=== PATIENT | male | born 1955 | race Caucasian/White ===

== ENCOUNTER 2016-09-13 07:45 | Observation (INO) | payer MEDICAID ==
[~2016-09-13] VITALS: Ht 182.9 cm; Wt 131.7 kg
[2016-09-13 08:16] LABS: BASO # 0.1 x10^3/uL (0.0-0.2); BASO % 1 % (0-3); EOS % 4 % (0-3); HEMATOCRIT 36.1 % (39.0-53.0); HEMOGLOBIN 11.9 g/dL (13.0-17.5); LYMPH # 1.8 x10^3/uL (1.0-4.8); LYMPH % 23 % (24-48); MEAN CORPUSCULAR HEMOGLOBIN 30 pg (25-35); MEAN CORPUSCULAR HGB CONC 33 g/dL (31-37); MEAN CORPUSCULAR VOLUME 90 fL (79-100); MONO % 7 % (0-9); NEUT % 65 % (31-73); PLATELET COUNT 152 x10^3/uL (140-400); RED CELL DISTRIBUTION WIDTH 13.2 % (11.5-14.5); WHITE BLOOD COUNT 8.1 x10^3/uL (4.0-11.0)
[2016-09-13 08:25] LABS: CALCIUM 9.3 mg/dL (8.5-10.1); CREATININE 1.2 mg/dL (0.7-1.3); GFR 61.6; POTASSIUM 4.5 mmol/L (3.5-5.1)
[2016-09-13 08:32] LABS: DIRECT BILIRUBIN 0.1 mg/dL (0.0-0.2); TOTAL BILIRUBIN 0.4 mg/dL (0.2-1.0); TOTAL PROTEIN 7.3 g/dL (6.4-8.2)
--- NOTE | 2016-09-13 08:36 | RAD ---
EXAM: Head CT without contrast. HISTORY: Seizure. TECHNIQUE: Computed tomographic images of the head were obtained without contrast. COMPARISON: None. FINDINGS: There is no acute or subacute extra-axial or intraparenchymal hemorrhage. There is no mass effect or midline shift. There is no hydrocephalus. There are areas of decreased attenuation within the cerebral white matter, nonspecific and likely related to chronic small vessel disease. There is cerebral and cerebellar volume loss. There is a mucous retention cyst within the left maxillary sinus and mild focal right maxillary sinus mucosal thickening. There is a 2.2 cm nodule within the left anterior maxillary soft tissues. The mastoid air cells are clear. No calvarial lesion is seen. IMPRESSION: 1. Scattered areas of hypodensity within the cerebral white matter, likely due to chronic small vessel disease. 2. Cerebral and cerebellar volume loss. PQRS Compliance Statement: One or more of the following individualized dose reduction techniques were utilized for this examination: 1. Automated exposure control 2. Adjustment of the mA and/or kV according to patient size 3. Use of iterative reconstruction technique
--- NOTE | 2016-09-13 08:37 | RAD ---
EXAM: Chest, single view. HISTORY: Cough. COMPARISON: 09/11/2009. FINDINGS: A frontal view of the chest is obtained. There is no infiltrate, effusion or pneumothorax. The heart is normal in size. IMPRESSION: No acute pulmonary finding.
[2016-09-13] MEDS ORDERED: ONDANSETRON PF 4 MG/2 ML VIAL. IV PRN ×2 (08:45→09:46)
[2016-09-13] MEDS ORDERED: MORPHINE SULFATE 2 MG/ML DISP.SYRIN. IV PRN (08:45)
--- NOTE | 2016-09-13 08:58 | PHYS DOC ---
Past Medical History Past Medical History: CHF, Constipation, Depression, Diabetes-Type II, High Cholesterol, Hypertension, Seizure, Schizophrenia, UTI Additional Past Medical Histor: xtra pyramidal movement disorder, insomnia, chronic pain, dermatitis Past Surgical History: Other Additional Past Surgical Histo: unknown, pt is poor historian Alcohol Use: Heavy Drug Use: Marijuana Adult General Chief Complaint Chief Complaint: SEIZURE HPI HPI 60-year-old male presenting to the emergency department today with an episode at his rehabilitation [facility] in [place] where he had fulminant and shaking of his upper and lower extremities and loss of consciousness. This lasted for about 30 seconds and then the patient was confused afterwards. [facility] staff reports that yesterday he was oriented 4. Today he is only oriented to person. He reports that he was pale after the event which improved prior to the ambulance getting there. Onset today Location generalized Duration once No alleviating factors present. Review of Systems Review of Systems ROS negative for fevers chills abdominal pain nausea vomiting. He denies meningismus or neck stiffness. All other review of systems is negative unless otherwise noted in history of present illness. Allergies Allergies Allergies Coded Allergies Type Severity Reaction Last Updated Verified No Known Drug Allergies 09/13/16 No Physical Exam Physical Exam Constitutional: Well developed, well nourished, no acute distress, non-toxic appearance. HENT: Normocephalic, atraumatic, bilateral external ears normal, oropharynx moist, no oral exudates, nose normal. [] Eyes: PERRLA, EOMI, conjunctiva normal, no discharge. Neck: Normal range of motion, no tenderness, supple, no stridor. [] Cardiovascular:Heart rate regular rhythm, no murmur Lungs & Thorax: Bilateral breath sounds clear to auscultation [] Abdomen: Bowel sounds normal, soft, no tenderness, no masses, no pulsatile masses. [] Skin: Warm, dry, no erythema, no rash. Back: No tenderness, no CVA tenderness. Extremities: No tenderness, no cyanosis, no clubbing, ROM intact, no edema. [] Neurologic: Alert and oriented to person, normal motor function, normal sensory function, no focal deficits noted. Psychologic: Affect normal, judgement normal, mood normal. [] Current Patient Data Vital Signs Vital Signs Date Time Temp Pulse Resp B/P Pulse Ox O2 Delivery O2 Flow Rate FiO2 09/13/16 07:45 97.6 72 12 150/78 93 Room Air 97.6 Lab Values Laboratory Tests Test 09/13/16 07:50 White Blood Count 8.1x10^3/uL (4.0-11.0) Red Blood Count 4.00x10^6/uL (4.30-5.70) L Hemoglobin 11.9g/dL (13.0-17.5) L Hematocrit 36.1% (39.0-53.0) L Mean Corpuscular Volume 90fL (79-100) Mean Corpuscular Hemoglobin 30pg (25-35) Mean Corpuscular Hemoglobin Concent 33g/dL (31-37) Red Cell Distribution Width 13.2% (11.5-14.5) Platelet Count 152x10^3/uL (140-400) Neutrophils (%) (Auto) 65% (31-73) Lymphocytes (%) (Auto) 23% (24-48) L Monocytes (%) (Auto) 7% (0-9) Eosinophils (%) (Auto) 4% (0-3) H Basophils (%) (Auto) 1% (0-3) Neutrophils # (Auto) 5.3x10^3uL (1.8-7.7) Lymphocytes # (Auto) 1.8x10^3/uL (1.0-4.8) Monocytes # (Auto) 0.6x10^3/uL (0.0-1.1) Eosinophils # (Auto) 0.3x10^3/uL (0.0-0.7) Basophils # (Auto) 0.1x10^3/uL (0.0-0.2) Sodium Level 140mmol/L (136-145) Potassium Level 4.5mmol/L (3.5-5.1) Chloride Level 103mmol/L (98-107) Carbon Dioxide Level 24mmol/L (21-32) Anion Gap 13 (6-14) Blood Urea Nitrogen 15mg/dL (8-26) Creatinine 1.2mg/dL (0.7-1.3) Estimated GFR (Cockcroft-Gault) 61.6 Glucose Level 211mg/dL (70-99) H Lactic Acid Level 2.4mmol/L (0.4-2.0) H Calcium Level 9.3mg/dL (8.5-10.1) Total Bilirubin 0.4mg/dL (0.2-1.0) Direct Bilirubin 0.1mg/dL (0.0-0.2) Aspartate Amino Transferase (AST) 29U/L (15-37) Alanine Aminotransferase (ALT) 50U/L (16-63) Alkaline Phosphatase 56U/L (46-116) Troponin I Quantitative < 0.017ng/mL (0.000-0.055) AN-Wiq-T-Type Natriuretic Peptide 45pg/mL (0-124) Total Protein 7.3g/dL (6.4-8.2) Albumin 4.0g/dL (3.4-5.0) Lipase 2509U/L (73-393) H Laboratory Tests 09/13/16 07:50 Laboratory Tests 09/13/16 07:50 EKG EKG [] EKG shows sinus rhythm with regular rate. Mildly leftward axis. Intervals normal. ST segments congruent Radiology/Procedures Radiology/Procedures Head CT and chest x-ray unremarkable. Course & Med Decision Making Course & Med Decision Making Pertinent Labs and Imaging studies reviewed. (See chart for details) [] 60-year-old male presenting to the emergency department today with seizure- like activity and postictal confusion. On evaluation the patient's vital signs showed afebrile satting well with mild hypertension. Physical exam showed that he was only oriented to person which by report of [facility] is not baseline for the patient. Head CT unremarkable. EKG unremarkable chest x- ray unremarkable. Blood work otherwise obtained which showed mild anemia and hyperglycemia. Lactic acid elevated consistent with seizure-like activity. The patient's lipase was elevated at 2500. This is not consistent with the patient' s presentation. He denies abdominal pain nausea vomiting. He has not vomited in the exam room during his emergency department course. Given the patient's significant symptoms she was admitted for further evaluation workup and care. Dragon Disclaimer Dragon Disclaimer This electronic medical record was generated, in whole or in part, using a voice recognition dictation system. Departure Departure Impression: Primary Impression: Seizure-like activity Disposition: ADMITTED INPATIENT Admitting Physician: Theresa Marshall Condition: STABLE Referrals: NO PCP (PCP) CORINA LUO MD Sep 13, 2016 08:58
--- NOTE | 2016-09-13 09:17 | ACF ---
Admission Forms Criteria SEIZURE Clinical Indications for Admission to Inpatient Care (Place 'X' for any and all applicable criteria): Admission is indicated for seizure and ANY ONE of the following(1)(2)(3)(4)(5): [X]I. Inpatient admission required rather than observation care (Also use Seizure: Observation Care Criteria as appropriate) because of ANY ONE of the following: [ ]a) Altered mental status that is severe or persistent [ ]b) New focal neurologic deficit that is severe or persistent [ ]c) Metabolic disorder (eg, hypoglycemia, hyponatremia) that is severe or persistent [ ]d) Recurrent seizure [ ]e) Outpatient antiseizure regimen cannot be established (eg , patient cannot tolerate medication, initiation requires inpatient care) [ ]f) Need for ongoing intravenous infusion of antiseizure medication [ ]g) Cardiac arrhythmias of immediate concern [ ]h) Cerebral bleeding, hydrocephalus, or vasospasm monitoring (14) [ ]i) Increased intracranial pressure or cerebral edema monitoring (15) [X]j) Other treatment or monitoring requiring inpatient admission [ ]II. Status epilepticus [A] or repetitive seizures not controlled with emergent treatment (6)(8) [ ]III. Brain disorder (eg, tumor, edema, and hydrocephalus) that requiring monitoring or intervention available only at inpatient level of care. [ ]IV. Brain insult (eg, severe trauma, stroke, drug toxicity, or withdrawal) that requires monitoring or intervention available only at inpatient level of care (10)(11) Extended stay beyond goal length of stay may be needed for (22) [ ]a) Complications of status epilepticus [ ]b) Refractory status epilepticus [ ]c) Etiology-specific therapy for conditions such as VICE CHANCELLOR infection, head injury,eclampsia, severe metabolic abnormalities, and brain tumor [ ]d) Residual neurologic damage, [ ]e) Initiation of significant change to anticonvulsant treatment [ ]f) Older patients (65 years or older) [ ]g) Patient requiring intubation (eg, to protect airway) The original [employer] content created by [employer] has been revised. The portions of the content which have been revised are identified through the use of italic text or in bold, and [facility] [employer] has neither reviewed nor approved the modified material. All other unmodified content is copyright [facility] [employer]. Please see references footnoted in the original [facility] edition 2016 Admission Criteria Met?: Yes JAILENE MCLAUGHLIN Sep 13, 2016 09:17
[2016-09-13 09:41] LABS: BILIRUBIN,URINE NEGATIVE (NEG); GLUCOSE,URINE 250 mg/dL (NEG); NITRITE,URINE NEGATIVE (NEG); UROBILINOGEN,URINE 0.2 mg/dL (0.2 mg/dL)
[2016-09-13 09:58] LABS: BACTERIA,URINE 0 /HPF (0-FEW); PROTEIN,URINE NEGATIVE (NEG-TRACE); RBC,URINE 0 /HPF (0-2); SQUAMOUS EPITHELIAL CELL,UR MOD /LPF
[2016-09-13] MEDS ORDERED: ACETAMINOPHEN 500 MG TABLET PO PRN (10:00)
[2016-09-13] MEDS ORDERED: HYDROCODONE/APAP 5/325MG TABLET. PO PRN (10:00)
[2016-09-13] MEDS ORDERED: DEXTROSE 50% 25 GM / 50ML DISP.SYRIN. IV PRN (10:00)
[2016-09-13 10:30] VITALS: BP 151/82
[2016-09-13 10:35] VITALS: BP 151/82
--- NOTE | 2016-09-13 10:48 | PDOC1 ---
History and Physical Date of Admission Date of Admission DATE: 09/13/16 TIME: 10:42 Identification/Chief Complaint Chief Complaint sent by SN[facility] staff bec of reports of SZ or SZ like activity Source Source: Caregiver, Chart review, Patient History of Present Illness History of Present Illness 60 y.o poor historian, maybe baseline confused and is still confused. Hx obtained from RN and ER MD. Apparently lives in SNU in [place], brought by staff bec of concerns of SZ or SZ like activity. Pt cant tell me hat happened, NOT on SZ meds on OCT,. HE thinks Lonnie is the president and it is 2011. The most he can tell me is his date of and that his outgrowth on his left cheek has been there long time, HE claims he ambulates with walker in SNU LAbs ok except for lactate 2.4 and lipase 2500, Pt denies any abd pain, abd is benign, pt is hungry Past Medical History Past Medical History UNable to obtain bec of confusion, home meds still pending Past Surgical History Past Surgical History Unable to obtain bec of confusion Family History Family History Unable to obtain bec of confusion Social History Smoke: No ALCOHOL: none Drugs: None Current Problem List Problem List Problems Medical Problems: (1) Seizure-like activity Status: Acute Problems: Current Medications Current Medications Current Medications Ondansetron HCl (Zofran) 4 mg PRN Q8HRS PRN IV NAUSEA/VOMITING; Start 09/13/16 at 08:45; Stop 09/13/16 at 09:48; Status DC Morphine Sulfate 2 mg PRN Q2HR PRN IV PAIN; Start 09/13/16 at 08:45; Stop 09/14 at 08:44 Ondansetron HCl (Zofran) 4 mg PRN Q6HRS PRN IV NAUSEA/VOMITING; Start 09/13/16 at 09:46 Acetaminophen (Tylenol) 500 mg PRN Q6HRS PRN PO MILD PAIN / TEMP; Start at 10:00 Insulin Aspart (Novolog) 0-9 UNITS TIDWMEALS SQ ; Start 09/13/16 at 12:00 Dextrose 12.5 gm PRN Q15MIN PRN IV SEE COMMENTS; Start 09/13/16 at 10:00 Acetaminophen/ Hydrocodone Bitart (Lortab 5/325) 1 tab PRN Q4HRS PRN PO PAIN; Start 09/13/16 at 10:00 Allergies Allergies: Coded Allergies: No Known Drug Allergies (Unverified , 09/13/16) ROS Review of System Unable to obtain bec of confusion Physical Exam General: Alert, Cooperative, Other (oriented to place and self only) HEENT: Atraumatic, PERRLA Lungs: Clear to auscultation, Normal air movement Heart: S1S2, RRR, no thrills, no rubs, no gallops, no murmurs Cardiovascular: S1, S2 Abdomen: Normal bowel sounds, Soft, No tenderness, No hepatosplenomegaly, No masses Male Genitals Exam: normal genitalia Rectal Exam: not examined Extremities: No clubbing, No cyanosis, No edema, Normal pulses, No tenderness/ swelling Skin: No rashes, No breakdown, No significant lesion Psych/Mental Status: Other (flat affect?) Vitals Vitals Vital Signs Date Time Temp Pulse Resp B/P Pulse Ox O2 Delivery O2 Flow Rate FiO2 09/13/16 09:00 83 15 142/78 99 09/13/16 07:45 97.6 Room Air 97.6 Labs Labs Laboratory Tests Test 09/13/16 07:50 09/13/16 09:29 White Blood Count 8.1x10^3/uL (4.0-11.0) Red Blood Count 4.00x10^6/uL (4.30-5.70) Hemoglobin 11.9g/dL (13.0-17.5) Hematocrit 36.1% (39.0-53.0) Mean Corpuscular Volume 90fL (79-100) Mean Corpuscular Hemoglobin 30pg (25-35) Mean Corpuscular Hemoglobin Concent 33g/dL (31-37) Red Cell Distribution Width 13.2% (11.5-14.5) Platelet Count 152x10^3/uL (140-400) Neutrophils (%) (Auto) 65% (31-73) Lymphocytes (%) (Auto) 23% (24-48) Monocytes (%) (Auto) 7% (0-9) Eosinophils (%) (Auto) 4% (0-3) Basophils (%) (Auto) 1% (0-3) Neutrophils # (Auto) 5.3x10^3uL (1.8-7.7) Lymphocytes # (Auto) 1.8x10^3/uL (1.0-4.8) Monocytes # (Auto) 0.6x10^3/uL (0.0-1.1) Eosinophils # (Auto) 0.3x10^3/uL (0.0-0.7) Basophils # (Auto) 0.1x10^3/uL (0.0-0.2) Sodium Level 140mmol/L (136-145) Potassium Level 4.5mmol/L (3.5-5.1) Chloride Level 103mmol/L (98-107) Carbon Dioxide Level 24mmol/L (21-32) Anion Gap 13 (6-14) Blood Urea Nitrogen 15mg/dL (8-26) Creatinine 1.2mg/dL (0.7-1.3) Estimated GFR (Cockcroft-Gault) 61.6 Glucose Level 211mg/dL (70-99) Lactic Acid Level 2.4mmol/L (0.4-2.0) Calcium Level 9.3mg/dL (8.5-10.1) Total Bilirubin 0.4mg/dL (0.2-1.0) Direct Bilirubin 0.1mg/dL (0.0-0.2) Aspartate Amino Transf (AST/SGOT) 29U/L (15-37) Alanine Aminotransferase (ALT/SGPT) 50U/L (16-63) Alkaline Phosphatase 56U/L (46-116) Troponin I Quantitative < 0.017ng/mL (0.000-0.055) JY-Atw-E-Type Natriuretic Peptide 45pg/mL (0-124) Total Protein 7.3g/dL (6.4-8.2) Albumin 4.0g/dL (3.4-5.0) Lipase 2509U/L (73-393) Urine Collection Type Void Urine Color Yellow Urine Clarity Clear Urine pH 6.0 Urine Specific [place] 1.020 Urine Protein Negativemg/dL (NEG-TRACE) Urine Glucose (UA) 250mg/dL (NEG) Urine Ketones (Stick) Negativemg/dL (NEG) Urine Blood Negative (NEG) Urine Nitrite Negative (NEG) Urine Bilirubin Negative (NEG) Urine Urobilinogen Dipstick 0.2mg/dL (0.2 mg/dL) Urine Leukocyte Esterase Negative (NEG) Urine RBC 0/HPF (0-2) Urine WBC 1-4/HPF (0-4) Urine Squamous Epithelial Cells Mod/LPF Urine Bacteria 0/HPF (0-FEW) Laboratory Tests Test 09/13/16 07:50 09/13/16 09:29 White Blood Count 8.1x10^3/uL (4.0-11.0) Red Blood Count 4.00x10^6/uL (4.30-5.70) Hemoglobin 11.9g/dL (13.0-17.5) Hematocrit 36.1% (39.0-53.0) Mean Corpuscular Volume 90fL (79-100) Mean Corpuscular Hemoglobin 30pg (25-35) Mean Corpuscular Hemoglobin Concent 33g/dL (31-37) Red Cell Distribution Width 13.2% (11.5-14.5) Platelet Count 152x10^3/uL (140-400) Neutrophils (%) (Auto) 65% (31-73) Lymphocytes (%) (Auto) 23% (24-48) Monocytes (%) (Auto) 7% (0-9) Eosinophils (%) (Auto) 4% (0-3) Basophils (%) (Auto) 1% (0-3) Neutrophils # (Auto) 5.3x10^3uL (1.8-7.7) Lymphocytes # (Auto) 1.8x10^3/uL (1.0-4.8) Monocytes # (Auto) 0.6x10^3/uL (0.0-1.1) Eosinophils # (Auto) 0.3x10^3/uL (0.0-0.7) Basophils # (Auto) 0.1x10^3/uL (0.0-0.2) Sodium Level 140mmol/L (136-145) Potassium Level 4.5mmol/L (3.5-5.1) Chloride Level 103mmol/L (98-107) Carbon Dioxide Level 24mmol/L (21-32) Anion Gap 13 (6-14) Blood Urea Nitrogen 15mg/dL (8-26) Creatinine 1.2mg/dL (0.7-1.3) Estimated GFR (Cockcroft-Gault) 61.6 Glucose Level 211mg/dL (70-99) Lactic Acid Level 2.4mmol/L (0.4-2.0) Calcium Level 9.3mg/dL (8.5-10.1) Total Bilirubin 0.4mg/dL (0.2-1.0) Direct Bilirubin 0.1mg/dL (0.0-0.2) Aspartate Amino Transf (AST/SGOT) 29U/L (15-37) Alanine Aminotransferase (ALT/SGPT) 50U/L (16-63) Alkaline Phosphatase 56U/L (46-116) Troponin I Quantitative < 0.017ng/mL (0.000-0.055) QG-Fma-T-Type Natriuretic Peptide 45pg/mL (0-124) Total Protein 7.3g/dL (6.4-8.2) Albumin 4.0g/dL (3.4-5.0) Lipase 2509U/L (73-393) Urine Collection Type Void Urine Color Yellow Urine Clarity Clear Urine pH 6.0 Urine Specific [place] 1.020 Urine Protein Negativemg/dL (NEG-TRACE) Urine Glucose (UA) 250mg/dL (NEG) Urine Ketones (Stick) Negativemg/dL (NEG) Urine Blood Negative (NEG) Urine Nitrite Negative (NEG) Urine Bilirubin Negative (NEG) Urine Urobilinogen Dipstick 0.2mg/dL (0.2 mg/dL) Urine Leukocyte Esterase Negative (NEG) Urine RBC 0/HPF (0-2) Urine WBC 1-4/HPF (0-4) Urine Squamous Epithelial Cells Mod/LPF Urine Bacteria 0/HPF (0-FEW) VTE Prophylaxis Ordered VTE Prophylaxis Devices: Yes VTE Pharmacological Prophylaxi: Yes Assessment/Plan Assessment/Plan 1. Acute vs chronic encephalopathy 2 reports of SZ like activity in SNU 3. SNU resident 4. Elevated lactate 5. Elevated lipase but no abdominal pain PLAN:" Ok for reg diet IVF Recheck lipase and lactate jareth Consult neuro PT/OT Dvt prophy Awaiting home meds from SNU Hemant RN at bedside TERI LOWE MD Sep 13, 2016 10:48
[2016-09-13] MEDS ORDERED: GLYB5TAB3 PO (11:10)
[2016-09-13] MEDS ORDERED: VENL150C PO (11:10)
[2016-09-13] MEDS ORDERED: MULT-245 PO (11:11)
[2016-09-13] MEDS ORDERED: INSU100V13 SQ (11:11)
[2016-09-13] MEDS ORDERED: QUET400T4 PO (11:11)
[2016-09-13] MEDS ORDERED: LISI10TA2 PO (11:11)
[2016-09-13] MEDS ORDERED: SIMV40TA3 PO (11:13)
[2016-09-13] MEDS ORDERED: TRAZ100T12 PO (11:13)
[2016-09-13] MEDS ORDERED: ACETAMINOPHEN 325 MG TABLET. PO PRN (11:15)
[2016-09-13] MEDS ORDERED: MAGNESIUM HYDROXIDE 2,400 MG/30 ML ORAL.SUSP. PO PRN (11:15)
[2016-09-13] MEDS ORDERED: EZET1TAB4 PO (11:16)
[2016-09-13] MEDS ORDERED: CETI10TA22 PO (11:16)
[2016-09-13] MEDS ORDERED: SENN1TAB37 PO (11:16)
[2016-09-13] MEDS ORDERED: HALO5TAB PO (11:16)
[2016-09-13] MEDS ORDERED: METF10002 PO (11:16)
[2016-09-13] MEDS ORDERED: IPRA3AMP NEB (11:22)
[2016-09-13] MEDS ORDERED: GABA-587 PO (11:22)
[2016-09-13] MEDS ORDERED: ACET325T21 PO (11:22)
[2016-09-13] MEDS ORDERED: OMEG1CAP38 PO (11:22)
[2016-09-13] MEDS ORDERED: MAGN400O4 PO (11:22)
[2016-09-13] MEDS ORDERED: GUAI-297 PO (11:22)
[2016-09-13] MEDS ORDERED: NICO4GUM3 BC (11:24)
[2016-09-13] MEDS ORDERED: CRAN1CAP PO (11:24)
[2016-09-13] MEDS ORDERED: ASPI81TA2 PO (11:24)
[2016-09-13] MEDS: IV NORMAL SALINE 1000ML BAG 1,000 ML IV SCH (11:30)
[2016-09-13] MEDS ORDERED: GUAIFENESIN DM 200MG/20MG 10 ML SYRUP. PO PRN (11:45)
--- NOTE | 2016-09-13 11:45 | EKG ---
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
[2016-09-13] MEDS: INSULIN ASPART 300 UNITS/3 ML INSULN.PEN SQ SCH ×2 (12:00→16:39)
[2016-09-13] MEDS: SENNOSIDES/DOCUSATE 8.6/50MG TABLET. PO SCH (12:30)
[2016-09-13] MEDS: INSULIN DETEMIR 300 UNITS/3 ML INSULN.PEN. SQ SCH (12:30)
[2016-09-13] MEDS: IPRATRPIUM/ALBUTEROL 0.5/2.5MG 3 ML NEBU. NEB SCH ×3 (13:00→19:29)
[2016-09-13] MEDS: ASPIRIN 81 MG TAB.CHEW PO SCH (13:01)
[2016-09-13] MEDS: OMEGA-3 FATTY ACIDS/FISH OIL 1,000 MG CAPSULE. PO SCH (13:01)
[2016-09-13] MEDS: LISINOPRIL 10 MG TABLET PO SCH (13:02)
[2016-09-13] MEDS: VENLAFAXINE 50 MG TABLET. PO SCH ×2 (13:02→19:45)
[2016-09-13] MEDS: HALOPERIDOL 5 MG TABLET PO SCH ×2 (13:02→19:46)
[2016-09-13] MEDS: CETIRIZINE HCL 10 MG TABLET PO SCH (13:03)
[2016-09-13] MEDS: ENOXAPARIN 40 MG/0.4 ML DISP.SYRIN. SQ SCH (13:03)
[2016-09-13] MEDS: GLYBURIDE 5 MG TABLET PO SCH (13:04)
[2016-09-13] MEDS: GABAPENTIN 400 MG CAPSULE. PO SCH ×2 (13:04→19:46)
[2016-09-13 15:32] VITALS: BP 152/80
[2016-09-13] MEDS: METFORMIN 1,000 MG TABLET PO SCH (16:02)
--- NOTE | 2016-09-13 16:17 | PDOC2 ---
CONSULT Date of Consult Date of Consult DATE: 09/13/16 TIME: 16:15 History of Present Illness Reason for Visit: This patient is 60-year-old male with past medical history of multiple medical problems with a history of hypertension, seizures, schizophrenia, depression, congestive heart failure,, constipation, insomnia. Patient is a poor historian information obtained from staff and record review. Patient came from [facility]. He was having shaking in his upper and lower extremities has loss of consciousness patient was confused afterwards. Patient consent. Appears to be at their baseline. No new seizure activity. Encephalopathy with history of multiple medical problems Patient denies any new complaints. Keppta 500 mg twice a day MRI brain to rule out any acute process EEG as outpatient Continue medical management Seizure precautions Social History No ALCOHOL: none Drugs: None Current Problem List Problem List Problems Medical Problems: (1) Seizure-like activity Status: Acute Current Medications Current Medications Current Medications Ondansetron HCl (Zofran) 4 mg PRN Q8HRS PRN IV NAUSEA/VOMITING; Start 09/13/16 at 08:45; Stop 09/13/16 at 09:48; Status DC Morphine Sulfate 2 mg PRN Q2HR PRN IV PAIN; Start 09/13/16 at 08:45; Stop 09/14 at 08:44 Ondansetron HCl (Zofran) 4 mg PRN Q6HRS PRN IV NAUSEA/VOMITING; Start 09/13/16 at 09:46 Acetaminophen (Tylenol) 500 mg PRN Q6HRS PRN PO MILD PAIN / TEMP; Start at 10:00; Stop 09/13/16 at 14:32; Status DC Insulin Aspart (Novolog) 0-9 UNITS TIDWMEALS SQ ; Start 09/13/16 at 12:00 Dextrose 12.5 gm PRN Q15MIN PRN IV SEE COMMENTS; Start 09/13/16 at 10:00 Acetaminophen/ Hydrocodone Bitart 1 tab 1 tab PRN Q4HRS PRN PO MODERATE - SEVERE PAIN; Start 09/13/16 at 10:00 Sodium Chloride (Iv Sodium Chloride 0.9% 1000ml Bag) 1,000 ml @ 100 mls/hr Q10H IV Last administered on 09/13/16t 11:30; Start 09/13/16 at 11:30 Enoxaparin Sodium (Lovenox 40mg Syringe) 40 mg Q24H SQ Last administered on 13:03; Start 09/13/16 at 12:00 Acetaminophen (Tylenol) 325 mg PRN Q4HRS PRN PO MILD PAIN / TEMP; Start at 11:15 Aspirin (Children'S Aspirin) 81 mg DAILY PO Last administered on 09/13/16 13: 01; Start 09/13/16 at 12:30 Cetirizine HCl (Zyrtec) 10 mg DAILY08 PO Last administered on 09/13/16 13:03; Start 09/13/16 at 12:30 Gabapentin (Neurontin) 400 mg TID PO Last administered on 09/13/16 13:04; Start 09/13/16 at 14:00 Glyburide (Diabeta) 5 mg DAILY08 PO Last administered on 09/13/16 13:04; Start 09/13/16 at 12:30 Haloperidol (Haldol) 5 mg BID PO Last administered on 09/13/16 13:02; Start at 12:30 Albuterol/ Ipratropium (Duoneb) 3 ml QID NEB ; Start 09/13/16 at 13:00 Lisinopril (Prinivil) 10 mg DAILY PO Last administered on 09/13/16 13:02; Start 09/13/16 at 12:30 Magnesium Hydroxide (Milk Of Magnesia) 400 mg PRN QAM PRN PO CONSTIPATION; Start 09/13/16 at 11:15 Metformin HCl (Glucophage) 1,000 mg BIDWMEALS PO ; Start 09/13/16 at 17:00 Senna/Docusate Sodium (Senna Plus) 1 tab DAILY08 PO ; Start 09/13/16 at 12:30 Simvastatin (Zocor) 40 mg QHS PO ; Start 09/13/16 at 21:00 Trazodone HCl (Desyrel) 100 mg QHS PO ; Start 09/13/16 at 21:00 EZETIMIBE (Zetia) 10 mg QHS PO ; Start 09/13/16 at 21:00 Guaifenesin (Robitussin Dm) 10 ml PRN Q6HRS PRN PO COUGH; Start 09/13/16 at 11: 45 Insulin Detemir (Levemir) 10 units DAILY08 SQ ; Start 09/13/16 at 12:30 Fish Oil (Fish Oil) 1,000 mg DAILY PO Last administered on 09/13/16 13:01; Start 09/13/16 at 12:30 Quetiapine Fumarate (SEROquel) 400 mg QHS PO ; Start 09/13/16 at 21:00 Venlafaxine HCl (Effexor) 50 mg TID PO Last administered on 09/13/16 13:02; Start 09/13/16 at 14:00 Levetiracetam (Keppra) 500 mg BID PO ; Start 09/13/16 at 17:00 Active Scripts Active Reported Cranberry Concentrate Softgel (Cranberry Conc/Ascorbic Acid) 1 Each Capsule 1 Each PO Aspirin 81 Mg Tab.chew 1 Tab PO DAILY Nicotine Gum (Nicotine Polacrilex) 4 Mg Gum 4 Mg BC Milk Of Magnesia (Magnesium Hydroxide) 400 Mg/5 Ml Oral.susp 400 Mg PO PRN Duoneb 0.5-3(2.5) Mg/3 Ml (Albuterol/Ipratropium) 3 Ml Ampul.neb 3 Ml NEB QID Acetaminophen 325 Mg Tablet 325 Mg PO PRN Robitussin Cough-Chest Dm Liq (Guaifenesin/Dextromethorphan) 118 Ml Liquid 10 Ml PO QID 7 Days [place] 3 Fish Oil Softgel ([place]-3 Fatty Acids/Fish Oil) 1 Each Capsule. 1 Each PO DAILY Gabapentin 400 Mg Capsule 400 Mg PO TID Sennosides-Docusate Sodium Tab (Sennosides/Docusate Sodium) 1 Each Tablet 6-50 Each PO Metformin Hcl 1,000 Mg Tablet 1 Tab PO BID Haloperidol 5 Mg Tablet 5 Tab PO BID Zyrtec (Cetirizine Hcl) 10 Mg Tablet 1 Tab PO DAILY08 Vytorin 10-20 Mg Tablet (Ezetimibe/Simvastatin) 1 Each Tablet 1 Tab PO DAILY Trazodone Hcl 100 Mg Tablet 2 Tab PO QHS Simvastatin 40 Mg Tablet 1 Tab PO QHS Seroquel (Quetiapine Fumarate) 400 Mg Tablet 400 Tab PO QHS Multi Vitamin Daily (Multivitamin) 1 Each Tablet 1 Each PO Lisinopril 10 Mg Tablet 1 Tab PO DAILY Levemir (Insulin Detemir) 100 Unit/1 Ml Vial 10 Unit SQ DAILY08 Glyburide 5 Mg Tablet 2 Tab PO DAILY08 Effexor Xr (Venlafaxine Hcl) 150 Mg Cap.er.24h 1 Cap PO DAILY Allergies Allergies: Coded Allergies: No Known Drug Allergies (Unverified , 09/13/16) Physical Exam Physical Exam REVIEW OF SYSTEMS: Otherwise, not [id number] review of systems. PHYSICAL EXAMINATION: General appearance is in acute distress. HEENT: Normocephalic and nontraumatic. Eyes, nose, ears, and throat are unremarkable. Neck is supple. No lymphadenopathy. No crepitus. Cardiovascular: S1, S2, regular rate and rhythm. Pulmonary: Clear to auscultation bilaterally. Abdomen: Bowel sounds are positive. Abdomen is soft, nontender, and nondistended. Extremities: No rash, lesions, or edema. No restriction of range of motion NEUROLOGICAL EXAMINATION: Alert Oriented to does not know right month, place and person. PERRL. EOMI. CN: no focal findings. Muscle tone: within normal. Muscle strength: 5 DTR: 2 Plantar reflex: Flexor response bilaterally Gait: not examined in bed. Sensory exam: no abnormal findings. No obvious cerebellar signs elicited. Vitals VITALS Vital Signs Date Time Temp Pulse Resp B/P Pulse Ox O2 Delivery O2 Flow Rate FiO2 09/13/16 15:32 97.8 69 20 152/80 95 Room Air 97.8 Labs Labs Laboratory Tests Test 09/13/16 07:50 09/13/16 09:29 09/13/16 12:21 White Blood Count 8.1x10^3/uL (4.0-11.0) Red Blood Count 4.00x10^6/uL (4.30-5.70) Hemoglobin 11.9g/dL (13.0-17.5) Hematocrit 36.1% (39.0-53.0) Mean Corpuscular Volume 90fL (79-100) Mean Corpuscular Hemoglobin 30pg (25-35) Mean Corpuscular Hemoglobin Concent 33g/dL (31-37) Red Cell Distribution Width 13.2% (11.5-14.5) Platelet Count 152x10^3/uL (140-400) Neutrophils (%) (Auto) 65% (31-73) Lymphocytes (%) (Auto) 23% (24-48) Monocytes (%) (Auto) 7% (0-9) Eosinophils (%) (Auto) 4% (0-3) Basophils (%) (Auto) 1% (0-3) Neutrophils # (Auto) 5.3x10^3uL (1.8-7.7) Lymphocytes # (Auto) 1.8x10^3/uL (1.0-4.8) Monocytes # (Auto) 0.6x10^3/uL (0.0-1.1) Eosinophils # (Auto) 0.3x10^3/uL (0.0-0.7) Basophils # (Auto) 0.1x10^3/uL (0.0-0.2) Sodium Level 140mmol/L (136-145) Potassium Level 4.5mmol/L (3.5-5.1) Chloride Level 103mmol/L (98-107) Carbon Dioxide Level 24mmol/L (21-32) Anion Gap 13 (6-14) Blood Urea Nitrogen 15mg/dL (8-26) Creatinine 1.2mg/dL (0.7-1.3) Estimated GFR (Cockcroft-Gault) 61.6 Glucose Level 211mg/dL (70-99) Lactic Acid Level 2.4mmol/L (0.4-2.0) Calcium Level 9.3mg/dL (8.5-10.1) Total Bilirubin 0.4mg/dL (0.2-1.0) Direct Bilirubin 0.1mg/dL (0.0-0.2) Aspartate Amino Transf (AST/SGOT) 29U/L (15-37) Alanine Aminotransferase (ALT/SGPT) 50U/L (16-63) Alkaline Phosphatase 56U/L (46-116) Troponin I Quantitative < 0.017ng/mL (0.000-0.055) [id number]-Type Natriuretic Peptide 45pg/mL (0-124) Total Protein 7.3g/dL (6.4-8.2) Albumin 4.0g/dL (3.4-5.0) Lipase 2509U/L (73-393) Urine Collection Type Void Urine Color Yellow Urine Clarity Clear Urine pH 6.0 Urine Specific [place] 1.020 Urine Protein Negativemg/dL (NEG-TRACE) Urine Glucose (UA) 250mg/dL (NEG) Urine Ketones (Stick) Negativemg/dL (NEG) Urine Blood Negative (NEG) Urine Nitrite Negative (NEG) Urine Bilirubin Negative (NEG) Urine Urobilinogen Dipstick 0.2mg/dL (0.2 mg/dL) Urine Leukocyte Esterase Negative (NEG) Urine RBC 0/HPF (0-2) Urine WBC 1-4/HPF (0-4) Urine Squamous Epithelial Cells Mod/LPF Urine Bacteria 0/HPF (0-FEW) Glucose (Fingerstick) 211mg/dL (70-99) Laboratory Tests Test 09/13/16 07:50 09/13/16 09:29 09/13/16 12:21 White Blood Count 8.1x10^3/uL (4.0-11.0) Red Blood Count 4.00x10^6/uL (4.30-5.70) Hemoglobin 11.9g/dL (13.0-17.5) Hematocrit 36.1% (39.0-53.0) Mean Corpuscular Volume 90fL (79-100) Mean Corpuscular Hemoglobin 30pg (25-35) Mean Corpuscular Hemoglobin Concent 33g/dL (31-37) Red Cell Distribution Width 13.2% (11.5-14.5) Platelet Count 152x10^3/uL (140-400) Neutrophils (%) (Auto) 65% (31-73) Lymphocytes (%) (Auto) 23% (24-48) Monocytes (%) (Auto) 7% (0-9) Eosinophils (%) (Auto) 4% (0-3) Basophils (%) (Auto) 1% (0-3) Neutrophils # (Auto) 5.3x10^3uL (1.8-7.7) Lymphocytes # (Auto) 1.8x10^3/uL (1.0-4.8) Monocytes # (Auto) 0.6x10^3/uL (0.0-1.1) Eosinophils # (Auto) 0.3x10^3/uL (0.0-0.7) Basophils # (Auto) 0.1x10^3/uL (0.0-0.2) Sodium Level 140mmol/L (136-145) Potassium Level 4.5mmol/L (3.5-5.1) Chloride Level 103mmol/L (98-107) Carbon Dioxide Level 24mmol/L (21-32) Anion Gap 13 (6-14) Blood Urea Nitrogen 15mg/dL (8-26) Creatinine 1.2mg/dL (0.7-1.3) Estimated GFR (Cockcroft-Gault) 61.6 Glucose Level 211mg/dL (70-99) Lactic Acid Level 2.4mmol/L (0.4-2.0) Calcium Level 9.3mg/dL (8.5-10.1) Total Bilirubin 0.4mg/dL (0.2-1.0) Direct Bilirubin 0.1mg/dL (0.0-0.2) Aspartate Amino Transf (AST/SGOT) 29U/L (15-37) Alanine Aminotransferase (ALT/SGPT) 50U/L (16-63) Alkaline Phosphatase 56U/L (46-116) Troponin I Quantitative < 0.017ng/mL (0.000-0.055) [id number]-S-Type Natriuretic Peptide 45pg/mL (0-124) Total Protein 7.3g/dL (6.4-8.2) Albumin 4.0g/dL (3.4-5.0) Lipase 2509U/L (73-393) Urine Collection Type Void Urine Color Yellow Urine Clarity Clear Urine pH 6.0 Urine Specific [place] 1.020 Urine Protein Negativemg/dL (NEG-TRACE) Urine Glucose (UA) 250mg/dL (NEG) Urine Ketones (Stick) Negativemg/dL (NEG) Urine Blood Negative (NEG) Urine Nitrite Negative (NEG) Urine Bilirubin Negative (NEG) Urine Urobilinogen Dipstick 0.2mg/dL (0.2 mg/dL) Urine Leukocyte Esterase Negative (NEG) Urine RBC 0/HPF (0-2) Urine WBC 1-4/HPF (0-4) Urine Squamous Epithelial Cells Mod/LPF Urine Bacteria 0/HPF (0-FEW) Glucose (Fingerstick) 211mg/dL (70-99) Assessment/Plan Assessment/Plan This patient is 60-year-old male with past medical history of multiple medical problems with a history of hypertension, seizures, schizophrenia, depression, congestive heart failure,, constipation, insomnia. Patient is a poor historian information obtained from staff and record review. Patient came from [facility]. He was having shaking in his upper and lower extremities has loss of consciousness patient was confused afterwards. Patient consent. Appears to be at their baseline. No new seizure activity. Encephalopathy with history of multiple medical problems Patient denies any new complaints. Keppra 500 mg twice a day MRI brain to rule out any acute process EEG as outpatient Continue medical management Seizure precautions MIQUEL JAY MD Sep 13, 2016 16:17
[2016-09-13] MEDS: LEVETIRACETAM 500 MG TABLET PO SCH (16:36)
[2016-09-13] MEDS ORDERED: GADOBUTROL 7.5 MMOL/7.5 ML VIAL IV ONE (16:45)
[2016-09-13 19:00] VITALS: BP 144/67
[2016-09-13] MEDS: NICOTINE 21MG PATCH. TD SCH (19:45)
[2016-09-13] MEDS: EZETIMIBE 10 MG TABLET PO SCH (19:46)
[2016-09-13] MEDS: SIMVASTATIN 40 MG TABLET. PO SCH (19:46)
[2016-09-13] MEDS: traZODone 100 MG TABLET. PO SCH ×2 (19:46→21:00)
[2016-09-13] MEDS: QUEtiapine 100 MG TABLET. PO SCH (19:46)
[2016-09-13 23:00] VITALS: BP 164/95
[2016-09-14] MEDS: IV NORMAL SALINE 1000ML BAG 1,000 ML IV SCH ×3 (02:28→17:23)
[2016-09-14 03:00] VITALS: BP 147/78
[2016-09-14 05:54] LABS: CREATININE 1.1 mg/dL (0.7-1.3); GFR 68.1; POTASSIUM 4.2 mmol/L (3.5-5.1)
[2016-09-14 06:02] LABS: AMYLASE 80 U/L (25-115)
[2016-09-14 06:59] LABS: BASO % 1 % (0-3); EOS % 3 % (0-3); HEMATOCRIT 33.9 % (39.0-53.0); HEMOGLOBIN 11.2 g/dL (13.0-17.5); LYMPH # 1.8 x10^3/uL (1.0-4.8); LYMPH % 26 % (24-48); MEAN CORPUSCULAR HEMOGLOBIN 30 pg (25-35); MEAN CORPUSCULAR HGB CONC 33 g/dL (31-37); MEAN CORPUSCULAR VOLUME 90 fL (79-100); MONO % 7 % (0-9); NEUT % 64 % (31-73); PLATELET COUNT 143 x10^3/uL (140-400); RED BLOOD COUNT 3.75 x10^6/uL (4.30-5.70); RED CELL DISTRIBUTION WIDTH 13.7 % (11.5-14.5); WHITE BLOOD COUNT 7.1 x10^3/uL (4.0-11.0)
[2016-09-14 07:00] VITALS: BP 146/82
--- NOTE | 2016-09-14 08:14 | RAD ---
PROCEDURE Brain MRI with and without contrast. HISTORY Seizure. TECHNIQUE Multiplanar and multi sequence magnetic resonance imaging of the brain was performed prior to and following the administration of 13 cc Gadavist intravenous contrast. COMPARISON Head CT obtained on the same date. FINDINGS There is no restricted diffusion to suggest acute or subacute infarction. There is no susceptibility effect to suggest hemorrhage. There is no mass effect or midline shift. There is no hydrocephalus. There are few focal areas of T2/FLAIR hyperintensity within the cerebral white matter, a nonspecific finding likely due to chronic small vessel disease. There are normal flow voids within the cerebral vessels. There is mild cerebral volume loss. The orbits are unremarkable. There are left greater than right maxillary sinus mucous retention cysts. There is a tiny amount of fluid within the left mastoid air cells. There is a 1.9 cm T2 hyperintense and T1 hypo intense nonenhancing lesion within the left maxillary soft tissues, possibly a sebaceous cyst. No suspicious enhancing lesion is seen. IMPRESSION 1. No acute intracranial finding. 2. Scattered foci of signal change within the cerebral white matter, a nonspecific finding likely due to chronic small vessel disease. 3. Mild cerebral volume loss. Electronically signed by: Sushila Page (Sep 14, 2016 08:12:42)
[2016-09-14] MEDS: IPRATRPIUM/ALBUTEROL 0.5/2.5MG 3 ML NEBU. NEB SCH ×4 (08:17→20:27)
[2016-09-14] MEDS: CETIRIZINE HCL 10 MG TABLET PO SCH (08:40)
[2016-09-14] MEDS: GABAPENTIN 400 MG CAPSULE. PO SCH ×3 (08:40→21:34)
[2016-09-14] MEDS: VENLAFAXINE 50 MG TABLET. PO SCH ×3 (08:40→21:35)
[2016-09-14] MEDS: METFORMIN 1,000 MG TABLET PO SCH ×2 (08:40→17:23)
[2016-09-14] MEDS: HALOPERIDOL 5 MG TABLET PO SCH ×2 (08:40→21:35)
[2016-09-14] MEDS: NICOTINE 21MG PATCH. TD SCH (08:40)
[2016-09-14] MEDS: LEVETIRACETAM 500 MG TABLET PO SCH ×2 (08:40→21:35)
[2016-09-14] MEDS: OMEGA-3 FATTY ACIDS/FISH OIL 1,000 MG CAPSULE. PO SCH (08:40)
[2016-09-14] MEDS: GLYBURIDE 5 MG TABLET PO SCH (08:40)
[2016-09-14] MEDS: SENNOSIDES/DOCUSATE 8.6/50MG TABLET. PO SCH (08:40)
[2016-09-14] MEDS: ASPIRIN 81 MG TAB.CHEW PO SCH (08:40)
[2016-09-14] MEDS: LISINOPRIL 10 MG TABLET PO SCH (08:41)
[2016-09-14] MEDS: INSULIN DETEMIR 300 UNITS/3 ML INSULN.PEN. SQ SCH (08:49)
[2016-09-14] MEDS: INSULIN ASPART 300 UNITS/3 ML INSULN.PEN SQ SCH ×3 (08:50→17:26)
[2016-09-14 11:00] VITALS: BP 159/79
[2016-09-14] MEDS: ENOXAPARIN 40 MG/0.4 ML DISP.SYRIN. SQ SCH (12:37)
[2016-09-14 15:00] VITALS: BP 148/82
--- NOTE | 2016-09-14 17:05 | PDOC ---
PROGRESS NOTES Assessment Assessment IMPRESSION: Seizure Alcohol use/abuse. Marijuana in systems. DM HTN HLD Schizophrenia. Obesity. RECOMMENDATIONS/PLAN: EEG Lab: see orders. Alcohol and drug abstinence. Treat medical diseases. Weight reduction. No seizure foci on MRI. OBJECTIVE: No seizures since here. PAST MEDICAL AND SURGICAL HISTORY: Please see H&P ALLERGY: Reviewed. MEDICATIONS: Refer to MAR REVIEW OF SYSTEMS: Constitutional: No malnutrition, weight loss, cachexia. Head: No traumatic brain or head injury. Skin: No edema, or rash. Ear: No infection, tinnitus. Eyes: No vision loss, or diplopia. Nose: No bleeding or purulent discharges. Hearing: No hearing decrease. Hearing loss. Neck: No injury. Cardiac: HTN, HLD Pulmonary: No CPOD. GI: No GI Ulcer, GI bleeding Urinary/genital: No dysuria, hematuria, incontinence, urinary retention. Endocrine: Diabetes Mellitus, obesity. Skeletomuscular: No muscular atrophy, deformity. Neurological: see HP. Psychiatric: Denies drug use/abuse. Otherwise, not [id number] review of systems. PHYSICAL EXAMINATION: General appearance in no acute distress. HEENT: Normocephalic and nontraumatic. Eyes, nose, ears, and throat are unremarkable. Hearing decrease. Neck is supple. No lymphadenopathy. No bruits are heard over the carotid artery. No Crepitus. Cardiovascular: S1, S2, regular rate and rhythm. Pulmonary: Clear to auscultation bilaterally. Abdomen: Bowel sounds are positive. Abdomen is soft, nontender, and nondistended. Extremities: No rash, lesions, or edema. No restriction of range of motion NEUROLOGICAL EXAMINATION: Awake. Oriented to time, place and person. PERRL. EOMI. CN: no focal findings. Muscle tone: within normal. Muscle strength: 4+ DTR: 1 Plantar reflex: Flexor response bilaterally Gait: not examined in bed. Sensory exam: no abnormal findings. No acute cerebellar signs elicited. F-T-N test fine. Objective Objective Vital Signs Date Time Temp Pulse Resp B/P Pulse Ox O2 Delivery O2 Flow Rate FiO2 09/14/16 15:59 Room Air 09/14/16 11:00 98.1 96 18 159/79 98 98.1 Intake and Output 09/14/16 07:00 Intake Total 1229 ml Output Total 2450 ml Balance -1221 ml Intake Oral 250 ml IV Total 979 ml Output Urine Total 2450 ml # Bowel Movements 1 Vitals Signs Vitals VS - Last 72 Hours, by Label Date Time Temp Pulse Resp B/P Pulse Ox O2 Delivery O2 Flow Rate FiO2 09/14/16 15:59 Room Air 09/14/16 12:14 Room Air 09/14/16 11:00 98.1 96 18 159/79 98 Room Air 98.1 09/14/16 08:41 79 147/78 09/14/16 08:18 Room Air 09/14/16 08:00 Room Air 09/14/16 07:00 97.9 84 18 146/82 96 Room Air 97.9 09/14/16 03:00 98.6 79 18 147/78 94 Room Air 98.6 09/13/16 23:00 98.0 94 16 164/95 91 Room Air 98.0 09/13/16 20:00 Room Air 09/13/16 19:29 96 Room Air 09/13/16 19:00 97.7 75 18 144/67 95 Room Air 97.7 09/13/16 16:38 95 Room Air 09/13/16 15:32 97.8 69 20 152/80 95 Room Air 97.8 09/13/16 13:02 79 151/82 09/13/16 12:00 Room Air 09/13/16 10:35 97.6 79 17 151/82 93 Room Air 97.6 09/13/16 10:30 97.6 79 17 151/82 93 Room Air 97.6 09/13/16 09:00 83 15 142/78 99 09/13/16 07:45 97.6 72 12 150/78 93 Room Air 97.6 Laboratory Laboratory Laboratory Tests Test 09/14/16 04:02 09/14/16 06:20 09/14/16 08:39 09/14/16 12:40 Sodium Level 141mmol/L (136-145) Potassium Level 4.2mmol/L (3.5-5.1) Chloride Level 105mmol/L (98-107) Carbon Dioxide Level 24mmol/L (21-32) Anion Gap 12 (6-14) Blood Urea Nitrogen 13mg/dL (8-26) Creatinine 1.1mg/dL (0.7-1.3) Estimated GFR (Cockcroft-Gault) 68.1 Glucose Level 200mg/dL (70-99) Lactic Acid Level 1.8mmol/L (0.4-2.0) Calcium Level 9.0mg/dL (8.5-10.1) Amylase Level 80U/L (25-115) Lipase 204U/L (73-393) White Blood Count 7.1x10^3/uL (4.0-11.0) Red Blood Count 3.75x10^6/uL (4.30-5.70) Hemoglobin 11.2g/dL (13.0-17.5) Hematocrit 33.9% (39.0-53.0) Mean Corpuscular Volume 90fL (79-100) Mean Corpuscular Hemoglobin 30pg (25-35) Mean Corpuscular Hemoglobin Concent 33g/dL (31-37) Red Cell Distribution Width 13.7% (11.5-14.5) Platelet Count 143x10^3/uL (140-400) Neutrophils (%) (Auto) 64% (31-73) Lymphocytes (%) (Auto) 26% (24-48) Monocytes (%) (Auto) 7% (0-9) Eosinophils (%) (Auto) 3% (0-3) Basophils (%) (Auto) 1% (0-3) Neutrophils # (Auto) 4.6x10^3uL (1.8-7.7) Lymphocytes # (Auto) 1.8x10^3/uL (1.0-4.8) Monocytes # (Auto) 0.5x10^3/uL (0.0-1.1) Eosinophils # (Auto) 0.2x10^3/uL (0.0-0.7) Basophils # (Auto) 0.0x10^3/uL (0.0-0.2) Glucose (Fingerstick) 212mg/dL (70-99) 198mg/dL (70-99) Medication Medications Current Medications EZETIMIBE (Zetia) 10 mg QHS PO Last administered on 09/13/16 19:46; Start at 21:00 Levetiracetam (Keppra) 500 mg BID PO Last administered on 09/14/16 08:40; Start 09/13/16 at 17:00 Metformin HCl (Glucophage) 1,000 mg BIDWMEALS PO Last administered on 08:40; Start 09/13/16 at 17:00 Nicotine (Nicoderm Cq 21mg) 1 patch DAILY TD Last administered on 09/14/16 08: 40; Start 09/13/16 at 19:30 Quetiapine Fumarate (SEROquel) 400 mg QHS PO Last administered on 09/13/16 19: 46; Start 09/13/16 at 21:00 Simvastatin (Zocor) 40 mg QHS PO Last administered on 09/13/16 19:46; Start at 21:00 Trazodone HCl (Desyrel) 100 mg QHS PO ; Start 09/13/16 at 21:00 Comment Review of Relevant I have reviewed the following items darryn (where applicable) has been applied. DORYS ALBERT MD Sep 14, 2016 17:05
--- NOTE | 2016-09-14 17:54 | PDOC ---
PROGRESS NOTES Chief Complaint Chief Complaint Seizure ASSESSMENT AND PLAN: 1. Sz: appreciate Dr Sams's input. EEG done this PM, results pending, but unlikely epilepsy. on Keppra for now 2. Multi-substance abuse: pos for EtOH, cannabis. abstinence recommended 3. Schizophrenia: cont Seroquel, zoloft 4. DM: on insulin. cont home regimen 5. HTN: well controlled on home regimen 6. HLD: on statin. 7. Prophylaxis: lovenox 8. Dispo: home in AM (no ride) Vitals Vitals Vital Signs Date Time Temp Pulse Resp B/P Pulse Ox O2 Delivery O2 Flow Rate FiO2 09/14/16 15:59 Room Air 09/14/16 11:00 98.1 96 18 159/79 98 98.1 Physical Exam General: Alert, Cooperative, Other (oriented to place and self only) Heart: Regular rate Lungs: Clear Abdomen: Normal bowel sounds, Soft, No tenderness Extremities: No edema Skin: No rashes Labs LABS Laboratory Tests Test 09/14/16 04:02 09/14/16 06:20 09/14/16 08:39 09/14/16 12:40 Sodium Level 141mmol/L (136-145) Potassium Level 4.2mmol/L (3.5-5.1) Chloride Level 105mmol/L (98-107) Carbon Dioxide Level 24mmol/L (21-32) Anion Gap 12 (6-14) Blood Urea Nitrogen 13mg/dL (8-26) Creatinine 1.1mg/dL (0.7-1.3) Estimated GFR (Cockcroft-Gault) 68.1 Glucose Level 200mg/dL (70-99) Lactic Acid Level 1.8mmol/L (0.4-2.0) Calcium Level 9.0mg/dL (8.5-10.1) Amylase Level 80U/L (25-115) Lipase 204U/L (73-393) White Blood Count 7.1x10^3/uL (4.0-11.0) Red Blood Count 3.75x10^6/uL (4.30-5.70) Hemoglobin 11.2g/dL (13.0-17.5) Hematocrit 33.9% (39.0-53.0) Mean Corpuscular Volume 90fL (79-100) Mean Corpuscular Hemoglobin 30pg (25-35) Mean Corpuscular Hemoglobin Concent 33g/dL (31-37) Red Cell Distribution Width 13.7% (11.5-14.5) Platelet Count 143x10^3/uL (140-400) Neutrophils (%) (Auto) 64% (31-73) Lymphocytes (%) (Auto) 26% (24-48) Monocytes (%) (Auto) 7% (0-9) Eosinophils (%) (Auto) 3% (0-3) Basophils (%) (Auto) 1% (0-3) Neutrophils # (Auto) 4.6x10^3uL (1.8-7.7) Lymphocytes # (Auto) 1.8x10^3/uL (1.0-4.8) Monocytes # (Auto) 0.5x10^3/uL (0.0-1.1) Eosinophils # (Auto) 0.2x10^3/uL (0.0-0.7) Basophils # (Auto) 0.0x10^3/uL (0.0-0.2) Glucose (Fingerstick) 212mg/dL (70-99) 198mg/dL (70-99) Review of Systems Review of Systems no c/o at all. Comment Review of Relevant I have reviewed the following items darryn (where applicable) has been applied. Labs Laboratory Tests Test 09/13/16 07:50 09/13/16 09:29 09/13/16 12:21 09/13/16 15:00 White Blood Count 8.1x10^3/uL (4.0-11.0) Red Blood Count 4.00x10^6/uL (4.30-5.70) Hemoglobin 11.9g/dL (13.0-17.5) Hematocrit 36.1% (39.0-53.0) Mean Corpuscular Volume 90fL (79-100) Mean Corpuscular Hemoglobin 30pg (25-35) Mean Corpuscular Hemoglobin Concent 33g/dL (31-37) Red Cell Distribution Width 13.2% (11.5-14.5) Platelet Count 152x10^3/uL (140-400) Neutrophils (%) (Auto) 65% (31-73) Lymphocytes (%) (Auto) 23% (24-48) Monocytes (%) (Auto) 7% (0-9) Eosinophils (%) (Auto) 4% (0-3) Basophils (%) (Auto) 1% (0-3) Neutrophils # (Auto) 5.3x10^3uL (1.8-7.7) Lymphocytes # (Auto) 1.8x10^3/uL (1.0-4.8) Monocytes # (Auto) 0.6x10^3/uL (0.0-1.1) Eosinophils # (Auto) 0.3x10^3/uL (0.0-0.7) Basophils # (Auto) 0.1x10^3/uL (0.0-0.2) Sodium Level 140mmol/L (136-145) Potassium Level 4.5mmol/L (3.5-5.1) Chloride Level 103mmol/L (98-107) Carbon Dioxide Level 24mmol/L (21-32) Anion Gap 13 (6-14) Blood Urea Nitrogen 15mg/dL (8-26) Creatinine 1.2mg/dL (0.7-1.3) Estimated GFR (Cockcroft-Gault) 61.6 Glucose Level 211mg/dL (70-99) Lactic Acid Level 2.4mmol/L (0.4-2.0) Calcium Level 9.3mg/dL (8.5-10.1) Total Bilirubin 0.4mg/dL (0.2-1.0) Direct Bilirubin 0.1mg/dL (0.0-0.2) Aspartate Amino Transf (AST/SGOT) 29U/L (15-37) Alanine Aminotransferase (ALT/SGPT) 50U/L (16-63) Alkaline Phosphatase 56U/L (46-116) Troponin I Quantitative < 0.017ng/mL (0.000-0.055) GU-Fjc-N-Type Natriuretic Peptide 45pg/mL (0-124) Total Protein 7.3g/dL (6.4-8.2) Albumin 4.0g/dL (3.4-5.0) Lipase 2509U/L (73-393) Urine Collection Type Void Urine Color Yellow Urine Clarity Clear Urine pH 6.0 Urine Specific [place] 1.020 Urine Protein Negativemg/dL (NEG-TRACE) Urine Glucose (UA) 250mg/dL (NEG) Urine Ketones (Stick) Negativemg/dL (NEG) Urine Blood Negative (NEG) Urine Nitrite Negative (NEG) Urine Bilirubin Negative (NEG) Urine Urobilinogen Dipstick 0.2mg/dL (0.2 mg/dL) Urine Leukocyte Esterase Negative (NEG) Urine RBC 0/HPF (0-2) Urine WBC 1-4/HPF (0-4) Urine Squamous Epithelial Cells Mod/LPF Urine Bacteria 0/HPF (0-FEW) Glucose (Fingerstick) 211mg/dL (70-99) Nasal Screen MRSA (PCR) Positive (Negative) Test 09/13/16 16:35 09/14/16 04:02 09/14/16 06:20 09/14/16 08:39 Glucose (Fingerstick) 218mg/dL (70-99) 212mg/dL (70-99) Sodium Level 141mmol/L (136-145) Potassium Level 4.2mmol/L (3.5-5.1) Chloride Level 105mmol/L (98-107) Carbon Dioxide Level 24mmol/L (21-32) Anion Gap 12 (6-14) Blood Urea Nitrogen 13mg/dL (8-26) Creatinine 1.1mg/dL (0.7-1.3) Estimated GFR (Cockcroft-Gault) 68.1 Glucose Level 200mg/dL (70-99) Lactic Acid Level 1.8mmol/L (0.4-2.0) Calcium Level 9.0mg/dL (8.5-10.1) Amylase Level 80U/L (25-115) Lipase 204U/L (73-393) White Blood Count 7.1x10^3/uL (4.0-11.0) Red Blood Count 3.75x10^6/uL (4.30-5.70) Hemoglobin 11.2g/dL (13.0-17.5) Hematocrit 33.9% (39.0-53.0) Mean Corpuscular Volume 90fL (79-100) Mean Corpuscular Hemoglobin 30pg (25-35) Mean Corpuscular Hemoglobin Concent 33g/dL (31-37) Red Cell Distribution Width 13.7% (11.5-14.5) Platelet Count 143x10^3/uL (140-400) Neutrophils (%) (Auto) 64% (31-73) Lymphocytes (%) (Auto) 26% (24-48) Monocytes (%) (Auto) 7% (0-9) Eosinophils (%) (Auto) 3% (0-3) Basophils (%) (Auto) 1% (0-3) Neutrophils # (Auto) 4.6x10^3uL (1.8-7.7) Lymphocytes # (Auto) 1.8x10^3/uL (1.0-4.8) Monocytes # (Auto) 0.5x10^3/uL (0.0-1.1) Eosinophils # (Auto) 0.2x10^3/uL (0.0-0.7) Basophils # (Auto) 0.0x10^3/uL (0.0-0.2) Test 09/14/16 12:40 Glucose (Fingerstick) 198mg/dL (70-99) Laboratory Tests Test 09/14/16 04:02 09/14/16 06:20 09/14/16 08:39 09/14/16 12:40 Sodium Level 141mmol/L (136-145) Potassium Level 4.2mmol/L (3.5-5.1) Chloride Level 105mmol/L (98-107) Carbon Dioxide Level 24mmol/L (21-32) Anion Gap 12 (6-14) Blood Urea Nitrogen 13mg/dL (8-26) Creatinine 1.1mg/dL (0.7-1.3) Estimated GFR (Cockcroft-Gault) 68.1 Glucose Level 200mg/dL (70-99) Lactic Acid Level 1.8mmol/L (0.4-2.0) Calcium Level 9.0mg/dL (8.5-10.1) Amylase Level 80U/L (25-115) Lipase 204U/L (73-393) White Blood Count 7.1x10^3/uL (4.0-11.0) Red Blood Count 3.75x10^6/uL (4.30-5.70) Hemoglobin 11.2g/dL (13.0-17.5) Hematocrit 33.9% (39.0-53.0) Mean Corpuscular Volume 90fL (79-100) Mean Corpuscular Hemoglobin 30pg (25-35) Mean Corpuscular Hemoglobin Concent 33g/dL (31-37) Red Cell Distribution Width 13.7% (11.5-14.5) Platelet Count 143x10^3/uL (140-400) Neutrophils (%) (Auto) 64% (31-73) Lymphocytes (%) (Auto) 26% (24-48) Monocytes (%) (Auto) 7% (0-9) Eosinophils (%) (Auto) 3% (0-3) Basophils (%) (Auto) 1% (0-3) Neutrophils # (Auto) 4.6x10^3uL (1.8-7.7) Lymphocytes # (Auto) 1.8x10^3/uL (1.0-4.8) Monocytes # (Auto) 0.5x10^3/uL (0.0-1.1) Eosinophils # (Auto) 0.2x10^3/uL (0.0-0.7) Basophils # (Auto) 0.0x10^3/uL (0.0-0.2) Glucose (Fingerstick) 212mg/dL (70-99) 198mg/dL (70-99) Medications Current Medications Ondansetron HCl (Zofran) 4 mg PRN Q8HRS PRN IV NAUSEA/VOMITING; Start 09/13/16 at 08:45; Stop 09/13/16 at 09:48; Status DC Morphine Sulfate 2 mg PRN Q2HR PRN IV PAIN; Start 09/13/16 at 08:45; Stop 09/14 at 08:44; Status DC Ondansetron HCl (Zofran) 4 mg PRN Q6HRS PRN IV NAUSEA/VOMITING; Start 09/13/16 at 09:46 Acetaminophen (Tylenol) 500 mg PRN Q6HRS PRN PO MILD PAIN / TEMP; Start at 10:00; Stop 09/13/16 at 14:32; Status DC Insulin Aspart (Novolog) 0-9 UNITS TIDWMEALS SQ Last administered on 09/14/16t 17:26; Start 09/13/16 at 12:00 Dextrose 12.5 gm PRN Q15MIN PRN IV SEE COMMENTS; Start 09/13/16 at 10:00 Acetaminophen/ Hydrocodone Bitart 1 tab 1 tab PRN Q4HRS PRN PO MODERATE - SEVERE PAIN; Start 09/13/16 at 10:00 Sodium Chloride (Iv Sodium Chloride 0.9% 1000ml Bag) 1,000 ml @ 100 mls/hr Q10H IV Last administered on 09/14/16 08:41; Start 09/13/16 at 11:30 Enoxaparin Sodium (Lovenox 40mg Syringe) 40 mg Q24H SQ Last administered on 12:37; Start 09/13/16 at 12:00 Acetaminophen (Tylenol) 325 mg PRN Q4HRS PRN PO MILD PAIN / TEMP; Start at 11:15 Aspirin (Children'S Aspirin) 81 mg DAILY PO Last administered on 09/14/16 08: 40; Start 09/13/16 at 12:30 Cetirizine HCl (Zyrtec) 10 mg DAILY08 PO Last administered on 09/14/16 08:40; Start 09/13/16 at 12:30 Gabapentin (Neurontin) 400 mg TID PO Last administered on 09/14/16 14:57; Start 09/13/16 at 14:00 Glyburide (Diabeta) 5 mg DAILY08 PO Last administered on 09/14/16 08:40; Start 09/13/16 at 12:30 Haloperidol (Haldol) 5 mg BID PO Last administered on 09/14/16 08:40; Start at 12:30 Albuterol/ Ipratropium (Duoneb) 3 ml QID NEB Last administered on 09/14/16 15: 59; Start 09/13/16 at 13:00 Lisinopril (Prinivil) 10 mg DAILY PO Last administered on 09/14/16 08:41; Start 09/13/16 at 12:30 Magnesium Hydroxide (Milk Of Magnesia) 400 mg PRN QAM PRN PO CONSTIPATION; Start 09/13/16 at 11:15 Metformin HCl (Glucophage) 1,000 mg BIDWMEALS PO Last administered on 17:23; Start 09/13/16 at 17:00 Senna/Docusate Sodium (Senna Plus) 1 tab DAILY08 PO Last administered on 08:40; Start 09/13/16 at 12:30 Simvastatin (Zocor) 40 mg QHS PO Last administered on 09/13/16 19:46; Start at 21:00 Trazodone HCl (Desyrel) 100 mg QHS PO ; Start 09/13/16 at 21:00 EZETIMIBE (Zetia) 10 mg QHS PO Last administered on 09/13/16 19:46; Start at 21:00 Guaifenesin (Robitussin Dm) 10 ml PRN Q6HRS PRN PO COUGH; Start 09/13/16 at 11: 45 Insulin Detemir (Levemir) 10 units DAILY08 SQ Last administered on 09/14/16 08 :49; Start 09/13/16 at 12:30 Fish Oil (Fish Oil) 1,000 mg DAILY PO Last administered on 09/14/16 08:40; Start 09/13/16 at 12:30 Quetiapine Fumarate (SEROquel) 400 mg QHS PO Last administered on 09/13/16 19: 46; Start 09/13/16 at 21:00 Venlafaxine HCl (Effexor) 50 mg TID PO Last administered on 09/14/16 14:57; Start 09/13/16 at 14:00 Levetiracetam (Keppra) 500 mg BID PO Last administered on 09/14/16 08:40; Start 09/13/16 at 17:00 Gadobutrol (Gadavist) 13 mmol 1X ONCE IV Last administered on 09/13/16 17:20 ; Start 09/13/16 at 16:45; Stop 09/13/16 at 16:46; Status DC Nicotine (Nicoderm Cq 21mg) 1 patch DAILY TD Last administered on 09/14/16 08: 40; Start 09/13/16 at 19:30 Active Scripts Active Reported Cranberry Concentrate Softgel (Cranberry Conc/Ascorbic Acid) 1 Each Capsule 1 Each PO Aspirin 81 Mg Tab.chew 1 Tab PO DAILY Nicotine Gum (Nicotine Polacrilex) 4 Mg Gum 4 Mg BC Milk Of Magnesia (Magnesium Hydroxide) 400 Mg/5 Ml Oral.susp 400 Mg PO PRN Duoneb 0.5-3(2.5) Mg/3 Ml (Albuterol/Ipratropium) 3 Ml Ampul.neb 3 Ml NEB QID Acetaminophen 325 Mg Tablet 325 Mg PO PRN Robitussin Cough-Chest Dm Liq (Guaifenesin/Dextromethorphan) 118 Ml Liquid 10 Ml PO QID 7 Days [place] 3 Fish Oil Softgel ([place]-3 Fatty Acids/Fish Oil) 1 Each Capsule.dr 1 Each PO DAILY Gabapentin 400 Mg Capsule 400 Mg PO TID Sennosides-Docusate Sodium Tab (Sennosides/Docusate Sodium) 1 Each Tablet 6-50 Each PO Metformin Hcl 1,000 Mg Tablet 1 Tab PO BID Haloperidol 5 Mg Tablet 5 Tab PO BID Zyrtec (Cetirizine Hcl) 10 Mg Tablet 1 Tab PO DAILY08 Vytorin 10-20 Mg Tablet (Ezetimibe/Simvastatin) 1 Each Tablet 1 Tab PO DAILY Trazodone Hcl 100 Mg Tablet 2 Tab PO QHS Simvastatin 40 Mg Tablet 1 Tab PO QHS Seroquel (Quetiapine Fumarate) 400 Mg Tablet 400 Tab PO QHS Multi Vitamin Daily (Multivitamin) 1 Each Tablet 1 Each PO Lisinopril 10 Mg Tablet 1 Tab PO DAILY Levemir (Insulin Detemir) 100 Unit/1 Ml Vial 10 Unit SQ DAILY08 Glyburide 5 Mg Tablet 2 Tab PO DAILY08 Effexor Xr (Venlafaxine Hcl) 150 Mg Cap.er.24h 1 Cap PO DAILY Vitals/I & O Vital Sign - Last 24 Hours 09/13/16 09/13/16 09/13/16 09/13/16 19:00 19:29 20:00 23:00 Temp 97.7 98.0 97.7 98.0 Pulse 75 94 Resp 18 16 B/P 144/67 164/95 Pulse Ox 95 96 91 O2 Delivery Room Air Room Air Room Air Room Air 09/14/16 09/14/16 09/14/16 09/14/16 03:00 07:00 08:00 08:18 Temp 98.6 97.9 98.6 97.9 Pulse 79 84 Resp 18 18 B/P 147/78 146/82 Pulse Ox 94 96 O2 Delivery Room Air Room Air Room Air Room Air 09/14/16 09/14/16 09/14/16 09/14/16 08:41 11:00 12:14 15:59 Temp 98.1 98.1 Pulse 79 96 Resp 18 B/P 147/78 159/79 Pulse Ox 98 O2 Delivery Room Air Room Air Room Air Intake and Output 09/13/16 09/13/16 09/14/16 15:00 23:00 07:00 Intake Total 250 ml 979 ml Output Total 850 ml 1600 ml Balance -600 ml -621 ml JESUS MANUEL RAZO MD Sep 14, 2016 17:54
[2016-09-14 19:57] VITALS: BP 139/70
[2016-09-14] MEDS: SIMVASTATIN 40 MG TABLET. PO SCH (21:34)
[2016-09-14] MEDS: EZETIMIBE 10 MG TABLET PO SCH (21:35)
[2016-09-14] MEDS: QUEtiapine 100 MG TABLET. PO SCH (21:35)
[2016-09-14] MEDS: traZODone 100 MG TABLET. PO SCH (21:35)
[2016-09-14 23:25] VITALS: BP 118/69
[2016-09-15 03:50] VITALS: BP 133/87
[2016-09-15 05:48] LABS: BARBITURATES NEG (NEG); BENZODIAZEPINES NEG (NEG); CANNABINOIDS NEG (NEG); COCAINE NEG (NEG); METHADONE NEG (NEG); OPIATES NEG (NEG); PHENCYCLIDINE NEG (NEG)
[2016-09-15 05:52] LABS: ETHANOL, URINE NEG (NEG)
[2016-09-15 07:00] VITALS: BP 143/81
[2016-09-15] MEDS: IPRATRPIUM/ALBUTEROL 0.5/2.5MG 3 ML NEBU. NEB SCH ×2 (07:51→12:08)
[2016-09-15] MEDS: VENLAFAXINE 50 MG TABLET. PO SCH (07:57)
[2016-09-15] MEDS: ASPIRIN 81 MG TAB.CHEW PO SCH (07:57)
[2016-09-15] MEDS: SENNOSIDES/DOCUSATE 8.6/50MG TABLET. PO SCH (07:57)
[2016-09-15] MEDS: NICOTINE 21MG PATCH. TD SCH (07:57)
[2016-09-15] MEDS: GABAPENTIN 400 MG CAPSULE. PO SCH (07:58)
[2016-09-15] MEDS: CETIRIZINE HCL 10 MG TABLET PO SCH (07:58)
[2016-09-15] MEDS: OMEGA-3 FATTY ACIDS/FISH OIL 1,000 MG CAPSULE. PO SCH (07:58)
[2016-09-15] MEDS: GLYBURIDE 5 MG TABLET PO SCH (07:58)
[2016-09-15] MEDS: METFORMIN 1,000 MG TABLET PO SCH (07:58)
[2016-09-15] MEDS: HALOPERIDOL 5 MG TABLET PO SCH (07:58)
[2016-09-15] MEDS: LEVETIRACETAM 500 MG TABLET PO SCH (07:58)
[2016-09-15] MEDS: LISINOPRIL 10 MG TABLET PO SCH (07:59)
[2016-09-15] MEDS: INSULIN ASPART 300 UNITS/3 ML INSULN.PEN SQ SCH ×2 (08:07→12:26)
[2016-09-15] MEDS: INSULIN DETEMIR 300 UNITS/3 ML INSULN.PEN. SQ SCH (08:08)
--- NOTE | 2016-09-15 09:37 | DISCH ---
DISCHARGE INSTRUCTIONS Condition on Discharge Condition on Discharge: Stable Activity After Discharge Activity Instructions for Disc: No restrictions Diet after Discharge Diet after Discharge: Cardiac Contacting the DR. after DC Call your doctor for: Concerns you may have Follow-Up Follow up with: PCp w/in 1 week JESUS MAUNEL RAZO MD Sep 15, 2016 09:37
[2016-09-15 10:53] VITALS: BP 168/90
[2016-09-15] MEDS: ENOXAPARIN 40 MG/0.4 ML DISP.SYRIN. SQ SCH (12:00)
--- NOTE | 2016-09-15 14:34 | EEG ---
DATE OF SERVICE: 09/15/2016 OBJECTIVE: This is a 60-year-old male patient with history of seizure. EEG was requested to evaluate seizure activity. METHODS: Twenty electrodes were applied according to the international 10-20 electrode placement system. EKG monitoring, hyperventilation, intermittent photic stimulation, monopolar and bipolar montages are routinely utilized. The record was obtained on a digital system with video monitoring. FINDINGS: 1. Background: The patient was recorded in the awake, drowsy and sleep states. The overall background amplitude is 10-20 microvolts. A posterior dominant rhythm of 7-8 Hz is observed. 2. Abnormalities: No specific epileptiform discharge or electrographic seizure is seen. 3. Activation: Hyperventilation was not performed because the patient was unable to perform the technique. Intermittent photic stimulation was performed with photic driving. No specific epileptiform discharge or electrographic seizure induced. IMPRESSION: This EEG falls into the abnormal category of the study for the wake, drowsy and the sleep states. The posterior dominant rhythm of 7-8 Hz is mildly slow for age. No focal, lateralizing, specific epileptiform discharge, or electrographic seizure is seen. However, even a normal EEG does not rule out seizure. DORYS ALBERT MD DR: MARIELOS/rimma JOB#: [id number] / [id number] JHON
--- NOTE | 2016-09-15 16:50 | PDOC ---
PROGRESS NOTES Assessment Assessment Seizure, provoked most likely. Alcohol use/abuse. Marijuana in systems. DM HTN HLD Schizophrenia. Obesity. RECOMMENDATIONS/PLAN: On Keppra 500 mg bid, but may not be effective for substance induced seizures. Alcohol and drug abstinence. Treat medical diseases. Weight reduction. FU with PCP. No driving x 6 months any time after a seizure. No seizure foci on MRI. EEG 09/14/16: No seizure activity noted. Posterior dominant rhythm is mildly slow for age. OBJECTIVE: No seizures since here. PAST MEDICAL AND SURGICAL HISTORY: Please see H&P ALLERGY: Reviewed. MEDICATIONS: Refer to [facility] REVIEW OF SYSTEMS: Constitutional: No malnutrition, weight loss, cachexia. Head: No traumatic brain or head injury. Skin: No edema, or rash. Ear: No infection, tinnitus. Eyes: No vision loss, or diplopia. Nose: No bleeding or purulent discharges. Hearing: No hearing decrease. Hearing loss. Neck: No injury. Cardiac: HTN, HLD Pulmonary: No CPOD. GI: No GI Ulcer, GI bleeding Urinary/genital: No dysuria, hematuria, incontinence, urinary retention. Endocrine: Diabetes Mellitus, obesity. Skeletomuscular: No muscular atrophy, deformity. Neurological: see HP. Psychiatric: Denies drug use/abuse. Otherwise, not [id number] review of systems. PHYSICAL EXAMINATION: General appearance in no acute distress. HEENT: Normocephalic and nontraumatic. Eyes, nose, ears, and throat are unremarkable. Hearing decrease. Neck is supple. No lymphadenopathy. No bruits are heard over the carotid artery. No Crepitus. Cardiovascular: S1, S2, regular rate and rhythm. Pulmonary: Clear to auscultation bilaterally. Abdomen: Bowel sounds are positive. Abdomen is soft, nontender, and nondistended. Extremities: No rash, lesions, or edema. No restriction of range of motion NEUROLOGICAL EXAMINATION: Awake. Oriented to time, place and person. PERRL. EOMI. CN: no focal findings. Muscle tone: within normal. Muscle strength: 5 DTR: 1 Plantar reflex: Flexor response bilaterally Gait: not examined in bed. Sensory exam: no abnormal findings. No acute cerebellar signs elicited. F-T-N test fine. Objective Objective Vital Signs Date Time Temp Pulse Resp B/P Pulse Ox O2 Delivery O2 Flow Rate FiO2 09/15/16 12:08 96 Room Air 09/15/16 10:53 97.9 67 18 168/90 97.9 Intake and Output 09/15/16 07:00 Intake Total 3077 ml Output Total 400 ml Balance 2677 ml Intake Oral 2205 ml IV Total 872 ml Output Urine Total 400 ml # Voids 4 Vitals Signs Vitals VS - Last 72 Hours, by Label Date Time Temp Pulse Resp B/P Pulse Ox O2 Delivery O2 Flow Rate FiO2 09/15/16 12:08 96 Room Air 09/15/16 10:53 97.9 67 18 168/90 91 Room Air 97.9 09/15/16 08:00 Room Air 09/15/16 07:59 70 144/87 09/15/16 07:51 94 Room Air 09/15/16 07:00 97.9 74 18 143/81 90 Room Air 97.9 09/15/16 03:50 98.5 73 16 133/87 90 Room Air 98.5 09/14/16 23:25 98.3 72 16 118/69 90 Room Air 98.3 09/14/16 20:27 Room Air 09/14/16 20:00 Room Air 09/14/16 19:57 97.6 74 16 139/70 92 Room Air 97.6 09/14/16 15:59 Room Air 09/14/16 15:00 98.2 88 18 148/82 94 Room Air 98.2 09/14/16 12:14 Room Air 09/14/16 11:00 98.1 96 18 159/79 98 Room Air 98.1 09/14/16 08:41 79 147/78 09/14/16 08:18 Room Air 09/14/16 08:00 Room Air 09/14/16 07:00 97.9 84 18 146/82 96 Room Air 97.9 Laboratory Laboratory Laboratory Tests Test 09/14/16 17:22 09/14/16 20:54 09/15/16 05:00 09/15/16 07:22 Glucose (Fingerstick) 165mg/dL (70-99) 172mg/dL (70-99) 179mg/dL (70-99) Urine Opiates Screen Neg (NEG) Urine Methadone Screen Neg (NEG) Urine Barbiturates Neg (NEG) Urine Phencyclidine Screen Neg (NEG) Urine Amphetamine/Methamphetamine Neg (NEG) Urine Benzodiazepines Screen Neg (NEG) Urine Cocaine Screen Neg (NEG) Urine Cannabinoids Screen Neg (NEG) Urine Ethyl Alcohol Neg (NEG) Test 09/15/16 08:03 09/15/16 12:03 Glucose (Fingerstick) 192mg/dL (70-99) 185mg/dL (70-99) Comment Review of Relevant I have reviewed the following items darryn (where applicable) has been applied. DORYS ALBERT MD Sep 15, 2016 16:50
--- NOTE | 2016-09-16 20:17 | DS ---
DATE OF DISCHARGE: 09/15/2016 CHIEF COMPLAINT: Seizure. HOSPITAL COURSE: The patient is a 60-year-old gentleman residing in a [facility] who was transferred to the Emergency Room after sustaining a seizure. This was thought to be due to multidrug abuse as drug screen was positive for ETOH as well as cannabis. Consult with Dr. Sams was obtained. An EEG on the showed no seizure activity. The patient was therefore discharged back to [facility]. PHYSICAL EXAMINATION: VITAL SIGNS: Show a blood pressure of 168/90, heart rate of 67, respiratory rate at 18. He is afebrile. GENERAL: This is a morbidly obese gentleman, awake, lethargic, slow to respond. LUNGS: Clear. HEART: Regular rate and rhythm. ABDOMEN: Has positive bowel sounds, soft, nontender. EXTREMITIES: Show no edema. DATE OF DISCHARGE: 09/15/2016. DISCHARGE DIAGNOSES: Drug-induced seizures. DISCHARGE DISPOSITION: To [facility]. DISCHARGE CONDITION: Improved. DISCHARGE MEDICATIONS: Please refer to MAR. DISCHARGE INSTRUCTIONS: The patient will follow up with PCP at the [facility]. JESUS MANUEL RAZO MD DR: UR/nts JOB#: [id number] / [id number] JHON
== END 2016-09-15 12:56 ==
LOC: ER 07:45 → 6 SOUTH 08:44
PROVIDERS: ADMIT Internal Medicine; ATTEND Internal Medicine
DX: G93.40 Encephalopathy, unspecified (principal); R56.9 Unspecified convulsions; I10 Essential (primary) hypertension; F20.9 Schizophrenia, unspecified; F32.9 Major depressive disorder, single episode, unspecified; I50.9 Heart failure, unspecified; R74.0 Nonspecific elevation of levels of transaminase and lactic acid dehydrogenase [LDH]; R74.8 Abnormal levels of other serum enzymes; F12.90 Cannabis use, unspecified, uncomplicated; E11.9 Type 2 diabetes mellitus without complications; E78.5 Hyperlipidemia, unspecified; E66.9 Obesity, unspecified; E78.00 Pure hypercholesterolemia, unspecified; G89.29 Other chronic pain; G25.9 Extrapyramidal and movement disorder, unspecified; Z72.89 Other problems related to lifestyle
CPT/HCPCS: 36415; 70450; 70553; 71010; 80048; 80076; 81001; 82150; 82947; 83605; 83690; 83880; 84484; 85027; 87641; 93005; 94250; 94640; 94760; 95816; 96360; 96361; 96372; 97116; 97162; 99285; A9585; G0378; G0481; G8978; G8979; J1650; J1815; J7030; J7620; G0379

== ENCOUNTER 2016-09-25 07:45 | Inpatient (IN) | payer MEDICAID ==
[~2016-09-25] VITALS: Ht 180.3 cm; Wt 131.5 kg
[~2016-09-25 07:45] MED LIST: ACET325T21 PO; ASPI81TA2 PO; CETI10TA22 PO; CRAN1CAP PO; EZET1TAB4 PO; GABA-587 PO; GLYB5TAB3 PO; GUAI-297 PO; HALO5TAB PO; INSU100V13 SQ; IPRA3AMP NEB; LISI10TA2 PO; MAGN400O4 PO; METF10002 PO; MULT-245 PO; NICO4GUM3 BC; OMEG1CAP38 PO; QUET400T4 PO; SENN1TAB37 PO; SIMV40TA3 PO; TRAZ100T12 PO; VENL150C PO
--- NOTE | 2016-09-25 08:18 | PHYS DOC ---
Past Medical History Past Medical History: CHF, Constipation, Depression, Diabetes-Type II, High Cholesterol, Hypertension, Seizure, Schizophrenia, UTI Additional Past Medical Histor: extra pyramidal movement disorder, insomnia, chronic pain, dermatitis Past Surgical History: Other Additional Past Surgical Histo: unknown, pt is poor historian Alcohol Use: Heavy Drug Use: Marijuana Adult General Chief Complaint Chief Complaint: ALTERED MENTAL STATUS HPI HPI Patient is a 60 year old male who presents with AMS. Patient sent from [facility] with complaint that he is not acting like himself per staff. They report that he has been lethargic this morning when he is usually more awake and alert. He was also hyperglycemia with blood glucose in the 300s, but this has improved somewhat after he was given his insulin. Patient says he is not feeling well in general but denies specific complaints. He denies any pain, SOB, numbness or weakness. He is a poor historian. Review of Systems Review of Systems Constitutional: Feeling poorly in general. Denies fever or chills Eyes: Denies change in visual acuity or eye pain HENT: Denies nasal congestion or sore throat Respiratory: Denies cough or shortness of breath Cardiovascular: Denies chest pain GI: Denies abdominal pain, nausea, vomiting, bloody stools or diarrhea : Denies dysuria or hematuria Musculoskeletal: Denies back pain or joint pain Integument: Denies rash or skin lesions Neurologic: AMS per senior living. Denies headache, focal weakness or sensory changes Allergies Allergies Allergies Coded Allergies Type Severity Reaction Last Updated Verified I S O L A T I O N *CONTACT* Allergy Unknown 09/15/16 Yes No Known Medication Allergies Allergy Unknown 09/15/16 Yes Physical Exam Physical Exam Constitutional: Well developed, well nourished, no acute distress, non-toxic appearance HENT: Normocephalic, atraumatic, bilateral external ears normal Eyes: PERRL, EOMI, conjunctiva normal, no discharge Neck: Normal range of motion, no stridor Cardiovascular: Heart rate normal, regular rhythm, no murmur Lungs & Thorax: Bilateral breath sounds clear to auscultation Abdomen: Bowel sounds normal, soft, non-distended, no TTP Skin: Warm, dry, no erythema, no rash Extremities: BLE edema. No obvious deformity Neurologic: Somnolent, oriented X 3, strength and sensation to light touch fully intact and symmetrical, CNII-XII gross intact Psychologic: Slowed affect Current Patient Data Vital Signs Vital Signs Date Time Temp Pulse Resp B/P Pulse Ox O2 Delivery O2 Flow Rate FiO2 09/25/16 09:51 74 20 124/69 95 09/25/16 07:55 97.9 Room Air 97.9 Lab Values Laboratory Tests Test 09/25/16 08:05 White Blood Count 6.6x10^3/uL (4.0-11.0) Red Blood Count 4.04x10^6/uL (4.30-5.70) L Hemoglobin 12.0g/dL (13.0-17.5) L Hematocrit 36.6% (39.0-53.0) L Mean Corpuscular Volume 91fL (79-100) Mean Corpuscular Hemoglobin 30pg (25-35) Mean Corpuscular Hemoglobin Concent 33g/dL (31-37) Red Cell Distribution Width 13.5% (11.5-14.5) Platelet Count 169x10^3/uL (140-400) Neutrophils (%) (Auto) 62% (31-73) Lymphocytes (%) (Auto) 25% (24-48) Monocytes (%) (Auto) 7% (0-9) Eosinophils (%) (Auto) 5% (0-3) H Basophils (%) (Auto) 1% (0-3) Neutrophils # (Auto) 4.1x10^3uL (1.8-7.7) Lymphocytes # (Auto) 1.7x10^3/uL (1.0-4.8) Monocytes # (Auto) 0.5x10^3/uL (0.0-1.1) Eosinophils # (Auto) 0.3x10^3/uL (0.0-0.7) Basophils # (Auto) 0.0x10^3/uL (0.0-0.2) Sodium Level 139mmol/L (136-145) Potassium Level 4.8mmol/L (3.5-5.1) Chloride Level 102mmol/L (98-107) Carbon Dioxide Level 26mmol/L (21-32) Anion Gap 11 (6-14) Blood Urea Nitrogen 13mg/dL (8-26) Creatinine 1.2mg/dL (0.7-1.3) Estimated GFR (Cockcroft-Gault) 61.6 BUN/Creatinine Ratio 11 (6-20) Glucose Level 206mg/dL (70-99) H Calcium Level 9.2mg/dL (8.5-10.1) Total Bilirubin 0.2mg/dL (0.2-1.0) Aspartate Amino Transferase (AST) 29U/L (15-37) Alanine Aminotransferase (ALT) 57U/L (16-63) Alkaline Phosphatase 58U/L (46-116) Total Protein 7.1g/dL (6.4-8.2) Albumin 3.7g/dL (3.4-5.0) Albumin/Globulin Ratio 1.1 (1.0-1.7) Ethyl Alcohol Level < 10mg/dL (0-10) Laboratory Tests 09/25/16 08:05 Laboratory Tests 09/25/16 08:05 EKG EKG EKG (my read): sinus rhythm, rate 77, LAD, intervals wnl, PAC noted, TWI lead I/ aVL, no acute ST changes Radiology/Procedures Radiology/Procedures CT head: Impression: No acute intracranial abnormality is seen. CXR: Impression: Mild right lung base infiltrate or atelectasis. Mild compression deformity of the mid thoracic spine of indeterminate age.. Course & Med Decision Making Course & Med Decision Making Pertinent Labs and Imaging studies reviewed. (See chart for details) Patient is 60 year old male who presents with AMS. Will check CT head, CXR, EKG , labs to evaluate. Labs largely unremarkable. Discussed results with patient. Discussed with Dr. Olivier, will admit under his care for further evaluation and treatment. Dragon Disclaimer Dragon Disclaimer This electronic medical record was generated, in whole or in part, using a voice recognition dictation system. Departure Departure Impression: Primary Impression: Altered mental status Disposition: ADMITTED INPATIENT Admitting Physician: Jeny Olivier Condition: STABLE Referrals: NO PCP (PCP) ANIL SHANNON MD Sep 25, 2016 08:18
[2016-09-25 08:25] LABS: BASO % 1 % (0-3); EOS % 5 % (0-3); HEMATOCRIT 36.6 % (39.0-53.0); LYMPH # 1.7 x10^3/uL (1.0-4.8); LYMPH % 25 % (24-48); MEAN CORPUSCULAR HEMOGLOBIN 30 pg (25-35); MEAN CORPUSCULAR HGB CONC 33 g/dL (31-37); MEAN CORPUSCULAR VOLUME 91 fL (79-100); MONO % 7 % (0-9); NEUT % 62 % (31-73); PLATELET COUNT 169 x10^3/uL (140-400); RED BLOOD COUNT 4.04 x10^6/uL (4.30-5.70); RED CELL DISTRIBUTION WIDTH 13.5 % (11.5-14.5); WHITE BLOOD COUNT 6.6 x10^3/uL (4.0-11.0)
--- NOTE | 2016-09-25 08:30 | EKG ---
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
--- NOTE | 2016-09-25 09:06 | RAD ---
Clinical indications: Altered mental status.. Technique: Noncontrast axial cross sectional scanning of the head was performed. PQRS Compliance Statement: One or more of the following individualized dose reduction techniques were utilized for this examination: 1. Automated exposure control 2. Adjustment of the mA and/or kV according to patient size 3. Use of iterative reconstruction technique Comparison: September 13, 2016. Findings: No acute intracranial hemorrhage or midline shift or mass-effect or hydrocephalus or extra-axial fluid collection is seen. No new focal hypodense area or sulci effacement is seen to indicate an acute infarct or edema radiographically. No skull fracture or pneumocephalus is seen. Again seen is a mucous retention cyst of the left maxillary sinus. Again seen is a soft tissue nodule of the left cheek. Impression: No acute intracranial abnormality is seen.
--- NOTE | 2016-09-25 09:15 | RAD ---
2 view CXR: Clinical indications: Cough and congestion. Altered mental status. Comparison: September 13, 2016 portable AP upright study.. Findings: There is new small focus of right lung base infiltrate or atelectasis seen in the frontal view. Minimal atelectasis is now present in the lateral left lung base. No pleural effusion or pneumothorax or perihilar pulmonary edema is seen. The heart size and mediastinum and pulmonary vasculature and both grey are unremarkable. There is mild compression deformity of a midthoracic body of indeterminate age. Impression: Mild right lung base infiltrate or atelectasis. Mild compression deformity of the mid thoracic spine of indeterminate age..
[2016-09-25 09:24] LABS: CALCIUM 9.2 mg/dL (8.5-10.1); CREATININE 1.2 mg/dL (0.7-1.3); GFR 61.6; POTASSIUM 4.8 mmol/L (3.5-5.1)
[2016-09-25 09:30] LABS: ALBUMIN 3.7 g/dL (3.4-5.0); ALBUMIN/GLOBULIN RATIO 1.1 (1.0-1.7); TOTAL BILIRUBIN 0.2 mg/dL (0.2-1.0); TOTAL PROTEIN 7.1 g/dL (6.4-8.2)
[2016-09-25] MEDS ORDERED: ACETAMINOPHEN 325 MG TABLET. PO PRN ×2 (11:00→16:30)
[2016-09-25] MEDS ORDERED: DEXTROSE 50% 25 GM / 50ML DISP.SYRIN. IV PRN (11:00)
[2016-09-25] MEDS ORDERED: MORPHINE SULFATE 2 MG/ML DISP.SYRIN. IV PRN (11:00)
[2016-09-25] MEDS ORDERED: ONDANSETRON PF 4 MG/2 ML VIAL. IV PRN (11:00)
[2016-09-25 11:12] LABS: BILIRUBIN,URINE NEGATIVE (NEG); GLUCOSE,URINE NEGATIVE (NEG); NITRITE,URINE NEGATIVE (NEG); PH,URINE 6.5; PROTEIN,URINE NEGATIVE (NEG-TRACE); UROBILINOGEN,URINE 0.2 mg/dL (0.2 mg/dL)
[2016-09-25 11:30] LABS: OBC FLU VALID
[2016-09-25 11:38] LABS: BARBITURATES NEG (NEG); BENZODIAZEPINES NEG (NEG); CANNABINOIDS NEG (NEG); COCAINE NEG (NEG); METHADONE NEG (NEG); OPIATES NEG (NEG); PHENCYCLIDINE NEG (NEG)
[2016-09-25 11:40] LABS: ETHANOL, URINE NEG (NEG)
[2016-09-25 11:42] LABS: BACTERIA,URINE 0 /HPF (0-FEW); RBC,URINE 0 /HPF (0-2); SQUAMOUS EPITHELIAL CELL,UR MOD /LPF; WBC,URINE 0 /HPF (0-4)
[2016-09-25] MEDS: INSULIN ASPART 300 UNITS/3 ML INSULN.PEN SQ SCH ×2 (12:06→17:19)
--- NOTE | 2016-09-25 12:21 | ACF ---
Admission Forms Criteria MENTAL STATUS CHANGE Clinical Indications for Inpatient Care (Place 'X' for any and all applicable criteria): Ongoing inpatient care may be needed for ANY ONE of the following(1)(2)(3)(5)(6) : [X]I. Suspected serious etiology (eg, medical disorder, PELLET PREPARATION OPERATOR event) of mental status change [ ]II. Danger to self or others not manageable at lower level of care [ ]III. Grave disability (eg, inability to perform self care necessary at lower level of care) [ ]IV. Agitation or inappropriate behavior interfering with care for primary condition (eg, attempting to discontinue lines or drains prematurely, unable to cooperate with respiratory care) [ ]V. Delirium [A] [D][E] as described by ANY ONE of the following(26): [ ]a) Delirium due to alcohol or sedative [F] withdrawal [ ]b) Delirium of uncertain etiology that has not responded to appropriate empiric treatment [ ]c) Delirium that prevents performance of a life-sustaining function (eg, feeding or hydrating oneself) [ ]. General contraindications and/or Inappropriate clinical situations for Observational Care in patients with Mental Status Change, when ANY ONE of the following is required: [ ]a) Prediction of prolongation of LOS based on ANY ONE of the following may be considered as a contraindication for observational care 2, 3, 4, 5, 6, 7, 8, 9, 10, 11 [ ]i) Age > 65 yrs. [ ]ii) Patient arriving by ambulance [ ]iii) Patient with high acuity [ ]iv) Patient requiring vital sign monitoring [ ]v) Patient on IV medication [ ]b) Systolic blood pressures 180mmHg 3,12 [ ]c) Patient with altered mental status including delirium and other alteration of consciousness, (3) [ ]d) Patient whose discharge disposition will be to a senior care home or rehabilitation home should not be managed in Emergency Department Observation Unit. CMS rule requires 3 days hospital stay before such placement.3,13 [ ]e) Patient with failure to thrive due to broad array of etiologies 3,16,17 [ ]f) Inability to ambulate 3,14 Extended stay beyond goal length of stay for the primary condition may be needed until ALL of the following are present(3)(5): [ ]a) Underlying medical etiology of mental status change is absent, or has been established and adequately treated [ ]b) Danger to self or others is absent or manageable at lower level of care. [ ]c) Behavior crisis management, including physical or chemical restraints, is not required or available at lower level of car [ ]d) Substance or alcohol withdrawal is absent or manageable at lower level of care. [ ]e) Behavioral symptoms (eg, agitation, somnolence, inappropriate behavior) are absent, or are manageable at lower level of care. The original [facility] content created by [facility] has been revised. The portions of the content which have been revised are identified through the use of italic text or in bold, and [facility] has neither reviewed nor approved the modified material. All other unmodified content is copyright [facility]. Please see references footnoted in the original [facility] edition 2016 Admission Criteria Met?: Yes ANNIE SALMERON Sep 25, 2016 12:20
[2016-09-25 12:30] VITALS: BP 155/74
[2016-09-25] MEDS ORDERED: EZET10TA3 PO (14:52)
[2016-09-25] MEDS ORDERED: LEVE500T6 PO (14:52)
[2016-09-25] MEDS ORDERED: NIAC500T PO (14:52)
[2016-09-25] MEDS ORDERED: IPRA4AER IH (14:52)
[2016-09-25 15:38] VITALS: BP 153/82
[2016-09-25] MEDS ORDERED: MAGNESIUM HYDROXIDE 2,400 MG/30 ML ORAL.SUSP. PO PRN (16:30)
[2016-09-25] MEDS: IPRATRPIUM/ALBUTEROL 0.5/2.5MG 3 ML NEBU. NEB SCH ×2 (17:00→21:35)
[2016-09-25] MEDS ORDERED: GUAIFENESIN DM 200MG/20MG 10 ML SYRUP. PO PRN (17:00)
[2016-09-25] MEDS ORDERED: ALBUTEROL SULFATE 2.5 MG/3 ML NEBU. NEB PRN (17:00)
--- NOTE | 2016-09-25 17:12 | PDOC1 ---
History and Physical Date of Admission Date of Admission DATE: 09/25/16 TIME: 17:07 Identification/Chief Complaint Chief Complaint change in mental status Source Source: Chart review, Patient History of Present Illness History of Present Illness MR Faustin, is a 60 year old male admit for lethargy, odd behavior. He is a resident at [facility]. Shizoaffective or Bipolar disorder from meds. today, was "not acting like himself" bu the has no complaint to me this PM. Per ER report, noted, lethargic this morning when he is usually more awake and alert. hyperglycemia in the 300s, Past Medical History Cardiovascular: HTN CENTRAL NERVOUS SYSTEM: Seizure Musculoskeletal: low back pain Past Surgical History Past Surgical History: No pertinent history Family History Family History: Family History Unknown Social History Smoke: 1 pack per day ALCOHOL: none Drugs: None Current Problem List Problem List Problems Medical Problems: (1) Altered mental status Status: Acute Problems: Current Medications Current Medications Current Medications Ondansetron HCl (Zofran) 4 mg PRN Q8HRS PRN IV NAUSEA/VOMITING; Start 09/25/16 at 11:00; Stop 09/26/16 at 10:59 Morphine Sulfate 2 mg PRN Q2HR PRN IV PAIN; Start 09/25/16 at 11:00; Stop 09/26 at 10:59 Acetaminophen (Tylenol) 650 mg PRN Q4HRS PRN PO FEVER; Start 09/25/16 at 11:00 ; Stop 09/26/16 at 10:59 Insulin Aspart (Novolog) 0-7 UNITS TIDWMEALS SQ Last administered on 09/25/16t 12:06; Start 09/25/16 at 12:00 Dextrose 12.5 gm PRN Q15MIN PRN IV SEE COMMENTS; Start 09/25/16 at 11:00 Acetaminophen (Tylenol) 325 mg PRN Q4HRS PRN PO PAIN; Start 09/25/16 at 16:30 Aspirin (Children'S Aspirin) 81 mg DAILY PO ; Start 09/26/16 at 09:00 Cetirizine HCl (Zyrtec) 10 mg DAILY08 PO ; Start 09/26/16 at 08:00 EZETIMIBE (Zetia) 10 mg HS PO ; Start 09/25/16 at 21:00 Gabapentin (Neurontin) 400 mg TID PO ; Start 09/25/16 at 16:30 Glyburide (Diabeta) 5 mg DAILY08 PO ; Start 09/26/16 at 08:00 Haloperidol (Haldol) 5 mg BID PO ; Start 09/25/16 at 21:00 Albuterol/ Ipratropium (Duoneb) 3 ml RTQID NEB ; Start 09/25/16 at 17:00 Levetiracetam (Keppra) 500 mg BID PO ; Start 09/25/16 at 21:00 Lisinopril (Prinivil) 10 mg DAILY PO ; Start 09/26/16 at 09:00 Magnesium Hydroxide (Milk Of Magnesia) 400 mg PRN DAILY PRN PO CONSTIPATION; Start 09/25/16 at 16:30 Metformin HCl (Glucophage) 1,000 mg BIDWMEALS PO ; Start 09/25/16 at 17:00 Niacin (Slo-Niacin) 500 mg QHS PO ; Start 09/25/16 at 21:00 Senna/Docusate Sodium (Senna Plus) 1 tab DAILY PO ; Start 09/26/16 at 09:00 Simvastatin (Zocor) 40 mg QHS PO ; Start 09/25/16 at 21:00 Trazodone HCl (Desyrel) 100 mg QHS PO ; Start 09/25/16 at 21:00 Guaifenesin (Robitussin Dm) 10 ml PRN Q6HRS PRN PO COUGH; Start 09/25/16 at 17: 00 Insulin Detemir (Levemir) 10 units DAILY08 SQ ; Start 09/26/16 at 08:00 Albuterol Sulfate (Ventolin Neb Soln) 2.5 mg PRN Q8HRS PRN NEB SHORTNESS OF BREATH.; Start 09/25/16 at 17:00 Multivitamins/ Calcium (Thera M Plus) 1 tab DAILY PO ; Start 09/26/16 at 09:00 Fish Oil (Fish Oil) 1,000 mg DAILY PO ; Start 09/26/16 at 09:00 Quetiapine Fumarate (SEROquel) 400 mg QHS PO ; Start 09/25/16 at 21:00 Venlafaxine HCl (Effexor) 50 mg TID PO ; Start 09/25/16 at 17:00 Active Scripts Active Reported Combivent Respimat Inhal (Ipratropium/Albuterol Sulfate) 4 Gm Aer.w.adap 1 Inh IH PRN Q8HRS PRN Levetiracetam 500 Mg Tablet 1 Tab PO BID Zetia (Ezetimibe) 10 Mg Tablet 1 Tab PO HS Niaspan (Niacin) 500 Mg Tab.er.24h 1 Tab PO QHS Aspirin 81 Mg Tab.chew 1 Tab PO DAILY Nicotine Gum (Nicotine Polacrilex) 4 Mg Gum 4 Mg BC Milk Of Magnesia (Magnesium Hydroxide) 400 Mg/5 Ml Oral.susp 400 Mg PO DAILY PRN Duoneb 0.5-3(2.5) Mg/3 Ml (Albuterol/Ipratropium) 3 Ml Ampul.neb 3 Ml NEB QID Acetaminophen 325 Mg Tablet 325 Mg PO PRN Q4HRS PRN Robitussin Cough-Chest Dm Liq (Guaifenesin/Dextromethorphan) 118 Ml Liquid 10 Ml PO PRN Q6HRS PRN AD Days Dent 3 Fish Oil Softgel (Dent-3 Fatty Acids/Fish Oil) 1 Each Capsule.dr 1 Each PO DAILY Gabapentin 400 Mg Capsule 400 Mg PO TID Sennosides-Docusate Sodium Tab (Sennosides/Docusate Sodium) 1 Each Tablet 6-50 Each PO DAILY Metformin Hcl 1,000 Mg Tablet 1 Tab PO BID Haloperidol 5 Mg Tablet 5 Tab PO BID Zyrtec (Cetirizine Hcl) 10 Mg Tablet 1 Tab PO DAILY08 Trazodone Hcl 100 Mg Tablet 1 Tab PO QHS Simvastatin 40 Mg Tablet 1 Tab PO QHS Seroquel (Quetiapine Fumarate) 400 Mg Tablet 400 Tab PO QHS Multi Vitamin Daily (Multivitamin) 1 Each Tablet 1 Each PO DAILY Lisinopril 10 Mg Tablet 1 Tab PO DAILY Levemir (Insulin Detemir) 100 Unit/1 Ml Vial 10 Unit SQ DAILY08 Glyburide 5 Mg Tablet 1 Tab PO DAILY08 Effexor Xr (Venlafaxine Hcl) 150 Mg Cap.er.24h 1 Cap PO DAILY Allergies Allergies: Coded Allergies: I S O L A T I O N *CONTACT* (Verified Allergy, Unknown, 09/15/16) mrsa No Known Medication Allergies (Verified Allergy, Unknown, 09/15/16) ROS General: YES: Fatigue, Malaise, No: Appetite, Chills, Night Sweats, Other PSYCHOLOGICAL ROS: No: Anxiety, Behavioral Disorder, Concentration difficultie , Decreased libido, Depression, Disorientation, Hallucinations, Hostility, Irritablity, Memory difficulties, Mood Swings, Obsessive thoughts, Other, Physical abuse, Sexual abuse, Sleep disturbances, Suicidal ideation Eyes: No Blurry vision, No Decreased vision, No Double vision, No Dry eyes, No Excessive tearing, No Eye Pain, No Itchy Eyes, No Loss of vision, No Other, No Photophobia, No Scotomata, No Uses contacts, No Uses glasses HEENT: No: Epistaxis, Heacaches, Hearing change, Nasal congestion, Nasal discharge, Oral lesions, Other, Sinus pain, Sneezing, Snoring, Sore Throat, Tinnitus, Vertigo, Visual Changes, Vocal changes Respiratory: No: Cough, Hemoptysis, Orthopnea, Other, Pleuritic Pain, SOB with excertion, Shortness of breath, Sputum Changes, Stridor, Tachypnea, Wheezing Cardiovascular: yes Edema, No Chest Pain, No Lt Headedness, No Orthopnea, No Other, No Palpitations, No Paroxysmal Noc. Dyspnea Gastrointestinal: Yes Nausea, No Abdominal Pain, No Constipation, No Diarrhea, No Hematochezia, No Melena, No Other, No Vomiting Genitourinary: No , No , No , No , No , No , No , No Discharge, No Dysuria, No Flank Pain, No Frequency, No Hematuria, No Incontinence, No Other, No Pain, No Retention, No Urgency Musculoskeletal: Yes Joint Pain, No Gait Disturbance, No Joint Stiffness, No Joint Swelling, No Muscle Pain, No Muscular Weakness, No Other, No Pain In:, No Swelling In: Neurological: No Behavorial Changes, No Bowel/Bladder ControlChng, No Confusion , No Dizziness, No Gait Disturbance, No Headaches, No Impaired Coord/balance, No Memory Loss, No Numbness/Tingling, No Other, No Seizures, No Speech Problems , No Tremors, No Visual Changes, No Weakness Skin: No Acne, No Dry Skin, No Eczema, No Hair Changes, No Lumps, No Mole Changes, No Mottling, No Nail Changes, No Other, No Pruritus, No Rash, No Skin Lesion Changes Physical Exam Physical Exam malodorous General: Alert, Cooperative, No acute distress HEENT: Atraumatic, PERRLA, EOMI, Mucous membr. moist/pink Lungs: Normal air movement Abdomen: Normal bowel sounds, Soft Rectal Exam: not examined Extremities: No clubbing, No cyanosis, Other (2+ edema left, 1+ right) Skin: No rashes, No breakdown Neuro: Normal speech Psych/Mental Status: Other (odd, flat affect) Vitals Vitals Vital Signs Date Time Temp Pulse Resp B/P Pulse Ox O2 Delivery O2 Flow Rate FiO2 09/25/16 15:38 97.9 68 16 153/82 95 Room Air 97.9 09/25/16 12:30 2.0 Labs Labs Laboratory Tests Test 09/25/16 08:05 09/25/16 11:00 09/25/16 11:48 09/25/16 12:43 White Blood Count 6.6x10^3/uL (4.0-11.0) Red Blood Count 4.04x10^6/uL (4.30-5.70) Hemoglobin 12.0g/dL (13.0-17.5) Hematocrit 36.6% (39.0-53.0) Mean Corpuscular Volume 91fL (79-100) Mean Corpuscular Hemoglobin 30pg (25-35) Mean Corpuscular Hemoglobin Concent 33g/dL (31-37) Red Cell Distribution Width 13.5% (11.5-14.5) Platelet Count 169x10^3/uL (140-400) Neutrophils (%) (Auto) 62% (31-73) Lymphocytes (%) (Auto) 25% (24-48) Monocytes (%) (Auto) 7% (0-9) Eosinophils (%) (Auto) 5% (0-3) Basophils (%) (Auto) 1% (0-3) Neutrophils # (Auto) 4.1x10^3uL (1.8-7.7) Lymphocytes # (Auto) 1.7x10^3/uL (1.0-4.8) Monocytes # (Auto) 0.5x10^3/uL (0.0-1.1) Eosinophils # (Auto) 0.3x10^3/uL (0.0-0.7) Basophils # (Auto) 0.0x10^3/uL (0.0-0.2) Sodium Level 139mmol/L (136-145) Potassium Level 4.8mmol/L (3.5-5.1) Chloride Level 102mmol/L (98-107) Carbon Dioxide Level 26mmol/L (21-32) Anion Gap 11 (6-14) Blood Urea Nitrogen 13mg/dL (8-26) Creatinine 1.2mg/dL (0.7-1.3) Estimated GFR (Cockcroft-Gault) 61.6 BUN/Creatinine Ratio 11 (6-20) Glucose Level 206mg/dL (70-99) Calcium Level 9.2mg/dL (8.5-10.1) Total Bilirubin 0.2mg/dL (0.2-1.0) Aspartate Amino Transf (AST/SGOT) 29U/L (15-37) Alanine Aminotransferase (ALT/SGPT) 57U/L (16-63) Alkaline Phosphatase 58U/L (46-116) Total Protein 7.1g/dL (6.4-8.2) Albumin 3.7g/dL (3.4-5.0) Albumin/Globulin Ratio 1.1 (1.0-1.7) Ethyl Alcohol Level < 10mg/dL (0-10) Urine Collection Type Unknown Urine Color Yellow Urine Clarity Clear Urine pH 6.5 Urine Specific Jarrell 1.010 Urine Protein Negativemg/dL (NEG-TRACE) Urine Glucose (UA) Negativemg/dL (NEG) Urine Ketones (Stick) Negativemg/dL (NEG) Urine Blood Negative (NEG) Urine Nitrite Negative (NEG) Urine Bilirubin Negative (NEG) Urine Urobilinogen Dipstick 0.2mg/dL (0.2 mg/dL) Urine Leukocyte Esterase Negative (NEG) Urine RBC 0/HPF (0-2) Urine WBC 0/HPF (0-4) Urine Squamous Epithelial Cells Mod/LPF Urine Bacteria 0/HPF (0-FEW) Urine Opiates Screen Neg (NEG) Urine Methadone Screen Neg (NEG) Urine Barbiturates Neg (NEG) Urine Phencyclidine Screen Neg (NEG) Urine Amphetamine/Methamphetamine Neg (NEG) Urine Benzodiazepines Screen Neg (NEG) Urine Cocaine Screen Neg (NEG) Urine Cannabinoids Screen Neg (NEG) Urine Ethyl Alcohol Neg (NEG) Influenza Type A Antigen Negative (NEGATIVE) Influenza Type B Antigen Negative (NEGATIVE) Glucose (Fingerstick) 189mg/dL (70-99) 249mg/dL (70-99) Test 2/10/17 16:09 Glucose (Fingerstick) 175mg/dL (70-99) Laboratory Tests Test 09/25/16 08:05 09/25/16 11:00 09/25/16 11:48 09/25/16 12:43 White Blood Count 6.6x10^3/uL (4.0-11.0) Red Blood Count 4.04x10^6/uL (4.30-5.70) Hemoglobin 12.0g/dL (13.0-17.5) Hematocrit 36.6% (39.0-53.0) Mean Corpuscular Volume 91fL (79-100) Mean Corpuscular Hemoglobin 30pg (25-35) Mean Corpuscular Hemoglobin Concent 33g/dL (31-37) Red Cell Distribution Width 13.5% (11.5-14.5) Platelet Count 169x10^3/uL (140-400) Neutrophils (%) (Auto) 62% (31-73) Lymphocytes (%) (Auto) 25% (24-48) Monocytes (%) (Auto) 7% (0-9) Eosinophils (%) (Auto) 5% (0-3) Basophils (%) (Auto) 1% (0-3) Neutrophils # (Auto) 4.1x10^3uL (1.8-7.7) Lymphocytes # (Auto) 1.7x10^3/uL (1.0-4.8) Monocytes # (Auto) 0.5x10^3/uL (0.0-1.1) Eosinophils # (Auto) 0.3x10^3/uL (0.0-0.7) Basophils # (Auto) 0.0x10^3/uL (0.0-0.2) Sodium Level 139mmol/L (136-145) Potassium Level 4.8mmol/L (3.5-5.1) Chloride Level 102mmol/L (98-107) Carbon Dioxide Level 26mmol/L (21-32) Anion Gap 11 (6-14) Blood Urea Nitrogen 13mg/dL (8-26) Creatinine 1.2mg/dL (0.7-1.3) Estimated GFR (Cockcroft-Gault) 61.6 BUN/Creatinine Ratio 11 (6-20) Glucose Level 206mg/dL (70-99) Calcium Level 9.2mg/dL (8.5-10.1) Total Bilirubin 0.2mg/dL (0.2-1.0) Aspartate Amino Transf (AST/SGOT) 29U/L (15-37) Alanine Aminotransferase (ALT/SGPT) 57U/L (16-63) Alkaline Phosphatase 58U/L (46-116) Total Protein 7.1g/dL (6.4-8.2) Albumin 3.7g/dL (3.4-5.0) Albumin/Globulin Ratio 1.1 (1.0-1.7) Ethyl Alcohol Level < 10mg/dL (0-10) Urine Collection Type Unknown Urine Color Yellow Urine Clarity Clear Urine pH 6.5 Urine Specific Jarrell 1.010 Urine Protein Negativemg/dL (NEG-TRACE) Urine Glucose (UA) Negativemg/dL (NEG) Urine Ketones (Stick) Negativemg/dL (NEG) Urine Blood Negative (NEG) Urine Nitrite Negative (NEG) Urine Bilirubin Negative (NEG) Urine Urobilinogen Dipstick 0.2mg/dL (0.2 mg/dL) Urine Leukocyte Esterase Negative (NEG) Urine RBC 0/HPF (0-2) Urine WBC 0/HPF (0-4) Urine Squamous Epithelial Cells Mod/LPF Urine Bacteria 0/HPF (0-FEW) Urine Opiates Screen Neg (NEG) Urine Methadone Screen Neg (NEG) Urine Barbiturates Neg (NEG) Urine Phencyclidine Screen Neg (NEG) Urine Amphetamine/Methamphetamine Neg (NEG) Urine Benzodiazepines Screen Neg (NEG) Urine Cocaine Screen Neg (NEG) Urine Cannabinoids Screen Neg (NEG) Urine Ethyl Alcohol Neg (NEG) Influenza Type A Antigen Negative (NEGATIVE) Influenza Type B Antigen Negative (NEGATIVE) Glucose (Fingerstick) 189mg/dL (70-99) 249mg/dL (70-99) Test 09/25/16 16:09 Glucose (Fingerstick) 175mg/dL (70-99) VTE Prophylaxis Ordered VTE Prophylaxis Devices: No VTE Pharmacological Prophylaxi: Yes Assessment/Plan Assessment/Plan encephalopathy, acute on chronic schizophrenia or bipolar, cont meds w/u urine, seizure disorder, on Keppra LE edema, check Echo, w/ htn, obesity, BMI 40 likely chronic diastolic CHF, consult CV to eval CKD2 DM2, insulin weakness, PT and OT Tobaccoism, declines replacement admit RADHA JURADO MD Sep 25, 2016 17:12
[2016-09-25] MEDS: METFORMIN 1,000 MG TABLET PO SCH (17:15)
[2016-09-25] MEDS: GABAPENTIN 400 MG CAPSULE. PO SCH ×2 (17:15→21:01)
[2016-09-25] MEDS: VENLAFAXINE 50 MG TABLET. PO SCH ×2 (17:21→21:02)
[2016-09-25 19:00] VITALS: BP 165/86
--- NOTE | 2016-09-25 20:52 | CARD ---
APPROVED REPORT EXAM: Two-dimensional and M-mode echocardiogram with Doppler and color Doppler. Other Information Quality : Good INDICATION Congestive Heart Failure 2D DIMENSIONS RVDd2.5 (2.9-3.5cm)Left Atrium(2D)3.8 (1.6-4.0cm) IVSd1.5 (0.7-1.1cm)Aortic Root(2D)3.7 (2.0-3.7cm) LVDd4.8 (3.9-5.9cm)LVOT Diameter2.2 (1.8-2.4cm) PWd1.5 (0.7-1.1cm)LVDs2.0 (2.5-4.0cm) FS (%) 30.0 %SV96.9 ml LVEF(%)60.0 (>50%) Aortic Valve AoV Peak Bonifacio.108.1cm/sAoV VTI17.3cm AO Peak GR.4.7mmHgLVOT VTI 16.84cm AO Mean GR.2mmHgAVA (VTI)3.80cm2 Mitral Valve MV E Vdsrtqyg21.1cm/sMV DECEL [id number] MV A Mglvpuaj88.6cm/sE/A Ratio0.9 TDI Lateral E' P. V7.80cm/sMedial E' P. V5.82cm/s E/Lateral E'8.2E/Medial E'11.0 Tricuspid Valve TR P. [id number]/sRAP [id number] TR Peak Gr.[id number] LEFT VENTRICLE The left ventricle is normal size. There is mild to moderate concentric left ventricular hypertrophy. The left ventricular systolic function is normal and the ejection fraction is within normal range. T he Ejection Fraction is 55-60%. There is normal LV segmental wall motion. RIGHT VENTRICLE The right ventricle is normal size. The right ventricular systolic function is normal. ATRIA The left atrium size is normal. The right atrium size is normal. The interatrial septum is intact wit h no evidence for an atrial septal defect or patent foramen ovale as noted on 2-D or Doppler imaging. AORTIC VALVE The aortic valve is calcified but opens well. Doppler and Color Flow revealed no significant aortic r egurgitation. There is no significant aortic valvular stenosis. MITRAL VALVE The mitral valve is calcified but opens well. There is no evidence of mitral valve prolapse. There is no mitral valve stenosis. Doppler and Color-flow revealed trace mitral regurgitation. TRICUSPID VALVE The tricuspid valve is normal in structure and function. Doppler and Color Flow revealed trace tricus pid regurgitation. There is moderate pulmonary hypertension. The PA pressure was estimated at 54 mmHg . There is no tricuspid valve stenosis. PULMONIC VALVE The pulmonary valve is normal in structure and function. Doppler and Color Flow revealed no pulmonic valvular regurgitation. There is no pulmonic valvular stenosis. GREAT VESSELS The aortic root is normal in size. The ascending aorta is borderline dilated at 3.4 cm. The IVC is no rmal in size and collapses >50% with inspiration. PERICARDIAL EFFUSION There is no evidence of significant pericardial effusion. Critical Notification Critical Value: No <Conclusion> The left ventricle is normal size. There is mild to moderate concentric left ventricular hypertrophy. The left ventricular systolic function is normal and the ejection fraction is within normal range. The Ejection Fraction is 55-60% There is a grade 2 diastolic dysfunction with a mild increase in left atrial filling pressure. There is no pericardial effusion. There is no mitral stenosis and a trace mitral regurgitation. The left atrium is of normal size. There is no aortic stenosis or regurgitation. The right ventricle is of normal size with normal systolic function. Doppler and Color Flow revealed trace tricuspid regurgitation. There is moderate pulmonary hypertension. The PA pressure was estimated at 54 mmHg. The pulmonic valve is normal.
[2016-09-25] MEDS: QUEtiapine 100 MG TABLET. PO SCH (21:01)
[2016-09-25] MEDS: EZETIMIBE 10 MG TABLET PO SCH (21:02)
[2016-09-25] MEDS: LEVETIRACETAM 500 MG TABLET PO SCH (21:02)
[2016-09-25] MEDS: HALOPERIDOL 5 MG TABLET PO SCH (21:02)
[2016-09-25] MEDS: NIACIN ER 500 MG TABLET.ER PO SCH (21:02)
[2016-09-25] MEDS: traZODone 100 MG TABLET. PO SCH (21:02)
[2016-09-25] MEDS: SIMVASTATIN 40 MG TABLET. PO SCH (21:02)
[2016-09-25 23:00] VITALS: BP 156/83
[2016-09-26 03:00] VITALS: BP 142/93
[2016-09-26 06:27] LABS: BASO # 0.1 x10^3/uL (0.0-0.2); BASO % 1 % (0-3); EOS % 3 % (0-3); HEMATOCRIT 38.4 % (39.0-53.0); HEMOGLOBIN 12.4 g/dL (13.0-17.5); LYMPH # 2.2 x10^3/uL (1.0-4.8); LYMPH % 27 % (24-48); MEAN CORPUSCULAR HEMOGLOBIN 30 pg (25-35); MEAN CORPUSCULAR HGB CONC 32 g/dL (31-37); MEAN CORPUSCULAR VOLUME 91 fL (79-100); MONO % 6 % (0-9); NEUT % 63 % (31-73); PLATELET COUNT 165 x10^3/uL (140-400); RED CELL DISTRIBUTION WIDTH 13.6 % (11.5-14.5)
[2016-09-26 06:31] LABS: CALCIUM 9.6 mg/dL (8.5-10.1); CREATININE 1.2 mg/dL (0.7-1.3); GFR 61.6; POTASSIUM 4.1 mmol/L (3.5-5.1)
[2016-09-26 07:00] VITALS: BP 131/82
[2016-09-26] MEDS: IPRATRPIUM/ALBUTEROL 0.5/2.5MG 3 ML NEBU. NEB SCH ×4 (07:14→19:23)
[2016-09-26] MEDS: VENLAFAXINE 50 MG TABLET. PO SCH ×3 (08:16→21:44)
[2016-09-26] MEDS: OMEGA-3 FATTY ACIDS/FISH OIL 1,000 MG CAPSULE. PO SCH (08:17)
[2016-09-26] MEDS: HALOPERIDOL 5 MG TABLET PO SCH ×2 (08:17→21:44)
[2016-09-26] MEDS: MULTIVITAMIN with MINERAL TABLET. PO SCH (08:17)
[2016-09-26] MEDS: ASPIRIN 81 MG TAB.CHEW PO SCH (08:18)
[2016-09-26] MEDS: LISINOPRIL 10 MG TABLET PO SCH (08:18)
[2016-09-26] MEDS: GLYBURIDE 5 MG TABLET PO SCH (08:18)
[2016-09-26] MEDS: METFORMIN 1,000 MG TABLET PO SCH ×2 (08:18→16:39)
[2016-09-26] MEDS: GABAPENTIN 400 MG CAPSULE. PO SCH ×3 (08:18→21:44)
[2016-09-26] MEDS: LEVETIRACETAM 500 MG TABLET PO SCH ×2 (08:18→21:44)
[2016-09-26] MEDS: SENNOSIDES/DOCUSATE 8.6/50MG TABLET. PO SCH (08:19)
[2016-09-26] MEDS: INSULIN ASPART 300 UNITS/3 ML INSULN.PEN SQ SCH ×3 (08:23→16:44)
[2016-09-26] MEDS: INSULIN DETEMIR 300 UNITS/3 ML INSULN.PEN. SQ SCH (08:24)
[2016-09-26] MEDS: CETIRIZINE HCL 10 MG TABLET PO SCH (09:07)
[2016-09-26] MEDS ORDERED: FUROSEMIDE 20 MG/2 ML VIAL IVP ONE (09:45)
[2016-09-26 11:00] VITALS: BP 132/81
--- NOTE | 2016-09-26 11:30 | PDOC ---
PROGRESS NOTES Chief Complaint Chief Complaint encephalopathy, acute on chronic schizophrenia or bipolar, cont meds seizure disorder, on Keppra LE edema, acute diastolic CHF obesity, BMI 40 CKD2 DM2, insulin weakness, PT and OT Tobaccoism, declines replacement History of Present Illness History of Present Illness LAsix 20 IV this AM monitor LE edema tomorrow Neuro eval, maybe behavior change was seizure, pt takes Keppra, compliant at [place] Vitals Vitals Vital Signs Date Time Temp Pulse Resp B/P Pulse Ox O2 Delivery O2 Flow Rate FiO2 09/26/16 11:22 Room Air 09/26/16 11:00 97.9 83 16 132/81 91 97.9 09/25/16 12:30 2.0 Physical Exam General: Alert, Cooperative, No acute distress Heart: Regular rate Lungs: Clear Abdomen: Normal bowel sounds, Soft Extremities: No clubbing, No cyanosis, Other (2+ edema left, 1+ right) Skin: No rashes, No breakdown Labs LABS Laboratory Tests Test 09/25/16 11:48 09/25/16 12:43 09/25/16 14:00 09/25/16 16:09 Glucose (Fingerstick) 189mg/dL (70-99) 249mg/dL (70-99) 175mg/dL (70-99) Nasal Screen MRSA (PCR) Negative (Negative) Test 09/25/16 20:57 09/26/16 05:00 09/26/16 07:33 Glucose (Fingerstick) 151mg/dL (70-99) 192mg/dL (70-99) White Blood Count 8.0x10^3/uL (4.0-11.0) Red Blood Count 4.20x10^6/uL (4.30-5.70) Hemoglobin 12.4g/dL (13.0-17.5) Hematocrit 38.4% (39.0-53.0) Mean Corpuscular Volume 91fL (79-100) Mean Corpuscular Hemoglobin 30pg (25-35) Mean Corpuscular Hemoglobin Concent 32g/dL (31-37) Red Cell Distribution Width 13.6% (11.5-14.5) Platelet Count 165x10^3/uL (140-400) Neutrophils (%) (Auto) 63% (31-73) Lymphocytes (%) (Auto) 27% (24-48) Monocytes (%) (Auto) 6% (0-9) Eosinophils (%) (Auto) 3% (0-3) Basophils (%) (Auto) 1% (0-3) Neutrophils # (Auto) 5.0x10^3uL (1.8-7.7) Lymphocytes # (Auto) 2.2x10^3/uL (1.0-4.8) Monocytes # (Auto) 0.5x10^3/uL (0.0-1.1) Eosinophils # (Auto) 0.2x10^3/uL (0.0-0.7) Basophils # (Auto) 0.1x10^3/uL (0.0-0.2) Sodium Level 140mmol/L (136-145) Potassium Level 4.1mmol/L (3.5-5.1) Chloride Level 101mmol/L (98-107) Carbon Dioxide Level 27mmol/L (21-32) Anion Gap 12 (6-14) Blood Urea Nitrogen 13mg/dL (8-26) Creatinine 1.2mg/dL (0.7-1.3) Estimated GFR (Cockcroft-Gault) 61.6 Glucose Level 167mg/dL (70-99) Calcium Level 9.6mg/dL (8.5-10.1) Assessment and Plan Assessmemt and Plan plan to DC in AM Problems Medical Problems: (1) Altered mental status Status: Acute Problems: Comment Review of Relevant I have reviewed the following items darryn (where applicable) has been applied. Labs Laboratory Tests Test 09/25/16 08:05 09/25/16 11:00 09/25/16 11:48 09/25/16 12:43 White Blood Count 6.6x10^3/uL (4.0-11.0) Red Blood Count 4.04x10^6/uL (4.30-5.70) Hemoglobin 12.0g/dL (13.0-17.5) Hematocrit 36.6% (39.0-53.0) Mean Corpuscular Volume 91fL (79-100) Mean Corpuscular Hemoglobin 30pg (25-35) Mean Corpuscular Hemoglobin Concent 33g/dL (31-37) Red Cell Distribution Width 13.5% (11.5-14.5) Platelet Count 169x10^3/uL (140-400) Neutrophils (%) (Auto) 62% (31-73) Lymphocytes (%) (Auto) 25% (24-48) Monocytes (%) (Auto) 7% (0-9) Eosinophils (%) (Auto) 5% (0-3) Basophils (%) (Auto) 1% (0-3) Neutrophils # (Auto) 4.1x10^3uL (1.8-7.7) Lymphocytes # (Auto) 1.7x10^3/uL (1.0-4.8) Monocytes # (Auto) 0.5x10^3/uL (0.0-1.1) Eosinophils # (Auto) 0.3x10^3/uL (0.0-0.7) Basophils # (Auto) 0.0x10^3/uL (0.0-0.2) Sodium Level 139mmol/L (136-145) Potassium Level 4.8mmol/L (3.5-5.1) Chloride Level 102mmol/L (98-107) Carbon Dioxide Level 26mmol/L (21-32) Anion Gap 11 (6-14) Blood Urea Nitrogen 13mg/dL (8-26) Creatinine 1.2mg/dL (0.7-1.3) Estimated GFR (Cockcroft-Gault) 61.6 BUN/Creatinine Ratio 11 (6-20) Glucose Level 206mg/dL (70-99) Calcium Level 9.2mg/dL (8.5-10.1) Total Bilirubin 0.2mg/dL (0.2-1.0) Aspartate Amino Transf (AST/SGOT) 29U/L (15-37) Alanine Aminotransferase (ALT/SGPT) 57U/L (16-63) Alkaline Phosphatase 58U/L (46-116) EA-Mjf-I-Type Natriuretic Peptide 33pg/mL (0-124) Total Protein 7.1g/dL (6.4-8.2) Albumin 3.7g/dL (3.4-5.0) Albumin/Globulin Ratio 1.1 (1.0-1.7) Ethyl Alcohol Level < 10mg/dL (0-10) Urine Collection Type Unknown Urine Color Yellow Urine Clarity Clear Urine pH 6.5 Urine Specific [place] 1.010 Urine Protein Negativemg/dL (NEG-TRACE) Urine Glucose (UA) Negativemg/dL (NEG) Urine Ketones (Stick) Negativemg/dL (NEG) Urine Blood Negative (NEG) Urine Nitrite Negative (NEG) Urine Bilirubin Negative (NEG) Urine Urobilinogen Dipstick 0.2mg/dL (0.2 mg/dL) Urine Leukocyte Esterase Negative (NEG) Urine RBC 0/HPF (0-2) Urine WBC 0/HPF (0-4) Urine Squamous Epithelial Cells Mod/LPF Urine Bacteria 0/HPF (0-FEW) Urine Opiates Screen Neg (NEG) Urine Methadone Screen Neg (NEG) Urine Barbiturates Neg (NEG) Urine Phencyclidine Screen Neg (NEG) Urine Amphetamine/Methamphetamine Neg (NEG) Urine Benzodiazepines Screen Neg (NEG) Urine Cocaine Screen Neg (NEG) Urine Cannabinoids Screen Neg (NEG) Urine Ethyl Alcohol Neg (NEG) Influenza Type A Antigen Negative (NEGATIVE) Influenza Type B Antigen Negative (NEGATIVE) Glucose (Fingerstick) 189mg/dL (70-99) 249mg/dL (70-99) Test 09/25/16 14:00 09/25/16 16:09 09/25/16 20:57 09/26/16 05:00 Nasal Screen MRSA (PCR) Negative (Negative) Glucose (Fingerstick) 175mg/dL (70-99) 151mg/dL (70-99) White Blood Count 8.0x10^3/uL (4.0-11.0) Red Blood Count 4.20x10^6/uL (4.30-5.70) Hemoglobin 12.4g/dL (13.0-17.5) Hematocrit 38.4% (39.0-53.0) Mean Corpuscular Volume 91fL (79-100) Mean Corpuscular Hemoglobin 30pg (25-35) Mean Corpuscular Hemoglobin Concent 32g/dL (31-37) Red Cell Distribution Width 13.6% (11.5-14.5) Platelet Count 165x10^3/uL (140-400) Neutrophils (%) (Auto) 63% (31-73) Lymphocytes (%) (Auto) 27% (24-48) Monocytes (%) (Auto) 6% (0-9) Eosinophils (%) (Auto) 3% (0-3) Basophils (%) (Auto) 1% (0-3) Neutrophils # (Auto) 5.0x10^3uL (1.8-7.7) Lymphocytes # (Auto) 2.2x10^3/uL (1.0-4.8) Monocytes # (Auto) 0.5x10^3/uL (0.0-1.1) Eosinophils # (Auto) 0.2x10^3/uL (0.0-0.7) Basophils # (Auto) 0.1x10^3/uL (0.0-0.2) Sodium Level 140mmol/L (136-145) Potassium Level 4.1mmol/L (3.5-5.1) Chloride Level 101mmol/L (98-107) Carbon Dioxide Level 27mmol/L (21-32) Anion Gap 12 (6-14) Blood Urea Nitrogen 13mg/dL (8-26) Creatinine 1.2mg/dL (0.7-1.3) Estimated GFR (Cockcroft-Gault) 61.6 Glucose Level 167mg/dL (70-99) Calcium Level 9.6mg/dL (8.5-10.1) Test 09/26/16 07:33 Glucose (Fingerstick) 192mg/dL (70-99) Laboratory Tests Test 09/25/16 11:48 09/25/16 12:43 09/25/16 14:00 09/25/16 16:09 Glucose (Fingerstick) 189mg/dL (70-99) 249mg/dL (70-99) 175mg/dL (70-99) Nasal Screen MRSA (PCR) Negative (Negative) Test 09/25/16 20:57 09/26/16 05:00 09/26/16 07:33 Glucose (Fingerstick) 151mg/dL (70-99) 192mg/dL (70-99) White Blood Count 8.0x10^3/uL (4.0-11.0) Red Blood Count 4.20x10^6/uL (4.30-5.70) Hemoglobin 12.4g/dL (13.0-17.5) Hematocrit 38.4% (39.0-53.0) Mean Corpuscular Volume 91fL (79-100) Mean Corpuscular Hemoglobin 30pg (25-35) Mean Corpuscular Hemoglobin Concent 32g/dL (31-37) Red Cell Distribution Width 13.6% (11.5-14.5) Platelet Count 165x10^3/uL (140-400) Neutrophils (%) (Auto) 63% (31-73) Lymphocytes (%) (Auto) 27% (24-48) Monocytes (%) (Auto) 6% (0-9) Eosinophils (%) (Auto) 3% (0-3) Basophils (%) (Auto) 1% (0-3) Neutrophils # (Auto) 5.0x10^3uL (1.8-7.7) Lymphocytes # (Auto) 2.2x10^3/uL (1.0-4.8) Monocytes # (Auto) 0.5x10^3/uL (0.0-1.1) Eosinophils # (Auto) 0.2x10^3/uL (0.0-0.7) Basophils # (Auto) 0.1x10^3/uL (0.0-0.2) Sodium Level 140mmol/L (136-145) Potassium Level 4.1mmol/L (3.5-5.1) Chloride Level 101mmol/L (98-107) Carbon Dioxide Level 27mmol/L (21-32) Anion Gap 12 (6-14) Blood Urea Nitrogen 13mg/dL (8-26) Creatinine 1.2mg/dL (0.7-1.3) Estimated GFR (Cockcroft-Gault) 61.6 Glucose Level 167mg/dL (70-99) Calcium Level 9.6mg/dL (8.5-10.1) Medications Current Medications Ondansetron HCl (Zofran) 4 mg PRN Q8HRS PRN IV NAUSEA/VOMITING; Start 09/25/16 at 11:00; Stop 09/26/16 at 10:59; Status DC Morphine Sulfate 2 mg PRN Q2HR PRN IV PAIN; Start 09/25/16 at 11:00; Stop 09/26 at 10:59; Status DC Acetaminophen (Tylenol) 650 mg PRN Q4HRS PRN PO FEVER; Start 09/25/16 at 11:00 ; Stop 09/26/16 at 10:59; Status DC Insulin Aspart (Novolog) 0-7 UNITS TIDWMEALS SQ Last administered on 09/26/16 08:23; Start 09/25/16 at 12:00 Dextrose 12.5 gm PRN Q15MIN PRN IV SEE COMMENTS; Start 09/25/16 at 11:00 Acetaminophen (Tylenol) 325 mg PRN Q4HRS PRN PO PAIN; Start 09/25/16 at 16:30 Aspirin (Children'S Aspirin) 81 mg DAILY PO Last administered on 09/26/16 08: 18; Start 09/26/16 at 09:00 Cetirizine HCl (Zyrtec) 10 mg DAILY08 PO Last administered on 09/26/16 09:07; Start 09/26/16 at 08:00 EZETIMIBE (Zetia) 10 mg HS PO Last administered on 09/25/16 21:02; Start 09/25 at 21:00 Gabapentin (Neurontin) 400 mg TID PO Last administered on 09/26/16 08:18; Start 09/25/16 at 16:30 Glyburide (Diabeta) 5 mg DAILY08 PO Last administered on 09/26/16 08:18; Start 09/26/16 at 08:00 Haloperidol (Haldol) 5 mg BID PO Last administered on 09/26/16 08:17; Start at 21:00 Albuterol/ Ipratropium (Duoneb) 3 ml RTQID NEB Last administered on 09/26/16 11:21; Start 09/25/16 at 17:00 Levetiracetam (Keppra) 500 mg BID PO Last administered on 09/26/16 08:18; Start 09/25/16 at 21:00 Lisinopril (Prinivil) 10 mg DAILY PO Last administered on 09/26/16 08:18; Start 09/26/16 at 09:00 Magnesium Hydroxide (Milk Of Magnesia) 400 mg PRN DAILY PRN PO CONSTIPATION; Start 09/25/16 at 16:30 Metformin HCl (Glucophage) 1,000 mg BIDWMEALS PO Last administered on 08:18; Start 09/25/16 at 17:00 Niacin (Slo-Niacin) 500 mg QHS PO Last administered on 09/25/16 21:02; Start 09/25/16 at 21:00 Senna/Docusate Sodium (Senna Plus) 1 tab DAILY PO Last administered on 08:19; Start 09/26/16 at 09:00 Simvastatin (Zocor) 40 mg QHS PO Last administered on 09/25/16 21:02; Start at 21:00 Trazodone HCl (Desyrel) 100 mg QHS PO Last administered on 09/25/16 21:02; Start 09/25/16 at 21:00 Guaifenesin (Robitussin Dm) 10 ml PRN Q6HRS PRN PO COUGH; Start 09/25/16 at 17: 00 Insulin Detemir (Levemir) 10 units DAILY08 SQ Last administered on 09/26/16 08 :24; Start 09/26/16 at 08:00 Albuterol Sulfate (Ventolin Neb Soln) 2.5 mg PRN Q8HRS PRN NEB SHORTNESS OF BREATH.; Start 09/25/16 at 17:00 Multivitamins/ Calcium (Thera M Plus) 1 tab DAILY PO Last administered on 08:17; Start 09/26/16 at 09:00 Fish Oil (Fish Oil) 1,000 mg DAILY PO Last administered on 09/26/16 08:17; Start 09/26/16 at 09:00 Quetiapine Fumarate (SEROquel) 400 mg QHS PO Last administered on 09/25/16 21: 01; Start 09/25/16 at 21:00 Venlafaxine HCl (Effexor) 50 mg TID PO Last administered on 09/26/16 08:16; Start 09/25/16 at 17:00 Furosemide (Lasix) 20 mg 1X ONCE IVP ; Start 09/26/16 at 09:45; Stop 09/26/16 at 09:46; Status DC Active Scripts Active Reported Combivent Respimat Inhal (Ipratropium/Albuterol Sulfate) 4 Gm Aer.w.adap 1 Inh IH PRN Q8HRS PRN Levetiracetam 500 Mg Tablet 1 Tab PO BID Zetia (Ezetimibe) 10 Mg Tablet 1 Tab PO HS Niaspan (Niacin) 500 Mg Tab.er.24h 1 Tab PO QHS Aspirin 81 Mg Tab.chew 1 Tab PO DAILY Nicotine Gum (Nicotine Polacrilex) 4 Mg Gum 4 Mg BC Milk Of Magnesia (Magnesium Hydroxide) 400 Mg/5 Ml Oral.susp 400 Mg PO DAILY PRN Duoneb 0.5-3(2.5) Mg/3 Ml (Albuterol/Ipratropium) 3 Ml Ampul.neb 3 Ml NEB QID Acetaminophen 325 Mg Tablet 325 Mg PO PRN Q4HRS PRN Robitussin Cough-Chest Dm Liq (Guaifenesin/Dextromethorphan) 118 Ml Liquid 10 Ml PO PRN Q6HRS PRN AD Days [place] 3 Fish Oil Softgel ([place]-3 Fatty Acids/Fish Oil) 1 Each Capsule.dr 1 Each PO DAILY Gabapentin 400 Mg Capsule 400 Mg PO TID Sennosides-Docusate Sodium Tab (Sennosides/Docusate Sodium) 1 Each Tablet 6-50 Each PO DAILY Metformin Hcl 1,000 Mg Tablet 1 Tab PO BID Haloperidol 5 Mg Tablet 5 Tab PO BID Zyrtec (Cetirizine Hcl) 10 Mg Tablet 1 Tab PO DAILY08 Trazodone Hcl 100 Mg Tablet 1 Tab PO QHS Simvastatin 40 Mg Tablet 1 Tab PO QHS Seroquel (Quetiapine Fumarate) 400 Mg Tablet 400 Tab PO QHS Multi Vitamin Daily (Multivitamin) 1 Each Tablet 1 Each PO DAILY Lisinopril 10 Mg Tablet 1 Tab PO DAILY Levemir (Insulin Detemir) 100 Unit/1 Ml Vial 10 Unit SQ DAILY08 Glyburide 5 Mg Tablet 1 Tab PO DAILY08 Effexor Xr (Venlafaxine Hcl) 150 Mg Cap.er.24h 1 Cap PO DAILY Vitals/I & O Vital Sign - Last 24 Hours 09/25/16 09/25/16 09/25/16 09/25/16 12:30 15:38 19:00 21:00 Temp 98.2 97.9 97.7 98.2 97.9 97.7 Pulse 64 68 73 Resp 16 16 16 B/P 155/74 153/82 165/86 Pulse Ox 92 95 94 O2 Delivery Nasal Cannula Room Air Room Air Room Air O2 Flow Rate 2.0 09/25/16 09/25/16 09/26/16 09/26/16 21:38 23:00 03:00 07:00 Temp 97.5 98.0 97.5 97.5 98.0 97.5 Pulse 80 72 80 Resp 18 18 16 B/P 156/83 142/93 131/82 Pulse Ox 90 97 92 87 O2 Delivery Room Air Room Air Room Air Room Air 09/26/16 09/26/16 09/26/16 09/26/16 07:17 08:00 08:18 11:00 Temp 97.9 97.9 Pulse 72 83 Resp 16 B/P 142/93 132/81 Pulse Ox 93 91 O2 Delivery Room Air Room Air Room Air 09/26/16 11:22 O2 Delivery Room Air Intake and Output 09/25/16 09/25/16 09/26/16 15:00 23:00 07:00 Intake Total 500 ml 3150 ml Output Total 700 ml Balance 500 ml 2450 ml RADHA JURADO MD Sep 26, 2016 11:30
[2016-09-26 15:00] VITALS: BP 140/79
[2016-09-26 19:00] VITALS: BP 134/90
--- NOTE | 2016-09-26 19:23 | PDOC2 ---
NEUROLOGY CONSULT Date of Admission Date of Admission DATE: 09/26/16 TIME: 19:12 Reason for Consult Reason for Consult: Possible seizures Referring Physician Referring Physician: Dr. Olivier Source Source: Chart review, Patient History of Present Illness History of Present Illness The patient is a 60-year-old right-handed male with history of schizophrenia, bipolar disorder, and epilepsy, who was acting strangely at his [facility]. He is in the [facility] unit. No one witnessed any seizure activity. He did have hyperglycemia. He is doing better today. He generally gets around with a walker. He denies any history of stroke or head injury. Past Medical History Cardiovascular: CHF, HTN, Hyperlipidemia Pulmonary: COPD (?) CENTRAL NERVOUS SYSTEM: Seizure, Other (extraparametal disorder) Psych: Bipolar, Depression, Schizophrenia Musculoskeletal: Osteoarthritis (knee pain), Other (pustulosis palmaris et plantaris) Infectious disease: Other (MRSA) Renal/: UTI Endocrine: Diabetes Past Surgical History Past Surgical History: No pertinent history Family History Family History: CAD Social History Social History retirement resident, used alcohol in the past, 3 alcoholic beverages a day, also smokes tobacco, about a half-pack per day. Current Medications Current Medications Current Medications Ondansetron HCl (Zofran) 4 mg PRN Q8HRS PRN IV NAUSEA/VOMITING; Start 09/25/16 at 11:00; Stop 09/26/16 at 10:59; Status DC Morphine Sulfate 2 mg PRN Q2HR PRN IV PAIN; Start 09/25/16 at 11:00; Stop 09/26 at 10:59; Status DC Acetaminophen (Tylenol) 650 mg PRN Q4HRS PRN PO FEVER; Start 09/25/16 at 11:00 ; Stop 09/26/16 at 10:59; Status DC Insulin Aspart (Novolog) 0-7 UNITS TIDWMEALS SQ Last administered on 09/26/16 16:44; Start 09/25/16 at 12:00 Dextrose 12.5 gm PRN Q15MIN PRN IV SEE COMMENTS; Start 09/25/16 at 11:00 Acetaminophen (Tylenol) 325 mg PRN Q4HRS PRN PO PAIN; Start 09/25/16 at 16:30 Aspirin (Children'S Aspirin) 81 mg DAILY PO Last administered on 09/26/16 08: 18; Start 09/26/16 at 09:00 Cetirizine HCl (Zyrtec) 10 mg DAILY08 PO Last administered on 09/26/16 09:07; Start 09/26/16 at 08:00 EZETIMIBE (Zetia) 10 mg HS PO Last administered on 09/25/16 21:02; Start 09/25 at 21:00 Gabapentin (Neurontin) 400 mg TID PO Last administered on 09/26/16 14:14; Start 09/25/16 at 16:30 Glyburide (Diabeta) 5 mg DAILY08 PO Last administered on 09/26/16 08:18; Start 09/26/16 at 08:00 Haloperidol (Haldol) 5 mg BID PO Last administered on 09/26/16 08:17; Start at 21:00 Albuterol/ Ipratropium (Duoneb) 3 ml RTQID NEB Last administered on 09/26/16 17:11; Start 09/25/16 at 17:00 Levetiracetam (Keppra) 500 mg BID PO Last administered on 09/26/16 08:18; Start 09/25/16 at 21:00 Lisinopril (Prinivil) 10 mg DAILY PO Last administered on 09/26/16 08:18; Start 09/26/16 at 09:00 Magnesium Hydroxide (Milk Of Magnesia) 400 mg PRN DAILY PRN PO CONSTIPATION; Start 09/25/16 at 16:30 Metformin HCl (Glucophage) 1,000 mg BIDWMEALS PO Last administered on 16:39; Start 09/25/16 at 17:00 Niacin (Slo-Niacin) 500 mg QHS PO Last administered on 09/25/16 21:02; Start 09/25/16 at 21:00 Senna/Docusate Sodium (Senna Plus) 1 tab DAILY PO Last administered on 08:19; Start 09/26/16 at 09:00 Simvastatin (Zocor) 40 mg QHS PO Last administered on 09/25/16 21:02; Start at 21:00 Trazodone HCl (Desyrel) 100 mg QHS PO Last administered on 09/25/16 21:02; Start 09/25/16 at 21:00 Guaifenesin (Robitussin Dm) 10 ml PRN Q6HRS PRN PO COUGH; Start 09/25/16 at 17: 00 Insulin Detemir (Levemir) 10 units DAILY08 SQ Last administered on 09/26/16 08 :24; Start 09/26/16 at 08:00 Albuterol Sulfate (Ventolin Neb Soln) 2.5 mg PRN Q8HRS PRN NEB SHORTNESS OF BREATH.; Start 09/25/16 at 17:00 Multivitamins/ Calcium (Thera M Plus) 1 tab DAILY PO Last administered on 08:17; Start 09/26/16 at 09:00 Fish Oil (Fish Oil) 1,000 mg DAILY PO Last administered on 09/26/16 08:17; Start 09/26/16 at 09:00 Quetiapine Fumarate (SEROquel) 400 mg QHS PO Last administered on 09/25/16 21: 01; Start 09/25/16 at 21:00 Venlafaxine HCl (Effexor) 50 mg TID PO Last administered on 09/26/16 14:14; Start 09/25/16 at 17:00 Furosemide (Lasix) 20 mg 1X ONCE IVP Last administered on 09/26/16 12:04; Start 09/26/16 at 09:45; Stop 09/26/16 at 09:46; Status DC Active Scripts Active Reported Combivent Respimat Inhal (Ipratropium/Albuterol Sulfate) 4 Gm Aer.w.adap 1 Inh IH PRN Q8HRS PRN Levetiracetam 500 Mg Tablet 1 Tab PO BID Zetia (Ezetimibe) 10 Mg Tablet 1 Tab PO HS Niaspan (Niacin) 500 Mg Tab.er.24h 1 Tab PO QHS Aspirin 81 Mg Tab.chew 1 Tab PO DAILY Nicotine Gum (Nicotine Polacrilex) 4 Mg Gum 4 Mg BC Milk Of Magnesia (Magnesium Hydroxide) 400 Mg/5 Ml Oral.susp 400 Mg PO DAILY PRN Duoneb 0.5-3(2.5) Mg/3 Ml (Albuterol/Ipratropium) 3 Ml Ampul.neb 3 Ml NEB QID Acetaminophen 325 Mg Tablet 325 Mg PO PRN Q4HRS PRN Robitussin Cough-Chest Dm Liq (Guaifenesin/Dextromethorphan) 118 Ml Liquid 10 Ml PO PRN Q6HRS PRN AD Days [place] 3 Fish Oil Softgel ([place]-3 Fatty Acids/Fish Oil) 1 Each Capsule.dr 1 Each PO DAILY Gabapentin 400 Mg Capsule 400 Mg PO TID Sennosides-Docusate Sodium Tab (Sennosides/Docusate Sodium) 1 Each Tablet 6-50 Each PO DAILY Metformin Hcl 1,000 Mg Tablet 1 Tab PO BID Haloperidol 5 Mg Tablet 5 Tab PO BID Zyrtec (Cetirizine Hcl) 10 Mg Tablet 1 Tab PO DAILY08 Trazodone Hcl 100 Mg Tablet 1 Tab PO QHS Simvastatin 40 Mg Tablet 1 Tab PO QHS Seroquel (Quetiapine Fumarate) 400 Mg Tablet 400 Tab PO QHS Multi Vitamin Daily (Multivitamin) 1 Each Tablet 1 Each PO DAILY Lisinopril 10 Mg Tablet 1 Tab PO DAILY Levemir (Insulin Detemir) 100 Unit/1 Ml Vial 10 Unit SQ DAILY08 Glyburide 5 Mg Tablet 1 Tab PO DAILY08 Effexor Xr (Venlafaxine Hcl) 150 Mg Cap.er.24h 1 Cap PO DAILY Allergies Allergies: Coded Allergies: I S O L A T I O N *CONTACT* (Verified Allergy, Unknown, 09/15/16) mrsa No Known Medication Allergies (Verified Allergy, Unknown, 09/15/16) ROS Review of System Patient denies fevers, chills, weight loss, dyspnea, angina, abdominal pain, change in bowels, or dysuria. 14 point review of systems is negative. Physical Exam Physical Examination PHYSICAL EXAMINATION: Vital signs: see above. General appearance is normal and in no acute distress. HEENT: Normocephalic and nontraumatic. Eyes, nose, ears, and throat are unremarkable. Neck is supple. No lymphadenopathy. No bruits are heard over the carotid artery. No crepitus. NEUROLOGICAL EXAMINATION: Mental Status Examination: Alert. Oriented to place, and person, does not know date. He knows the name of the president. Answers questions and follows commends. Flat affect. Pupils are equal round and reactive to light and accommodation. Extraocular movements are intact. Visual field exam shows no defect on the direct confrontation. No motor or sensory deficits on the facial exam. Uvula in the midline and the soft palate elevated symmetrically. No deviation of the tongue to any direction. Gross hearing is normal. Shoulder shrug normal. Muscle tone is normal. Muscle strength is 5. Deep tendon reflexes are 2+ all around. Plantar reflex is with flexion response bilaterally. Rkannr-ir-naiv test performance is accurate. Alternative movements are accurate. Romberg test is negative. Gait is arthritic. Sensory exam shows stocking loss. No cerebellar signs are elicited. Vitals VITALS Vital Signs Date Time Temp Pulse Resp B/P Pulse Ox O2 Delivery O2 Flow Rate FiO2 09/26/16 17:12 Room Air 09/26/16 15:00 96.4 73 20 140/79 93 96.4 09/25/16 12:30 2.0 Labs Labs Laboratory Tests Test 09/25/16 08:05 09/25/16 11:00 09/25/16 11:48 09/25/16 12:43 White Blood Count 6.6x10^3/uL (4.0-11.0) Red Blood Count 4.04x10^6/uL (4.30-5.70) Hemoglobin 12.0g/dL (13.0-17.5) Hematocrit 36.6% (39.0-53.0) Mean Corpuscular Volume 91fL (79-100) Mean Corpuscular Hemoglobin 30pg (25-35) Mean Corpuscular Hemoglobin Concent 33g/dL (31-37) Red Cell Distribution Width 13.5% (11.5-14.5) Platelet Count 169x10^3/uL (140-400) Neutrophils (%) (Auto) 62% (31-73) Lymphocytes (%) (Auto) 25% (24-48) Monocytes (%) (Auto) 7% (0-9) Eosinophils (%) (Auto) 5% (0-3) Basophils (%) (Auto) 1% (0-3) Neutrophils # (Auto) 4.1x10^3uL (1.8-7.7) Lymphocytes # (Auto) 1.7x10^3/uL (1.0-4.8) Monocytes # (Auto) 0.5x10^3/uL (0.0-1.1) Eosinophils # (Auto) 0.3x10^3/uL (0.0-0.7) Basophils # (Auto) 0.0x10^3/uL (0.0-0.2) Sodium Level 139mmol/L (136-145) Potassium Level 4.8mmol/L (3.5-5.1) Chloride Level 102mmol/L (98-107) Carbon Dioxide Level 26mmol/L (21-32) Anion Gap 11 (6-14) Blood Urea Nitrogen 13mg/dL (8-26) Creatinine 1.2mg/dL (0.7-1.3) Estimated GFR (Cockcroft-Gault) 61.6 BUN/Creatinine Ratio 11 (6-20) Glucose Level 206mg/dL (70-99) Calcium Level 9.2mg/dL (8.5-10.1) Total Bilirubin 0.2mg/dL (0.2-1.0) Aspartate Amino Transf (AST/SGOT) 29U/L (15-37) Alanine Aminotransferase (ALT/SGPT) 57U/L (16-63) Alkaline Phosphatase 58U/L (46-116) PP-Xur-J-Type Natriuretic Peptide 33pg/mL (0-124) Total Protein 7.1g/dL (6.4-8.2) Albumin 3.7g/dL (3.4-5.0) Albumin/Globulin Ratio 1.1 (1.0-1.7) Ethyl Alcohol Level < 10mg/dL (0-10) Urine Collection Type Unknown Urine Color Yellow Urine Clarity Clear Urine pH 6.5 Urine Specific [place] 1.010 Urine Protein Negativemg/dL (NEG-TRACE) Urine Glucose (UA) Negativemg/dL (NEG) Urine Ketones (Stick) Negativemg/dL (NEG) Urine Blood Negative (NEG) Urine Nitrite Negative (NEG) Urine Bilirubin Negative (NEG) Urine Urobilinogen Dipstick 0.2mg/dL (0.2 mg/dL) Urine Leukocyte Esterase Negative (NEG) Urine RBC 0/HPF (0-2) Urine WBC 0/HPF (0-4) Urine Squamous Epithelial Cells Mod/LPF Urine Bacteria 0/HPF (0-FEW) Urine Opiates Screen Neg (NEG) Urine Methadone Screen Neg (NEG) Urine Barbiturates Neg (NEG) Urine Phencyclidine Screen Neg (NEG) Urine Amphetamine/Methamphetamine Neg (NEG) Urine Benzodiazepines Screen Neg (NEG) Urine Cocaine Screen Neg (NEG) Urine Cannabinoids Screen Neg (NEG) Urine Ethyl Alcohol Neg (NEG) Influenza Type A Antigen Negative (NEGATIVE) Influenza Type B Antigen Negative (NEGATIVE) Glucose (Fingerstick) 189mg/dL (70-99) 249mg/dL (70-99) Test 09/25/16 14:00 09/25/16 16:09 09/25/16 20:57 09/26/16 05:00 Nasal Screen MRSA (PCR) Negative (Negative) Glucose (Fingerstick) 175mg/dL (70-99) 151mg/dL (70-99) White Blood Count 8.0x10^3/uL (4.0-11.0) Red Blood Count 4.20x10^6/uL (4.30-5.70) Hemoglobin 12.4g/dL (13.0-17.5) Hematocrit 38.4% (39.0-53.0) Mean Corpuscular Volume 91fL (79-100) Mean Corpuscular Hemoglobin 30pg (25-35) Mean Corpuscular Hemoglobin Concent 32g/dL (31-37) Red Cell Distribution Width 13.6% (11.5-14.5) Platelet Count 165x10^3/uL (140-400) Neutrophils (%) (Auto) 63% (31-73) Lymphocytes (%) (Auto) 27% (24-48) Monocytes (%) (Auto) 6% (0-9) Eosinophils (%) (Auto) 3% (0-3) Basophils (%) (Auto) 1% (0-3) Neutrophils # (Auto) 5.0x10^3uL (1.8-7.7) Lymphocytes # (Auto) 2.2x10^3/uL (1.0-4.8) Monocytes # (Auto) 0.5x10^3/uL (0.0-1.1) Eosinophils # (Auto) 0.2x10^3/uL (0.0-0.7) Basophils # (Auto) 0.1x10^3/uL (0.0-0.2) Sodium Level 140mmol/L (136-145) Potassium Level 4.1mmol/L (3.5-5.1) Chloride Level 101mmol/L (98-107) Carbon Dioxide Level 27mmol/L (21-32) Anion Gap 12 (6-14) Blood Urea Nitrogen 13mg/dL (8-26) Creatinine 1.2mg/dL (0.7-1.3) Estimated GFR (Cockcroft-Gault) 61.6 Glucose Level 167mg/dL (70-99) Calcium Level 9.6mg/dL (8.5-10.1) Test 09/26/16 07:33 09/26/16 11:32 09/26/16 16:38 Glucose (Fingerstick) 192mg/dL (70-99) 181mg/dL (70-99) 175mg/dL (70-99) Laboratory Tests Test 09/25/16 20:57 09/26/16 05:00 09/26/16 07:33 09/26/16 11:32 Glucose (Fingerstick) 151mg/dL (70-99) 192mg/dL (70-99) 181mg/dL (70-99) White Blood Count 8.0x10^3/uL (4.0-11.0) Red Blood Count 4.20x10^6/uL (4.30-5.70) Hemoglobin 12.4g/dL (13.0-17.5) Hematocrit 38.4% (39.0-53.0) Mean Corpuscular Volume 91fL (79-100) Mean Corpuscular Hemoglobin 30pg (25-35) Mean Corpuscular Hemoglobin Concent 32g/dL (31-37) Red Cell Distribution Width 13.6% (11.5-14.5) Platelet Count 165x10^3/uL (140-400) Neutrophils (%) (Auto) 63% (31-73) Lymphocytes (%) (Auto) 27% (24-48) Monocytes (%) (Auto) 6% (0-9) Eosinophils (%) (Auto) 3% (0-3) Basophils (%) (Auto) 1% (0-3) Neutrophils # (Auto) 5.0x10^3uL (1.8-7.7) Lymphocytes # (Auto) 2.2x10^3/uL (1.0-4.8) Monocytes # (Auto) 0.5x10^3/uL (0.0-1.1) Eosinophils # (Auto) 0.2x10^3/uL (0.0-0.7) Basophils # (Auto) 0.1x10^3/uL (0.0-0.2) Sodium Level 140mmol/L (136-145) Potassium Level 4.1mmol/L (3.5-5.1) Chloride Level 101mmol/L (98-107) Carbon Dioxide Level 27mmol/L (21-32) Anion Gap 12 (6-14) Blood Urea Nitrogen 13mg/dL (8-26) Creatinine 1.2mg/dL (0.7-1.3) Estimated GFR (Cockcroft-Gault) 61.6 Glucose Level 167mg/dL (70-99) Calcium Level 9.6mg/dL (8.5-10.1) Test 09/26/16 16:38 Glucose (Fingerstick) 175mg/dL (70-99) Images Images CT head: No acute intracranial hemorrhage or midline shift or mass-effect or hydrocephalus or extra-axial fluid collection is seen. No new focal hypodense area or sulci effacement is seen to indicate an acute infarct or edema radiographically. No skull fracture or pneumocephalus is seen. Again seen is a mucous retention cyst of the left maxillary sinus. Again seen is a soft tissue nodule of the left cheek. Impression: No acute intracranial abnormality is seen. Assessment/Plan Assessment/Plan Impression: I agree he could have had a seizure, but more likely it is psychiatric related with contribution from the hyperglycemia. Recommendation: EEG and other tests would not help now that he appears back to baseline. Continue present medications. Return to [facility] when medically stable Thank you for letting me help with the patients care. SIMON VILLASENOR MD Sep 26, 2016 19:23
[2016-09-26] MEDS: EZETIMIBE 10 MG TABLET PO SCH (21:44)
[2016-09-26] MEDS: SIMVASTATIN 40 MG TABLET. PO SCH (21:44)
[2016-09-26] MEDS: traZODone 100 MG TABLET. PO SCH (21:44)
[2016-09-26] MEDS: NIACIN ER 500 MG TABLET.ER PO SCH (21:44)
[2016-09-26] MEDS: QUEtiapine 100 MG TABLET. PO SCH (21:44)
[2016-09-26 23:01] VITALS: BP 129/80
--- NOTE | 2016-09-27 01:21 | CONS ---
DATE OF CONSULTATION: HISTORY OF PRESENT ILLNESS: This is a 60-year-old white male who was brought in from [facility] and he did not seem to be acting quite like himself by the staff. He appeared to be lethargic. He is usually more awake and alert. I was asked to see him for swelling of his legs. He had already been given Lasix IV this morning. When I questioned him, the patient was not able to answer why he had been there. He denied having symptoms of chest pain or shortness of breath. He was not sure of the swelling of his legs. MEDICATIONS IN THE SHELTER: 1. Aspirin 81 mg a day. 2. Zyrtec. 3. Zetia. 4. Gabapentin 400 mg 3 times a day. 5. Glyburide 5 mg a day. 6. Haldol 5 mg twice a day. 7. Levemir insulin. 8. DuoNeb via nebulizer. 9. Levetiracetam/Keppra 500 mg twice a day. 10. Lisinopril 10 mg a day. 11. Magnesium hydroxide. 12. Metformin. 13. Niacin. 14. Nicotine gum. 15. Seroquel. 16. Simvastatin. 17. Trazodone. 18. Effexor. PHYSICAL EXAMINATION: GENERAL: He was not very communicative. He did answer simple questions. VITAL SIGNS: The heart rate was 80 per minute and regular. The blood pressure is 140/80. LUNGS: Clear. HEART: The heart sounds are normal with no murmur or gallop. EXTREMITIES: There was no significant edema of the legs. LABORATORY DATA: An EKG could not be reviewed on [facility]. We will try to look at it ____ if any. An echocardiogram showed [id number] concentric left ventricular hypertrophy. The systolic function was normal with an ejection fraction of 55% to 60%. There was a grade 2 diastolic dysfunction with a mild increase in left atrial filling pressure. There was no significant valvular dysfunction. There was [id number] pulmonary hypertension with a right ventricular systolic pressure of 54 mmHg. This patient says that he continues to smoke 1 pack of cigarettes a day. IMPRESSION: 1. Hypertension, under control, but he has already manifested evidence of left ventricular hypertrophy. 2. Diabetes mellitus. 3. Edema of the legs that seems to have resolved with IV Lasix. He has a normal systolic function and grade 2 diastolic dysfunction. He does have a mild increase in the left atrial filling pressure. He says that he has not been compliant with low salt intake. His renal functions are normal with a BUN of 13 and creatinine of 1.2. I note that he is not on diuretic at home. I would add a diuretic to ____ noncompliance with salt intake and that would also help his blood pressure control. PLAN: For the sake of completion, we will obtain a venous Doppler of his legs. Thank you for asking me to see him. LATRICE SAUCEDO MD DR: STEFF/rimma JOB#: [id number] / [id number]
[2016-09-27 03:03] VITALS: BP 104/64
[2016-09-27 06:56] LABS: CALCIUM 9.3 mg/dL (8.5-10.1); CREATININE 1.4 mg/dL (0.7-1.3); GFR 51.5; POTASSIUM 3.9 mmol/L (3.5-5.1)
[2016-09-27] MEDS: IPRATRPIUM/ALBUTEROL 0.5/2.5MG 3 ML NEBU. NEB SCH ×4 (06:59→19:12)
[2016-09-27 07:00] VITALS: BP 133/87
[2016-09-27] MEDS: VENLAFAXINE 50 MG TABLET. PO SCH ×2 (07:41→13:09)
[2016-09-27] MEDS: GABAPENTIN 400 MG CAPSULE. PO SCH ×2 (07:41→13:10)
[2016-09-27] MEDS: HALOPERIDOL 5 MG TABLET PO SCH (07:41)
[2016-09-27] MEDS: METFORMIN 1,000 MG TABLET PO SCH ×2 (07:41→17:30)
[2016-09-27] MEDS: LEVETIRACETAM 500 MG TABLET PO SCH (07:41)
[2016-09-27] MEDS: MULTIVITAMIN with MINERAL TABLET. PO SCH (07:41)
[2016-09-27] MEDS: CETIRIZINE HCL 10 MG TABLET PO SCH (07:41)
[2016-09-27] MEDS: OMEGA-3 FATTY ACIDS/FISH OIL 1,000 MG CAPSULE. PO SCH (07:41)
[2016-09-27] MEDS: GLYBURIDE 5 MG TABLET PO SCH (07:42)
[2016-09-27] MEDS: LISINOPRIL 10 MG TABLET PO SCH (07:42)
[2016-09-27] MEDS: SENNOSIDES/DOCUSATE 8.6/50MG TABLET. PO SCH (07:42)
[2016-09-27] MEDS: ASPIRIN 81 MG TAB.CHEW PO SCH (07:42)
[2016-09-27] MEDS: INSULIN ASPART 300 UNITS/3 ML INSULN.PEN SQ SCH ×3 (07:49→17:33)
[2016-09-27] MEDS: INSULIN DETEMIR 300 UNITS/3 ML INSULN.PEN. SQ SCH (07:50)
[2016-09-27] MEDS ORDERED: FUROSEMIDE 20 MG TABLET PO SCH (09:00)
[2016-09-27 11:00] VITALS: BP 122/74
--- NOTE | 2016-09-27 11:45 | RAD ---
Bilateral lower extremity venous Doppler ultrasound exam HISTORY:Edema, leg swelling COMPARISON: None FINDINGS: Multiple grayscale and color images and spectral analysis waveform images were acquired of the bilateral lower extremity veins to evaluate for the presence of DVT. Normal compression, color-flow, and augmentation is demonstrated from the bilateral common femoral to the popliteal veins. There is normal phasicity. There is normal color flow of the proximal profunda femoris and greater saphenous veins. There is normal color flow in segments of calf veins. Impression: 1. There is no evidence of deep venous thrombosis from the bilateral common femoral to popliteal veins.
--- NOTE | 2016-09-27 13:18 | PDOC ---
Provider Note Provider Note No significant edema of the legs. No evidence of deep venous thrombosis on ultrasound. Continue low-dose diuretics PREMLATRICE CASTORENA MD Sep 27, 2016 13:18
--- NOTE | 2016-09-27 13:51 | PDOC ---
PROGRESS NOTES Chief Complaint Chief Complaint 1. Encephalopathy, acute on chronic 2. Schizophrenia or bipolar, cont meds 3. Seizure disorder, on Keppra 4. LE edema, acute diastolic CHF 5. Obesity, BMI 40 6. CKD2 7. DM2, insulin History of Present Illness History of Present Illness Patient awake and sitting in his chair this AM. Patient appears to be approaching baseline. All questions and concerns answered and addressed. Vitals Vitals Vital Signs Date Time Temp Pulse Resp B/P Pulse Ox O2 Delivery O2 Flow Rate FiO2 09/27/16 11:31 Nasal Cannula 2.0 09/27/16 11:00 97.7 76 18 122/74 97.7 09/27/16 07:00 94 Physical Exam General: Alert, Cooperative, No acute distress Heart: Regular rate, Normal S1, Normal S2, No murmurs Lungs: Clear Abdomen: Normal bowel sounds, Soft Extremities: No clubbing, No cyanosis, Other (2+ edema left, 1+ right) Skin: No rashes, No breakdown Labs LABS Laboratory Tests Test 09/26/16 16:38 09/26/16 20:18 09/27/16 05:30 09/27/16 07:15 Glucose (Fingerstick) 175mg/dL (70-99) 169mg/dL (70-99) 185mg/dL (70-99) Sodium Level 138mmol/L (136-145) Potassium Level 3.9mmol/L (3.5-5.1) Chloride Level 101mmol/L (98-107) Carbon Dioxide Level 26mmol/L (21-32) Anion Gap 11 (6-14) Blood Urea Nitrogen 18mg/dL (8-26) Creatinine 1.4mg/dL (0.7-1.3) Estimated GFR (Cockcroft-Gault) 51.5 Glucose Level 197mg/dL (70-99) Calcium Level 9.3mg/dL (8.5-10.1) Test 09/27/16 11:04 Glucose (Fingerstick) 232mg/dL (70-99) Review of Systems Review of Systems Patient complaint of hunger Patient complaint of fatigue Assessment and Plan Assessmemt and Plan Problems Medical Problems: (1) Altered mental status Status: Acute Assessment: 1. Encephalopathy, acute on chronic 2. Schizophrenia or bipolar, cont meds 3. Seizure disorder, on Keppra 4. LE edema, acute diastolic CHF 5. Obesity, BMI 40 6. CKD2 7. DM2, insulin Plan: Patient appears to be approaching his baseline Continue to monitor the patient per floor protocol Continue home medications Continue daily labs PTOT DW RN Appreciate subspecialty input- Cards and Neuro Possible DC this afternoon Problems: Comment Review of Relevant I have reviewed the following items darryn (where applicable) has been applied. Labs Laboratory Tests Test 09/25/16 14:00 09/25/16 16:09 09/25/16 20:57 09/26/16 05:00 Nasal Screen MRSA (PCR) Negative (Negative) Glucose (Fingerstick) 175mg/dL (70-99) 151mg/dL (70-99) White Blood Count 8.0x10^3/uL (4.0-11.0) Red Blood Count 4.20x10^6/uL (4.30-5.70) Hemoglobin 12.4g/dL (13.0-17.5) Hematocrit 38.4% (39.0-53.0) Mean Corpuscular Volume 91fL (79-100) Mean Corpuscular Hemoglobin 30pg (25-35) Mean Corpuscular Hemoglobin Concent 32g/dL (31-37) Red Cell Distribution Width 13.6% (11.5-14.5) Platelet Count 165x10^3/uL (140-400) Neutrophils (%) (Auto) 63% (31-73) Lymphocytes (%) (Auto) 27% (24-48) Monocytes (%) (Auto) 6% (0-9) Eosinophils (%) (Auto) 3% (0-3) Basophils (%) (Auto) 1% (0-3) Neutrophils # (Auto) 5.0x10^3uL (1.8-7.7) Lymphocytes # (Auto) 2.2x10^3/uL (1.0-4.8) Monocytes # (Auto) 0.5x10^3/uL (0.0-1.1) Eosinophils # (Auto) 0.2x10^3/uL (0.0-0.7) Basophils # (Auto) 0.1x10^3/uL (0.0-0.2) Sodium Level 140mmol/L (136-145) Potassium Level 4.1mmol/L (3.5-5.1) Chloride Level 101mmol/L (98-107) Carbon Dioxide Level 27mmol/L (21-32) Anion Gap 12 (6-14) Blood Urea Nitrogen 13mg/dL (8-26) Creatinine 1.2mg/dL (0.7-1.3) Estimated GFR (Cockcroft-Gault) 61.6 Glucose Level 167mg/dL (70-99) Hemoglobin A1c 8.9% (4.8-5.6) Calcium Level 9.6mg/dL (8.5-10.1) Test 09/26/16 07:33 09/26/16 11:32 09/26/16 16:38 09/26/16 20:18 Glucose (Fingerstick) 192mg/dL (70-99) 181mg/dL (70-99) 175mg/dL (70-99) 169mg/dL (70-99) Test 09/27/16 05:30 09/27/16 07:15 09/27/16 11:04 Sodium Level 138mmol/L (136-145) Potassium Level 3.9mmol/L (3.5-5.1) Chloride Level 101mmol/L (98-107) Carbon Dioxide Level 26mmol/L (21-32) Anion Gap 11 (6-14) Blood Urea Nitrogen 18mg/dL (8-26) Creatinine 1.4mg/dL (0.7-1.3) Estimated GFR (Cockcroft-Gault) 51.5 Glucose Level 197mg/dL (70-99) Calcium Level 9.3mg/dL (8.5-10.1) Glucose (Fingerstick) 185mg/dL (70-99) 232mg/dL (70-99) Laboratory Tests Test 09/26/16 16:38 09/26/16 20:18 09/27/16 05:30 09/27/16 07:15 Glucose (Fingerstick) 175mg/dL (70-99) 169mg/dL (70-99) 185mg/dL (70-99) Sodium Level 138mmol/L (136-145) Potassium Level 3.9mmol/L (3.5-5.1) Chloride Level 101mmol/L (98-107) Carbon Dioxide Level 26mmol/L (21-32) Anion Gap 11 (6-14) Blood Urea Nitrogen 18mg/dL (8-26) Creatinine 1.4mg/dL (0.7-1.3) Estimated GFR (Cockcroft-Gault) 51.5 Glucose Level 197mg/dL (70-99) Calcium Level 9.3mg/dL (8.5-10.1) Test 09/27/16 11:04 Glucose (Fingerstick) 232mg/dL (70-99) Medications Current Medications Ondansetron HCl (Zofran) 4 mg PRN Q8HRS PRN IV NAUSEA/VOMITING; Start 09/25/16 at 11:00; Stop 09/26/16 at 10:59; Status DC Morphine Sulfate 2 mg PRN Q2HR PRN IV PAIN; Start 09/25/16 at 11:00; Stop 09/26 at 10:59; Status DC Acetaminophen (Tylenol) 650 mg PRN Q4HRS PRN PO FEVER; Start 09/25/16 at 11:00 ; Stop 09/26/16 at 10:59; Status DC Insulin Aspart (Novolog) 0-7 UNITS TIDWMEALS SQ Last administered on 09/27/16 11:37; Start 09/25/16 at 12:00 Dextrose 12.5 gm PRN Q15MIN PRN IV SEE COMMENTS; Start 09/25/16 at 11:00 Acetaminophen (Tylenol) 325 mg PRN Q4HRS PRN PO PAIN Last administered on 21:44; Start 09/25/16 at 16:30 Aspirin (Children'S Aspirin) 81 mg DAILY PO Last administered on 09/27/16 07: 42; Start 09/26/16 at 09:00 Cetirizine HCl (Zyrtec) 10 mg DAILY08 PO Last administered on 09/27/16 07:41; Start 09/26/16 at 08:00 EZETIMIBE (Zetia) 10 mg HS PO Last administered on 09/26/16 21:44; Start 09/25 at 21:00 Gabapentin (Neurontin) 400 mg TID PO Last administered on 09/27/16 13:10; Start 09/25/16 at 16:30 Glyburide (Diabeta) 5 mg DAILY08 PO Last administered on 09/27/16 07:42; Start 09/26/16 at 08:00 Haloperidol (Haldol) 5 mg BID PO Last administered on 09/27/16 07:41; Start at 21:00 Albuterol/ Ipratropium (Duoneb) 3 ml RTQID NEB Last administered on 09/27/16 11:31; Start 09/25/16 at 17:00 Levetiracetam (Keppra) 500 mg BID PO Last administered on 09/27/16 07:41; Start 09/25/16 at 21:00 Lisinopril (Prinivil) 10 mg DAILY PO Last administered on 09/27/16 07:42; Start 09/26/16 at 09:00 Magnesium Hydroxide (Milk Of Magnesia) 400 mg PRN DAILY PRN PO CONSTIPATION; Start 09/25/16 at 16:30 Metformin HCl (Glucophage) 1,000 mg BIDWMEALS PO Last administered on 07:41; Start 09/25/16 at 17:00 Niacin (Slo-Niacin) 500 mg QHS PO Last administered on 09/26/16 21:44; Start 09/25/16 at 21:00 Senna/Docusate Sodium (Senna Plus) 1 tab DAILY PO Last administered on 07:42; Start 09/26/16 at 09:00 Simvastatin (Zocor) 40 mg QHS PO Last administered on 09/26/16 21:44; Start at 21:00 Trazodone HCl (Desyrel) 100 mg QHS PO Last administered on 09/26/16 21:44; Start 09/25/16 at 21:00 Guaifenesin (Robitussin Dm) 10 ml PRN Q6HRS PRN PO COUGH; Start 09/25/16 at 17: 00 Insulin Detemir (Levemir) 10 units DAILY08 SQ Last administered on 09/27/16 07 :50; Start 09/26/16 at 08:00 Albuterol Sulfate (Ventolin Neb Soln) 2.5 mg PRN Q8HRS PRN NEB SHORTNESS OF BREATH.; Start 09/25/16 at 17:00 Multivitamins/ Calcium (Thera M Plus) 1 tab DAILY PO Last administered on 07:41; Start 09/26/16 at 09:00 Fish Oil (Fish Oil) 1,000 mg DAILY PO Last administered on 09/27/16 07:41; Start 09/26/16 at 09:00 Quetiapine Fumarate (SEROquel) 400 mg QHS PO Last administered on 09/26/16 21: 44; Start 09/25/16 at 21:00 Venlafaxine HCl (Effexor) 50 mg TID PO Last administered on 09/27/16 13:09; Start 09/25/16 at 17:00 Furosemide (Lasix) 20 mg 1X ONCE IVP Last administered on 09/26/16 12:04; Start 09/26/16 at 09:45; Stop 09/26/16 at 09:46; Status DC Furosemide (Lasix) 20 mg DAILY PO Last administered on 09/27/16 09:00; Start 09/27/16 at 09:00 Active Scripts Active Reported Combivent Respimat Inhal (Ipratropium/Albuterol Sulfate) 4 Gm Aer.w.adap 1 Inh IH PRN Q8HRS PRN Levetiracetam 500 Mg Tablet 1 Tab PO BID Zetia (Ezetimibe) 10 Mg Tablet 1 Tab PO HS Niaspan (Niacin) 500 Mg Tab.er.24h 1 Tab PO QHS Aspirin 81 Mg Tab.chew 1 Tab PO DAILY Nicotine Gum (Nicotine Polacrilex) 4 Mg Gum 4 Mg BC Milk Of Magnesia (Magnesium Hydroxide) 400 Mg/5 Ml Oral.susp 400 Mg PO DAILY PRN Duoneb 0.5-3(2.5) Mg/3 Ml (Albuterol/Ipratropium) 3 Ml Ampul.neb 3 Ml NEB QID Acetaminophen 325 Mg Tablet 325 Mg PO PRN Q4HRS PRN Robitussin Cough-Chest Dm Liq (Guaifenesin/Dextromethorphan) 118 Ml Liquid 10 Ml PO PRN Q6HRS PRN AD Days [place] 3 Fish Oil Softgel ([place]-3 Fatty Acids/Fish Oil) 1 Each Capsule.dr 1 Each PO DAILY Gabapentin 400 Mg Capsule 400 Mg PO TID Sennosides-Docusate Sodium Tab (Sennosides/Docusate Sodium) 1 Each Tablet 6-50 Each PO DAILY Metformin Hcl 1,000 Mg Tablet 1 Tab PO BID Haloperidol 5 Mg Tablet 5 Tab PO BID Zyrtec (Cetirizine Hcl) 10 Mg Tablet 1 Tab PO DAILY08 Trazodone Hcl 100 Mg Tablet 1 Tab PO QHS Simvastatin 40 Mg Tablet 1 Tab PO QHS Seroquel (Quetiapine Fumarate) 400 Mg Tablet 400 Tab PO QHS Multi Vitamin Daily (Multivitamin) 1 Each Tablet 1 Each PO DAILY Lisinopril 10 Mg Tablet 1 Tab PO DAILY Levemir (Insulin Detemir) 100 Unit/1 Ml Vial 10 Unit SQ DAILY08 Glyburide 5 Mg Tablet 1 Tab PO DAILY08 Effexor Xr (Venlafaxine Hcl) 150 Mg Cap.er.24h 1 Cap PO DAILY Vitals/I & O Vital Sign - Last 24 Hours 09/26/16 09/26/16 09/26/16 09/26/16 15:00 17:12 19:00 19:23 Temp 96.4 97.5 96.4 97.5 Pulse 73 91 Resp 20 20 B/P 140/79 134/90 Pulse Ox 93 93 94 O2 Delivery Room Air Room Air Room Air Room Air 09/26/16 09/26/16 09/27/16 09/27/16 20:00 23:01 03:03 07:00 Temp 97.5 98.5 97.5 98.5 Pulse 107 67 Resp 20 20 B/P 129/80 104/64 Pulse Ox 95 90 88 O2 Delivery Room Air Room Air Room Air Room Air 09/27/16 09/27/16 09/27/16 09/27/16 07:00 07:42 08:00 11:00 Temp 97.9 97.7 97.9 97.7 Pulse 91 99 76 Resp 16 18 B/P 133/87 133/87 122/74 Pulse Ox 94 O2 Delivery Nasal Cannula Room Air Nasal Cannula O2 Flow Rate 2.0 2.0 09/27/16 11:31 O2 Delivery Nasal Cannula O2 Flow Rate 2.0 Intake and Output 09/26/16 09/26/16 09/27/16 15:00 23:00 07:00 Intake Total 240 ml 240 ml 600 ml Balance 240 ml 240 ml 600 ml NEGRO REYNA III DO Sep 27, 2016 13:51
--- NOTE | 2016-09-27 14:18 | PDOC ---
PROGRESS NOTES Assessment Problems Medical Problems: (1) Altered mental status Status: Acute I agree he could have had a seizure, but more likely it is psychiatric related with contribution from the hyperglycemia. Plan EEG and other tests would not help now that he appears back to baseline. Continue present medications. Okay for discharge Subjective no complaints Objective Vital Signs Date Time Temp Pulse Resp B/P Pulse Ox O2 Delivery O2 Flow Rate FiO2 09/27/16 11:31 Nasal Cannula 2.0 09/27/16 11:00 97.7 76 18 122/74 97.7 09/27/16 07:00 94 Intake and Output 09/27/16 07:00 Intake Total 1080 ml Balance 1080 ml Intake Oral 1080 ml # Voids 5 PHYSICAL EXAM Alert. Oriented to place and person, not date. PERRL. EOMI. CN: no focal findings. Muscle tone: normal. Muscle strength: 5/5 DTR: 2+ Plantar reflex: flexor Gait: not examined. Sensory exam: stocking loss. No cerebellar signs elicited. Review of Relevant I have reviewed the following items darryn (where applicable) has been applied. Labs Laboratory Tests Test 09/25/16 16:09 09/25/16 20:57 09/26/16 05:00 09/26/16 07:33 Glucose (Fingerstick) 175mg/dL (70-99) 151mg/dL (70-99) 192mg/dL (70-99) White Blood Count 8.0x10^3/uL (4.0-11.0) Red Blood Count 4.20x10^6/uL (4.30-5.70) Hemoglobin 12.4g/dL (13.0-17.5) Hematocrit 38.4% (39.0-53.0) Mean Corpuscular Volume 91fL (79-100) Mean Corpuscular Hemoglobin 30pg (25-35) Mean Corpuscular Hemoglobin Concent 32g/dL (31-37) Red Cell Distribution Width 13.6% (11.5-14.5) Platelet Count 165x10^3/uL (140-400) Neutrophils (%) (Auto) 63% (31-73) Lymphocytes (%) (Auto) 27% (24-48) Monocytes (%) (Auto) 6% (0-9) Eosinophils (%) (Auto) 3% (0-3) Basophils (%) (Auto) 1% (0-3) Neutrophils # (Auto) 5.0x10^3uL (1.8-7.7) Lymphocytes # (Auto) 2.2x10^3/uL (1.0-4.8) Monocytes # (Auto) 0.5x10^3/uL (0.0-1.1) Eosinophils # (Auto) 0.2x10^3/uL (0.0-0.7) Basophils # (Auto) 0.1x10^3/uL (0.0-0.2) Sodium Level 140mmol/L (136-145) Potassium Level 4.1mmol/L (3.5-5.1) Chloride Level 101mmol/L (98-107) Carbon Dioxide Level 27mmol/L (21-32) Anion Gap 12 (6-14) Blood Urea Nitrogen 13mg/dL (8-26) Creatinine 1.2mg/dL (0.7-1.3) Estimated GFR (Cockcroft-Gault) 61.6 Glucose Level 167mg/dL (70-99) Hemoglobin A1c 8.9% (4.8-5.6) Calcium Level 9.6mg/dL (8.5-10.1) Test 09/26/16 11:32 09/26/16 16:38 09/26/16 20:18 09/27/16 05:30 Glucose (Fingerstick) 181mg/dL (70-99) 175mg/dL (70-99) 169mg/dL (70-99) Sodium Level 138mmol/L (136-145) Potassium Level 3.9mmol/L (3.5-5.1) Chloride Level 101mmol/L (98-107) Carbon Dioxide Level 26mmol/L (21-32) Anion Gap 11 (6-14) Blood Urea Nitrogen 18mg/dL (8-26) Creatinine 1.4mg/dL (0.7-1.3) Estimated GFR (Cockcroft-Gault) 51.5 Glucose Level 197mg/dL (70-99) Calcium Level 9.3mg/dL (8.5-10.1) Test 09/27/16 07:15 09/27/16 11:04 Glucose (Fingerstick) 185mg/dL (70-99) 232mg/dL (70-99) Laboratory Tests Test 09/26/16 16:38 09/26/16 20:18 09/27/16 05:30 09/27/16 07:15 Glucose (Fingerstick) 175mg/dL (70-99) 169mg/dL (70-99) 185mg/dL (70-99) Sodium Level 138mmol/L (136-145) Potassium Level 3.9mmol/L (3.5-5.1) Chloride Level 101mmol/L (98-107) Carbon Dioxide Level 26mmol/L (21-32) Anion Gap 11 (6-14) Blood Urea Nitrogen 18mg/dL (8-26) Creatinine 1.4mg/dL (0.7-1.3) Estimated GFR (Cockcroft-Gault) 51.5 Glucose Level 197mg/dL (70-99) Calcium Level 9.3mg/dL (8.5-10.1) Test 09/27/16 11:04 Glucose (Fingerstick) 232mg/dL (70-99) Medications Current Medications Ondansetron HCl (Zofran) 4 mg PRN Q8HRS PRN IV NAUSEA/VOMITING; Start 09/25/16 at 11:00; Stop 09/26/16 at 10:59; Status DC Morphine Sulfate 2 mg PRN Q2HR PRN IV PAIN; Start 09/25/16 at 11:00; Stop 09/26 at 10:59; Status DC Acetaminophen (Tylenol) 650 mg PRN Q4HRS PRN PO FEVER; Start 09/25/16 at 11:00 ; Stop 09/26/16 at 10:59; Status DC Insulin Aspart (Novolog) 0-7 UNITS TIDWMEALS SQ Last administered on 09/27/16 11:37; Start 09/25/16 at 12:00 Dextrose 12.5 gm PRN Q15MIN PRN IV SEE COMMENTS; Start 09/25/16 at 11:00 Acetaminophen (Tylenol) 325 mg PRN Q4HRS PRN PO PAIN Last administered on 21:44; Start 09/25/16 at 16:30 Aspirin (Children'S Aspirin) 81 mg DAILY PO Last administered on 09/27/16 07: 42; Start 09/26/16 at 09:00 Cetirizine HCl (Zyrtec) 10 mg DAILY08 PO Last administered on 09/27/16 07:41; Start 09/26/16 at 08:00 EZETIMIBE (Zetia) 10 mg HS PO Last administered on 09/26/16 21:44; Start 09/25 at 21:00 Gabapentin (Neurontin) 400 mg TID PO Last administered on 09/27/16 13:10; Start 09/25/16 at 16:30 Glyburide (Diabeta) 5 mg DAILY08 PO Last administered on 09/27/16 07:42; Start 09/26/16 at 08:00 Haloperidol (Haldol) 5 mg BID PO Last administered on 09/27/16 07:41; Start at 21:00 Albuterol/ Ipratropium (Duoneb) 3 ml RTQID NEB Last administered on 09/27/16 11:31; Start 09/25/16 at 17:00 Levetiracetam (Keppra) 500 mg BID PO Last administered on 09/27/16 07:41; Start 09/25/16 at 21:00 Lisinopril (Prinivil) 10 mg DAILY PO Last administered on 09/27/16 07:42; Start 09/26/16 at 09:00 Magnesium Hydroxide (Milk Of Magnesia) 400 mg PRN DAILY PRN PO CONSTIPATION; Start 09/25/16 at 16:30 Metformin HCl (Glucophage) 1,000 mg BIDWMEALS PO Last administered on 07:41; Start 09/25/16 at 17:00 Niacin (Slo-Niacin) 500 mg QHS PO Last administered on 09/26/16 21:44; Start 09/25/16 at 21:00 Senna/Docusate Sodium (Senna Plus) 1 tab DAILY PO Last administered on 07:42; Start 09/26/16 at 09:00 Simvastatin (Zocor) 40 mg QHS PO Last administered on 09/26/16 21:44; Start at 21:00 Trazodone HCl (Desyrel) 100 mg QHS PO Last administered on 09/26/16 21:44; Start 09/25/16 at 21:00 Guaifenesin (Robitussin Dm) 10 ml PRN Q6HRS PRN PO COUGH; Start 09/25/16 at 17: 00 Insulin Detemir (Levemir) 10 units DAILY08 SQ Last administered on 09/27/16 07 :50; Start 09/26/16 at 08:00 Albuterol Sulfate (Ventolin Neb Soln) 2.5 mg PRN Q8HRS PRN NEB SHORTNESS OF BREATH.; Start 09/25/16 at 17:00 Multivitamins/ Calcium (Thera M Plus) 1 tab DAILY PO Last administered on 07:41; Start 09/26/16 at 09:00 Fish Oil (Fish Oil) 1,000 mg DAILY PO Last administered on 09/27/16 07:41; Start 09/26/16 at 09:00 Quetiapine Fumarate (SEROquel) 400 mg QHS PO Last administered on 09/26/16 21: 44; Start 09/25/16 at 21:00 Venlafaxine HCl (Effexor) 50 mg TID PO Last administered on 09/27/16 13:09; Start 09/25/16 at 17:00 Furosemide (Lasix) 20 mg 1X ONCE IVP Last administered on 09/26/16 12:04; Start 09/26/16 at 09:45; Stop 09/26/16 at 09:46; Status DC Furosemide (Lasix) 20 mg DAILY PO Last administered on 09/27/16 09:00; Start 09/27/16 at 09:00 Active Scripts Active Reported Levetiracetam 500 Mg Tablet 1 Tab PO BID Zetia (Ezetimibe) 10 Mg Tablet 1 Tab PO HS Niaspan (Niacin) 500 Mg Tab.er.24h 1 Tab PO QHS Aspirin 81 Mg Tab.chew 1 Tab PO DAILY Nicotine Gum (Nicotine Polacrilex) 4 Mg Gum 4 Mg BC Milk Of Magnesia (Magnesium Hydroxide) 400 Mg/5 Ml Oral.susp 400 Mg PO DAILY PRN Duoneb 0.5-3(2.5) Mg/3 Ml (Albuterol/Ipratropium) 3 Ml Ampul.neb 3 Ml NEB QID Acetaminophen 325 Mg Tablet 325 Mg PO PRN Q4HRS PRN Robitussin Cough-Chest Dm Liq (Guaifenesin/Dextromethorphan) 118 Ml Liquid 10 Ml PO PRN Q6HRS PRN AD Days [place] 3 Fish Oil Softgel ([place]-3 Fatty Acids/Fish Oil) 1 Each Capsule. 1 Each PO DAILY Gabapentin 400 Mg Capsule 400 Mg PO TID Sennosides-Docusate Sodium Tab (Sennosides/Docusate Sodium) 1 Each Tablet 6-50 Each PO DAILY Metformin Hcl 1,000 Mg Tablet 1 Tab PO BID Haloperidol 5 Mg Tablet 5 Tab PO BID Zyrtec (Cetirizine Hcl) 10 Mg Tablet 1 Tab PO DAILY08 Trazodone Hcl 100 Mg Tablet 1 Tab PO QHS Simvastatin 40 Mg Tablet 1 Tab PO QHS Seroquel (Quetiapine Fumarate) 400 Mg Tablet 400 Tab PO QHS Multi Vitamin Daily (Multivitamin) 1 Each Tablet 1 Each PO DAILY Lisinopril 10 Mg Tablet 1 Tab PO DAILY Levemir (Insulin Detemir) 100 Unit/1 Ml Vial 10 Unit SQ DAILY08 Glyburide 5 Mg Tablet 1 Tab PO DAILY08 Effexor Xr (Venlafaxine Hcl) 150 Mg Cap.er.24h 1 Cap PO DAILY Vitals/I & O Vital Sign - Last 24 Hours 09/26/16 09/26/16 09/26/16 09/26/16 15:00 17:12 19:00 19:23 Temp 96.4 97.5 96.4 97.5 Pulse 73 91 Resp 20 20 B/P 140/79 134/90 Pulse Ox 93 93 94 O2 Delivery Room Air Room Air Room Air Room Air 09/26/16 09/26/16 09/27/16 09/27/16 20:00 23:01 03:03 07:00 Temp 97.5 98.5 97.5 98.5 Pulse 107 67 Resp 20 20 B/P 129/80 104/64 Pulse Ox 95 90 88 O2 Delivery Room Air Room Air Room Air Room Air 09/27/16 09/27/16 09/27/16 09/27/16 07:00 07:42 08:00 11:00 Temp 97.9 97.7 97.9 97.7 Pulse 91 99 76 Resp 16 18 B/P 133/87 133/87 122/74 Pulse Ox 94 O2 Delivery Nasal Cannula Room Air Nasal Cannula O2 Flow Rate 2.0 2.0 2/12/17 11:31 O2 Delivery Nasal Cannula O2 Flow Rate 2.0 Intake and Output 09/26/16 09/26/16 09/27/16 15:00 23:00 07:00 Intake Total 240 ml 240 ml 600 ml Balance 240 ml 240 ml 600 ml SIMON VILLASENOR MD Sep 27, 2016 14:18
[2016-09-27 15:00] VITALS: BP 130/65
== END 2016-09-27 19:26 | DRG 100 ==
LOC: ER 07:45 → ED HOLD 10:46 → 5 NORTH 12:25
PROVIDERS: ADMIT Internal Medicine; ATTEND Internal Medicine
DX: G40.909 Epilepsy, unspecified, not intractable, without status epilepticus (principal); G93.40 Encephalopathy, unspecified; I50.31 Acute diastolic (congestive) heart failure; I13.0 Hypertensive heart and chronic kidney disease with heart failure and stage 1 through stage 4 chronic kidney disease, or unspecified chronic kidney disease; Z68.41 Body mass index [BMI] 40.0-44.9, adult; E66.9 Obesity, unspecified; E78.00 Pure hypercholesterolemia, unspecified; E11.65 Type 2 diabetes mellitus with hyperglycemia; E11.22 Type 2 diabetes mellitus with diabetic chronic kidney disease; E78.5 Hyperlipidemia, unspecified; F17.210 Nicotine dependence, cigarettes, uncomplicated; M17.9 Osteoarthritis of knee, unspecified; N18.2 Chronic kidney disease, stage 2 (mild); F12.90 Cannabis use, unspecified, uncomplicated; G47.00 Insomnia, unspecified; G89.29 Other chronic pain; K59.00 Constipation, unspecified; L30.9 Dermatitis, unspecified; M54.5 Low back pain; F20.9 Schizophrenia, unspecified; F31.9 Bipolar disorder, unspecified; Z79.82 Long term (current) use of aspirin; Z79.899 Other long term (current) drug therapy; Z82.49 Family history of ischemic heart disease and other diseases of the circulatory system; Z91.19 Patient's noncompliance with other medical treatment and regimen
CPT/HCPCS: 36415; 70450; 71020; 80048; 80053; 81001; 82947; 83036; 83880; 85027; 87641; 87804; 93005; 93306; 93970; 94640; 94760; 96374; G0480; G0481; J1815; J7620; 97116; 99285-25

== ENCOUNTER 2016-10-04 00:57 | Emergency (ER) | payer MEDICAID ==
[~2016-10-04] VITALS: Ht 182.9 cm; Wt 131.5 kg
[~2016-10-04 00:57] MED LIST changes: +EZET10TA3 PO; +IPRA4AER IH; +LEVE500T6 PO; +NIAC500T PO
--- NOTE | 2016-10-04 02:23 | RAD ---
INDICATION: Trauma with pain COMPARISON: None IMPRESSION: Left hand: Four views obtained. Degenerative changes are identified without definite acute fracture or dislocation. Swelling at dorsal aspect of hand. Left wrist: Three views obtained. Degenerative changes without definite acute fracture or dislocation. Electronically signed by: Benjamin Petty (Oct 04, 2016 02:21:17)
--- NOTE | 2016-10-04 02:28 | PHYS DOC ---
Past Medical History Past Medical History: CHF, Constipation, Depression, Diabetes-Type II, High Cholesterol, Hypertension, Seizure, Schizophrenia, UTI Additional Past Medical Histor: extra pyramidal movement disorder, insomnia, chronic pain, dermatitis Past Surgical History: Other Additional Past Surgical Histo: unknown, pt is poor historian Alcohol Use: Heavy Drug Use: Marijuana Adult General Chief Complaint Chief Complaint: MECHANICAL FALL HPI HPI 60-year-old male presenting to the emergency department today after injuring his left hand and wrist. He denies loss of consciousness or syncope. He had a mechanical fall where he tripped from his wheelchair. He currently has pain in his left wrist and hand that is sharp mild to moderate nonradiating and not associated with numbness weakness or tingling. He denies any other injuries. Review of systems is negative for chest pain shortness of breath fevers chills nausea vomiting. All other review of systems is negative unless otherwise noted in history of present illness. Review of Systems Review of Systems SEE ABOVE. Allergies Allergies Allergies Coded Allergies Type Severity Reaction Last Updated Verified I S O L A T I O N *CONTACT* Allergy Unknown 09/15/16 Yes No Known Medication Allergies Allergy Unknown 09/15/16 Yes Physical Exam Physical Exam Constitutional: Well developed, well nourished, no acute distress, non-toxic appearance. HENT: Normocephalic, atraumatic, bilateral external ears normal, oropharynx moist, no oral exudates, nose normal. [] Eyes: PERRLA, EOMI, conjunctiva normal, no discharge. Neck: Normal range of motion, no tenderness, supple, no stridor. [] Cardiovascular:Heart rate regular rhythm, no murmur Lungs & Thorax: Bilateral breath sounds clear to auscultation [] Abdomen: Bowel sounds normal, soft, no tenderness, no masses, no pulsatile masses. Skin: Warm, dry, no erythema, no rash. [] Back: No tenderness, no CVA tenderness. Extremities: The patient's left upper extremity is warm and well perfused with a palpable pulse. He is able to make it a okay, given a thumbs up and cross his fingers. Normal sensation. Mild swelling present. No ecchymosis or laceration. Tenderness more along the lateral metacarpal bones. Nontender wrist. No tenderness of the elbow or shoulder proximally. Neurologic: Alert and oriented X 3, normal motor function, normal sensory function, no focal deficits noted. [] Psychologic: Affect normal, judgement normal, mood normal. [] Current Patient Data Vital Signs Vital Signs Date Time Temp Pulse Resp B/P Pulse Ox O2 Delivery O2 Flow Rate FiO2 10/04/16 03:27 92 18 123/67 93 Nasal Cannula 2 10/04/16 00:58 97.9 97.9 EKG EKG [] Radiology/Procedures Radiology/Procedures [] Course & Med Decision Making Course & Med Decision Making Pertinent Labs and Imaging studies reviewed. (See chart for details) [] 60-year-old male presenting after having a mechanical fall and injuring his left upper extremity. Specifically his left hand and wrist. X-rays were obtained which did not show any definitive fracture. Patient was placed back in his wrist splint and transferred back to his long-term care facility. Vital signs unremarkable. Baseline O2 requirement present. Dragon Disclaimer Dragon Disclaimer This electronic medical record was generated, in whole or in part, using a voice recognition dictation system. Departure Departure Impression: Primary Impression: Left wrist injury Disposition: HOME, SELF-CARE Condition: STABLE Referrals: NO PCP (PCP) JOSE RAFAEL PHILLIP MD Patient Instructions: Wrist Pain Additional Instructions: Thank you for allowing us to participate in your care today. Followup with your primary care physician in 3 days if your symptoms do not improve. If you do not have a primary care provider you can ask for a list of our primary care providers. Return to the emergency department you have any new or concerning findings. This should be evaluated by the primary care physician and any necessary consulting services for continued management within a few days after discharge. Return to emergency room if you have any new or concerning symptoms including but not limited to fever, chills, nausea, vomiting, intractable pain, any new rashes, chest pain, shortness of air, uncontrolled bleeding, difficulty breathing, and/or vision loss. CORINA LUO MD Oct 04, 2016 02:28
[2016-10-04 03:27] VITALS: BP 123/67
== END 2016-10-04 03:37 | disposition home or self-care (01) ==
LOC: ER 00:57
DX: S69.92XA Unspecified injury of left wrist, hand and finger(s), initial encounter (principal); E11.9 Type 2 diabetes mellitus without complications; E78.00 Pure hypercholesterolemia, unspecified; I11.0 Hypertensive heart disease with heart failure; I50.9 Heart failure, unspecified; G89.29 Other chronic pain; G47.00 Insomnia, unspecified; F12.10 Cannabis abuse, uncomplicated; Z91.041 Radiographic dye allergy status; W18.09XA Striking against other object with subsequent fall, initial encounter; Y93.89 Activity, other specified; Y92.89 Other specified places as the place of occurrence of the external cause; Y99.8 Other external cause status
CPT/HCPCS: 73110; 73130; 99284

== ENCOUNTER 2020-07-20 15:02 | Inpatient (IN) | payer MEDICARE, OTHER ==
[~2020-07-20] VITALS: Ht 182.9 cm; Wt 103.9 kg
[~2020-07-20 15:02] MED LIST changes: +ASPI-630 PO; -ASPI81TA2 PO; -CETI10TA22 PO; +CETI10TA74 PO; +EZET10TA20 PO; -EZET10TA3 PO; +EZET1TAB30 PO; -EZET1TAB4 PO; -GABA-587 PO; +GABA-689 PO; -IPRA3AMP NEB; +IPRA3AMP29 NEB; -MAGN400O4 PO; +MAGN400O7 PO; -METF10002 PO; +METF10007 PO; -NICO4GUM3 BC; +NICO4GUM42 BC; +SIMV40TA18 PO; -SIMV40TA3 PO; +TRAZ-123 PO; -TRAZ100T12 PO
[2020-07-20] MEDS ORDERED: IV NORMAL SALINE 1000ML BAG 1,000 ML IV ONE ×3 (15:30→16:45)
[2020-07-20 15:48] LABS: BASO % 1 % (0-3); EOS % 0 % (0-3); HEMATOCRIT 26.8 % (39.0-53.0); HEMOGLOBIN 9.1 g/dL (13.0-17.5); LYMPH # 0.9 x10^3/uL (1.0-4.8); LYMPH % 22 % (24-48); MEAN CORPUSCULAR HEMOGLOBIN 31 pg (25-35); MEAN CORPUSCULAR HGB CONC 34 g/dL (31-37); MEAN CORPUSCULAR VOLUME 92 fL (79-100); MONO # 0.4 x10^3/uL (0.0-1.1); MONO % 11 % (0-9); NEUT # 2.7 x10^3/uL (1.8-7.7); NEUT % 67 % (31-73); PLATELET COUNT 133 x10^3/uL (140-400); RED BLOOD COUNT 2.92 x10^6/uL (4.30-5.70); RED CELL DISTRIBUTION WIDTH 13.7 % (11.5-14.5); WHITE BLOOD COUNT 4.1 x10^3/uL (4.0-11.0)
[2020-07-20 16:20] LABS: CREATININE 3.8 mg/dL (0.7-1.3); GFR 16.1; POTASSIUM 4.4 mmol/L (3.5-5.1)
[2020-07-20 16:28] LABS: ALBUMIN 2.9 g/dL (3.4-5.0); ALBUMIN/GLOBULIN RATIO 0.9 (1.0-1.7); TOTAL BILIRUBIN 0.1 mg/dL (0.2-1.0); TOTAL PROTEIN 6.1 g/dL (6.4-8.2)
--- NOTE | 2020-07-20 16:47 | RAD ---
Exam: Chest one view INDICATION: Short of air TECHNIQUE: Frontal view of the chest Comparisons: 09/25/2016 FINDINGS: The cardiomediastinal silhouette and pulmonary vessels are within normal limits. Strandy opacities at the lungs bilaterally. No pleural effusion. IMPRESSION: Diffuse hazy airspace disease may relate to pulmonary edema. Electronically signed by: Quinton Henderson MD (07/20/2020 4:45 PM) [facility]
--- NOTE | 2020-07-20 16:50 | PHYS DOC ---
Past Medical History Past Medical History: CHF, Constipation, Depression, Diabetes-Type II, High Cholesterol, Hypertension, Seizure, Schizophrenia, UTI Additional Past Medical Histor: extra pyramidal movement disorder, insomnia, chronic pain, dermatitis Past Surgical History: Other Additional Past Surgical Histo: unknown, pt is poor historian Smoking Status: Former Smoker Alcohol Use: Sober Drug Use: Marijuana General Adult EDM: Chief Complaint: SHORTNESS OF BREATH HPI: HPI: Patient is a 64 year old male who was brought here from the jail for evaluation of altered mental status, hypoxia. Patient is a at a jail where there are currently about 40 residents infected with COVID-19. Patient was tested negative for COVID-19, he was located on the negative area of the jail. Staff checked on him today found to be confused and his oxygen saturation was low so they called EMS to take him here. EMS reported that patient was very lethargic, his blood pressure was 75/40. They placed an IV and gave him 1000 ml of NS. Patient became more awake and alert. Upon arrival to room, patient appeared somnolent. He was able to wake up, looking around, moving all extremities. He was soiled with feces in his brief. Review of Systems: Review of Systems: not able to obtain due to patient's condition Heart Score: Risk Factors: Risk Factors: DM, Current or recent (<one month) smoker, HTN, HLP, family history of CAD, obesity. Risk Scores: Score 0 - 3: 2.5% MACE over next 6 weeks - Discharge Home Score 4 - 6: 20.3% MACE over next 6 weeks - Admit for Clinical Observation Score 7 - 10: 72.7% MACE over next 6 weeks - Early Invasive Strategies Current Medications: Current Medications Medications (Trade) Dose Ordered Sig/Kvng Start Time Stop Time Status Last Admin Dose Admin Sodium Chloride 1,000 ml @ 1,000 mls/hr 1X ONCE 07/20/20 16:00 07/20/20 16:59 Allergies: Allergies: Allergies Coded Allergies Type Severity Reaction Last Updated Verified I S O L A T I O N *CONTACT* Allergy Unknown 09/15/16 Yes No Known Medication Allergies Allergy Unknown 09/15/16 Yes Physical Exam: PE: Constitutional: Well developed, appeared lethargic, very dried] HENT: Normocephalic, atraumatic, bilateral external ears normal, oropharynx dried, no oral exudates, nose normal. [] Eyes: PERRLA, EOMI, conjunctiva normal, no discharge. [] Neck: Normal range of motion, no tenderness, supple, no stridor. [] Cardiovascular:Heart rate regular rhythm, no murmur [] Lungs & Thorax: Bilateral breath sounds clear to auscultation [] Abdomen: Bowel sounds normal, soft, no tenderness, no masses, no pulsatile masses. [] Skin: Warm, dry, no erythema, no rash. [] Back: No tenderness, no CVA tenderness. [] Extremities: No tenderness, no cyanosis, no clubbing, ROM intact, no edema. [] Neurologic:appeared somnolent, moaning, was able to awake, tracking, moved all extremities. Psychologic: No able to evaluate at this time. Current Patient Data: Labs: Laboratory Tests Test 07/20/20 15:25 White Blood Count 4.1 x10^3/uL (4.0-11.0) Red Blood Count 2.92 x10^6/uL (4.30-5.70) L Hemoglobin 9.1 g/dL (13.0-17.5) L Hematocrit 26.8 % (39.0-53.0) L Mean Corpuscular Volume 92 fL (79-100) Mean Corpuscular Hemoglobin 31 pg (25-35) Mean Corpuscular Hemoglobin Concent 34 g/dL (31-37) Red Cell Distribution Width 13.7 % (11.5-14.5) Platelet Count 133 x10^3/uL (140-400) L Neutrophils (%) (Auto) 67 % (31-73) Lymphocytes (%) (Auto) 22 % (24-48) L Monocytes (%) (Auto) 11 % (0-9) H Eosinophils (%) (Auto) 0 % (0-3) Basophils (%) (Auto) 1 % (0-3) Neutrophils # (Auto) 2.7 x10^3/uL (1.8-7.7) Lymphocytes # (Auto) 0.9 x10^3/uL (1.0-4.8) L Monocytes # (Auto) 0.4 x10^3/uL (0.0-1.1) Eosinophils # (Auto) 0.0 x10^3/uL (0.0-0.7) Basophils # (Auto) 0.0 x10^3/uL (0.0-0.2) Sodium Level 141 mmol/L (136-145) Potassium Level 4.4 mmol/L (3.5-5.1) Chloride Level 110 mmol/L (98-107) H Carbon Dioxide Level 21 mmol/L (21-32) Anion Gap 10 (6-14) Blood Urea Nitrogen 77 mg/dL (8-26) H Creatinine 3.8 mg/dL (0.7-1.3) H Estimated GFR (Cockcroft-Gault) 16.1 BUN/Creatinine Ratio 20 (6-20) Glucose Level 102 mg/dL (70-99) H Lactic Acid Level 1.0 mmol/L (0.4-2.0) Calcium Level 8.0 mg/dL (8.5-10.1) L Magnesium Level 2.1 mg/dL (1.8-2.4) Total Bilirubin 0.1 mg/dL (0.2-1.0) L Aspartate Amino Transferase (AST) 23 U/L (15-37) Alanine Aminotransferase (ALT) 22 U/L (16-63) Alkaline Phosphatase 47 U/L (46-116) Troponin I Quantitative < 0.017 ng/mL (0.000-0.055) PP-Lhq-A-Type Natriuretic Peptide 111 pg/mL (0-124) Total Protein 6.1 g/dL (6.4-8.2) L Albumin 2.9 g/dL (3.4-5.0) L Albumin/Globulin Ratio 0.9 (1.0-1.7) L Laboratory Tests 07/20/20 15:25 Laboratory Tests 07/20/20 15:25 Vital Signs: Vital Signs Date Time Temp Pulse Resp B/P (MAP) Pulse Ox O2 Delivery O2 Flow Rate FiO2 07/20/20 15:03 98.1 98 26 91/51 (64) 87 Room Air 98.1 EKG: EKG: EKG was done at 1513, heart rate of 86 beats per minutes, sinus rhythm, no ST segment elevation. Radiology/Procedures: Radiology/Procedures: [][facility] [address] [place] [address] IMAGING REPORT Signed PATIENT: MARIXA FARRELL ACCOUNT: [id number] : 1955 LOCATION: ER AGE: 64 SEX: M EXAM STATUS: REG ER ORD. PHYSICIAN: KHADAR ELDRIDGE DO REASON: soa, cough PROCEDURE: PORTABLE CHEST 1V Exam: Chest one view INDICATION: Short of air TECHNIQUE: Frontal view of the chest Comparisons: 09/25/2016 FINDINGS: The cardiomediastinal silhouette and pulmonary vessels are within normal limits. Strandy opacities at the lungs bilaterally. No pleural effusion. IMPRESSION: Diffuse hazy airspace disease may relate to pulmonary edema. Electronically signed by: Quinton Allen MD (07/20/2020 4:45 PM) [facility] DICTATED and SIGNED BY: QUINTON ALLEN MD DATE: 07/20/20 [id number] 0 Course & Med Decision Making: Course & Med Decision Making Pertinent Labs and Imaging studies reviewed. (See chart for details) Patient is a 64-year-old male who was in severe dehydration, acute renal failure. He was confused, resides at a jail with numerous residents who infected with COVID-19. It is likely that patient has COVID-19 infection. Patient was given IV fluid in the ER, patient will be admitted to hospital service, discussed with Dr. Krishna who agrees to admit the patient. Sierra Disclaimer: Sierra Disclaimer: This electronic medical record was generated, in whole or in part, using a voice recognition dictation system. Departure Departure Impression: Primary Impression: Altered mental status Additional Impressions: Acute renal failure Dehydration Person under investigation for COVID-19 Disposition: ADMITTED INPT THIS HOSP Admitting Physician: SERGEY () Condition: IMPROVED Referrals: POPPY JORGE MD (PCP) KHADAR ELDRIDGE DO Jul 20, 2020 16:50
[2020-07-20 17:31] LABS: INFLUENZA A PATIENT NEGATIVE (NEGATIVE); INFLUENZA B PATIENT NEGATIVE (NEGATIVE)
[2020-07-20] MEDS: IV NORMAL SALINE 1000ML BAG 1,000 ML IV SCH (17:45)
[2020-07-20] MEDS ORDERED: ONDANSETRON PF 4 MG/2 ML VIAL. IV PRN (17:45)
--- NOTE | 2020-07-20 17:56 | HP ---
ADMIT DATE: 07/20/2020 CHIEF COMPLAINT: Mental status change. HISTORY OF PRESENT ILLNESS: The patient is a pleasant 64-year-old male brought from a prison in [place]. The prison that he is from has about 40 residents with COVID-19. 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 He apparently was tested for COVID-19 and I think it was negative. When they found him, his oxygen saturation was low. They called EMS. He is very lethargic, pressures are running low in the 70/40 range. His BUN is 77. His creatinine is 3.8. I discussed the case with ER physician. We are going to admit the patient and consult Pulmonary and Nephrology. PAST MEDICAL HISTORY: CHF, constipation, depression, diabetes, hypertension, hyperlipidemia, seizure, schizophrenia, UTI, dystonic movements, chronic pain, dermatitis, previous tobacco abuse, previous alcohol use, previous marijuana use. ALLERGIES: None. FAMILY HISTORY: Hypertension. SOCIAL HISTORY: He lives at a facility. He does not drink, smoke or take drugs, but I think he used all 3 previously. I think he still smokes a little marijuana. MEDICATIONS: Reviewed, please refer to the MRAD. REVIEW OF SYSTEMS: Unable to obtain. He is too confused. PHYSICAL EXAMINATION: VITALS: Within normal limits and are stable. GENERAL: Unresponsive. HENT: He has got a 2 cm growth on his face that appears chronic. EYES: Extraocular muscles are intact, pupils are equally round and reactive to light and accommodation MUSCULOSKELETAL: Well developed, well nourished, good range of motion ENDOCRINE: No thyromegaly was palpated LYMPHATICS: No cervical chain or axillary nodes were noted HEMATOPOIETIC: No bruising NECK: Supple, no JVD, no thyromegaly was noted. LUNGS: Clear to auscultation in all lung ladd without rhonchi or wheezing. HEART: RRR, S1, S2 present. Peripheral pulses intact, no obvious murmurs were noted. ABDOMEN: Distended. GENITOURINARY: He is not circumcised, but no structural changes were noted. EXTREMITIES: Without any cyanosis, clubbing. He has 1+ edema. Pedal pulses intact, Homans sign is negative. NEUROLOGIC: Unresponsive. PSYCHIATRIC: Unresponsive. SKIN: No ulcerations or rashes, good skin turgor, no jaundice. VASCULAR: Good capillary refill, neurovascular bundle appears to be intact. LABORATORY DATA: Electrolytes: Sodium 141, potassium 4.4, chloride 110, bicarbonate 21, BUN 77, creatinine 3.8, glucose 102. Troponin is 0. White count is 4, hemoglobin 9, platelets 135. Chest x-ray shows diffuse hazy airspace disease, may be related to pulmonary edema. ASSESSMENT AND PLAN: Mental status change in an elderly male who resides in a prison where they have 40 cases of COVID-19. Interestingly, his COVID test was supposedly negative and we are going to rescreen him. I am going to consult Pulmonary Medicine for the abnormal chest x-ray and hypoxia. Aggressive IV fluids. Consult Nephrology. Trend labs, home meds, DVT prophylaxis. Full code. CT of the head. Blood cultures. Prognosis is extremely guarded. CRITICAL CARE TIME: 31 minutes. NEGRO REYNA DO DR: LEWIS/rimma JOB#: [id number] / [id number]
--- NOTE | 2020-07-20 18:09 | RAD ---
CT Head W/O Contrast: History: Reason: AMS / Spl. Instructions: / History: Comparison: none Axial images were obtained without contrast. The fox and white matter appears normal and symmetrical for the patients age. There is no mass effect, extraaxial fluid collections or hydrocephalus. There is no gross bleed. There is no focal loss of fox-white matter distinction to suggest acute ischemia, i.e. stroke. Impression: No acute findings. RS Compliance Statement: One or more of the following individualized dose reduction techniques were utilized for this examination: 1. Automated exposure control 2. Adjustment of the mA and/or kV according to patient size 3. Use of iterative reconstruction technique Electronically signed by: Roberto Carlos Kamara III, MD (07/20/2020 6:06 PM) [facility]
[2020-07-20 19:12] LABS: BILIRUBIN,URINE NEGATIVE (NEG); CLARITY,URINE CLEAR; COLOR,URINE YELLOW; NITRITE,URINE POSITIVE (NEG); PH,URINE 5.5 (<5.0-8.0); PROTEIN,URINE NEGATIVE (NEG-TRACE); UROBILINOGEN,URINE 0.2 mg/dL (0.2 mg/dL)
[2020-07-20 19:19] LABS: HYALINE CASTS, URINE MODERATE /HPF
[2020-07-20 19:20] LABS: BACTERIA,URINE MANY /HPF (0-FEW); WBC,URINE 20-40 /HPF (0-4)
[2020-07-20 19:23] LABS: BARBITURATES NEG (NEG); BENZODIAZEPINES NEG (NEG); CANNABINOIDS NEG (NEG); COCAINE NEG (NEG); METHADONE NEG (NEG); OPIATES NEG (NEG); PHENCYCLIDINE NEG (NEG)
[2020-07-20 19:25] LABS: AMPHETAMINE/METHAMPHETAMINE NEG (NEG)
[2020-07-21 00:33] VITALS: BP 125/71
[2020-07-21] MEDS ORDERED: ACET650S19 PO (02:11)
[2020-07-21] MEDS ORDERED: FURO40TA4 PO (02:11)
[2020-07-21] MEDS ORDERED: QUET50TA5 PO (02:11)
[2020-07-21] MEDS ORDERED: LISI-334 PO (02:11)
[2020-07-21] MEDS ORDERED: HALO5TAB PO (02:11)
[2020-07-21] MEDS ORDERED: QUET200T4 PO (02:11)
[2020-07-21] MEDS ORDERED: HYDR453.3 TP (02:11)
[2020-07-21] MEDS ORDERED: KETO120S4 TP (02:11)
[2020-07-21] MEDS ORDERED: NYST15PO9 TP (02:11)
[2020-07-21] MEDS ORDERED: NON FORMULARY ITEM (Ipratropium/Albuterol Sulfate (Combivent Respimat Inhal) 1 INH) IH PRN (02:15)
[2020-07-21] MEDS ORDERED: MAGNESIUM HYDROXIDE 2,400 MG/30 ML ORAL.SUSP. PO PRN (02:15)
[2020-07-21] MEDS ORDERED: guaiFENesin DM 200MG/20MG 10 ML SYRUP PO PRN (02:30)
[2020-07-21] MEDS ORDERED: HYDROCORTISONE 1% TOPICAL CREAM 30GM TUBE. TP PRN (02:45)
[2020-07-21 03:00] VITALS: BP 155/76
[2020-07-21] MEDS ORDERED: DEXTROSE 50% 25 GM / 50ML DISP.SYRIN. IV PRN (03:30)
[2020-07-21] MEDS: IV NORMAL SALINE 1000ML BAG 1,000 ML IV SCH ×2 (03:45→13:45)
[2020-07-21 07:00] VITALS: BP 115/46
[2020-07-21] MEDS: glyBURIDE 5 MG TABLET PO SCH (08:00)
[2020-07-21] MEDS: IPRATROPIUM/ALBUTEROL 20/100mcg/INH INHALER. INH SCH ×4 (08:00→20:00)
[2020-07-21] MEDS: NYSTATIN TOPICAL POWDER 15GM BOTTLE. TP SCH ×2 (09:00→21:00)
[2020-07-21] MEDS ORDERED: NON FORMULARY ITEM (Metformin Hcl 1 TAB) PO SCH (09:00)
[2020-07-21] MEDS: SENNOSIDES/DOCUSATE 8.6/50MG TABLET. PO SCH (09:00)
--- NOTE | 2020-07-21 09:43 | PDOC2 ---
CONSULT Date of Consult Date of Consult DATE: 07/21/20 TIME: 09:37 Reason for Consult Reason for Consult: Acute renal failure Referring Physician Referring Physician: Tomi Identification/Chief Complaint Chief Complaint Altered mental status, hypoxemia Source Source: Chart review History of Present Illness Reason for Visit: Patient is 64-year-old residential resident from [place] with a history of CHF diabetes hypertension and possible chronic kidney disease. Has not been to our facility since 2017 at which time his creatinine was 1.4 corresponding to a GFR of 52 cc/min. This time he was noted to have altered mental status and was noted to be hypotensive with systolic blood pressures in the 70s. He was brought to the ER where he was noted to be hypoxemic also and is now tested Covid positive. His labs show a BUN of 77 creatinine 3.8 and we were asked to see him for the same. Urine output is not well recorded in the absence of a Lujan catheter. Patient is altered and has a history of schizophrenia and IM unable to get much in terms of history from him or from his nurse other than as reviewed under ER notes and HPI Past Medical History Cardiovascular: CHF, HTN, Hyperlipidemia Pulmonary: COPD CENTRAL NERVOUS SYSTEM: Seizure, Other Psych: Bipolar, Depression, Schizophrenia Musculoskeletal: Osteoarthritis, Other Infectious disease: Other Renal/: UTI Endocrine: Diabetes Past Surgical History Past Surgical History: No pertinent history Family History Family History: Family History Unknown Social History ALCOHOL: none Drugs: None Lives: Residential Current Problem List Problem List Problems Medical Problems: (1) Acute renal failure Status: Acute (2) Altered mental status Status: Acute (3) Dehydration Status: Acute (4) Person under investigation for COVID-19 Status: Acute Current Medications Current Medications Current Medications Sodium Chloride 1,000 ml @ 1,000 mls/hr 1X ONCE IV Last administered on 07/20/20at 15:30; Start 07/20/20 at 15:30; Stop 07/20/20 at 16:29; Status DC Sodium Chloride 1,000 ml @ 1,000 mls/hr 1X ONCE IV Last administered on 07/20/20at 16:50; Start 07/20/20 at 16:45; Stop 07/20/20 at 17:44; Status DC Sodium Chloride 1,000 ml @ 1,000 mls/hr 1X ONCE IV Last administered on 07/20/20at 16:50; Start 07/20/20 at 16:00; Stop 07/20/20 at 16:59; Status DC Ondansetron HCl (Zofran) 4 mg PRN Q8HRS PRN IV NAUSEA/VOMITING; Start 07/20/20 at 17:45; Stop 07/21/20 at 17:44 Sodium Chloride 1,000 ml @ 100 mls/hr Q10H IV Last administered on 07/20/20at 17:45; Start 07/20/20 at 17:45; Stop 07/21/20 at 17:44 Aspirin (Aspirin Chewable) 81 mg DAILY PO ; Start 07/21/20 at 09:00 Cetirizine HCl (ZyrTEC) 10 mg DAILY08 PO ; Start 07/21/20 at 08:00 Furosemide (Lasix) 40 mg DAILY PO ; Start 07/21/20 at 09:00 Gabapentin (Neurontin) 400 mg DAILY PO ; Start 07/21/20 at 09:00 Glyburide (Diabeta) 5 mg DAILY08 PO ; Start 07/21/20 at 08:00 Haloperidol (Haldol) 5 mg BID PO ; Start 07/21/20 at 09:00 Ketoconazole (Nizoral 2% Shampoo) 1 diana SuWe TP ; Start 07/21/20 at 21:00 Levetiracetam (Keppra) 500 mg BID PO ; Start 07/21/20 at 09:00 Lisinopril (Prinivil) 10 mg DAILY PO ; Start 07/21/20 at 09:00 Lisinopril (Prinivil) 20 mg HS PO ; Start 07/21/20 at 21:00 Magnesium Hydroxide (Milk Of Magnesia) 400 mg DAILY PRN PO CONSTIPATION; Start 07/21/20 at 02:15; Status UNV Nystatin (Nystop) 1 diana BID TP ; Start 07/21/20 at 09:00 Senna/Docusate Sodium (Senna Plus) 1 tab DAILY PO ; Start 07/21/20 at 09:00 Simvastatin (Zocor) 40 mg QHS PO ; Start 07/21/20 at 21:00 Trazodone HCl (Desyrel) 100 mg QHS PO ; Start 07/21/20 at 21:00 Guaifenesin (Robitussin Dm) 10 ml PRN Q6HRS PRN PO COUGH; Start 07/21/20 at 02:30 Hydrocortisone (Cortaid) 1 diana PRN BID PRN TP ITCHING; Start 07/21/20 at 02:45 Insulin Glargine (Lantus Syringe) 10 unit DAILY08 SQ ; Start 07/21/20 at 08:00 Non-Formulary Medication (Ipratropium/ Albuterol Sulfate (Combivent Respimat Inhal)) 1 inh PRN Q8HRS PRN IH SHORTNESS OF BREATH; Start 07/21/20 at 02:15; Status UNV Non-Formulary Medication (Metformin Hcl ) 1 tab BID PO ; Start 07/21/20 at 09:00; Status UNV Multivitamins (Thera M Plus) 1 tab DAILY PO ; Start 07/21/20 at 09:00 Niacin (Niaspan) 500 mg QHS PO ; Start 07/21/20 at 21:00 Fish Oil (Fish Oil) 1,000 mg DAILY PO ; Start 07/21/20 at 09:00 Quetiapine Fumarate (SEROquel) 50 mg BIDWMEALS PO ; Start 07/21/20 at 08:00 Quetiapine Fumarate (SEROquel) 200 mg HS PO ; Start 07/21/20 at 21:00 Albuterol/ Ipratropium (Combivent Respimat 20-100 Mcg) 1 puff RTQID INH ; Start 07/21/20 at 08:00 Dextrose (Dextrose 50%-Water Syringe) 12.5 gm PRN Q15MIN PRN IV SEE COMMENTS; Start 07/21/20 at 03:30 Active Scripts Active Reported Acetaminophen 650 Mg/20.3 Ml Solution 650 Mg PO Q6HRS PRN Seroquel (Quetiapine Fumarate) 200 Mg Tablet 200 Mg PO HS Seroquel (Quetiapine Fumarate) 50 Mg Tablet 50 Mg PO BID Nystatin 15 Gm Powder 1 Diana TP BID 7 Days apply to affected area(s) Ketoconazole 120 Ml Shampoo 1 Diana TP TWICE WEEKLY 30 Days with at least 3 days between each shampooing Hydrocortisone 453.6 Gm Cream..g. 1 Diana TP PRN BID Haloperidol 5 Mg Tablet 1 Tab PO QAM Lisinopril 20 Mg Tablet 20 Mg PO HS PRN Furosemide 40 Mg Tablet 40 Mg PO DAILY Combivent Respimat Inhal (Ipratropium/Albuterol Sulfate) 4 Gm Aer.w.adap 1 Inh IH PRN Q8HRS PRN Levetiracetam 500 Mg Tablet 1 Tab PO BID Zetia (Ezetimibe) 10 Mg Tablet 1 Tab PO HS Niaspan (Niacin) 500 Mg Tab.er.24h 1 Tab PO QHS Aspirin 81 Mg Tab.chew 1 Tab PO DAILY Nicotine Gum (Nicotine Polacrilex) 4 Mg Gum 4 Mg BC Milk Of Magnesia (Magnesium Hydroxide) 400 Mg/5 Ml Oral.susp 400 Mg PO DAILY PRN Duoneb 0.5-3(2.5) Mg/3 Ml (Albuterol/Ipratropium) 3 Ml Ampul.neb 3 Ml NEB QID Acetaminophen 325 Mg Tablet 325 Mg PO PRN Q4HRS PRN Robitussin Cough-Chest Dm Liq (Guaifenesin/Dextromethorphan) 118 Ml Liquid 10 Ml PO PRN Q6HRS PRN AD Days [place] 3 Fish Oil Softgel ([place]-3 Fatty Acids/Fish Oil) 1 Each Capsule. 1 Each PO DAILY Gabapentin (Gabapentin) 400 Mg Capsule 400 Mg PO TID Sennosides-Docusate Sodium Tab (Sennosides/Docusate Sodium) 1 Each Tablet 6-50 Each PO DAILY Metformin Hcl 1,000 Mg Tablet 1 Tab PO BID Haloperidol 5 Mg Tablet 5 Tab PO BID Zyrtec (Cetirizine Hcl) 10 Mg Tablet 1 Tab PO DAILY08 Trazodone Hcl 100 Mg Tablet 1 Tab PO QHS Simvastatin 40 Mg Tablet 1 Tab PO QHS Seroquel (Quetiapine Fumarate) 400 Mg Tablet 400 Tab PO QHS Multi Vitamin Daily (Multivitamin) 1 Each Tablet 1 Each PO DAILY Lisinopril 10 Mg Tablet 1 Tab PO DAILY Levemir (Insulin Detemir) 100 Unit/1 Ml Vial 10 Unit SQ DAILY08 Glyburide 5 Mg Tablet 1 Tab PO DAILY08 Effexor Xr (Venlafaxine Hcl) 150 Mg Cap.er.24h 1 Cap PO DAILY Allergies Allergies: Coded Allergies: I S O L A T I O N *CONTACT* (Verified Allergy, Unknown, 09/15/16) mrsa No Known Medication Allergies (Verified Allergy, Unknown, 09/15/16) ROS Review of System Unable to obtain from the patient due to altered mental status other than as reviewed under HPI Physical Exam Physical Exam Unable to physically examine patient due to COVID-19 positivity and isolation protocols. I have reviewed patient's exam as documented by other providers and corroborated with the nurse. Vital Signs Vital Signs Date Time Temp Pulse Resp B/P (MAP) Pulse Ox O2 Delivery O2 Flow Rate FiO2 07/21/20 03:00 99.0 94 17 155/76 (102) 99 Nasal Cannula 5.0 99.0 Assessment & Plan Acute kidney injury: Cannot rule out urinary retention and/or pyelonephritis/urosepsis. Intravascular volume depletion versus prerenal state from CHF is a possibility also. Urine does not look grossly infected at this time. Will await cultures of the same if set up. No IV fluids ordered at this time due to abnormal chest x-ray. Will place Lujan and watch urine output Possible underlying chronic kidney disease due to diabetes hypertension and CHF cannot be ruled out. ? Candidate for dialysis Anemia check iron profile. May need EPO Abnormal chest x-ray: Suggestive of COVID-19 pneumonitis versus CHF exacerbation. Hypoxemia: Unclear etiology. Defer to pulmonology evaluation. If diuresis is felt required then this may get him closer to needing dialysis with a high likelihood of worsening azotemia with diuresis COVID 19 + ve Labs Labs Laboratory Tests Test 07/20/20 15:25 07/20/20 16:50 07/20/20 19:00 07/21/20 08:12 White Blood Count 4.1 x10^3/uL (4.0-11.0) Red Blood Count 2.92 x10^6/uL (4.30-5.70) Hemoglobin 9.1 g/dL (13.0-17.5) Hematocrit 26.8 % (39.0-53.0) Mean Corpuscular Volume 92 fL (79-100) Mean Corpuscular Hemoglobin 31 pg (25-35) Mean Corpuscular Hemoglobin Concent 34 g/dL (31-37) Red Cell Distribution Width 13.7 % (11.5-14.5) Platelet Count 133 x10^3/uL (140-400) Neutrophils (%) (Auto) 67 % (31-73) Lymphocytes (%) (Auto) 22 % (24-48) Monocytes (%) (Auto) 11 % (0-9) Eosinophils (%) (Auto) 0 % (0-3) Basophils (%) (Auto) 1 % (0-3) Neutrophils # (Auto) 2.7 x10^3/uL (1.8-7.7) Lymphocytes # (Auto) 0.9 x10^3/uL (1.0-4.8) Monocytes # (Auto) 0.4 x10^3/uL (0.0-1.1) Eosinophils # (Auto) 0.0 x10^3/uL (0.0-0.7) Basophils # (Auto) 0.0 x10^3/uL (0.0-0.2) Sodium Level 141 mmol/L (136-145) Potassium Level 4.4 mmol/L (3.5-5.1) Chloride Level 110 mmol/L (98-107) Carbon Dioxide Level 21 mmol/L (21-32) Anion Gap 10 (6-14) Blood Urea Nitrogen 77 mg/dL (8-26) Creatinine 3.8 mg/dL (0.7-1.3) Estimated GFR (Cockcroft-Gault) 16.1 BUN/Creatinine Ratio 20 (6-20) Glucose Level 102 mg/dL (70-99) Lactic Acid Level 1.0 mmol/L (0.4-2.0) Calcium Level 8.0 mg/dL (8.5-10.1) Magnesium Level 2.1 mg/dL (1.8-2.4) Total Bilirubin 0.1 mg/dL (0.2-1.0) Aspartate Amino Transf (AST/SGOT) 23 U/L (15-37) Alanine Aminotransferase (ALT/SGPT) 22 U/L (16-63) Alkaline Phosphatase 47 U/L (46-116) Troponin I Quantitative < 0.017 ng/mL (0.000-0.055) RK-Zin-O-Type Natriuretic Peptide 111 pg/mL (0-124) Total Protein 6.1 g/dL (6.4-8.2) Albumin 2.9 g/dL (3.4-5.0) Albumin/Globulin Ratio 0.9 (1.0-1.7) Influenza Type A Antigen Negative (NEGATIVE) Influenza Type B Antigen Negative (NEGATIVE) Urine Collection Type Unknown Urine Color Yellow Urine Clarity Clear Urine pH 5.5 (<5.0-8.0) Urine Specific [place] 1.015 (1.000-1.030) Urine Protein Negative mg/dL (NEG-TRACE) Urine Glucose (UA) Negative mg/dL (NEG) Urine Ketones (Stick) Negative mg/dL (NEG) Urine Blood Small (NEG) Urine Nitrite Positive (NEG) Urine Bilirubin Negative (NEG) Urine Urobilinogen Dipstick 0.2 mg/dL (0.2 mg/dL) Urine Leukocyte Esterase Moderate (NEG) Urine RBC 3-5 /HPF (0-2) Urine WBC 20-40 /HPF (0-4) Urine Bacteria Many /HPF (0-FEW) Urine Hyaline Casts Moderate /HPF Urine Mucus Slight /LPF Urine Opiates Screen Neg (NEG) Urine Methadone Screen Neg (NEG) Urine Barbiturates Neg (NEG) Urine Phencyclidine Screen Neg (NEG) Urine Amphetamine/Methamphetamine Neg (NEG) Urine Benzodiazepines Screen Neg (NEG) Urine Cocaine Screen Neg (NEG) Urine Cannabinoids Screen Neg (NEG) Urine Ethyl Alcohol Neg (NEG) Glucose (Fingerstick) 87 mg/dL (70-99) Laboratory Tests Test 07/20/20 15:25 07/20/20 16:50 07/20/20 19:00 07/21/20 08:12 White Blood Count 4.1 x10^3/uL (4.0-11.0) Red Blood Count 2.92 x10^6/uL (4.30-5.70) Hemoglobin 9.1 g/dL (13.0-17.5) Hematocrit 26.8 % (39.0-53.0) Mean Corpuscular Volume 92 fL (79-100) Mean Corpuscular Hemoglobin 31 pg (25-35) Mean Corpuscular Hemoglobin Concent 34 g/dL (31-37) Red Cell Distribution Width 13.7 % (11.5-14.5) Platelet Count 133 x10^3/uL (140-400) Neutrophils (%) (Auto) 67 % (31-73) Lymphocytes (%) (Auto) 22 % (24-48) Monocytes (%) (Auto) 11 % (0-9) Eosinophils (%) (Auto) 0 % (0-3) Basophils (%) (Auto) 1 % (0-3) Neutrophils # (Auto) 2.7 x10^3/uL (1.8-7.7) Lymphocytes # (Auto) 0.9 x10^3/uL (1.0-4.8) Monocytes # (Auto) 0.4 x10^3/uL (0.0-1.1) Eosinophils # (Auto) 0.0 x10^3/uL (0.0-0.7) Basophils # (Auto) 0.0 x10^3/uL (0.0-0.2) Sodium Level 141 mmol/L (136-145) Potassium Level 4.4 mmol/L (3.5-5.1) Chloride Level 110 mmol/L (98-107) Carbon Dioxide Level 21 mmol/L (21-32) Anion Gap 10 (6-14) Blood Urea Nitrogen 77 mg/dL (8-26) Creatinine 3.8 mg/dL (0.7-1.3) Estimated GFR (Cockcroft-Gault) 16.1 BUN/Creatinine Ratio 20 (6-20) Glucose Level 102 mg/dL (70-99) Lactic Acid Level 1.0 mmol/L (0.4-2.0) Calcium Level 8.0 mg/dL (8.5-10.1) Magnesium Level 2.1 mg/dL (1.8-2.4) Total Bilirubin 0.1 mg/dL (0.2-1.0) Aspartate Amino Transf (AST/SGOT) 23 U/L (15-37) Alanine Aminotransferase (ALT/SGPT) 22 U/L (16-63) Alkaline Phosphatase 47 U/L (46-116) Troponin I Quantitative < 0.017 ng/mL (0.000-0.055) CT-Vqz-S-Type Natriuretic Peptide 111 pg/mL (0-124) Total Protein 6.1 g/dL (6.4-8.2) Albumin 2.9 g/dL (3.4-5.0) Albumin/Globulin Ratio 0.9 (1.0-1.7) Influenza Type A Antigen Negative (NEGATIVE) Influenza Type B Antigen Negative (NEGATIVE) Urine Collection Type Unknown Urine Color Yellow Urine Clarity Clear Urine pH 5.5 (<5.0-8.0) Urine Specific [place] 1.015 (1.000-1.030) Urine Protein Negative mg/dL (NEG-TRACE) Urine Glucose (UA) Negative mg/dL (NEG) Urine Ketones (Stick) Negative mg/dL (NEG) Urine Blood Small (NEG) Urine Nitrite Positive (NEG) Urine Bilirubin Negative (NEG) Urine Urobilinogen Dipstick 0.2 mg/dL (0.2 mg/dL) Urine Leukocyte Esterase Moderate (NEG) Urine RBC 3-5 /HPF (0-2) Urine WBC 20-40 /HPF (0-4) Urine Bacteria Many /HPF (0-FEW) Urine Hyaline Casts Moderate /HPF Urine Mucus Slight /LPF Urine Opiates Screen Neg (NEG) Urine Methadone Screen Neg (NEG) Urine Barbiturates Neg (NEG) Urine Phencyclidine Screen Neg (NEG) Urine Amphetamine/Methamphetamine Neg (NEG) Urine Benzodiazepines Screen Neg (NEG) Urine Cocaine Screen Neg (NEG) Urine Cannabinoids Screen Neg (NEG) Urine Ethyl Alcohol Neg (NEG) Glucose (Fingerstick) 87 mg/dL (70-99) Review All relevant outside records, renal labs, imaging studies, telemetry/EKG's were reviewed. Images Images Chest x-ray from this hospitalization FINDINGS: The cardiomediastinal silhouette and pulmonary vessels are within normal limits. Strandy opacities at the lungs bilaterally. No pleural effusion. IMPRESSION: Diffuse hazy airspace disease may relate to pulmonary edema. MICHAEL VILLAREAL MD Jul 21, 2020 09:43
[2020-07-21] MEDS ORDERED: MAGNESIUM SULFATE 2GM 50 ML IV PRN (09:45)
[2020-07-21] MEDS: CETIRIZINE HCL 10 MG TABLET. PO SCH (10:14)
[2020-07-21] MEDS: OMEGA-3 FATTY ACIDS/FISH OIL 1,000 MG CAPSULE. PO SCH (10:14)
[2020-07-21] MEDS: levETIRAcetam 500 MG TABLET PO SCH ×2 (10:14→21:00)
[2020-07-21] MEDS: MULTIVITAMIN with MINERAL TABLET. PO SCH (10:14)
[2020-07-21] MEDS: ASPIRIN CHEWABLE 81 MG TABLET. PO SCH (10:14)
[2020-07-21] MEDS: QUEtiapine 25 MG TABLET. PO SCH ×2 (10:14→17:11)
[2020-07-21] MEDS: GABAPENTIN 400 MG CAPSULE. PO SCH (10:15)
[2020-07-21] MEDS: FUROSEMIDE 40 MG TABLET. PO SCH (10:15)
[2020-07-21] MEDS: LISINOPRIL 10 MG TABLET PO SCH (10:15)
[2020-07-21] MEDS: HALOPERIDOL 5 MG TABLET. PO SCH ×2 (10:15→21:00)
[2020-07-21 11:00] VITALS: BP 151/74
--- NOTE | 2020-07-21 11:07 | CONS ---
DATE OF CONSULTATION: 07/21/2020 REASON FOR CONSULTATION: I was asked to see this 64-year-old gentleman for acute respiratory failure, COVID-19 PUI. HISTORY OF PRESENT ILLNESS: The patient is in a [facility] resident in [place]. He was brought to the Emergency Room for altered mental status and hypoxia. There were 40 residents infected with COVID-19 in that chcf. He was COVID negative and was in negative area of chcf for COVID. His oxygen saturation was low. EMS was called. On arrival, his blood pressure was 75/40. IV fluid was given. His blood pressure did improve. Currently, he is on oxygen 4.5 liters via nasal cannula. He appears comfortable. PAST MEDICAL HISTORY: CHF, depression, diabetes mellitus, hypertension, seizure, schizophrenia, extrapyramidal movement disorder. ALLERGIES: No known drug allergies. MEDICATIONS: Currently, he is on Seroquel, niacin, Desyrel, Zocor, Prinivil, fish oil, Keppra, Haldol, Neurontin, Lasix, aspirin, insulin. SOCIAL HISTORY: Ex-smoker. FAMILY HISTORY: Hypertension. REVIEW OF SYSTEMS: As mentioned as above, other systems are otherwise negative. PHYSICAL EXAMINATION: GENERAL: This is an obese gentleman. VITAL SIGNS: His O2 saturation on 4.5 liters of oxygen is 98%, respiratory rate 20, heart rate 100, blood pressure 115/46, temperature 96.9, max room temperature was 100. NEURO: Not in distress. HEENT: Normocephalic, atraumatic. CARDIOVASCULAR: Regular rate and rhythm. CHEST INSPECTION: There is no accessory muscle use. ABDOMEN: Obese. EXTREMITIES: There is no cyanosis. LABORATORY DATA: I reviewed the following lab data: Chest x-ray shows airspace disease bilaterally. Urine drug screen negative. Sodium 141, potassium 4.4, chloride 110, CO2 of 21, BUN 77, creatinine 3.8. Lactic acid 1. BNP 111. Troponin less than 0.017. Influenza A and B negative. WBC 4.1, hemoglobin 9.1, platelet 133. IMPRESSION: 1. Acute respiratory failure secondary to pneumonia, rule out COVID-19 pneumonia. 2. Abnormal chest x-ray. 3. Acute kidney injury. 4. COVID-19 person under investigation. 5. Hypotension, resolved. 6. History of congestive heart failure. 7. Diabetes mellitus. PLAN AND RECOMMENDATIONS: 1. Titrate FiO2 to keep O2 saturation 92%. 2. Start Rocephin and doxycycline. 3. Follow up blood cultures. 4. Follow up COVID-19 testing. 5. Agree with IV hydration. Monitor creatinine and potassium. 6. Nephrology is consulted. 7. The findings and recommendations were discussed with RN. Thank you very much for allowing me to participate in care of this very nice gentleman. SHARONDA CHEN M.D. DR: Lacy JOB#: [id number] / [id number]
[2020-07-21] MEDS: DOXYCYCLINE HYCLATE 100 MG TABLET PO SCH ×2 (11:10→21:00)
[2020-07-21] MEDS ORDERED: cefTRIAXone IV Push 1 GM VIAL. IVP SCH (11:15)
--- NOTE | 2020-07-21 11:59 | PDOC ---
[employer] PROGRESS NOTE Date of Service DOS: DATE: 07/21/20 TIME: 11:57 Chief Complaint Chief Complaint Mental status change Possible COVID-19 (Covid testing still pending) CHF, constipation, depression, diabetes, hypertension, hyperlipidemia, seizure, schizophrenia, UTI, dystonic movements, chronic pain, dermatitis, previous tobacco abuse, previous alcohol use, previous marijuana use. History of Present Illness History of Present Illness 07/21/2020 Patient seen and examined Today he is a little more alert but does not talk just makes eye contact A little agitated so I had the nurse give him some Ativan that seems to have calmed him down Chart reviewed Vitals/I&O Vitals/I&O: Vital Signs Date Time Temp Pulse Resp B/P (MAP) Pulse Ox O2 Delivery O2 Flow Rate FiO2 07/21/20 10:15 100 115/46 07/21/20 07:00 96.9 20 99 Nasal Cannula 5.0 96.9 I & O 07/20/20 07/20/20 07/21/20 15:00 23:00 07:00 Intake Total 3000 ml 800 ml Output Total 3 ml Balance 3000 ml 797 ml Physical Exam General: No acute distress, Other (Pleasantly confused flat affect) Heart: No murmurs Lungs: Clear Abdomen: Normal bowel sounds Extremities: No clubbing Skin: No rashes Labs Labs: Laboratory Tests Test 07/20/20 15:25 07/20/20 16:50 07/20/20 19:00 07/21/20 08:12 White Blood Count 4.1 x10^3/uL (4.0-11.0) Red Blood Count 2.92 x10^6/uL (4.30-5.70) Hemoglobin 9.1 g/dL (13.0-17.5) Hematocrit 26.8 % (39.0-53.0) Mean Corpuscular Volume 92 fL (79-100) Mean Corpuscular Hemoglobin 31 pg (25-35) Mean Corpuscular Hemoglobin Concent 34 g/dL (31-37) Red Cell Distribution Width 13.7 % (11.5-14.5) Platelet Count 133 x10^3/uL (140-400) Neutrophils (%) (Auto) 67 % (31-73) Lymphocytes (%) (Auto) 22 % (24-48) Monocytes (%) (Auto) 11 % (0-9) Eosinophils (%) (Auto) 0 % (0-3) Basophils (%) (Auto) 1 % (0-3) Neutrophils # (Auto) 2.7 x10^3/uL (1.8-7.7) Lymphocytes # (Auto) 0.9 x10^3/uL (1.0-4.8) Monocytes # (Auto) 0.4 x10^3/uL (0.0-1.1) Eosinophils # (Auto) 0.0 x10^3/uL (0.0-0.7) Basophils # (Auto) 0.0 x10^3/uL (0.0-0.2) Sodium Level 141 mmol/L (136-145) Potassium Level 4.4 mmol/L (3.5-5.1) Chloride Level 110 mmol/L (98-107) Carbon Dioxide Level 21 mmol/L (21-32) Anion Gap 10 (6-14) Blood Urea Nitrogen 77 mg/dL (8-26) Creatinine 3.8 mg/dL (0.7-1.3) Estimated GFR (Cockcroft-Gault) 16.1 BUN/Creatinine Ratio 20 (6-20) Glucose Level 102 mg/dL (70-99) Lactic Acid Level 1.0 mmol/L (0.4-2.0) Calcium Level 8.0 mg/dL (8.5-10.1) Magnesium Level 2.1 mg/dL (1.8-2.4) Total Bilirubin 0.1 mg/dL (0.2-1.0) Aspartate Amino Transf (AST/SGOT) 23 U/L (15-37) Alanine Aminotransferase (ALT/SGPT) 22 U/L (16-63) Alkaline Phosphatase 47 U/L (46-116) Troponin I Quantitative < 0.017 ng/mL (0.000-0.055) NL-Kfy-X-Type Natriuretic Peptide 111 pg/mL (0-124) Total Protein 6.1 g/dL (6.4-8.2) Albumin 2.9 g/dL (3.4-5.0) Albumin/Globulin Ratio 0.9 (1.0-1.7) Influenza Type A Antigen Negative (NEGATIVE) Influenza Type B Antigen Negative (NEGATIVE) Urine Collection Type Unknown Urine Color Yellow Urine Clarity Clear Urine pH 5.5 (<5.0-8.0) Urine Specific [place] 1.015 (1.000-1.030) Urine Protein Negative mg/dL (NEG-TRACE) Urine Glucose (UA) Negative mg/dL (NEG) Urine Ketones (Stick) Negative mg/dL (NEG) Urine Blood Small (NEG) Urine Nitrite Positive (NEG) Urine Bilirubin Negative (NEG) Urine Urobilinogen Dipstick 0.2 mg/dL (0.2 mg/dL) Urine Leukocyte Esterase Moderate (NEG) Urine RBC 3-5 /HPF (0-2) Urine WBC 20-40 /HPF (0-4) Urine Bacteria Many /HPF (0-FEW) Urine Hyaline Casts Moderate /HPF Urine Mucus Slight /LPF Urine Opiates Screen Neg (NEG) Urine Methadone Screen Neg (NEG) Urine Barbiturates Neg (NEG) Urine Phencyclidine Screen Neg (NEG) Urine Amphetamine/Methamphetamine Neg (NEG) Urine Benzodiazepines Screen Neg (NEG) Urine Cocaine Screen Neg (NEG) Urine Cannabinoids Screen Neg (NEG) Urine Ethyl Alcohol Neg (NEG) Glucose (Fingerstick) 87 mg/dL (70-99) Assessment and Plan Assessmemt and Plan Problems Medical Problems: (1) Acute renal failure Status: Acute (2) Altered mental status Status: Acute (3) Dehydration Status: Acute (4) Person under investigation for COVID-19 Status: Acute Mental status change Possible COVID-19 (Covid testing still pending) CHF, constipation, depression, diabetes, hypertension, hyperlipidemia, seizure, schizophrenia, UTI, dystonic movements, chronic pain, dermatitis, previous tobacco abuse, previous alcohol use, previous marijuana use. Plan COVID-19 isolation until his testing comes back Home meds Trend labs DVT prophylaxis IV fluids Full code We have nephrology and pulmonary following Prognosis long-term guarded Appreciate subspecialist input Comment Review of Relevant I have reviewed the following items darryn (where applicable) has been applied. Medications: Current Medications Medications (Trade) Dose Ordered Sig/Kvng Route PRN Reason Start Time Stop Time Status Last Admin Dose Admin Sodium Chloride 1,000 ml @ 1,000 mls/hr 1X ONCE IV 07/20/20 15:30 07/20/20 16:29 DC 07/20/20 15:30 Sodium Chloride 1,000 ml @ 1,000 mls/hr 1X ONCE IV 07/20/20 16:45 12/5/20 17:44 DC 07/20/20 16:50 Sodium Chloride 1,000 ml @ 1,000 mls/hr 1X ONCE IV 07/20/20 16:00 07/20/20 16:59 DC 07/20/20 16:50 Sodium Chloride 1,000 ml @ 100 mls/hr Q10H IV 07/20/20 17:45 07/21/20 17:44 07/20/20 17:45 Aspirin (Aspirin Chewable) 81 mg DAILY PO 07/21/20 09:00 07/21/20 10:14 Cetirizine HCl (ZyrTEC) 10 mg DAILY08 PO 07/21/20 08:00 07/21/20 10:14 Furosemide (Lasix) 40 mg DAILY PO 07/21/20 09:00 07/21/20 10:15 Gabapentin (Neurontin) 400 mg DAILY PO 07/21/20 09:00 07/21/20 10:15 Haloperidol (Haldol) 5 mg BID PO 07/21/20 09:00 07/21/20 10:15 Levetiracetam (Keppra) 500 mg BID PO 07/21/20 09:00 07/21/20 10:14 Lisinopril (Prinivil) 10 mg DAILY PO 07/21/20 09:00 07/21/20 10:15 Nystatin (Nystop) 1 fercho BID TP 07/21/20 09:00 07/21/20 09:00 Multivitamins (Thera M Plus) 1 tab DAILY PO 07/21/20 09:00 07/21/20 10:14 Fish Oil (Fish Oil) 1,000 mg DAILY PO 07/21/20 09:00 07/21/20 10:14 Quetiapine Fumarate (SEROquel) 50 mg BIDWMEALS PO 07/21/20 08:00 07/21/20 10:14 Doxycycline Hyclate (Vibra-Tab) 100 mg BID PO 07/21/20 11:00 07/21/20 11:10 Lorazepam (Ativan Inj) 2 mg PRN Q2HR PRN IVP ANXIETY / AGITATION 07/21/20 11:15 07/21/20 11:13 Justifications for Admission Other Justification NEGRO REYNA III DO Jul 21, 2020 11:58
[2020-07-21 12:21] LABS: CALCIUM 8.2 mg/dL (8.5-10.1); CREATININE 2.2 mg/dL (0.7-1.3); GFR 30.2; POTASSIUM 4.8 mmol/L (3.5-5.1)
[2020-07-21 12:25] LABS: URIC ACID 11.5 mg/dL (3.5-7.2)
[2020-07-21] MEDS: cefTRIAXone IV Push 1 GM VIAL. IVP SCH (13:20)
[2020-07-21] MEDS: IV 1/2 NORMAL SALINE 1,000 ML IV SCH (13:20)
[2020-07-21] MEDS: INSULIN GLARGINE SYRINGE. SQ SCH (13:22)
[2020-07-21 15:00] VITALS: BP 149/65
--- NOTE | 2020-07-21 20:15 | NUR ---
RN in room to assess pt - pt hot to touch - temp 102.6. Order placed for tylenol suppository as pt mental status decreased from previous noc shift. RR 28 - increased WOB from previos noc shift. HR in the 110's-120's. BP -133/68 on RA with pt supine. Mentation - pt not interactive at all - was on previous noc shift. Sepsis RN paged at 2020 as pt triggered sepsis protocol. Orders placed for lactic and blood cultures x 2 stat. O2 sats on 6L upper 80's - increased O2 to 7L per HFNC - sats increased to low 90's. LS wheezes in the upper lobes, diminished lower but clear. 2022 - PHILIPP Roca - sepsis RN called back and gave orders per protocol. IVF increased to do a small bolus. Will continue to monitor closely. Addendum: 07/22/20 at 0111 by ARRON VALENCIA RN RN Pt mental status not adequate to try and attempt PO medications. Will hold until pt more alert
[2020-07-21] MEDS ORDERED: ACETAMINOPHEN 650 MG SUPP.RECT. PR PRN (20:30)
[2020-07-21] MEDS: QUEtiapine 100 MG TABLET. PO SCH (21:00)
[2020-07-21] MEDS: traZODone 100 MG TABLET. PO SCH (21:00)
[2020-07-21] MEDS: SIMVASTATIN 40 MG TABLET. PO SCH (21:00)
[2020-07-21] MEDS: LISINOPRIL 20 MG TABLET PO SCH (21:00)
[2020-07-21] MEDS: HEPARIN for SUB-Q USE 5,000 UNIT/ML VIAL. SQ SCH (21:00)
[2020-07-21] MEDS: KETOCONAZOLE 2% SHAMPOO 120ML BOTTLE. TP SCH (21:00)
[2020-07-21 23:00] VITALS: BP 127/65
--- NOTE | 2020-07-21 23:23 | EKG ---
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
[2020-07-22] MEDS: NIACIN ER 250 MG CAPSULE.ER PO SCH ×2 (01:09→21:00)
[2020-07-22] MEDS: IV 1/2 NORMAL SALINE 1,000 ML IV SCH ×2 (02:35→14:25)
[2020-07-22 03:51] VITALS: BP 118/64
[2020-07-22 07:00] VITALS: BP 132/98
--- NOTE | 2020-07-22 07:37 | EKG ---
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
[2020-07-22] MEDS: HALOPERIDOL 5 MG TABLET. PO SCH ×2 (07:48→21:00)
[2020-07-22] MEDS: MULTIVITAMIN with MINERAL TABLET. PO SCH (07:48)
[2020-07-22] MEDS: DOXYCYCLINE HYCLATE 100 MG TABLET PO SCH ×2 (07:48→21:00)
[2020-07-22] MEDS: GABAPENTIN 400 MG CAPSULE. PO SCH ×2 (07:48→21:00)
[2020-07-22] MEDS: levETIRAcetam 500 MG TABLET PO SCH ×2 (07:48→21:00)
[2020-07-22] MEDS: FUROSEMIDE 40 MG TABLET. PO SCH (07:48)
[2020-07-22] MEDS: QUEtiapine 25 MG TABLET. PO SCH ×2 (07:48→17:27)
[2020-07-22] MEDS: ASPIRIN CHEWABLE 81 MG TABLET. PO SCH (07:48)
[2020-07-22] MEDS: LISINOPRIL 10 MG TABLET PO SCH (07:49)
[2020-07-22] MEDS: INSULIN GLARGINE SYRINGE. SQ SCH (08:00)
[2020-07-22] MEDS: IPRATROPIUM/ALBUTEROL 20/100mcg/INH INHALER. INH SCH ×4 (08:00→20:00)
--- NOTE | 2020-07-22 08:46 | PDOC ---
PULMONARY PROGRESS NOTES DATE: 07/22/20 TIME: 08:41 Subjective Patient is resting 7 L nasal cannula, lethargic and snores Nursing reports he just received a dose of IV Ativan for increased agitation Afebrile overnight Vitals Vital Signs Date Time Temp Pulse Resp B/P (MAP) Pulse Ox O2 Delivery O2 Flow Rate FiO2 07/22/20 07:49 119 131/98 07/22/20 03:51 98.5 26 90 Nasal Cannula 5.0 98.5 Comments Patient seen during pandemic, visual exam performed RR and Rhythm Lethargic On nasal cannula Obese No obvious rash or edema Lungs: Clear Cardiovascular: S1, S2 Labs Laboratory Tests Test 07/20/20 15:25 07/20/20 16:50 07/20/20 19:00 07/21/20 08:05 White Blood Count 4.1 x10^3/uL (4.0-11.0) Red Blood Count 2.92 x10^6/uL (4.30-5.70) Hemoglobin 9.1 g/dL (13.0-17.5) Hematocrit 26.8 % (39.0-53.0) Mean Corpuscular Volume 92 fL (79-100) Mean Corpuscular Hemoglobin 31 pg (25-35) Mean Corpuscular Hemoglobin Concent 34 g/dL (31-37) Red Cell Distribution Width 13.7 % (11.5-14.5) Platelet Count 133 x10^3/uL (140-400) Neutrophils (%) (Auto) 67 % (31-73) Lymphocytes (%) (Auto) 22 % (24-48) Monocytes (%) (Auto) 11 % (0-9) Eosinophils (%) (Auto) 0 % (0-3) Basophils (%) (Auto) 1 % (0-3) Neutrophils # (Auto) 2.7 x10^3/uL (1.8-7.7) Lymphocytes # (Auto) 0.9 x10^3/uL (1.0-4.8) Monocytes # (Auto) 0.4 x10^3/uL (0.0-1.1) Eosinophils # (Auto) 0.0 x10^3/uL (0.0-0.7) Basophils # (Auto) 0.0 x10^3/uL (0.0-0.2) Sodium Level 141 mmol/L (136-145) Potassium Level 4.4 mmol/L (3.5-5.1) Chloride Level 110 mmol/L (98-107) Carbon Dioxide Level 21 mmol/L (21-32) Anion Gap 10 (6-14) Blood Urea Nitrogen 77 mg/dL (8-26) Creatinine 3.8 mg/dL (0.7-1.3) Estimated GFR (Cockcroft-Gault) 16.1 BUN/Creatinine Ratio 20 (6-20) Glucose Level 102 mg/dL (70-99) Lactic Acid Level 1.0 mmol/L (0.4-2.0) Calcium Level 8.0 mg/dL (8.5-10.1) Magnesium Level 2.1 mg/dL (1.8-2.4) Total Bilirubin 0.1 mg/dL (0.2-1.0) Aspartate Amino Transf (AST/SGOT) 23 U/L (15-37) Alanine Aminotransferase (ALT/SGPT) 22 U/L (16-63) Alkaline Phosphatase 47 U/L (46-116) Troponin I Quantitative < 0.017 ng/mL (0.000-0.055) JH-Mfe-X-Type Natriuretic Peptide 111 pg/mL (0-124) Total Protein 6.1 g/dL (6.4-8.2) Albumin 2.9 g/dL (3.4-5.0) Albumin/Globulin Ratio 0.9 (1.0-1.7) Influenza Type A Antigen Negative (NEGATIVE) Influenza Type B Antigen Negative (NEGATIVE) Urine Collection Type Unknown Urine Color Yellow Urine Clarity Clear Urine pH 5.5 (<5.0-8.0) Urine Specific [place] 1.015 (1.000-1.030) Urine Protein Negative mg/dL (NEG-TRACE) Urine Glucose (UA) Negative mg/dL (NEG) Urine Ketones (Stick) Negative mg/dL (NEG) Urine Blood Small (NEG) Urine Nitrite Positive (NEG) Urine Bilirubin Negative (NEG) Urine Urobilinogen Dipstick 0.2 mg/dL (0.2 mg/dL) Urine Leukocyte Esterase Moderate (NEG) Urine RBC 3-5 /HPF (0-2) Urine WBC 20-40 /HPF (0-4) Urine Bacteria Many /HPF (0-FEW) Urine Hyaline Casts Moderate /HPF Urine Mucus Slight /LPF Urine Opiates Screen Neg (NEG) Urine Methadone Screen Neg (NEG) Urine Barbiturates Neg (NEG) Urine Phencyclidine Screen Neg (NEG) Urine Amphetamine/Methamphetamine Neg (NEG) Urine Benzodiazepines Screen Neg (NEG) Urine Cocaine Screen Neg (NEG) Urine Cannabinoids Screen Neg (NEG) Urine Ethyl Alcohol Neg (NEG) Uric Acid 11.5 mg/dL (3.5-7.2) Creatine Kinase 244 U/L (39-308) Test 07/21/20 08:12 07/21/20 11:37 07/21/20 12:11 07/21/20 17:32 Glucose (Fingerstick) 87 mg/dL (70-99) 154 mg/dL (70-99) 103 mg/dL (70-99) Sodium Level 143 mmol/L (136-145) Potassium Level 4.8 mmol/L (3.5-5.1) Chloride Level 111 mmol/L (98-107) Carbon Dioxide Level 17 mmol/L (21-32) Anion Gap 15 (6-14) Blood Urea Nitrogen 56 mg/dL (8-26) Creatinine 2.2 mg/dL (0.7-1.3) Estimated GFR (Cockcroft-Gault) 30.2 Glucose Level 159 mg/dL (70-99) Calcium Level 8.2 mg/dL (8.5-10.1) Magnesium Level 2.0 mg/dL (1.8-2.4) Test 07/21/20 20:10 07/21/20 21:50 Glucose (Fingerstick) 123 mg/dL (70-99) Lactic Acid Level 1.3 mmol/L (0.4-2.0) Laboratory Tests Test 07/21/20 11:37 07/21/20 12:11 07/21/20 17:32 07/21/20 20:10 Sodium Level 143 mmol/L (136-145) Potassium Level 4.8 mmol/L (3.5-5.1) Chloride Level 111 mmol/L (98-107) Carbon Dioxide Level 17 mmol/L (21-32) Anion Gap 15 (6-14) Blood Urea Nitrogen 56 mg/dL (8-26) Creatinine 2.2 mg/dL (0.7-1.3) Estimated GFR (Cockcroft-Gault) 30.2 Glucose Level 159 mg/dL (70-99) Calcium Level 8.2 mg/dL (8.5-10.1) Magnesium Level 2.0 mg/dL (1.8-2.4) Glucose (Fingerstick) 154 mg/dL (70-99) 103 mg/dL (70-99) 123 mg/dL (70-99) Test 07/21/20 21:50 Lactic Acid Level 1.3 mmol/L (0.4-2.0) Medications Active Scripts Medications Dose Route/Sig Max Daily Dose Days Date Category Dose Instructions Acetaminophen 650 Mg/20.3 Ml Solution 650 Mg PO Q6HRS PRN 07/21/20 Reported Seroquel (Quetiapine Fumarate) 200 Mg Tablet 200 Mg PO HS 07/21/20 Reported Seroquel (Quetiapine Fumarate) 50 Mg Tablet 50 Mg PO BID 07/21/20 Reported Nystatin 15 Gm Powder 1 Diana TP BID 7 07/21/20 Reported apply to affected area(s) Ketoconazole 120 Ml Shampoo 1 Diana TP TWICE WEEKLY 30 07/21/20 Reported with at least 3 days between each shampooing Hydrocortisone 453.6 Gm Cream..g. 1 Diana TP PRN BID 07/21/20 Reported Haloperidol 5 Mg Tablet 1 Tab PO QAM 07/21/20 Reported Lisinopril 20 Mg Tablet 20 Mg PO HS PRN 07/21/20 Reported Furosemide 40 Mg Tablet 40 Mg PO DAILY 07/21/20 Reported Combivent Respimat Inhal (Ipratropium/Albuterol Sulfate) 4 Gm Aer.w.adap 1 Inh IH PRN Q8HRS PRN 09/25/16 Reported Levetiracetam 500 Mg Tablet 1 Tab PO BID 09/25/16 Reported Zetia (Ezetimibe) 10 Mg Tablet 1 Tab PO HS 09/25/16 Reported Niaspan (Niacin) 500 Mg Tab.er.24h 1 Tab PO QHS 09/25/16 Reported Aspirin 81 Mg Tab.chew 1 Tab PO DAILY 09/13/16 Reported Nicotine Gum (Nicotine Polacrilex) 4 Mg Gum 4 Mg BC 09/13/16 Reported Milk Of Magnesia (Magnesium Hydroxide) 400 Mg/5 Ml Oral.susp 400 Mg PO DAILY PRN 09/13/16 Reported Duoneb 0.5-3(2.5) Mg/3 Ml (Albuterol/Ipratropium) 3 Ml Ampul.neb 3 Ml NEB QID 09/13/16 Reported Acetaminophen 325 Mg Tablet 325 Mg PO PRN Q4HRS PRN 09/13/16 Reported Robitussin Cough-Chest Dm Liq (Guaifenesin/Dextromethorphan) 118 Ml Liquid 10 Ml PO PRN Q6HRS PRN AD 09/13/16 Reported Emmett 3 Fish Oil Softgel (Emmett-3 Fatty Acids/Fish Oil) 1 Each Capsule. 1 Each PO DAILY 09/13/16 Reported Gabapentin (Gabapentin) 400 Mg Capsule 400 Mg PO TID 09/13/16 Reported Sennosides-Docusate Sodium Tab (Sennosides/Docusate Sodium) 1 Each Tablet 6-50 Each PO DAILY 09/13/16 Reported Metformin Hcl 1,000 Mg Tablet 1 Tab PO BID 09/13/16 Reported Haloperidol 5 Mg Tablet 5 Tab PO BID 09/13/16 Reported Zyrtec (Cetirizine Hcl) 10 Mg Tablet 1 Tab PO DAILY08 09/13/16 Reported Trazodone Hcl 100 Mg Tablet 1 Tab PO QHS 09/13/16 Reported Simvastatin 40 Mg Tablet 1 Tab PO QHS 09/13/16 Reported Seroquel (Quetiapine Fumarate) 400 Mg Tablet 400 Tab PO QHS 09/13/16 Reported Multi Vitamin Daily (Multivitamin) 1 Each Tablet 1 Each PO DAILY 09/13/16 Reported Lisinopril 10 Mg Tablet 1 Tab PO DAILY 09/13/16 Reported Levemir (Insulin Detemir) 100 Unit/1 Ml Vial 10 Unit SQ DAILY08 09/13/16 Reported Glyburide 5 Mg Tablet 1 Tab PO DAILY08 09/13/16 Reported Effexor Xr (Venlafaxine Hcl) 150 Mg Cap.er.24h 1 Cap PO DAILY 09/13/16 Reported Comments CXR IMPRESSION: Diffuse hazy airspace disease may relate to pulmonary edema. Impression . IMPRESSION: 1. Acute respiratory failure secondary to pneumonia, rule out COVID-19 pneumonia. 2. Abnormal chest x-ray. 3. Acute kidney injury-- improving 4. COVID-19 person under investigation. 5. Hypotension, resolved. 6. History of congestive heart failure. 7. Diabetes mellitus. Plan . PLAN AND RECOMMENDATIONS: Continue supplemental oxygen to keep oxygen saturations greater than 92%, currently on 7 L nasal cannula, wean as tolerated Continue antibiotics, currently on Rocephin and doxycycline Await COVID-19 test, if Covid positive start steroids, continue isolation precautions Influenza negative Follow blood cultures--NGTD Follow nephrology recommendations, IV hydration and monitor creatinine which is improving today, may require hemodialysis DVT/GI prophylaxis Discussed with MIQUEL WILSON MD Jul 22, 2020 08:46
[2020-07-22] MEDS: NYSTATIN TOPICAL POWDER 15GM BOTTLE. TP SCH ×2 (09:00→21:00)
[2020-07-22 11:00] VITALS: BP 108/60
--- NOTE | 2020-07-22 11:25 | PDOC ---
[facility] PROGRESS NOTE Date of Service DOS: DATE: 07/22/20 TIME: 11:24 Chief Complaint Chief Complaint Mental status change Possible COVID-19 (Covid testing still pending) CHF, constipation, depression, diabetes, hypertension, hyperlipidemia, seizure, schizophrenia, UTI, dystonic movements, chronic pain, dermatitis, previous tobacco abuse, previous alcohol use, previous marijuana use. History of Present Illness History of Present Illness 07/22/2020 Patient seen and examined on the COVID-19 unit His COVID-19 test is still pending He remains pleasantly confused semisedated Has a Lujan to bedside drainage On O2 per nasal cannula with 94% sat Has mitts on for patient safety Discussed with RN Discussed with case management 07/21/2020 Patient seen and examined Today he is a little more alert but does not talk just makes eye contact A little agitated so I had the nurse give him some Ativan that seems to have calmed him down Chart reviewed Vitals/I&O Vitals/I&O: Vital Signs Date Time Temp Pulse Resp B/P (MAP) Pulse Ox O2 Delivery O2 Flow Rate FiO2 07/22/20 08:00 Nasal Cannula 6.0 07/22/20 07:49 119 131/98 07/22/20 07:00 99.8 22 98 99.8 I & O 07/21/20 07/21/20 07/22/20 14:59 22:59 06:59 Intake Total 50 ml Output Total 1150 ml 1000 ml Balance -1150 ml -950 ml Physical Exam General: No acute distress, Other (Pleasantly confused flat affect) Heart: No murmurs Lungs: Clear Abdomen: Normal bowel sounds Extremities: No clubbing Skin: No rashes Labs Labs: Laboratory Tests Test 07/21/20 11:37 07/21/20 12:11 07/21/20 17:32 07/21/20 20:10 Sodium Level 143 mmol/L (136-145) Potassium Level 4.8 mmol/L (3.5-5.1) Chloride Level 111 mmol/L (98-107) Carbon Dioxide Level 17 mmol/L (21-32) Anion Gap 15 (6-14) Blood Urea Nitrogen 56 mg/dL (8-26) Creatinine 2.2 mg/dL (0.7-1.3) Estimated GFR (Cockcroft-Gault) 30.2 Glucose Level 159 mg/dL (70-99) Calcium Level 8.2 mg/dL (8.5-10.1) Magnesium Level 2.0 mg/dL (1.8-2.4) Glucose (Fingerstick) 154 mg/dL (70-99) 103 mg/dL (70-99) 123 mg/dL (70-99) Test 07/21/20 21:50 07/22/20 08:33 Lactic Acid Level 1.3 mmol/L (0.4-2.0) Glucose (Fingerstick) 143 mg/dL (70-99) Assessment and Plan Assessmemt and Plan Problems Medical Problems: (1) Acute renal failure Status: Acute (2) Altered mental status Status: Acute (3) Dehydration Status: Acute (4) Person under investigation for COVID-19 Status: Acute Mental status change Possible COVID-19 (Covid testing still pending) CHF, constipation, depression, diabetes, hypertension, hyperlipidemia, seizure, schizophrenia, UTI, dystonic movements, chronic pain, dermatitis, previous tobacco abuse, previous alcohol use, previous marijuana use. Plan COVID-19 isolation until his testing comes back Home meds Trend labs DVT prophylaxis IV fluids Full code We have nephrology and pulmonary following Prognosis long-term guarded Appreciate subspecialist input Comment Review of Relevant I have reviewed the following items darryn (where applicable) has been applied. Medications: Current Medications Medications (Trade) Dose Ordered Sig/Kvng Route PRN Reason Start Time Stop Time Status Last Admin Dose Admin Ceftriaxone Sodium (Rocephin) 1 gm Q24H IVP 07/21/20 12:00 07/21/20 13:20 Sodium Chloride 1,000 ml @ 75 mls/hr [id number] IV 07/21/20 13:15 07/22/20 02:35 Justifications for Admission Other Justification NEGRO REYNA III DO Jul 22, 2020 11:25
[2020-07-22 12:32] LABS: BASO % 0 % (0-3); EOS % 0 % (0-3); HEMATOCRIT 31.5 % (39.0-53.0); HEMOGLOBIN 10.4 g/dL (13.0-17.5); LYMPH # 0.5 x10^3/uL (1.0-4.8); LYMPH % 8 % (24-48); MEAN CORPUSCULAR HEMOGLOBIN 30 pg (25-35); MEAN CORPUSCULAR HGB CONC 33 g/dL (31-37); MEAN CORPUSCULAR VOLUME 92 fL (79-100); MONO # 0.4 x10^3/uL (0.0-1.1); MONO % 6 % (0-9); NEUT % 86 % (31-73); PLATELET COUNT 172 x10^3/uL (140-400); RED BLOOD COUNT 3.42 x10^6/uL (4.30-5.70); RED CELL DISTRIBUTION WIDTH 13.6 % (11.5-14.5); WHITE BLOOD COUNT 5.9 x10^3/uL (4.0-11.0)
[2020-07-22] MEDS: HEPARIN for SUB-Q USE 5,000 UNIT/ML VIAL. SQ SCH (12:40)
[2020-07-22] MEDS: cefTRIAXone IV Push 1 GM VIAL. IVP SCH (12:41)
[2020-07-22 12:52] LABS: ALBUMIN 3.1 g/dL (3.4-5.0); CALCIUM 8.5 mg/dL (8.5-10.1); CREATININE 1.6 mg/dL (0.7-1.3); GFR 43.6; PHOSPHORUS 3.2 mg/dL (2.6-4.7); POTASSIUM 4.8 mmol/L (3.5-5.1)
[2020-07-22] MEDS: SENNOSIDES/DOCUSATE 8.6/50MG TABLET. PO SCH (13:06)
[2020-07-22] MEDS: OMEGA-3 FATTY ACIDS/FISH OIL 1,000 MG CAPSULE. PO SCH (13:06)
[2020-07-22] MEDS: glyBURIDE 5 MG TABLET PO SCH (13:06)
[2020-07-22] MEDS: CETIRIZINE HCL 10 MG TABLET. PO SCH (13:06)
[2020-07-22 13:16] LABS: % BANDS 21 % (0-9); % LYMPHS 13 % (24-48); % MONOS 5 % (0-10); % SEGS 61 % (35-66)
[2020-07-22 13:17] LABS: PLT ESTIMATE ADEQUATE (ADEQUATE)
[2020-07-22] MEDS: HALOPERIDOL LACTATE 5 MG/ML VIAL. IVP PRN ×2 (14:21→20:15)
[2020-07-22 15:00] VITALS: BP 138/62
--- NOTE | 2020-07-22 16:11 | PDOC ---
Renal-Progress Notes Subjective Notes Notes NO NEW COMPLAINTS History of Present Illness Hx of present illness STABLE Vitals Vitals Vital Signs Date Time Temp Pulse Resp B/P (MAP) Pulse Ox O2 Delivery O2 Flow Rate FiO2 07/22/20 11:00 99.3 104 32 108/60 (76) 99 High Flow Nasal Cannula 5.0 99.3 Weight Weight [ ] I.O. Intake and Output Intake and Output 07/22/20 07:00 Intake Total 50 ml Output Total 2150 ml Balance -2100 ml Intake Oral 50 ml Output Urine Total 2150 ml Labs Labs Laboratory Tests Test 07/21/20 17:32 07/21/20 20:10 07/21/20 21:50 07/22/20 08:33 Glucose (Fingerstick) 103 mg/dL (70-99) 123 mg/dL (70-99) 143 mg/dL (70-99) Lactic Acid Level 1.3 mmol/L (0.4-2.0) Test 07/22/20 11:45 07/22/20 11:57 White Blood Count 5.9 x10^3/uL (4.0-11.0) Red Blood Count 3.42 x10^6/uL (4.30-5.70) Hemoglobin 10.4 g/dL (13.0-17.5) Hematocrit 31.5 % (39.0-53.0) Mean Corpuscular Volume 92 fL (79-100) Mean Corpuscular Hemoglobin 30 pg (25-35) Mean Corpuscular Hemoglobin Concent 33 g/dL (31-37) Red Cell Distribution Width 13.6 % (11.5-14.5) Platelet Count 172 x10^3/uL (140-400) Neutrophils (%) (Auto) 86 % (31-73) Lymphocytes (%) (Auto) 8 % (24-48) Monocytes (%) (Auto) 6 % (0-9) Eosinophils (%) (Auto) 0 % (0-3) Basophils (%) (Auto) 0 % (0-3) Neutrophils # (Auto) 5.0 x10^3/uL (1.8-7.7) Lymphocytes # (Auto) 0.5 x10^3/uL (1.0-4.8) Monocytes # (Auto) 0.4 x10^3/uL (0.0-1.1) Eosinophils # (Auto) 0.0 x10^3/uL (0.0-0.7) Basophils # (Auto) 0.0 x10^3/uL (0.0-0.2) Segmented Neutrophils % 61 % (35-66) Band Neutrophils % 21 % (0-9) Lymphocytes % 13 % (24-48) Monocytes % 5 % (0-10) Platelet Estimate Adequate (ADEQUATE) Sodium Level 146 mmol/L (136-145) Potassium Level 4.8 mmol/L (3.5-5.1) Chloride Level 112 mmol/L (98-107) Carbon Dioxide Level 20 mmol/L (21-32) Anion Gap 14 (6-14) Blood Urea Nitrogen 36 mg/dL (8-26) Creatinine 1.6 mg/dL (0.7-1.3) Estimated GFR (Cockcroft-Gault) 43.6 Glucose Level 116 mg/dL (70-99) Calcium Level 8.5 mg/dL (8.5-10.1) Phosphorus Level 3.2 mg/dL (2.6-4.7) Magnesium Level 1.8 mg/dL (1.8-2.4) Albumin 3.1 g/dL (3.4-5.0) Glucose (Fingerstick) 128 mg/dL (70-99) Micro Micro Microbiology 07/20/20 Urine Culture - Preliminary, Resulted 07/20/20 Blood Culture - Preliminary, Resulted NO GROWTH AFTER 2 DAYS Review of Systems Constitutional: yes: other (CONFUSED) Physical Exam General Appearance: no apparent distress Skin: warm Respiratory: decreased breath sounds Heart: S1S2 Abdomen: soft, bowel sounds present Genitourinary: bladder flat Neurology: alert Musculoskeletal: Osteoarthritis, Other Assessment Assessment IMP BELLO-IMPROVING WITH CR DOWN TO 2.2 CKD WITH CR OF 1.4 IN 2017-SUSPECT PROGRESSIOIN ACUTE RESP FAILURE HTN HX CHF HX DM II PLAN CONT HYDRATION SUSPECT CR MAY BE AT HIS NEW BASELINE WILL FOLLOW JACQUELINE CERRATO MD Jul 22, 2020 16:11
[2020-07-22] MEDS: metFORMIN 500 MG TABLET PO SCH (17:00)
--- NOTE | 2020-07-22 17:20 | NUR ---
SW following for discharge planning. Spoke with RN and reviewed chart. Pt COVID pending. Pt on 5 02. Pt to return to [facility] on discharge. Clinicals phoned and faxed to Nesha in admissions with the ID for coordination of care. SW following.
[2020-07-22 20:27] VITALS: BP 95/73
[2020-07-22] MEDS: SIMVASTATIN 40 MG TABLET. PO SCH (21:00)
[2020-07-22] MEDS: LISINOPRIL 20 MG TABLET PO SCH (21:00)
[2020-07-22] MEDS: LACTOBACILLUS RHAMNOSUS GG 1 CAPSULE. PO SCH (21:00)
[2020-07-22] MEDS: QUEtiapine 100 MG TABLET. PO SCH (21:00)
[2020-07-22] MEDS: traZODone 100 MG TABLET. PO SCH (21:00)
--- NOTE | 2020-07-22 23:19 | NUR ---
RAPID RESPONSE NOTE I arrived to room 673 at 2257, respiratory therapists x2 and 2 6S RNs present at bedside. Patient on monitor with stable vital signs. Patient somewhat using belly to breathe but does not seem to be in distress and is breathing in the upper 20s/lower 30s. Patients lungs CTA, palpable pulses, S1S2 heart tones heard, PERRL at about 4 mm. Patient not answering questions or following commands but does respond to pain. Patient has mitts on hands since he was previously pulling at things. 6S RN stated that patient was having seizure like activity and that one of his pupils was not as reactive as the other one. Bed rails padded since patient has history of seizures. Patient was given Ativan prior to rapid response and seemed to relax. Patient was in this relaxed state when I arrived for the rapid response. Patient is stable and resting at this time, will remain on unit.
--- NOTE | 2020-07-22 23:26 | NUR ---
Pt having seizure like activity. Rapid called as pt breathing 40-50 times a minute. Lorazepam given. Pt combative and not following commands. PO meds held due to pt mental and respiratory status. Pt did calm down after dose of lorazepam. Will continue to monitor pt status closely.
[2020-07-23] MEDS ORDERED: DOXYCYCLINE HYCLATE 100 MG in IV DEXTROSE 5% 100ML 100 ML IV ONE
[2020-07-23] MEDS: levETIRAcetam 500 MG in IV DEXTROSE 5% 100ML 100 ML IV SCH ×3 (00:23→20:53)
[2020-07-23] MEDS: HEPARIN for SUB-Q USE 5,000 UNIT/ML VIAL. SQ SCH ×3 (00:25→20:53)
[2020-07-23] MEDS: IV 1/2 NORMAL SALINE 1,000 ML IV SCH ×2 (02:15→20:52)
[2020-07-23 07:00] VITALS: BP 118/61
[2020-07-23] MEDS: metFORMIN 500 MG TABLET PO SCH ×2 (08:00→17:31)
[2020-07-23] MEDS: INSULIN GLARGINE SYRINGE. SQ SCH (08:00)
[2020-07-23] MEDS: glyBURIDE 5 MG TABLET PO SCH (08:00)
[2020-07-23] MEDS: CETIRIZINE HCL 10 MG TABLET. PO SCH (08:00)
[2020-07-23] MEDS: OMEGA-3 FATTY ACIDS/FISH OIL 1,000 MG CAPSULE. PO SCH (08:06)
[2020-07-23] MEDS: NYSTATIN TOPICAL POWDER 15GM BOTTLE. TP SCH ×2 (08:07→20:53)
[2020-07-23] MEDS: MULTIVITAMIN with MINERAL TABLET. PO SCH (08:07)
[2020-07-23] MEDS: SENNOSIDES/DOCUSATE 8.6/50MG TABLET. PO SCH (08:07)
[2020-07-23] MEDS: ASPIRIN CHEWABLE 81 MG TABLET. PO SCH (09:00)
--- NOTE | 2020-07-23 09:54 | PDOC ---
PULMONARY PROGRESS NOTES DATE: 07/23/20 TIME: 09:49 Subjective Patient is on 5 L nasal cannula, agitated and altered mental status this morning on examination attempting to climb out of bed Low-grade fever overnight No other concerns from nursing Vitals Vital Signs Date Time Temp Pulse Resp B/P (MAP) Pulse Ox O2 Delivery O2 Flow Rate FiO2 07/22/20 23:32 97 Nasal Cannula 5.0 07/22/20 20:27 100.0 32 95/73 (80) 100 100.0 Comments Patient seen during pandemic, visual exam performed RR and Rhythm Lethargic On nasal cannula Obese No obvious rash or edema Lungs: Clear Cardiovascular: S1, S2 Labs Laboratory Tests Test 07/21/20 10:41 07/21/20 11:37 07/21/20 12:11 07/21/20 17:32 Urine Random Sodium 87 mmol/L (Not Estab.) Sodium Level 143 mmol/L (136-145) Potassium Level 4.8 mmol/L (3.5-5.1) Chloride Level 111 mmol/L (98-107) Carbon Dioxide Level 17 mmol/L (21-32) Anion Gap 15 (6-14) Blood Urea Nitrogen 56 mg/dL (8-26) Creatinine 2.2 mg/dL (0.7-1.3) Estimated GFR (Cockcroft-Gault) 30.2 Glucose Level 159 mg/dL (70-99) Calcium Level 8.2 mg/dL (8.5-10.1) Magnesium Level 2.0 mg/dL (1.8-2.4) Glucose (Fingerstick) 154 mg/dL (70-99) 103 mg/dL (70-99) Test 07/21/20 20:10 07/21/20 21:50 07/22/20 08:33 07/22/20 11:45 Glucose (Fingerstick) 123 mg/dL (70-99) 143 mg/dL (70-99) Lactic Acid Level 1.3 mmol/L (0.4-2.0) White Blood Count 5.9 x10^3/uL (4.0-11.0) Red Blood Count 3.42 x10^6/uL (4.30-5.70) Hemoglobin 10.4 g/dL (13.0-17.5) Hematocrit 31.5 % (39.0-53.0) Mean Corpuscular Volume 92 fL (79-100) Mean Corpuscular Hemoglobin 30 pg (25-35) Mean Corpuscular Hemoglobin Concent 33 g/dL (31-37) Red Cell Distribution Width 13.6 % (11.5-14.5) Platelet Count 172 x10^3/uL (140-400) Neutrophils (%) (Auto) 86 % (31-73) Lymphocytes (%) (Auto) 8 % (24-48) Monocytes (%) (Auto) 6 % (0-9) Eosinophils (%) (Auto) 0 % (0-3) Basophils (%) (Auto) 0 % (0-3) Neutrophils # (Auto) 5.0 x10^3/uL (1.8-7.7) Lymphocytes # (Auto) 0.5 x10^3/uL (1.0-4.8) Monocytes # (Auto) 0.4 x10^3/uL (0.0-1.1) Eosinophils # (Auto) 0.0 x10^3/uL (0.0-0.7) Basophils # (Auto) 0.0 x10^3/uL (0.0-0.2) Segmented Neutrophils % 61 % (35-66) Band Neutrophils % 21 % (0-9) Lymphocytes % 13 % (24-48) Monocytes % 5 % (0-10) Platelet Estimate Adequate (ADEQUATE) Sodium Level 146 mmol/L (136-145) Potassium Level 4.8 mmol/L (3.5-5.1) Chloride Level 112 mmol/L (98-107) Carbon Dioxide Level 20 mmol/L (21-32) Anion Gap 14 (6-14) Blood Urea Nitrogen 36 mg/dL (8-26) Creatinine 1.6 mg/dL (0.7-1.3) Estimated GFR (Cockcroft-Gault) 43.6 Glucose Level 116 mg/dL (70-99) Calcium Level 8.5 mg/dL (8.5-10.1) Phosphorus Level 3.2 mg/dL (2.6-4.7) Magnesium Level 1.8 mg/dL (1.8-2.4) Albumin 3.1 g/dL (3.4-5.0) Test 07/22/20 11:57 07/22/20 16:54 07/23/20 08:40 Glucose (Fingerstick) 128 mg/dL (70-99) 129 mg/dL (70-99) 144 mg/dL (70-99) Laboratory Tests Test 07/22/20 11:45 07/22/20 11:57 07/22/20 16:54 07/23/20 08:40 White Blood Count 5.9 x10^3/uL (4.0-11.0) Red Blood Count 3.42 x10^6/uL (4.30-5.70) Hemoglobin 10.4 g/dL (13.0-17.5) Hematocrit 31.5 % (39.0-53.0) Mean Corpuscular Volume 92 fL (79-100) Mean Corpuscular Hemoglobin 30 pg (25-35) Mean Corpuscular Hemoglobin Concent 33 g/dL (31-37) Red Cell Distribution Width 13.6 % (11.5-14.5) Platelet Count 172 x10^3/uL (140-400) Neutrophils (%) (Auto) 86 % (31-73) Lymphocytes (%) (Auto) 8 % (24-48) Monocytes (%) (Auto) 6 % (0-9) Eosinophils (%) (Auto) 0 % (0-3) Basophils (%) (Auto) 0 % (0-3) Neutrophils # (Auto) 5.0 x10^3/uL (1.8-7.7) Lymphocytes # (Auto) 0.5 x10^3/uL (1.0-4.8) Monocytes # (Auto) 0.4 x10^3/uL (0.0-1.1) Eosinophils # (Auto) 0.0 x10^3/uL (0.0-0.7) Basophils # (Auto) 0.0 x10^3/uL (0.0-0.2) Segmented Neutrophils % 61 % (35-66) Band Neutrophils % 21 % (0-9) Lymphocytes % 13 % (24-48) Monocytes % 5 % (0-10) Platelet Estimate Adequate (ADEQUATE) Sodium Level 146 mmol/L (136-145) Potassium Level 4.8 mmol/L (3.5-5.1) Chloride Level 112 mmol/L (98-107) Carbon Dioxide Level 20 mmol/L (21-32) Anion Gap 14 (6-14) Blood Urea Nitrogen 36 mg/dL (8-26) Creatinine 1.6 mg/dL (0.7-1.3) Estimated GFR (Cockcroft-Gault) 43.6 Glucose Level 116 mg/dL (70-99) Calcium Level 8.5 mg/dL (8.5-10.1) Phosphorus Level 3.2 mg/dL (2.6-4.7) Magnesium Level 1.8 mg/dL (1.8-2.4) Albumin 3.1 g/dL (3.4-5.0) Glucose (Fingerstick) 128 mg/dL (70-99) 129 mg/dL (70-99) 144 mg/dL (70-99) Medications Active Scripts Medications Dose Route/Sig Max Daily Dose Days Date Category Dose Instructions Acetaminophen 650 Mg/20.3 Ml Solution 650 Mg PO Q6HRS PRN 07/21/20 Reported Seroquel (Quetiapine Fumarate) 200 Mg Tablet 200 Mg PO HS 07/21/20 Reported Seroquel (Quetiapine Fumarate) 50 Mg Tablet 50 Mg PO BID 07/21/20 Reported Nystatin 15 Gm Powder 1 Diana TP BID 7 07/21/20 Reported apply to affected area(s) Ketoconazole 120 Ml Shampoo 1 Diana TP TWICE WEEKLY 30 07/21/20 Reported with at least 3 days between each shampooing Hydrocortisone 453.6 Gm Cream..g. 1 Diana TP PRN BID 07/21/20 Reported Haloperidol 5 Mg Tablet 1 Tab PO QAM 07/21/20 Reported Lisinopril 20 Mg Tablet 20 Mg PO HS PRN 07/21/20 Reported Furosemide 40 Mg Tablet 40 Mg PO DAILY 07/21/20 Reported Combivent Respimat Inhal (Ipratropium/Albuterol Sulfate) 4 Gm Aer.w.adap 1 Inh IH PRN Q8HRS PRN 09/25/16 Reported Levetiracetam 500 Mg Tablet 1 Tab PO BID 09/25/16 Reported Zetia (Ezetimibe) 10 Mg Tablet 1 Tab PO HS 09/25/16 Reported Niaspan (Niacin) 500 Mg Tab.er.24h 1 Tab PO QHS 09/25/16 Reported Aspirin 81 Mg Tab.chew 1 Tab PO DAILY 09/13/16 Reported Nicotine Gum (Nicotine Polacrilex) 4 Mg Gum 4 Mg BC 09/13/16 Reported Milk Of Magnesia (Magnesium Hydroxide) 400 Mg/5 Ml Oral.susp 400 Mg PO DAILY PRN 09/13/16 Reported Duoneb 0.5-3(2.5) Mg/3 Ml (Albuterol/Ipratropium) 3 Ml Ampul.neb 3 Ml NEB QID 09/13/16 Reported Acetaminophen 325 Mg Tablet 325 Mg PO PRN Q4HRS PRN 09/13/16 Reported Robitussin Cough-Chest Dm Liq (Guaifenesin/Dextromethorphan) 118 Ml Liquid 10 Ml PO PRN Q6HRS PRN AD 09/13/16 Reported Becket 3 Fish Oil Softgel (Becket-3 Fatty Acids/Fish Oil) 1 Each Capsule. 1 Each PO DAILY 09/13/16 Reported Gabapentin (Gabapentin) 400 Mg Capsule 400 Mg PO TID 09/13/16 Reported Sennosides-Docusate Sodium Tab (Sennosides/Docusate Sodium) 1 Each Tablet 6-50 Each PO DAILY 09/13/16 Reported Metformin Hcl 1,000 Mg Tablet 1 Tab PO BID 09/13/16 Reported Haloperidol 5 Mg Tablet 5 Tab PO BID 09/13/16 Reported Zyrtec (Cetirizine Hcl) 10 Mg Tablet 1 Tab PO DAILY08 09/13/16 Reported Trazodone Hcl 100 Mg Tablet 1 Tab PO QHS 09/13/16 Reported Simvastatin 40 Mg Tablet 1 Tab PO QHS 09/13/16 Reported Seroquel (Quetiapine Fumarate) 400 Mg Tablet 400 Tab PO QHS 09/13/16 Reported Multi Vitamin Daily (Multivitamin) 1 Each Tablet 1 Each PO DAILY 09/13/16 Reported Lisinopril 10 Mg Tablet 1 Tab PO DAILY 09/13/16 Reported Levemir (Insulin Detemir) 100 Unit/1 Ml Vial 10 Unit SQ DAILY08 09/13/16 Reported Glyburide 5 Mg Tablet 1 Tab PO DAILY08 09/13/16 Reported Effexor Xr (Venlafaxine Hcl) 150 Mg Cap.er.24h 1 Cap PO DAILY 09/13/16 Reported Comments CXR IMPRESSION: Diffuse hazy airspace disease may relate to pulmonary edema. Impression . IMPRESSION: 1. Acute respiratory failure secondary to pneumonia, rule out COVID-19 pneumonia. 2. Abnormal chest x-ray. 3. Acute kidney injury-- improving 4. COVID-19 person under investigation. 5. Hypotension, resolved. 6. History of congestive heart failure. 7. Diabetes mellitus. Plan . PLAN AND RECOMMENDATIONS: Continue supplemental oxygen to keep oxygen saturations greater than 92%, currently on 5 L nasal cannula, wean as tolerated Continue antibiotics, currently on Rocephin Covid positive start steroids, continue isolation precautions Influenza negative Follow blood cultures--NGTD Follow nephrology recommendations, As needed Haldol for agitation DVT/GI prophylaxis Discussed with MIQUEL WILSON MD Jul 23, 2020 09:54
[2020-07-23] MEDS: QUEtiapine 25 MG TABLET. PO SCH ×2 (10:02→17:32)
[2020-07-23] MEDS: IPRATROPIUM/ALBUTEROL 20/100mcg/INH INHALER. INH SCH ×4 (10:02→20:00)
[2020-07-23] MEDS: HALOPERIDOL 5 MG TABLET. PO SCH ×2 (10:02→20:00)
[2020-07-23] MEDS: LACTOBACILLUS RHAMNOSUS GG 1 CAPSULE. PO SCH ×2 (10:02→20:01)
[2020-07-23] MEDS: LISINOPRIL 10 MG TABLET PO SCH (10:03)
[2020-07-23] MEDS: GABAPENTIN 400 MG CAPSULE. PO SCH ×2 (10:03→20:00)
[2020-07-23] MEDS: FUROSEMIDE 40 MG TABLET. PO SCH (10:03)
[2020-07-23 10:38] LABS: BASO % 1 % (0-3); EOS % 0 % (0-3); HEMATOCRIT 31.6 % (39.0-53.0); HEMOGLOBIN 10.7 g/dL (13.0-17.5); LYMPH # 0.8 x10^3/uL (1.0-4.8); LYMPH % 13 % (24-48); MEAN CORPUSCULAR HEMOGLOBIN 31 pg (25-35); MEAN CORPUSCULAR HGB CONC 34 g/dL (31-37); MEAN CORPUSCULAR VOLUME 91 fL (79-100); MONO # 0.6 x10^3/uL (0.0-1.1); MONO % 9 % (0-9); NEUT # 4.7 x10^3/uL (1.8-7.7); NEUT % 77 % (31-73); PLATELET COUNT 211 x10^3/uL (140-400); RED BLOOD COUNT 3.47 x10^6/uL (4.30-5.70); RED CELL DISTRIBUTION WIDTH 13.5 % (11.5-14.5); WHITE BLOOD COUNT 6.1 x10^3/uL (4.0-11.0)
[2020-07-23 11:00] VITALS: BP 115/64
[2020-07-23 11:04] LABS: ALBUMIN 3.2 g/dL (3.4-5.0); CALCIUM 9.4 mg/dL (8.5-10.1); CREATININE 1.7 mg/dL (0.7-1.3); GFR 40.7; PHOSPHORUS 2.4 mg/dL (2.6-4.7); POTASSIUM 4.4 mmol/L (3.5-5.1)
[2020-07-23] MEDS: HALOPERIDOL LACTATE 5 MG/ML VIAL. IVP PRN (11:05)
[2020-07-23] MEDS: methylPREDNISolone SOD SUCC PF 40 MG/ML VIAL. IV SCH ×2 (11:07→20:53)
[2020-07-23] MEDS: cefTRIAXone IV Push 1 GM VIAL. IVP SCH (11:08)
--- NOTE | 2020-07-23 11:44 | NUR ---
Updated nurses from [facility], spoke with Beatrice 07/22/2020. Spoke with Sybil today. Pt is wheelchair bound and fixates on smoking at facility. Self transfers to and from wheelchair and bed on his own at facility. Pt feels better when he attempts to ramming into everything with his wheelchair.
--- NOTE | 2020-07-23 12:08 | PDOC ---
[facility] PROGRESS NOTE Date of Service DOS: DATE: 07/23/20 TIME: 12:06 Chief Complaint Chief Complaint Mental status change COVID-19 CHF, constipation, depression, diabetes, hypertension, hyperlipidemia, seizure, schizophrenia, UTI, dystonic movements, chronic pain, dermatitis, previous tobacco abuse, previous alcohol use, previous marijuana use. History of Present Illness History of Present Illness 07/23/2022 Patient seen and examined on the COVID-19 unit Discussed with RN Discussed with case management Chart reviewed Patient had a seizure last p.m. 07/22/2020 Patient seen and examined on the COVID-19 unit His COVID-19 test is still pending He remains pleasantly confused semisedated Has a Lujan to bedside drainage On O2 per nasal cannula with 94% sat Has mitts on for patient safety Discussed with RN Discussed with case management 07/21/2020 Patient seen and examined Today he is a little more alert but does not talk just makes eye contact A little agitated so I had the nurse give him some Ativan that seems to have chris med him down Chart reviewed Vitals/I&O Vitals/I&O: Vital Signs Date Time Temp Pulse Resp B/P (MAP) Pulse Ox O2 Delivery O2 Flow Rate FiO2 07/23/20 10:03 110 118/61 07/23/20 07:00 98.6 30 98 Nasal Cannula 9.0 98.6 I & O 07/22/20 07/22/20 07/23/20 15:00 23:00 07:00 Intake Total 868 ml Output Total 1625 ml 650 ml 1050 ml Balance -757 ml -650 ml -1050 ml Physical Exam General: No acute distress, Other (Pleasantly confused flat affect fidgeting) Heart: No murmurs Lungs: Clear Abdomen: Normal bowel sounds Extremities: No clubbing Skin: No rashes Labs Labs: Laboratory Tests Test 07/22/20 16:54 07/23/20 08:40 07/23/20 09:35 07/23/20 11:58 Glucose (Fingerstick) 129 mg/dL (70-99) 144 mg/dL (70-99) 131 mg/dL (70-99) White Blood Count 6.1 x10^3/uL (4.0-11.0) Red Blood Count 3.47 x10^6/uL (4.30-5.70) Hemoglobin 10.7 g/dL (13.0-17.5) Hematocrit 31.6 % (39.0-53.0) Mean Corpuscular Volume 91 fL (79-100) Mean Corpuscular Hemoglobin 31 pg (25-35) Mean Corpuscular Hemoglobin Concent 34 g/dL (31-37) Red Cell Distribution Width 13.5 % (11.5-14.5) Platelet Count 211 x10^3/uL (140-400) Neutrophils (%) (Auto) 77 % (31-73) Lymphocytes (%) (Auto) 13 % (24-48) Monocytes (%) (Auto) 9 % (0-9) Eosinophils (%) (Auto) 0 % (0-3) Basophils (%) (Auto) 1 % (0-3) Neutrophils # (Auto) 4.7 x10^3/uL (1.8-7.7) Lymphocytes # (Auto) 0.8 x10^3/uL (1.0-4.8) Monocytes # (Auto) 0.6 x10^3/uL (0.0-1.1) Eosinophils # (Auto) 0.0 x10^3/uL (0.0-0.7) Basophils # (Auto) 0.0 x10^3/uL (0.0-0.2) Sodium Level 150 mmol/L (136-145) Potassium Level 4.4 mmol/L (3.5-5.1) Chloride Level 114 mmol/L (98-107) Carbon Dioxide Level 19 mmol/L (21-32) Anion Gap 17 (6-14) Blood Urea Nitrogen 35 mg/dL (8-26) Creatinine 1.7 mg/dL (0.7-1.3) Estimated GFR (Cockcroft-Gault) 40.7 Glucose Level 136 mg/dL (70-99) Calcium Level 9.4 mg/dL (8.5-10.1) Phosphorus Level 2.4 mg/dL (2.6-4.7) Magnesium Level 1.8 mg/dL (1.8-2.4) Albumin 3.2 g/dL (3.4-5.0) Assessment and Plan Assessmemt and Plan Problems Medical Problems: (1) Acute renal failure Status: Acute (2) Altered mental status Status: Acute (3) Dehydration Status: Acute (4) Person under investigation for COVID-19 Status: Acute Mental status change Possible COVID-19 (Covid testing still pending) CHF, constipation, depression, diabetes, hypertension, hyperlipidemia, seizure, schizophrenia, UTI, dystonic movements, chronic pain, dermatitis, previous tobacco abuse, previous alcohol use, previous marijuana use. Plan COVID-19 isolation Home meds Trend labs DVT prophylaxis IV fluids Full code We have nephrology and pulmonary following Prognosis long-term guarded Appreciate subspecialist input As needed Ativan and Franklinl Hope to discharge in a day or 2 I believe he is on day 4 of the remdesivir ? Comment Review of Relevant I have reviewed the following items darryn (where applicable) has been applied. Medications: Current Medications Medications (Trade) Dose Ordered Sig/Kvng Route PRN Reason Start Time Stop Time Status Last Admin Dose Admin Haloperidol Lactate (Haldol Inj) 5 mg PRN Q6HRS PRN IVP AGITATION 07/22/20 14:15 07/23/20 11:05 Levetiracetam 500 mg/Dextrose 105 ml @ 420 mls/hr Q12HR IV 07/23/20 00:00 07/23/20 09:29 Doxycycline Hyclate 100 mg/ Dextrose 100 ml @ 50 mls/hr 1X ONCE IV 07/23/20 00:00 07/23/20 04:10 DC 07/23/20 00:24 Methylprednisolone Sodium Succinate (SOLU-Medrol 40MG VIAL) 40 mg Q12HR IV 07/23/20 10:30 07/23/20 11:07 Justifications for Admission Other Justification NEGRO REYNA III DO Jul 23, 2020 12:08
[2020-07-23] MEDS: NICOTINE 21MG PATCH. TD SCH (12:32)
--- NOTE | 2020-07-23 12:45 | PDOC2 ---
NEUROLOGY CONSULT Date of Service DOS: DATE: 07/23/20 TIME: 12:36 Reason for Consult Reason for Consult: Seizure Referring Physician Referring Physician: Dr. Krishna Source Source: Chart review History of Present Illness History of Present Illness The patient is a 64-year-old right-handed male admitted with altered mental status from the assisted, [facility], found to be hypotensive and hypoxic and ultimately has tested positive for COVID-19. Neurology last saw him 4 years ago for seizures. He did have an EEG and MRI on 09/13/2016 showing no acute abnormality, slowing of EEG background. The patient has been on levetiracetam ever since then. He was refusing to take his medications and therefore missed some doses of his anticonvulsant. He had a witnessed seizure. It consisted of agitation and hyperventilation, nursing note does not describe a lot of convulsive activity. At baseline the patient is demented and gets around in a wheelchair. 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, used to abuse alcohol, tobacco, and marijuana Current Medications Current Medications Current Medications Sodium Chloride 1,000 ml @ 1,000 mls/hr 1X ONCE IV Last administered on 07/20/20at 15:30; Start 07/20/20 at 15:30; Stop 07/20/20 at 16:29; Status DC Sodium Chloride 1,000 ml @ 1,000 mls/hr 1X ONCE IV Last administered on 07/20/20at 16:50; Start 07/20/20 at 16:45; Stop 07/20/20 at 17:44; Status DC Sodium Chloride 1,000 ml @ 1,000 mls/hr 1X ONCE IV Last administered on 07/20/20at 16:50; Start 07/20/20 at 16:00; Stop 07/20/20 at 16:59; Status DC Ondansetron HCl (Zofran) 4 mg PRN Q8HRS PRN IV NAUSEA/VOMITING; Start 07/20/20 at 17:45; Stop 07/21/20 at 17:44; Status DC Sodium Chloride 1,000 ml @ 100 mls/hr Q10H IV Last administered on 07/20/20at 17:45; Start 07/20/20 at 17:45; Stop 07/21/20 at 17:44; Status DC Aspirin (Aspirin Chewable) 81 mg DAILY PO Last administered on 07/22/20at 07:48; Start 07/21/20 at 09:00 Cetirizine HCl (ZyrTEC) 10 mg DAILY08 PO Last administered on 07/22/20at 13:06; Start 07/21/20 at 08:00 Furosemide (Lasix) 40 mg DAILY PO Last administered on 07/22/20at 07:48; Start 07/21/20 at 09:00 Gabapentin (Neurontin) 400 mg DAILY PO Last administered on 07/22/20at 07:48; Start 07/21/20 at 09:00; Stop 07/22/20 at 10:48; Status DC Glyburide (Diabeta) 5 mg DAILY08 PO Last administered on 07/22/20at 13:06; Start 07/21/20 at 08:00 Haloperidol (Haldol) 5 mg BID PO Last administered on 07/22/20at 07:48; Start 07/21/20 at 09:00 Ketoconazole (Nizoral 2% Shampoo) 1 diana SuWe TP ; Start 07/21/20 at 21:00 Levetiracetam (Keppra) 500 mg BID PO Last administered on 07/22/20at 07:48; Start 07/21/20 at 09:00; Stop 07/22/20 at 23:34; Status DC Lisinopril (Prinivil) 10 mg DAILY PO Last administered on 07/22/20at 07:49; Start 07/21/20 at 09:00 Lisinopril (Prinivil) 20 mg HS PO ; Start 07/21/20 at 21:00 Magnesium Hydroxide (Milk Of Magnesia) 400 mg DAILY PRN PO CONSTIPATION; Start 07/21/20 at 02:15; Status UNV Nystatin (Nystop) 1 diana BID TP Last administered on 07/22/20at 21:00; Start 07/21/20 at 09:00 Senna/Docusate Sodium (Senna Plus) 1 tab DAILY PO Last administered on 07/22/20at 13:06; Start 07/21/20 at 09:00 Simvastatin (Zocor) 40 mg QHS PO ; Start 07/21/20 at 21:00 Trazodone HCl (Desyrel) 100 mg QHS PO ; Start 07/21/20 at 21:00 Guaifenesin (Robitussin Dm) 10 ml PRN Q6HRS PRN PO COUGH; Start 07/21/20 at 02:30 Hydrocortisone (Cortaid) 1 diana PRN BID PRN TP ITCHING; Start 07/21/20 at 02:45 Insulin Glargine (Lantus Syringe) 10 unit DAILY08 SQ Last administered on 07/21/20at 13:22; Start 07/21/20 at 08:00 Non-Formulary Medication (Ipratropium/ Albuterol Sulfate (Combivent Respimat Inhal)) 1 inh PRN Q8HRS PRN IH SHORTNESS OF BREATH; Start 07/21/20 at 02:15; Status UNV Non-Formulary Medication (Metformin Hcl ) 1 tab BID PO ; Start 07/21/20 at 09:00; Status UNV Multivitamins (Thera M Plus) 1 tab DAILY PO Last administered on 07/22/20at 07:48; Start 07/21/20 at 09:00 Niacin (Niaspan) 500 mg QHS PO ; Start 07/21/20 at 21:00 Fish Oil (Fish Oil) 1,000 mg DAILY PO Last administered on 07/22/20at 13:06; Start 07/21/20 at 09:00 Quetiapine Fumarate (SEROquel) 50 mg BIDWMEALS PO Last administered on 07/22/20at 17:27; Start 07/21/20 at 08:00 Quetiapine Fumarate (SEROquel) 200 mg HS PO ; Start 07/21/20 at 21:00 Albuterol/ Ipratropium (Combivent Respimat 20-100 Mcg) 1 puff RTQID INH Last administered on 07/22/20at 17:26; Start 07/21/20 at 08:00 Dextrose (Dextrose 50%-Water Syringe) 12.5 gm PRN Q15MIN PRN IV SEE COMMENTS; Start 07/21/20 at 03:30 Magnesium Sulfate 50 ml @ 25 mls/hr PRN DAILY PRN IV for Mag < 1.7 on am labs; Start 07/21/20 at 09:45 Ceftriaxone Sodium (Rocephin) 1 gm Q24H IVP Last administered on 07/23/20at 11:08; Start 07/21/20 at 12:00 Doxycycline Hyclate (Vibra-Tab) 100 mg BID PO Last administered on 07/22/20at 07:48; Start 07/21/20 at 11:00; Stop 07/22/20 at 23:34; Status DC Ceftriaxone Sodium (Rocephin) 1 gm Q24H IVP ; Start 07/21/20 at 11:15; Status UNV Lorazepam (Ativan Inj) 2 mg PRN Q2HR PRN IVP ANXIETY / AGITATION Last administered on 07/23/20at 09:37; Start 07/21/20 at 11:15 Sodium Chloride 1,000 ml @ 75 mls/hr [id number] IV Last administered on 07/23/20at 02:15; Start 07/21/20 at 13:15 Heparin Sodium (Porcine) (Heparin Sodium) 5,000 unit Q12HR SQ Last administered on 07/23/20at 09:33; Start 07/21/20 at 21:00 Acetaminophen (Tylenol Supp) 650 mg PRN Q6HRS PRN MT MILD PAIN / TEMP > 100.3'F; Start 07/21/20 at 20:30 Lactobacillus Rhamnosus (Culturelle) 1 cap BID PO ; Start 07/22/20 at 21:00 Metformin HCl (Glucophage) 1,000 mg BIDWMEALS PO ; Start 07/22/20 at 17:00 Gabapentin (Neurontin) 400 mg BID PO ; Start 07/22/20 at 21:00 Haloperidol Lactate (Haldol Inj) 5 mg PRN Q6HRS PRN IVP AGITATION Last administered on 07/23/20at 11:05; Start 07/22/20 at 14:15 Levetiracetam 500 mg/Dextrose 105 ml @ 420 mls/hr Q12HR IV Last administered on 07/23/20at 09:29; Start 07/23/20 at 00:00 Doxycycline Hyclate 100 mg/ Dextrose 100 ml @ 50 mls/hr 1X ONCE IV Last administered on 07/23/20at 00:24; Start 07/23/20 at 00:00; Stop 07/23/20 at 04:10; Status DC Lorazepam (Ativan Inj) 2 mg PRN Q4HRS PRN IVP ANXIETY / AGITATION; Start 07/22/20 at 23:45; Stop 07/22/20 at 23:48; Status DC Lorazepam (Ativan Inj) 2 mg PRN Q15MIN PRN IVP SEIZURE; Start 07/23/20 at 00:00 Methylprednisolone Sodium Succinate (SOLU-Medrol 40MG VIAL) 40 mg Q12HR IV Last administered on 07/23/20at 11:07; Start 07/23/20 at 10:30 Nicotine (Nicoderm Cq 21mg) 1 patch DAILY TD Last administered on 07/23/20at 12:32; Start 07/23/20 at 12:00 Active Scripts Active Reported Acetaminophen 650 Mg/20.3 Ml Solution 650 Mg PO Q6HRS PRN Seroquel (Quetiapine Fumarate) 200 Mg Tablet 200 Mg PO HS Seroquel (Quetiapine Fumarate) 50 Mg Tablet 50 Mg PO BID Nystatin 15 Gm Powder 1 Diana TP BID 7 Days apply to affected area(s) Ketoconazole 120 Ml Shampoo 1 Diana TP TWICE WEEKLY 30 Days with at least 3 days between each shampooing Hydrocortisone 453.6 Gm Cream..g. 1 Diana TP PRN BID Haloperidol 5 Mg Tablet 1 Tab PO QAM Lisinopril 20 Mg Tablet 20 Mg PO HS PRN Furosemide 40 Mg Tablet 40 Mg PO DAILY Combivent Respimat Inhal (Ipratropium/Albuterol Sulfate) 4 Gm Aer.w.adap 1 Inh IH PRN Q8HRS PRN Levetiracetam 500 Mg Tablet 1 Tab PO BID Zetia (Ezetimibe) 10 Mg Tablet 1 Tab PO HS Niaspan (Niacin) 500 Mg Tab.er.24h 1 Tab PO QHS Aspirin 81 Mg Tab.chew 1 Tab PO DAILY Nicotine Gum (Nicotine Polacrilex) 4 Mg Gum 4 Mg BC Milk Of Magnesia (Magnesium Hydroxide) 400 Mg/5 Ml Oral.susp 400 Mg PO DAILY PRN Duoneb 0.5-3(2.5) Mg/3 Ml (Albuterol/Ipratropium) 3 Ml Ampul.neb 3 Ml NEB QID Acetaminophen 325 Mg Tablet 325 Mg PO PRN Q4HRS PRN Robitussin Cough-Chest Dm Liq (Guaifenesin/Dextromethorphan) 118 Ml Liquid 10 Ml PO PRN Q6HRS PRN AD Days Centerview 3 Fish Oil Softgel (Centerview-3 Fatty Acids/Fish Oil) 1 Each Capsule.dr 1 Each PO DAILY Gabapentin (Gabapentin) 400 Mg Capsule 400 Mg PO TID Sennosides-Docusate Sodium Tab (Sennosides/Docusate Sodium) 1 Each Tablet 6-50 Each PO DAILY Metformin Hcl 1,000 Mg Tablet 1 Tab PO BID Haloperidol 5 Mg Tablet 5 Tab PO BID Zyrtec (Cetirizine Hcl) 10 Mg Tablet 1 Tab PO DAILY08 Trazodone Hcl 100 Mg Tablet 1 Tab PO QHS Simvastatin 40 Mg Tablet 1 Tab PO QHS Seroquel (Quetiapine Fumarate) 400 Mg Tablet 400 Tab PO QHS Multi Vitamin Daily (Multivitamin) 1 Each Tablet 1 Each PO DAILY Lisinopril 10 Mg Tablet 1 Tab PO DAILY Levemir (Insulin Detemir) 100 Unit/1 Ml Vial 10 Unit SQ DAILY08 Glyburide 5 Mg Tablet 1 Tab PO DAILY08 Effexor Xr (Venlafaxine Hcl) 150 Mg Cap.er.24h 1 Cap PO DAILY Allergies Allergies: Coded Allergies: I S O L A T I O N *CONTACT* (Verified Allergy, Unknown, 09/15/16) mrsa No Known Medication Allergies (Verified Allergy, Unknown, 09/15/16) ROS Review of System Unobtainable Physical Exam Physical Examination General: Well-developed, well-nourished white male in no acute distress HEENT: Normocephalic andatraumatic. Temporal arteriespulsatile and nontender. Neck: Supple without bruit, no meningismus Musculoskeletal: Stability:see neurologic. Gait exam:see neurologic. Tone:see neurologic.Strength:see neurologic. Neurological: Mental Status: orientation, memory, attention span/concentration, language, fund of knowledge: Sedated, wearing mittens, does not follow commands or verbalize. Cranial Nerves:Pupils equal and reactive to light, extraocular movements areintact, visual ladd are full to threat. There is no facial asymmetry. All other cranial related problems are negative except as mentioned before.Reflexes:1+ and symmetric with flexor plantar responses. Motor:Moves all extremities spontaneously, normal tone and bulk. Coordination and gait: Not cooperative. Sensory: Not cooperative Vitals VITALS Vital Signs Date Time Temp Pulse Resp B/P (MAP) Pulse Ox O2 Delivery O2 Flow Rate FiO2 07/23/20 11:00 99.9 106 30 115/64 (81) 96 Nasal Cannula 5.0 99.9 Labs Labs Laboratory Tests Test 07/21/20 17:32 07/21/20 20:10 07/21/20 21:50 07/22/20 08:33 Glucose (Fingerstick) 103 mg/dL (70-99) 123 mg/dL (70-99) 143 mg/dL (70-99) Lactic Acid Level 1.3 mmol/L (0.4-2.0) Test 07/22/20 11:45 07/22/20 11:57 07/22/20 16:54 07/23/20 08:40 White Blood Count 5.9 x10^3/uL (4.0-11.0) Red Blood Count 3.42 x10^6/uL (4.30-5.70) Hemoglobin 10.4 g/dL (13.0-17.5) Hematocrit 31.5 % (39.0-53.0) Mean Corpuscular Volume 92 fL (79-100) Mean Corpuscular Hemoglobin 30 pg (25-35) Mean Corpuscular Hemoglobin Concent 33 g/dL (31-37) Red Cell Distribution Width 13.6 % (11.5-14.5) Platelet Count 172 x10^3/uL (140-400) Neutrophils (%) (Auto) 86 % (31-73) Lymphocytes (%) (Auto) 8 % (24-48) Monocytes (%) (Auto) 6 % (0-9) Eosinophils (%) (Auto) 0 % (0-3) Basophils (%) (Auto) 0 % (0-3) Neutrophils # (Auto) 5.0 x10^3/uL (1.8-7.7) Lymphocytes # (Auto) 0.5 x10^3/uL (1.0-4.8) Monocytes # (Auto) 0.4 x10^3/uL (0.0-1.1) Eosinophils # (Auto) 0.0 x10^3/uL (0.0-0.7) Basophils # (Auto) 0.0 x10^3/uL (0.0-0.2) Segmented Neutrophils % 61 % (35-66) Band Neutrophils % 21 % (0-9) Lymphocytes % 13 % (24-48) Monocytes % 5 % (0-10) Platelet Estimate Adequate (ADEQUATE) Sodium Level 146 mmol/L (136-145) Potassium Level 4.8 mmol/L (3.5-5.1) Chloride Level 112 mmol/L (98-107) Carbon Dioxide Level 20 mmol/L (21-32) Anion Gap 14 (6-14) Blood Urea Nitrogen 36 mg/dL (8-26) Creatinine 1.6 mg/dL (0.7-1.3) Estimated GFR (Cockcroft-Gault) 43.6 Glucose Level 116 mg/dL (70-99) Calcium Level 8.5 mg/dL (8.5-10.1) Phosphorus Level 3.2 mg/dL (2.6-4.7) Magnesium Level 1.8 mg/dL (1.8-2.4) Albumin 3.1 g/dL (3.4-5.0) Glucose (Fingerstick) 128 mg/dL (70-99) 129 mg/dL (70-99) 144 mg/dL (70-99) Test 07/23/20 09:35 07/23/20 11:58 White Blood Count 6.1 x10^3/uL (4.0-11.0) Red Blood Count 3.47 x10^6/uL (4.30-5.70) Hemoglobin 10.7 g/dL (13.0-17.5) Hematocrit 31.6 % (39.0-53.0) Mean Corpuscular Volume 91 fL (79-100) Mean Corpuscular Hemoglobin 31 pg (25-35) Mean Corpuscular Hemoglobin Concent 34 g/dL (31-37) Red Cell Distribution Width 13.5 % (11.5-14.5) Platelet Count 211 x10^3/uL (140-400) Neutrophils (%) (Auto) 77 % (31-73) Lymphocytes (%) (Auto) 13 % (24-48) Monocytes (%) (Auto) 9 % (0-9) Eosinophils (%) (Auto) 0 % (0-3) Basophils (%) (Auto) 1 % (0-3) Neutrophils # (Auto) 4.7 x10^3/uL (1.8-7.7) Lymphocytes # (Auto) 0.8 x10^3/uL (1.0-4.8) Monocytes # (Auto) 0.6 x10^3/uL (0.0-1.1) Eosinophils # (Auto) 0.0 x10^3/uL (0.0-0.7) Basophils # (Auto) 0.0 x10^3/uL (0.0-0.2) Sodium Level 150 mmol/L (136-145) Potassium Level 4.4 mmol/L (3.5-5.1) Chloride Level 114 mmol/L (98-107) Carbon Dioxide Level 19 mmol/L (21-32) Anion Gap 17 (6-14) Blood Urea Nitrogen 35 mg/dL (8-26) Creatinine 1.7 mg/dL (0.7-1.3) Estimated GFR (Cockcroft-Gault) 40.7 Glucose Level 136 mg/dL (70-99) Calcium Level 9.4 mg/dL (8.5-10.1) Phosphorus Level 2.4 mg/dL (2.6-4.7) Magnesium Level 1.8 mg/dL (1.8-2.4) Albumin 3.2 g/dL (3.4-5.0) Glucose (Fingerstick) 131 mg/dL (70-99) Laboratory Tests Test 07/22/20 16:54 07/23/20 08:40 07/23/20 09:35 07/23/20 11:58 Glucose (Fingerstick) 129 mg/dL (70-99) 144 mg/dL (70-99) 131 mg/dL (70-99) White Blood Count 6.1 x10^3/uL (4.0-11.0) Red Blood Count 3.47 x10^6/uL (4.30-5.70) Hemoglobin 10.7 g/dL (13.0-17.5) Hematocrit 31.6 % (39.0-53.0) Mean Corpuscular Volume 91 fL (79-100) Mean Corpuscular Hemoglobin 31 pg (25-35) Mean Corpuscular Hemoglobin Concent 34 g/dL (31-37) Red Cell Distribution Width 13.5 % (11.5-14.5) Platelet Count 211 x10^3/uL (140-400) Neutrophils (%) (Auto) 77 % (31-73) Lymphocytes (%) (Auto) 13 % (24-48) Monocytes (%) (Auto) 9 % (0-9) Eosinophils (%) (Auto) 0 % (0-3) Basophils (%) (Auto) 1 % (0-3) Neutrophils # (Auto) 4.7 x10^3/uL (1.8-7.7) Lymphocytes # (Auto) 0.8 x10^3/uL (1.0-4.8) Monocytes # (Auto) 0.6 x10^3/uL (0.0-1.1) Eosinophils # (Auto) 0.0 x10^3/uL (0.0-0.7) Basophils # (Auto) 0.0 x10^3/uL (0.0-0.2) Sodium Level 150 mmol/L (136-145) Potassium Level 4.4 mmol/L (3.5-5.1) Chloride Level 114 mmol/L (98-107) Carbon Dioxide Level 19 mmol/L (21-32) Anion Gap 17 (6-14) Blood Urea Nitrogen 35 mg/dL (8-26) Creatinine 1.7 mg/dL (0.7-1.3) Estimated GFR (Cockcroft-Gault) 40.7 Glucose Level 136 mg/dL (70-99) Calcium Level 9.4 mg/dL (8.5-10.1) Phosphorus Level 2.4 mg/dL (2.6-4.7) Magnesium Level 1.8 mg/dL (1.8-2.4) Albumin 3.2 g/dL (3.4-5.0) Images Images CT HEAD WO CONTRAST, 08/20/2019 The fox and white matter appears normal and symmetrical for the patients age. There is no mass effect, extraaxial fluid collections or hydrocephalus. There is no gross bleed. There is no focal loss of fox-white matter distinction to suggest acute ischemia, i.e. stroke. Impression: No acute findings. Assessment/Plan Assessment/Plan Impression: Epilepsy, breakthrough seizure related to his refusing oral medications, now he is on intravenous levetiracetam. From description of the episode last night it is possible this was not a seizure, just a behavior from his schizophrenia and dementia. Metabolic encephalopathy, had hypoxia and hypotension at admission COVID-19 CHF, constipation, depression, diabetes, hypertension, hyperlipidemia, UTI, previous tobacco, alcohol, and marijuana use Recommendations: Continue intravenous levetiracetam Treat medical diseases Electroencephalogram and other brain imaging studies would not affect management. Thank you for letting me help with the patient's care. SIMON VILLASENOR MD Jul 23, 2020 12:45
--- NOTE | 2020-07-23 14:37 | PDOC ---
Renal-Progress Notes Subjective Notes Notes NO NEW COMPLAINTS History of Present Illness Hx of present illness STABLE Vitals Vitals Vital Signs Date Time Temp Pulse Resp B/P (MAP) Pulse Ox O2 Delivery O2 Flow Rate FiO2 07/23/20 11:00 99.9 106 30 115/64 (81) 96 Nasal Cannula 5.0 99.9 Weight Weight [ ] I.O. Intake and Output Intake and Output 07/23/20 07:00 Intake Total 868 ml Output Total 3325 ml Balance -2457 ml Intake Oral 536 ml Blood Product IV Normal Saline Flush 332 ml Output Urine Total 3325 ml Labs Labs Laboratory Tests Test 07/22/20 16:54 07/23/20 08:40 07/23/20 09:35 07/23/20 11:58 Glucose (Fingerstick) 129 mg/dL (70-99) 144 mg/dL (70-99) 131 mg/dL (70-99) White Blood Count 6.1 x10^3/uL (4.0-11.0) Red Blood Count 3.47 x10^6/uL (4.30-5.70) Hemoglobin 10.7 g/dL (13.0-17.5) Hematocrit 31.6 % (39.0-53.0) Mean Corpuscular Volume 91 fL (79-100) Mean Corpuscular Hemoglobin 31 pg (25-35) Mean Corpuscular Hemoglobin Concent 34 g/dL (31-37) Red Cell Distribution Width 13.5 % (11.5-14.5) Platelet Count 211 x10^3/uL (140-400) Neutrophils (%) (Auto) 77 % (31-73) Lymphocytes (%) (Auto) 13 % (24-48) Monocytes (%) (Auto) 9 % (0-9) Eosinophils (%) (Auto) 0 % (0-3) Basophils (%) (Auto) 1 % (0-3) Neutrophils # (Auto) 4.7 x10^3/uL (1.8-7.7) Lymphocytes # (Auto) 0.8 x10^3/uL (1.0-4.8) Monocytes # (Auto) 0.6 x10^3/uL (0.0-1.1) Eosinophils # (Auto) 0.0 x10^3/uL (0.0-0.7) Basophils # (Auto) 0.0 x10^3/uL (0.0-0.2) Sodium Level 150 mmol/L (136-145) Potassium Level 4.4 mmol/L (3.5-5.1) Chloride Level 114 mmol/L (98-107) Carbon Dioxide Level 19 mmol/L (21-32) Anion Gap 17 (6-14) Blood Urea Nitrogen 35 mg/dL (8-26) Creatinine 1.7 mg/dL (0.7-1.3) Estimated GFR (Cockcroft-Gault) 40.7 Glucose Level 136 mg/dL (70-99) Calcium Level 9.4 mg/dL (8.5-10.1) Phosphorus Level 2.4 mg/dL (2.6-4.7) Magnesium Level 1.8 mg/dL (1.8-2.4) Albumin 3.2 g/dL (3.4-5.0) Micro Micro Microbiology 07/21/20 Blood Culture - Preliminary, Resulted NO GROWTH AFTER 1 DAY 07/20/20 Urine Culture - Final, Complete 07/20/20 Antimicrobic Susceptibility - Final, Complete Review of Systems Constitutional: yes: other (CONFUSED) Physical Exam General Appearance: no apparent distress Skin: warm Respiratory: decreased breath sounds Heart: S1S2 Abdomen: soft, bowel sounds present Genitourinary: bladder flat Neurology: alert Musculoskeletal: Osteoarthritis, Other Assessment Assessment IMP BELLO-IMPROVING WITH CR DOWN TO 1.6 CKD WITH CR OF 1.4 IN 2017-SUSPECT PROGRESSION ACUTE RESP FAILURE SEIZURE HTN HX CHF HX DM II PLAN CONT HYDRATION-CHANGE TO HYPOTONIC SALINE SUSPECT CR MAY BE AT HIS NEW BASELINE WILL FOLLOW JACQUELINE CERRATO MD Jul 23, 2020 14:37
[2020-07-23 15:00] VITALS: BP 134/75
--- NOTE | 2020-07-23 17:32 | NUR ---
SW following for discharge planning. Spoke with RN and reviewed chart. Pt COVID result is positive. Neurology consulted per possible seizure. Pt not ready for discharge today. Pt to return to [facility] on discharge. SW following.
[2020-07-23] MEDS: traZODone 100 MG TABLET. PO SCH (20:00)
[2020-07-23] MEDS: NIACIN ER 250 MG CAPSULE.ER PO SCH (20:00)
[2020-07-23] MEDS: LISINOPRIL 20 MG TABLET PO SCH (20:01)
[2020-07-23] MEDS: SIMVASTATIN 40 MG TABLET. PO SCH (20:01)
[2020-07-23] MEDS: QUEtiapine 100 MG TABLET. PO SCH (20:01)
[2020-07-23 21:28] VITALS: BP 142/72
[2020-07-24 00:44] VITALS: BP 127/72
[2020-07-24 03:50] VITALS: BP 138/72
[2020-07-24 07:10] VITALS: BP 130/68
--- NOTE | 2020-07-24 07:59 | NUR ---
Pt not responsive enough for oral intake, attempted to assist pt with cup of water and pt did not drink. Will reassess at a later time and notify .
[2020-07-24] MEDS: CETIRIZINE HCL 10 MG TABLET. PO SCH (08:00)
[2020-07-24] MEDS: glyBURIDE 5 MG TABLET PO SCH (08:00)
[2020-07-24] MEDS: INSULIN GLARGINE SYRINGE. SQ SCH (08:00)
[2020-07-24] MEDS: metFORMIN 500 MG TABLET PO SCH ×2 (08:00→17:00)
[2020-07-24] MEDS: QUEtiapine 25 MG TABLET. PO SCH ×2 (08:00→17:00)
[2020-07-24] MEDS: IPRATROPIUM/ALBUTEROL 20/100mcg/INH INHALER. INH SCH ×4 (08:00→19:57)
[2020-07-24] MEDS: HALOPERIDOL 5 MG TABLET. PO SCH ×2 (08:43→19:57)
[2020-07-24] MEDS: OMEGA-3 FATTY ACIDS/FISH OIL 1,000 MG CAPSULE. PO SCH (08:43)
[2020-07-24] MEDS: FUROSEMIDE 40 MG TABLET. PO SCH (08:43)
[2020-07-24] MEDS: LACTOBACILLUS RHAMNOSUS GG 1 CAPSULE. PO SCH ×2 (08:43→19:56)
[2020-07-24] MEDS: ASPIRIN CHEWABLE 81 MG TABLET. PO SCH (08:43)
[2020-07-24] MEDS: LISINOPRIL 10 MG TABLET PO SCH (08:44)
[2020-07-24] MEDS: MULTIVITAMIN with MINERAL TABLET. PO SCH (08:44)
[2020-07-24] MEDS: GABAPENTIN 400 MG CAPSULE. PO SCH ×2 (08:44→19:57)
[2020-07-24] MEDS: SENNOSIDES/DOCUSATE 8.6/50MG TABLET. PO SCH (08:44)
--- NOTE | 2020-07-24 08:52 | PDOC ---
PROGRESS NOTES Date of Service DATE: 07/24/20 TIME: 08:50 Assessment Problems Medical Problems: (1) Acute renal failure Status: Acute (2) Altered mental status Status: Acute (3) Dehydration Status: Acute (4) Person under investigation for COVID-19 Status: Acute Epilepsy, breakthrough seizure related to his refusing oral medications, now he is on intravenous levetiracetam. No further episodes Metabolic encephalopathy, had hypoxia and hypotension at admission COVID-19 CHF, constipation, depression, diabetes, hypertension, hyperlipidemia, UTI, previous tobacco, alcohol, and marijuana use Plan Continue intravenous levetiracetam Treat medical diseases Electroencephalogram and other brain imaging studies would not affect management. Subjective None Objective Vital Signs Date Time Temp Pulse Resp B/P (MAP) Pulse Ox O2 Delivery O2 Flow Rate FiO2 07/24/20 07:46 Nasal Cannula 7.0 07/24/20 07:10 97.2 102 130/68 (88) 97.2 07/23/20 21:28 90 07/23/20 15:00 40 Intake and Output 07/24/20 07:00 Intake Total 0 ml Output Total 1425 ml Balance -1425 ml Intake Oral 0 ml Output Urine Total 1425 ml PHYSICAL EXAM Sleep, arouses slightly to pain, does not follow commands or verbalize. [place] on PERRL. EOMI. CN: no focal findings. Muscle tone: normal. Muscle strength: Withdraws slightly to pain DTR: 1+ Plantar reflex: Flexor Gait: not examined in bed. Sensory exam: n not cooperative Cerebellar: Not cooperative Review of Relevant I have reviewed the following items darryn (where applicable) has been applied. Labs Laboratory Tests Test 07/22/20 11:45 07/22/20 11:57 07/22/20 16:54 07/23/20 08:40 White Blood Count 5.9 x10^3/uL (4.0-11.0) Red Blood Count 3.42 x10^6/uL (4.30-5.70) Hemoglobin 10.4 g/dL (13.0-17.5) Hematocrit 31.5 % (39.0-53.0) Mean Corpuscular Volume 92 fL (79-100) Mean Corpuscular Hemoglobin 30 pg (25-35) Mean Corpuscular Hemoglobin Concent 33 g/dL (31-37) Red Cell Distribution Width 13.6 % (11.5-14.5) Platelet Count 172 x10^3/uL (140-400) Neutrophils (%) (Auto) 86 % (31-73) Lymphocytes (%) (Auto) 8 % (24-48) Monocytes (%) (Auto) 6 % (0-9) Eosinophils (%) (Auto) 0 % (0-3) Basophils (%) (Auto) 0 % (0-3) Neutrophils # (Auto) 5.0 x10^3/uL (1.8-7.7) Lymphocytes # (Auto) 0.5 x10^3/uL (1.0-4.8) Monocytes # (Auto) 0.4 x10^3/uL (0.0-1.1) Eosinophils # (Auto) 0.0 x10^3/uL (0.0-0.7) Basophils # (Auto) 0.0 x10^3/uL (0.0-0.2) Segmented Neutrophils % 61 % (35-66) Band Neutrophils % 21 % (0-9) Lymphocytes % 13 % (24-48) Monocytes % 5 % (0-10) Platelet Estimate Adequate (ADEQUATE) Sodium Level 146 mmol/L (136-145) Potassium Level 4.8 mmol/L (3.5-5.1) Chloride Level 112 mmol/L (98-107) Carbon Dioxide Level 20 mmol/L (21-32) Anion Gap 14 (6-14) Blood Urea Nitrogen 36 mg/dL (8-26) Creatinine 1.6 mg/dL (0.7-1.3) Estimated GFR (Cockcroft-Gault) 43.6 Glucose Level 116 mg/dL (70-99) Calcium Level 8.5 mg/dL (8.5-10.1) Phosphorus Level 3.2 mg/dL (2.6-4.7) Magnesium Level 1.8 mg/dL (1.8-2.4) Albumin 3.1 g/dL (3.4-5.0) Glucose (Fingerstick) 128 mg/dL (70-99) 129 mg/dL (70-99) 144 mg/dL (70-99) Test 07/23/20 09:35 07/23/20 11:58 07/23/20 17:45 07/24/20 07:36 White Blood Count 6.1 x10^3/uL (4.0-11.0) Red Blood Count 3.47 x10^6/uL (4.30-5.70) Hemoglobin 10.7 g/dL (13.0-17.5) Hematocrit 31.6 % (39.0-53.0) Mean Corpuscular Volume 91 fL (79-100) Mean Corpuscular Hemoglobin 31 pg (25-35) Mean Corpuscular Hemoglobin Concent 34 g/dL (31-37) Red Cell Distribution Width 13.5 % (11.5-14.5) Platelet Count 211 x10^3/uL (140-400) Neutrophils (%) (Auto) 77 % (31-73) Lymphocytes (%) (Auto) 13 % (24-48) Monocytes (%) (Auto) 9 % (0-9) Eosinophils (%) (Auto) 0 % (0-3) Basophils (%) (Auto) 1 % (0-3) Neutrophils # (Auto) 4.7 x10^3/uL (1.8-7.7) Lymphocytes # (Auto) 0.8 x10^3/uL (1.0-4.8) Monocytes # (Auto) 0.6 x10^3/uL (0.0-1.1) Eosinophils # (Auto) 0.0 x10^3/uL (0.0-0.7) Basophils # (Auto) 0.0 x10^3/uL (0.0-0.2) Sodium Level 150 mmol/L (136-145) Potassium Level 4.4 mmol/L (3.5-5.1) Chloride Level 114 mmol/L (98-107) Carbon Dioxide Level 19 mmol/L (21-32) Anion Gap 17 (6-14) Blood Urea Nitrogen 35 mg/dL (8-26) Creatinine 1.7 mg/dL (0.7-1.3) Estimated GFR (Cockcroft-Gault) 40.7 Glucose Level 136 mg/dL (70-99) Calcium Level 9.4 mg/dL (8.5-10.1) Phosphorus Level 2.4 mg/dL (2.6-4.7) Magnesium Level 1.8 mg/dL (1.8-2.4) Albumin 3.2 g/dL (3.4-5.0) Glucose (Fingerstick) 131 mg/dL (70-99) 183 mg/dL (70-99) 204 mg/dL (70-99) Laboratory Tests Test 07/23/20 09:35 07/23/20 11:58 07/23/20 17:45 07/24/20 07:36 White Blood Count 6.1 x10^3/uL (4.0-11.0) Red Blood Count 3.47 x10^6/uL (4.30-5.70) Hemoglobin 10.7 g/dL (13.0-17.5) Hematocrit 31.6 % (39.0-53.0) Mean Corpuscular Volume 91 fL (79-100) Mean Corpuscular Hemoglobin 31 pg (25-35) Mean Corpuscular Hemoglobin Concent 34 g/dL (31-37) Red Cell Distribution Width 13.5 % (11.5-14.5) Platelet Count 211 x10^3/uL (140-400) Neutrophils (%) (Auto) 77 % (31-73) Lymphocytes (%) (Auto) 13 % (24-48) Monocytes (%) (Auto) 9 % (0-9) Eosinophils (%) (Auto) 0 % (0-3) Basophils (%) (Auto) 1 % (0-3) Neutrophils # (Auto) 4.7 x10^3/uL (1.8-7.7) Lymphocytes # (Auto) 0.8 x10^3/uL (1.0-4.8) Monocytes # (Auto) 0.6 x10^3/uL (0.0-1.1) Eosinophils # (Auto) 0.0 x10^3/uL (0.0-0.7) Basophils # (Auto) 0.0 x10^3/uL (0.0-0.2) Sodium Level 150 mmol/L (136-145) Potassium Level 4.4 mmol/L (3.5-5.1) Chloride Level 114 mmol/L (98-107) Carbon Dioxide Level 19 mmol/L (21-32) Anion Gap 17 (6-14) Blood Urea Nitrogen 35 mg/dL (8-26) Creatinine 1.7 mg/dL (0.7-1.3) Estimated GFR (Cockcroft-Gault) 40.7 Glucose Level 136 mg/dL (70-99) Calcium Level 9.4 mg/dL (8.5-10.1) Phosphorus Level 2.4 mg/dL (2.6-4.7) Magnesium Level 1.8 mg/dL (1.8-2.4) Albumin 3.2 g/dL (3.4-5.0) Glucose (Fingerstick) 131 mg/dL (70-99) 183 mg/dL (70-99) 204 mg/dL (70-99) Microbiology 07/21/20 Blood Culture - Preliminary, Resulted NO GROWTH AFTER 2 DAYS 07/20/20 Urine Culture - Final, Complete 07/20/20 Antimicrobic Susceptibility - Final, Complete Medications Current Medications Sodium Chloride 1,000 ml @ 1,000 mls/hr 1X ONCE IV Last administered on 07/20/20at 15:30; Start 07/20/20 at 15:30; Stop 07/20/20 at 16:29; Status DC Sodium Chloride 1,000 ml @ 1,000 mls/hr 1X ONCE IV Last administered on 07/20/20at 16:50; Start 07/20/20 at 16:45; Stop 07/20/20 at 17:44; Status DC Sodium Chloride 1,000 ml @ 1,000 mls/hr 1X ONCE IV Last administered on 07/20/20at 16:50; Start 07/20/20 at 16:00; Stop 07/20/20 at 16:59; Status DC Ondansetron HCl (Zofran) 4 mg PRN Q8HRS PRN IV NAUSEA/VOMITING; Start 07/20/20 at 17:45; Stop 07/21/20 at 17:44; Status DC Sodium Chloride 1,000 ml @ 100 mls/hr Q10H IV Last administered on 07/20/20at 17:45; Start 07/20/20 at 17:45; Stop 07/21/20 at 17:44; Status DC Aspirin (Aspirin Chewable) 81 mg DAILY PO Last administered on 07/22/20at 07:48; Start 07/21/20 at 09:00 Cetirizine HCl (ZyrTEC) 10 mg DAILY08 PO Last administered on 07/22/20at 13:06; Start 07/21/20 at 08:00 Furosemide (Lasix) 40 mg DAILY PO Last administered on 07/22/20at 07:48; Start 07/21/20 at 09:00 Gabapentin (Neurontin) 400 mg DAILY PO Last administered on 07/22/20at 07:48; Start 07/21/20 at 09:00; Stop 07/22/20 at 10:48; Status DC Glyburide (Diabeta) 5 mg DAILY08 PO Last administered on 07/22/20at 13:06; Start 07/21/20 at 08:00 Haloperidol (Haldol) 5 mg BID PO Last administered on 07/22/20at 07:48; Start 07/21/20 at 09:00 Ketoconazole (Nizoral 2% Shampoo) 1 diana SuWe TP ; Start 07/21/20 at 21:00 Levetiracetam (Keppra) 500 mg BID PO Last administered on 07/22/20at 07:48; Start 07/21/20 at 09:00; Stop 07/22/20 at 23:34; Status DC Lisinopril (Prinivil) 10 mg DAILY PO Last administered on 07/22/20at 07:49; Start 07/21/20 at 09:00 Lisinopril (Prinivil) 20 mg HS PO ; Start 07/21/20 at 21:00 Magnesium Hydroxide (Milk Of Magnesia) 400 mg DAILY PRN PO CONSTIPATION; Start 07/21/20 at 02:15; Status UNV Nystatin (Nystop) 1 diana BID TP Last administered on 07/23/20at 20:53; Start 07/21/20 at 09:00 Senna/Docusate Sodium (Senna Plus) 1 tab DAILY PO Last administered on 07/22/20at 13:06; Start 07/21/20 at 09:00 Simvastatin (Zocor) 40 mg QHS PO ; Start 07/21/20 at 21:00 Trazodone HCl (Desyrel) 100 mg QHS PO ; Start 07/21/20 at 21:00 Guaifenesin (Robitussin Dm) 10 ml PRN Q6HRS PRN PO COUGH; Start 07/21/20 at 02:30 Hydrocortisone (Cortaid) 1 diana PRN BID PRN TP ITCHING; Start 07/21/20 at 02:45 Insulin Glargine (Lantus Syringe) 10 unit DAILY08 SQ Last administered on 07/21/20at 13:22; Start 07/21/20 at 08:00 Non-Formulary Medication (Ipratropium/ Albuterol Sulfate (Combivent Respimat Inhal)) 1 inh PRN Q8HRS PRN IH SHORTNESS OF BREATH; Start 07/21/20 at 02:15; Status UNV Non-Formulary Medication (Metformin Hcl ) 1 tab BID PO ; Start 07/21/20 at 09:00; Status UNV Multivitamins (Thera M Plus) 1 tab DAILY PO Last administered on 07/22/20at 07:48; Start 07/21/20 at 09:00 Niacin (Niaspan) 500 mg QHS PO ; Start 07/21/20 at 21:00 Fish Oil (Fish Oil) 1,000 mg DAILY PO Last administered on 07/22/20at 13:06; Start 07/21/20 at 09:00 Quetiapine Fumarate (SEROquel) 50 mg BIDWMEALS PO Last administered on 07/22/20at 17:27; Start 07/21/20 at 08:00 Quetiapine Fumarate (SEROquel) 200 mg HS PO ; Start 07/21/20 at 21:00 Albuterol/ Ipratropium (Combivent Respimat 20-100 Mcg) 1 puff RTQID INH Last administered on 07/22/20at 17:26; Start 07/21/20 at 08:00 Dextrose (Dextrose 50%-Water Syringe) 12.5 gm PRN Q15MIN PRN IV SEE COMMENTS; Start 07/21/20 at 03:30 Magnesium Sulfate 50 ml @ 25 mls/hr PRN DAILY PRN IV for Mag < 1.7 on am labs; Start 07/21/20 at 09:45 Ceftriaxone Sodium (Rocephin) 1 gm Q24H IVP Last administered on 07/23/20at 11:08; Start 07/21/20 at 12:00 Doxycycline Hyclate (Vibra-Tab) 100 mg BID PO Last administered on 07/22/20at 07:48; Start 07/21/20 at 11:00; Stop 07/22/20 at 23:34; Status DC Ceftriaxone Sodium (Rocephin) 1 gm Q24H IVP ; Start 07/21/20 at 11:15; Status UNV Lorazepam (Ativan Inj) 2 mg PRN Q2HR PRN IVP ANXIETY / AGITATION Last administered on 07/23/20at 20:49; Start 07/21/20 at 11:15 Sodium Chloride 1,000 ml @ 75 mls/hr [id number] IV Last administered on 07/23/20at 20:52; Start 07/21/20 at 13:15 Heparin Sodium (Porcine) (Heparin Sodium) 5,000 unit Q12HR SQ Last administered on 07/23/20at 09:33; Start 07/21/20 at 21:00 Acetaminophen (Tylenol Supp) 650 mg PRN Q6HRS PRN [place] MILD PAIN / TEMP > 100.3'F; Start 07/21/20 at 20:30 Lactobacillus Rhamnosus (Culturelle) 1 cap BID PO ; Start 07/22/20 at 21:00 Metformin HCl (Glucophage) 1,000 mg BIDWMEALS PO ; Start 07/22/20 at 17:00 Gabapentin (Neurontin) 400 mg BID PO ; Start 07/22/20 at 21:00 Haloperidol Lactate (Haldol Inj) 5 mg PRN Q6HRS PRN IVP AGITATION Last administered on 07/23/20at 11:05; Start 07/22/20 at 14:15 Levetiracetam 500 mg/Dextrose 105 ml @ 420 mls/hr Q12HR IV Last administered on 07/23/20at 20:53; Start 07/23/20 at 00:00 Doxycycline Hyclate 100 mg/ Dextrose 100 ml @ 50 mls/hr 1X ONCE IV Last administered on 07/23/20at 00:24; Start 07/23/20 at 00:00; Stop 07/23/20 at 04:10; Status DC Lorazepam (Ativan Inj) 2 mg PRN Q4HRS PRN IVP ANXIETY / AGITATION; Start 07/22/20 at 23:45; Stop 07/22/20 at 23:48; Status DC Lorazepam (Ativan Inj) 2 mg PRN Q15MIN PRN IVP SEIZURE; Start 07/23/20 at 00:00 Methylprednisolone Sodium Succinate (SOLU-Medrol 40MG VIAL) 40 mg Q12HR IV Last administered on 07/23/20at 20:53; Start 07/23/20 at 10:30 Nicotine (Nicoderm Cq 21mg) 1 patch DAILY TD Last administered on 07/23/20at 12:32; Start 07/23/20 at 12:00 Active Scripts Active Reported Acetaminophen 650 Mg/20.3 Ml Solution 650 Mg PO Q6HRS PRN Seroquel (Quetiapine Fumarate) 200 Mg Tablet 200 Mg PO HS Seroquel (Quetiapine Fumarate) 50 Mg Tablet 50 Mg PO BID Nystatin 15 Gm Powder 1 Daina TP BID 7 Days apply to affected area(s) Ketoconazole 120 Ml Shampoo 1 Diana TP TWICE WEEKLY 30 Days with at least 3 days between each shampooing Hydrocortisone 453.6 Gm Cream..g. 1 Diana TP PRN BID Haloperidol 5 Mg Tablet 1 Tab PO QAM Lisinopril 20 Mg Tablet 20 Mg PO HS PRN Furosemide 40 Mg Tablet 40 Mg PO DAILY Combivent Respimat Inhal (Ipratropium/Albuterol Sulfate) 4 Gm Aer.w.adap 1 Inh IH PRN Q8HRS PRN Levetiracetam 500 Mg Tablet 1 Tab PO BID Zetia (Ezetimibe) 10 Mg Tablet 1 Tab PO HS Niaspan (Niacin) 500 Mg Tab.er.24h 1 Tab PO QHS Aspirin 81 Mg Tab.chew 1 Tab PO DAILY Nicotine Gum (Nicotine Polacrilex) 4 Mg Gum 4 Mg BC Milk Of Magnesia (Magnesium Hydroxide) 400 Mg/5 Ml Oral.susp 400 Mg PO DAILY PRN Duoneb 0.5-3(2.5) Mg/3 Ml (Albuterol/Ipratropium) 3 Ml Ampul.neb 3 Ml NEB QID Acetaminophen 325 Mg Tablet 325 Mg PO PRN Q4HRS PRN Robitussin Cough-Chest Dm Liq (Guaifenesin/Dextromethorphan) 118 Ml Liquid 10 Ml PO PRN Q6HRS PRN AD Days [place] 3 Fish Oil Softgel ([place]-3 Fatty Acids/Fish Oil) 1 Each Capsule. 1 Each PO DAILY Gabapentin (Gabapentin) 400 Mg Capsule 400 Mg PO TID Sennosides-Docusate Sodium Tab (Sennosides/Docusate Sodium) 1 Each Tablet 6-50 Each PO DAILY Metformin Hcl 1,000 Mg Tablet 1 Tab PO BID Haloperidol 5 Mg Tablet 5 Tab PO BID Zyrtec (Cetirizine Hcl) 10 Mg Tablet 1 Tab PO DAILY08 Trazodone Hcl 100 Mg Tablet 1 Tab PO QHS Simvastatin 40 Mg Tablet 1 Tab PO QHS Seroquel (Quetiapine Fumarate) 400 Mg Tablet 400 Tab PO QHS Multi Vitamin Daily (Multivitamin) 1 Each Tablet 1 Each PO DAILY Lisinopril 10 Mg Tablet 1 Tab PO DAILY Levemir (Insulin Detemir) 100 Unit/1 Ml Vial 10 Unit SQ DAILY08 Glyburide 5 Mg Tablet 1 Tab PO DAILY08 Effexor Xr (Venlafaxine Hcl) 150 Mg Cap.er.24h 1 Cap PO DAILY Vitals/I & O Vital Sign - Last 24 Hours 07/23/20 07/23/20 07/23/20 07/23/20 10:03 11:00 15:00 20:00 Temp 99.9 97.8 99.9 97.8 Pulse 110 106 110 Resp 30 40 B/P (MAP) 118/61 115/64 (81) 134/75 (94) Pulse Ox 96 95 O2 Delivery Nasal Cannula Nasal Cannula Nasal Cannula O2 Flow Rate 5.0 5.0 7.0 07/23/20 07/24/20 07/24/20 07/24/20 21:28 00:44 03:50 07:10 Temp 97.6 97.6 97.2 97.6 97.6 97.2 Pulse 106 106 110 102 B/P (MAP) 142/72 (95) 127/72 (90) 138/72 (94) 130/68 (88) Pulse Ox 90 O2 Delivery Nasal Cannula Nasal Cannula Nasal Cannula O2 Flow Rate 7.0 7.0 7.0 07/24/20 07:46 O2 Delivery Nasal Cannula O2 Flow Rate 7.0 Intake and Output 07/23/20 07/23/20 07/24/20 15:00 23:00 07:00 Intake Total 0 ml 0 ml Output Total 725 ml 700 ml Balance 0 ml -725 ml -700 ml Justicifation of Admission Dx: Justifications for Admission: Justification of Admission Dx: N/A SIMON VILLASENOR MD Jul 24, 2020 08:52
--- NOTE | 2020-07-24 09:30 | NUR ---
Dr. Krishna notified that pt is unable to tolerate oral intake due to unresponsiveness. No orders received at this time.
--- NOTE | 2020-07-24 10:32 | PDOC ---
PULMONARY PROGRESS NOTES DATE: 07/24/20 TIME: 10:30 Subjective Patient is on 7 L nasal cannula Continues to be agitated/confused No other concerns from nursing Vitals Vital Signs Date Time Temp Pulse Resp B/P (MAP) Pulse Ox O2 Delivery O2 Flow Rate FiO2 07/24/20 07:46 Nasal Cannula 7.0 07/24/20 07:10 97.2 102 130/68 (88) 97.2 07/23/20 21:28 90 07/23/20 15:00 40 Comments Patient seen during COVID- pandemic, visual exam performed RR and Rhythm Lethargic On nasal cannula Obese No obvious rash or edema General: Confused Lungs: Clear Cardiovascular: S1, S2 Labs Laboratory Tests Test 07/22/20 11:45 07/22/20 11:57 07/22/20 16:54 07/23/20 08:40 White Blood Count 5.9 x10^3/uL (4.0-11.0) Red Blood Count 3.42 x10^6/uL (4.30-5.70) Hemoglobin 10.4 g/dL (13.0-17.5) Hematocrit 31.5 % (39.0-53.0) Mean Corpuscular Volume 92 fL (79-100) Mean Corpuscular Hemoglobin 30 pg (25-35) Mean Corpuscular Hemoglobin Concent 33 g/dL (31-37) Red Cell Distribution Width 13.6 % (11.5-14.5) Platelet Count 172 x10^3/uL (140-400) Neutrophils (%) (Auto) 86 % (31-73) Lymphocytes (%) (Auto) 8 % (24-48) Monocytes (%) (Auto) 6 % (0-9) Eosinophils (%) (Auto) 0 % (0-3) Basophils (%) (Auto) 0 % (0-3) Neutrophils # (Auto) 5.0 x10^3/uL (1.8-7.7) Lymphocytes # (Auto) 0.5 x10^3/uL (1.0-4.8) Monocytes # (Auto) 0.4 x10^3/uL (0.0-1.1) Eosinophils # (Auto) 0.0 x10^3/uL (0.0-0.7) Basophils # (Auto) 0.0 x10^3/uL (0.0-0.2) Segmented Neutrophils % 61 % (35-66) Band Neutrophils % 21 % (0-9) Lymphocytes % 13 % (24-48) Monocytes % 5 % (0-10) Platelet Estimate Adequate (ADEQUATE) Sodium Level 146 mmol/L (136-145) Potassium Level 4.8 mmol/L (3.5-5.1) Chloride Level 112 mmol/L (98-107) Carbon Dioxide Level 20 mmol/L (21-32) Anion Gap 14 (6-14) Blood Urea Nitrogen 36 mg/dL (8-26) Creatinine 1.6 mg/dL (0.7-1.3) Estimated GFR (Cockcroft-Gault) 43.6 Glucose Level 116 mg/dL (70-99) Calcium Level 8.5 mg/dL (8.5-10.1) Phosphorus Level 3.2 mg/dL (2.6-4.7) Magnesium Level 1.8 mg/dL (1.8-2.4) Albumin 3.1 g/dL (3.4-5.0) Glucose (Fingerstick) 128 mg/dL (70-99) 129 mg/dL (70-99) 144 mg/dL (70-99) Test 07/23/20 09:35 07/23/20 11:58 07/23/20 17:45 07/24/20 07:36 White Blood Count 6.1 x10^3/uL (4.0-11.0) Red Blood Count 3.47 x10^6/uL (4.30-5.70) Hemoglobin 10.7 g/dL (13.0-17.5) Hematocrit 31.6 % (39.0-53.0) Mean Corpuscular Volume 91 fL (79-100) Mean Corpuscular Hemoglobin 31 pg (25-35) Mean Corpuscular Hemoglobin Concent 34 g/dL (31-37) Red Cell Distribution Width 13.5 % (11.5-14.5) Platelet Count 211 x10^3/uL (140-400) Neutrophils (%) (Auto) 77 % (31-73) Lymphocytes (%) (Auto) 13 % (24-48) Monocytes (%) (Auto) 9 % (0-9) Eosinophils (%) (Auto) 0 % (0-3) Basophils (%) (Auto) 1 % (0-3) Neutrophils # (Auto) 4.7 x10^3/uL (1.8-7.7) Lymphocytes # (Auto) 0.8 x10^3/uL (1.0-4.8) Monocytes # (Auto) 0.6 x10^3/uL (0.0-1.1) Eosinophils # (Auto) 0.0 x10^3/uL (0.0-0.7) Basophils # (Auto) 0.0 x10^3/uL (0.0-0.2) Sodium Level 150 mmol/L (136-145) Potassium Level 4.4 mmol/L (3.5-5.1) Chloride Level 114 mmol/L (98-107) Carbon Dioxide Level 19 mmol/L (21-32) Anion Gap 17 (6-14) Blood Urea Nitrogen 35 mg/dL (8-26) Creatinine 1.7 mg/dL (0.7-1.3) Estimated GFR (Cockcroft-Gault) 40.7 Glucose Level 136 mg/dL (70-99) Calcium Level 9.4 mg/dL (8.5-10.1) Phosphorus Level 2.4 mg/dL (2.6-4.7) Magnesium Level 1.8 mg/dL (1.8-2.4) Albumin 3.2 g/dL (3.4-5.0) Glucose (Fingerstick) 131 mg/dL (70-99) 183 mg/dL (70-99) 204 mg/dL (70-99) Laboratory Tests Test 07/23/20 11:58 07/23/20 17:45 07/24/20 07:36 Glucose (Fingerstick) 131 mg/dL (70-99) 183 mg/dL (70-99) 204 mg/dL (70-99) Medications Active Scripts Medications Dose Route/Sig Max Daily Dose Days Date Category Dose Instructions Acetaminophen 650 Mg/20.3 Ml Solution 650 Mg PO Q6HRS PRN 07/21/20 Reported Seroquel (Quetiapine Fumarate) 200 Mg Tablet 200 Mg PO HS 07/21/20 Reported Seroquel (Quetiapine Fumarate) 50 Mg Tablet 50 Mg PO BID 07/21/20 Reported Nystatin 15 Gm Powder 1 Diana TP BID 7 07/21/20 Reported apply to affected area(s) Ketoconazole 120 Ml Shampoo 1 Diana TP TWICE WEEKLY 30 07/21/20 Reported with at least 3 days between each shampooing Hydrocortisone 453.6 Gm Cream..g. 1 Diana TP PRN BID 07/21/20 Reported Haloperidol 5 Mg Tablet 1 Tab PO QAM 07/21/20 Reported Lisinopril 20 Mg Tablet 20 Mg PO HS PRN 07/21/20 Reported Furosemide 40 Mg Tablet 40 Mg PO DAILY 07/21/20 Reported Combivent Respimat Inhal (Ipratropium/Albuterol Sulfate) 4 Gm Aer.w.adap 1 Inh IH PRN Q8HRS PRN 09/25/16 Reported Levetiracetam 500 Mg Tablet 1 Tab PO BID 09/25/16 Reported Zetia (Ezetimibe) 10 Mg Tablet 1 Tab PO HS 09/25/16 Reported Niaspan (Niacin) 500 Mg Tab.er.24h 1 Tab PO QHS 09/25/16 Reported Aspirin 81 Mg Tab.chew 1 Tab PO DAILY 09/13/16 Reported Nicotine Gum (Nicotine Polacrilex) 4 Mg Gum 4 Mg BC 09/13/16 Reported Milk Of Magnesia (Magnesium Hydroxide) 400 Mg/5 Ml Oral.susp 400 Mg PO DAILY PRN 09/13/16 Reported Duoneb 0.5-3(2.5) Mg/3 Ml (Albuterol/Ipratropium) 3 Ml Ampul.neb 3 Ml NEB QID 09/13/16 Reported Acetaminophen 325 Mg Tablet 325 Mg PO PRN Q4HRS PRN 09/13/16 Reported Robitussin Cough-Chest Dm Liq (Guaifenesin/Dextromethorphan) 118 Ml Liquid 10 Ml PO PRN Q6HRS PRN AD 09/13/16 Reported [place] 3 Fish Oil Softgel ([place]-3 Fatty Acids/Fish Oil) 1 Each Capsule.dr 1 Each PO DAILY 09/13/16 Reported Gabapentin (Gabapentin) 400 Mg Capsule 400 Mg PO TID 09/13/16 Reported Sennosides-Docusate Sodium Tab (Sennosides/Docusate Sodium) 1 Each Tablet 6-50 Each PO DAILY 09/13/16 Reported Metformin Hcl 1,000 Mg Tablet 1 Tab PO BID 1/29/17 Reported Haloperidol 5 Mg Tablet 5 Tab PO BID 09/13/16 Reported Zyrtec (Cetirizine Hcl) 10 Mg Tablet 1 Tab PO DAILY08 09/13/16 Reported Trazodone Hcl 100 Mg Tablet 1 Tab PO QHS 09/13/16 Reported Simvastatin 40 Mg Tablet 1 Tab PO QHS 09/13/16 Reported Seroquel (Quetiapine Fumarate) 400 Mg Tablet 400 Tab PO QHS 09/13/16 Reported Multi Vitamin Daily (Multivitamin) 1 Each Tablet 1 Each PO DAILY 09/13/16 Reported Lisinopril 10 Mg Tablet 1 Tab PO DAILY 09/13/16 Reported Levemir (Insulin Detemir) 100 Unit/1 Ml Vial 10 Unit SQ DAILY08 09/13/16 Reported Glyburide 5 Mg Tablet 1 Tab PO DAILY08 09/13/16 Reported Effexor Xr (Venlafaxine Hcl) 150 Mg Cap.er.24h 1 Cap PO DAILY 09/13/16 Reported Comments CXR IMPRESSION: Diffuse hazy airspace disease may relate to pulmonary edema. Impression . IMPRESSION: 1. Acute respiratory failure secondary to pneumonia, rule out COVID-19 pneumonia. 2. Abnormal chest x-ray. 3. Acute kidney injury-- improving 4. COVID-19 person under investigation. 5. Hypotension, resolved. 6. History of congestive heart failure. 7. Diabetes mellitus. Plan . PLAN AND RECOMMENDATIONS: Continue supplemental oxygen to keep oxygen saturations greater than 92%, currently on 7 L nasal cannula, wean as tolerated Continue antibiotics, currently on Rocephin Covid positive Continue steroids, continue isolation precautions Influenza negative Follow blood cultures--NGTD Follow nephrology recommendations, worsening creatinine Follow neurology recommendations As needed Haldol for agitation DVT/GI prophylaxis Discussed with MIQUEL WILSON MD Jul 24, 2020 10:32
[2020-07-24] MEDS: NICOTINE 21MG PATCH. TD SCH (10:35)
[2020-07-24] MEDS: HEPARIN for SUB-Q USE 5,000 UNIT/ML VIAL. SQ SCH ×2 (10:36→21:33)
[2020-07-24 10:43] LABS: BASO % 0 % (0-3); EOS % 0 % (0-3); HEMATOCRIT 31.7 % (39.0-53.0); HEMOGLOBIN 10.8 g/dL (13.0-17.5); LYMPH # 0.5 x10^3/uL (1.0-4.8); LYMPH % 8 % (24-48); MEAN CORPUSCULAR HEMOGLOBIN 31 pg (25-35); MEAN CORPUSCULAR HGB CONC 34 g/dL (31-37); MEAN CORPUSCULAR VOLUME 91 fL (79-100); MONO # 0.8 x10^3/uL (0.0-1.1); MONO % 13 % (0-9); NEUT # 4.9 x10^3/uL (1.8-7.7); NEUT % 79 % (31-73); PLATELET COUNT 269 x10^3/uL (140-400); RED CELL DISTRIBUTION WIDTH 13.6 % (11.5-14.5); WHITE BLOOD COUNT 6.2 x10^3/uL (4.0-11.0)
[2020-07-24] MEDS: methylPREDNISolone SOD SUCC PF 40 MG/ML VIAL. IV SCH ×2 (10:53→21:25)
[2020-07-24] MEDS: NYSTATIN TOPICAL POWDER 15GM BOTTLE. TP SCH ×2 (10:53→21:00)
[2020-07-24] MEDS: levETIRAcetam 500 MG in IV DEXTROSE 5% 100ML 100 ML IV SCH ×2 (10:53→21:37)
[2020-07-24 11:00] LABS: ALBUMIN 3.3 g/dL (3.4-5.0); CALCIUM 9.3 mg/dL (8.5-10.1); CREATININE 1.7 mg/dL (0.7-1.3); GFR 40.7; PHOSPHORUS 3.7 mg/dL (2.6-4.7); POTASSIUM 4.7 mmol/L (3.5-5.1)
[2020-07-24 11:02] VITALS: BP 28/75
--- NOTE | 2020-07-24 11:09 | PDOC ---
Renal-Progress Notes Subjective Notes Notes CONFUSED History of Present Illness Hx of present illness STABLE Vitals Vitals Vital Signs Date Time Temp Pulse Resp B/P (MAP) Pulse Ox O2 Delivery O2 Flow Rate FiO2 07/24/20 07:46 Nasal Cannula 7.0 07/24/20 07:10 97.2 102 130/68 (88) 97.2 07/23/20 21:28 90 07/23/20 15:00 40 Weight Weight [ ] I.O. Intake and Output Intake and Output 07/24/20 07:00 Intake Total 0 ml Output Total 1425 ml Balance -1425 ml Intake Oral 0 ml Output Urine Total 1425 ml Labs Labs Laboratory Tests Test 07/23/20 11:58 07/23/20 17:45 07/24/20 07:36 07/24/20 09:58 Glucose (Fingerstick) 131 mg/dL (70-99) 183 mg/dL (70-99) 204 mg/dL (70-99) White Blood Count 6.2 x10^3/uL (4.0-11.0) Red Blood Count 3.50 x10^6/uL (4.30-5.70) Hemoglobin 10.8 g/dL (13.0-17.5) Hematocrit 31.7 % (39.0-53.0) Mean Corpuscular Volume 91 fL (79-100) Mean Corpuscular Hemoglobin 31 pg (25-35) Mean Corpuscular Hemoglobin Concent 34 g/dL (31-37) Red Cell Distribution Width 13.6 % (11.5-14.5) Platelet Count 269 x10^3/uL (140-400) Neutrophils (%) (Auto) 79 % (31-73) Lymphocytes (%) (Auto) 8 % (24-48) Monocytes (%) (Auto) 13 % (0-9) Eosinophils (%) (Auto) 0 % (0-3) Basophils (%) (Auto) 0 % (0-3) Neutrophils # (Auto) 4.9 x10^3/uL (1.8-7.7) Lymphocytes # (Auto) 0.5 x10^3/uL (1.0-4.8) Monocytes # (Auto) 0.8 x10^3/uL (0.0-1.1) Eosinophils # (Auto) 0.0 x10^3/uL (0.0-0.7) Basophils # (Auto) 0.0 x10^3/uL (0.0-0.2) Sodium Level 156 mmol/L (136-145) Potassium Level 4.7 mmol/L (3.5-5.1) Chloride Level 120 mmol/L (98-107) Carbon Dioxide Level 18 mmol/L (21-32) Anion Gap 18 (6-14) Blood Urea Nitrogen 48 mg/dL (8-26) Creatinine 1.7 mg/dL (0.7-1.3) Estimated GFR (Cockcroft-Gault) 40.7 Glucose Level 201 mg/dL (70-99) Calcium Level 9.3 mg/dL (8.5-10.1) Phosphorus Level 3.7 mg/dL (2.6-4.7) Magnesium Level 2.1 mg/dL (1.8-2.4) Albumin 3.3 g/dL (3.4-5.0) Micro Micro Microbiology 07/21/20 Blood Culture - Preliminary, Resulted NO GROWTH AFTER 2 DAYS 07/20/20 Urine Culture - Final, Complete 07/20/20 Antimicrobic Susceptibility - Final, Complete Review of Systems Constitutional: yes: other (CONFUSED) Physical Exam General Appearance: no apparent distress Skin: warm Respiratory: decreased breath sounds Heart: S1S2 Abdomen: soft, bowel sounds present Genitourinary: bladder flat Neurology: alert Musculoskeletal: Osteoarthritis, Other Assessment Assessment IMP BELLO-IMPROVING WITH CR DOWN TO 1.7 AG MET ACIDOSIS CKD WITH CR OF 1.4 IN 2017-SUSPECT PROGRESSION ACUTE RESP FAILURE SEIZURE HTN HX CHF HX DM II PLAN CONT HYDRATION-CHANGE TO HYPOTONIC SALINE INCREASE FLUID RATE SUSPECT CR MAY BE AT HIS NEW BASELINE STOP HIS LASIX AND LISINOPRIL CONSIDER STOPPING METFORMIN WILL FOLLOW JACQUELINE CERRATO MD Jul 24, 2020 11:09
--- NOTE | 2020-07-24 11:49 | PDOC ---
[employer] PROGRESS NOTE Date of Service DOS: DATE: 07/24/20 TIME: 11:47 Chief Complaint Chief Complaint Mental status change COVID-19 CHF, constipation, depression, diabetes, hypertension, hyperlipidemia, seizure, schizophrenia, UTI, dystonic movements, chronic pain, dermatitis, previous tobacco abuse, previous alcohol use, previous marijuana use. History of Present Illness History of Present Illness 07/24/2020 Patient seen and examined on the COVID-19 floor He is quite agitated this morning Discussed with RN Discussed with case management Chart reviewed Discussed with pulmonary 07/23/2022 Patient seen and examined on the COVID-19 unit Discussed with RN Discussed with case management Chart reviewed Patient had a seizure last p.m. 07/22/2020 Patient seen and examined on the COVID-19 unit His COVID-19 test is still pending He remains pleasantly confused semisedated Has a Lujan to bedside drainage On O2 per nasal cannula with 94% sat Has mitts on for patient safety Discussed with RN Discussed with case management 07/21/2020 Patient seen and examined Today he is a little more alert but does not talk just makes eye contact A little agitated so I had the nurse give him some Ativan that seems to have calmed him down Chart reviewed Vitals/I&O Vitals/I&O: Vital Signs Date Time Temp Pulse Resp B/P (MAP) Pulse Ox O2 Delivery O2 Flow Rate FiO2 07/24/20 11:02 98.2 111 28/75 (59) Nasal Cannula 7.0 98.2 07/23/20 21:28 90 07/23/20 15:00 40 I & O 07/23/20 07/23/20 07/24/20 15:00 23:00 07:00 Intake Total 0 ml 0 ml Output Total 725 ml 700 ml Balance 0 ml -725 ml -700 ml Physical Exam General: mild distress, Other (Pleasantly confused flat affect fidgeting) Heart: No murmurs Lungs: Clear Abdomen: Normal bowel sounds Extremities: No clubbing Skin: No rashes Labs Labs: Laboratory Tests Test 07/23/20 11:58 07/23/20 17:45 07/24/20 07:36 07/24/20 09:58 Glucose (Fingerstick) 131 mg/dL (70-99) 183 mg/dL (70-99) 204 mg/dL (70-99) White Blood Count 6.2 x10^3/uL (4.0-11.0) Red Blood Count 3.50 x10^6/uL (4.30-5.70) Hemoglobin 10.8 g/dL (13.0-17.5) Hematocrit 31.7 % (39.0-53.0) Mean Corpuscular Volume 91 fL (79-100) Mean Corpuscular Hemoglobin 31 pg (25-35) Mean Corpuscular Hemoglobin Concent 34 g/dL (31-37) Red Cell Distribution Width 13.6 % (11.5-14.5) Platelet Count 269 x10^3/uL (140-400) Neutrophils (%) (Auto) 79 % (31-73) Lymphocytes (%) (Auto) 8 % (24-48) Monocytes (%) (Auto) 13 % (0-9) Eosinophils (%) (Auto) 0 % (0-3) Basophils (%) (Auto) 0 % (0-3) Neutrophils # (Auto) 4.9 x10^3/uL (1.8-7.7) Lymphocytes # (Auto) 0.5 x10^3/uL (1.0-4.8) Monocytes # (Auto) 0.8 x10^3/uL (0.0-1.1) Eosinophils # (Auto) 0.0 x10^3/uL (0.0-0.7) Basophils # (Auto) 0.0 x10^3/uL (0.0-0.2) Sodium Level 156 mmol/L (136-145) Potassium Level 4.7 mmol/L (3.5-5.1) Chloride Level 120 mmol/L (98-107) Carbon Dioxide Level 18 mmol/L (21-32) Anion Gap 18 (6-14) Blood Urea Nitrogen 48 mg/dL (8-26) Creatinine 1.7 mg/dL (0.7-1.3) Estimated GFR (Cockcroft-Gault) 40.7 Glucose Level 201 mg/dL (70-99) Calcium Level 9.3 mg/dL (8.5-10.1) Phosphorus Level 3.7 mg/dL (2.6-4.7) Magnesium Level 2.1 mg/dL (1.8-2.4) Albumin 3.3 g/dL (3.4-5.0) Assessment and Plan Assessmemt and Plan Problems Medical Problems: (1) Acute renal failure Status: Acute (2) Altered mental status Status: Acute (3) Dehydration Status: Acute (4) Person under investigation for COVID-19 Status: Acute Mental status change Possible COVID-19 (Covid testing still pending) CHF, constipation, depression, diabetes, hypertension, hyperlipidemia, seizure, schizophrenia, UTI, dystonic movements, chronic pain, dermatitis, previous tobacco abuse, previous alcohol use, previous marijuana use. Plan COVID-19 isolation IV Rocephin IV azithromycin Beta agonist IV steroids Vitamins and minerals Home meds Trend labs DVT prophylaxis IV fluids Full code We have nephrology and pulmonary following Prognosis long-term guarded Appreciate subspecialist input As needed Ativan and Haldol If he does not improve soon I am concerned he could end up on hospice? CC time 31 Comment Review of Relevant I have reviewed the following items darryn (where applicable) has been applied. Medications: Current Medications Medications (Trade) Dose Ordered Sig/Kvng Route PRN Reason Start Time Stop Time Status Last Admin Dose Admin Nicotine (Nicoderm Cq 21mg) 1 patch DAILY TD 07/23/20 12:00 07/24/20 10:35 Justifications for Admission Other Justification NEGRO REYNA III DO Jul 24, 2020 11:49
[2020-07-24] MEDS ORDERED: AZITHROMYCIN 250 MG in IV NORMAL SALINE 250ML 250 ML IV SCH (12:00)
[2020-07-24] MEDS: IV 1/2 NORMAL SALINE 1,000 ML IV SCH ×2 (12:03→21:25)
[2020-07-24] MEDS: cefTRIAXone IV Push 1 GM VIAL. IVP SCH (12:06)
[2020-07-24] MEDS: AZITHROMYCIN 500 MG in IV NORMAL SALINE 250ML 250 ML IV SCH (12:09)
--- NOTE | 2020-07-24 17:44 | NUR ---
SW following for discharge planning. Spoke with RN and reviewed chart. Pt to return to [facility] on discharge. SW following.
[2020-07-24 19:00] VITALS: BP 143/95
[2020-07-24] MEDS: NIACIN ER 250 MG CAPSULE.ER PO SCH (19:57)
[2020-07-24] MEDS: traZODone 100 MG TABLET. PO SCH (19:57)
[2020-07-24] MEDS: SIMVASTATIN 40 MG TABLET. PO SCH (19:57)
[2020-07-24] MEDS: QUEtiapine 100 MG TABLET. PO SCH (19:57)
[2020-07-24] MEDS: KETOCONAZOLE 2% SHAMPOO 120ML BOTTLE. TP SCH (19:58)
[2020-07-24 23:43] VITALS: BP 150/90
[2020-07-25 03:00] VITALS: BP 141/96
[2020-07-25] MEDS: IV 1/2 NORMAL SALINE 1,000 ML IV SCH ×2 (04:43→21:47)
[2020-07-25 07:57] VITALS: BP 150/79
[2020-07-25] MEDS: glyBURIDE 5 MG TABLET PO SCH (08:00)
[2020-07-25] MEDS: metFORMIN 500 MG TABLET PO SCH ×2 (08:00→15:52)
[2020-07-25] MEDS: CETIRIZINE HCL 10 MG TABLET. PO SCH (08:00)
[2020-07-25] MEDS: QUEtiapine 25 MG TABLET. PO SCH ×2 (08:00→15:52)
[2020-07-25] MEDS: AZITHROMYCIN 500 MG in IV NORMAL SALINE 250ML 250 ML IV SCH (08:15)
[2020-07-25] MEDS: methylPREDNISolone SOD SUCC PF 40 MG/ML VIAL. IV SCH ×2 (08:16→21:45)
[2020-07-25] MEDS: INSULIN GLARGINE SYRINGE. SQ SCH (08:17)
[2020-07-25] MEDS: HEPARIN for SUB-Q USE 5,000 UNIT/ML VIAL. SQ SCH ×2 (08:17→21:48)
[2020-07-25] MEDS: IPRATROPIUM/ALBUTEROL 20/100mcg/INH INHALER. INH SCH ×4 (08:50→22:13)
[2020-07-25] MEDS: MULTIVITAMIN with MINERAL TABLET. PO SCH (09:00)
[2020-07-25] MEDS: SENNOSIDES/DOCUSATE 8.6/50MG TABLET. PO SCH (09:00)
[2020-07-25] MEDS: HALOPERIDOL 5 MG TABLET. PO SCH ×2 (09:00→22:13)
[2020-07-25] MEDS: ASPIRIN CHEWABLE 81 MG TABLET. PO SCH (09:00)
[2020-07-25] MEDS: OMEGA-3 FATTY ACIDS/FISH OIL 1,000 MG CAPSULE. PO SCH (09:00)
[2020-07-25] MEDS: NYSTATIN TOPICAL POWDER 15GM BOTTLE. TP SCH ×2 (09:00→21:48)
[2020-07-25] MEDS: NICOTINE 21MG PATCH. TD SCH (09:00)
[2020-07-25] MEDS: LACTOBACILLUS RHAMNOSUS GG 1 CAPSULE. PO SCH ×2 (09:00→22:13)
[2020-07-25] MEDS ORDERED: AZITHRMYCN 500MG IVPB FOR OMNI 250 ML IV SCH (09:00)
[2020-07-25] MEDS: GABAPENTIN 400 MG CAPSULE. PO SCH ×2 (09:00→22:13)
[2020-07-25] MEDS: levETIRAcetam 500 MG in IV DEXTROSE 5% 100ML 100 ML IV SCH ×2 (10:29→21:47)
[2020-07-25 10:52] LABS: BASO # 0.1 x10^3/uL (0.0-0.2); BASO % 1 % (0-3); EOS % 0 % (0-3); HEMOGLOBIN 10.9 g/dL (13.0-17.5); LYMPH # 0.6 x10^3/uL (1.0-4.8); LYMPH % 5 % (24-48); MEAN CORPUSCULAR HEMOGLOBIN 30 pg (25-35); MEAN CORPUSCULAR HGB CONC 33 g/dL (31-37); MEAN CORPUSCULAR VOLUME 92 fL (79-100); MONO % 8 % (0-9); NEUT # 9.8 x10^3/uL (1.8-7.7); NEUT % 86 % (31-73); PLATELET COUNT 310 x10^3/uL (140-400); RED BLOOD COUNT 3.61 x10^6/uL (4.30-5.70); RED CELL DISTRIBUTION WIDTH 13.8 % (11.5-14.5); WHITE BLOOD COUNT 11.4 x10^3/uL (4.0-11.0)
[2020-07-25 11:06] LABS: ALBUMIN 3.1 g/dL (3.4-5.0); CALCIUM 9.3 mg/dL (8.5-10.1); CREATININE 1.7 mg/dL (0.7-1.3); GFR 40.7; PHOSPHORUS 3.7 mg/dL (2.6-4.7); POTASSIUM 4.7 mmol/L (3.5-5.1)
--- NOTE | 2020-07-25 11:08 | PDOC ---
PULMONARY PROGRESS NOTES DATE: 07/25/20 TIME: 11:05 Subjective Patient is on 7 L nasal cannula Continues to be agitated/confused No other concerns from nursing Vitals Vital Signs Date Time Temp Pulse Resp B/P (MAP) Pulse Ox O2 Delivery O2 Flow Rate FiO2 07/25/20 07:57 99.6 110 24 150/79 (102) 91 Nasal Cannula 7.0 99.6 Comments Patient seen during , visual exam performed RR and Rhythm Lethargic On nasal cannula accessory muscle use No obvious rash or edema General: Confused Lungs: Other (decreased BLL) Cardiovascular: S1, S2 Labs Laboratory Tests Test 07/23/20 11:58 07/23/20 17:45 07/24/20 07:36 07/24/20 09:58 Glucose (Fingerstick) 131 mg/dL (70-99) 183 mg/dL (70-99) 204 mg/dL (70-99) White Blood Count 6.2 x10^3/uL (4.0-11.0) Red Blood Count 3.50 x10^6/uL (4.30-5.70) Hemoglobin 10.8 g/dL (13.0-17.5) Hematocrit 31.7 % (39.0-53.0) Mean Corpuscular Volume 91 fL (79-100) Mean Corpuscular Hemoglobin 31 pg (25-35) Mean Corpuscular Hemoglobin Concent 34 g/dL (31-37) Red Cell Distribution Width 13.6 % (11.5-14.5) Platelet Count 269 x10^3/uL (140-400) Neutrophils (%) (Auto) 79 % (31-73) Lymphocytes (%) (Auto) 8 % (24-48) Monocytes (%) (Auto) 13 % (0-9) Eosinophils (%) (Auto) 0 % (0-3) Basophils (%) (Auto) 0 % (0-3) Neutrophils # (Auto) 4.9 x10^3/uL (1.8-7.7) Lymphocytes # (Auto) 0.5 x10^3/uL (1.0-4.8) Monocytes # (Auto) 0.8 x10^3/uL (0.0-1.1) Eosinophils # (Auto) 0.0 x10^3/uL (0.0-0.7) Basophils # (Auto) 0.0 x10^3/uL (0.0-0.2) Sodium Level 156 mmol/L (136-145) Potassium Level 4.7 mmol/L (3.5-5.1) Chloride Level 120 mmol/L (98-107) Carbon Dioxide Level 18 mmol/L (21-32) Anion Gap 18 (6-14) Blood Urea Nitrogen 48 mg/dL (8-26) Creatinine 1.7 mg/dL (0.7-1.3) Estimated GFR (Cockcroft-Gault) 40.7 Glucose Level 201 mg/dL (70-99) Calcium Level 9.3 mg/dL (8.5-10.1) Phosphorus Level 3.7 mg/dL (2.6-4.7) Magnesium Level 2.1 mg/dL (1.8-2.4) Albumin 3.3 g/dL (3.4-5.0) Test 07/24/20 11:42 07/24/20 20:21 07/25/20 07:37 Glucose (Fingerstick) 211 mg/dL (70-99) 223 mg/dL (70-99) 251 mg/dL (70-99) Laboratory Tests Test 07/24/20 11:42 07/24/20 20:21 07/25/20 07:37 Glucose (Fingerstick) 211 mg/dL (70-99) 223 mg/dL (70-99) 251 mg/dL (70-99) Medications Active Scripts Medications Dose Route/Sig Max Daily Dose Days Date Category Dose Instructions Acetaminophen 650 Mg/20.3 Ml Solution 650 Mg PO Q6HRS PRN 07/21/20 Reported Seroquel (Quetiapine Fumarate) 200 Mg Tablet 200 Mg PO HS 07/21/20 Reported Seroquel (Quetiapine Fumarate) 50 Mg Tablet 50 Mg PO BID 07/21/20 Reported Nystatin 15 Gm Powder 1 Diana TP BID 7 07/21/20 Reported apply to affected area(s) Ketoconazole 120 Ml Shampoo 1 Diana TP TWICE WEEKLY 30 07/21/20 Reported with at least 3 days between each shampooing Hydrocortisone 453.6 Gm Cream..g. 1 Diana TP PRN BID 07/21/20 Reported Haloperidol 5 Mg Tablet 1 Tab PO QAM 07/21/20 Reported Lisinopril 20 Mg Tablet 20 Mg PO HS PRN 07/21/20 Reported Furosemide 40 Mg Tablet 40 Mg PO DAILY 07/21/20 Reported Combivent Respimat Inhal (Ipratropium/Albuterol Sulfate) 4 Gm Aer.w.adap 1 Inh IH PRN Q8HRS PRN 09/25/16 Reported Levetiracetam 500 Mg Tablet 1 Tab PO BID 09/25/16 Reported Zetia (Ezetimibe) 10 Mg Tablet 1 Tab PO HS 09/25/16 Reported Niaspan (Niacin) 500 Mg Tab.er.24h 1 Tab PO QHS 09/25/16 Reported Aspirin 81 Mg Tab.chew 1 Tab PO DAILY 09/13/16 Reported Nicotine Gum (Nicotine Polacrilex) 4 Mg Gum 4 Mg BC 09/13/16 Reported Milk Of Magnesia (Magnesium Hydroxide) 400 Mg/5 Ml Oral.susp 400 Mg PO DAILY PRN 09/13/16 Reported Duoneb 0.5-3(2.5) Mg/3 Ml (Albuterol/Ipratropium) 3 Ml Ampul.neb 3 Ml NEB QID 09/13/16 Reported Acetaminophen 325 Mg Tablet 325 Mg PO PRN Q4HRS PRN 09/13/16 Reported Robitussin Cough-Chest Dm Liq (Guaifenesin/Dextromethorphan) 118 Ml Liquid 10 Ml PO PRN Q6HRS PRN AD 09/13/16 Reported [place] 3 Fish Oil Softgel ([place]-3 Fatty Acids/Fish Oil) 1 Each Capsule. 1 Each PO DAILY 09/13/16 Reported Gabapentin (Gabapentin) 400 Mg Capsule 400 Mg PO TID 09/13/16 Reported Sennosides-Docusate Sodium Tab (Sennosides/Docusate Sodium) 1 Each Tablet 6-50 Each PO DAILY 09/13/16 Reported Metformin Hcl 1,000 Mg Tablet 1 Tab PO BID 09/13/16 Reported Haloperidol 5 Mg Tablet 5 Tab PO BID 09/13/16 Reported Zyrtec (Cetirizine Hcl) 10 Mg Tablet 1 Tab PO DAILY08 09/13/16 Reported Trazodone Hcl 100 Mg Tablet 1 Tab PO QHS 09/13/16 Reported Simvastatin 40 Mg Tablet 1 Tab PO QHS 09/13/16 Reported Seroquel (Quetiapine Fumarate) 400 Mg Tablet 400 Tab PO QHS 09/13/16 Reported Multi Vitamin Daily (Multivitamin) 1 Each Tablet 1 Each PO DAILY 09/13/16 Reported Lisinopril 10 Mg Tablet 1 Tab PO DAILY 09/13/16 Reported Levemir (Insulin Detemir) 100 Unit/1 Ml Vial 10 Unit SQ DAILY08 09/13/16 Reported Glyburide 5 Mg Tablet 1 Tab PO DAILY08 09/13/16 Reported Effexor Xr (Venlafaxine Hcl) 150 Mg Cap.er.24h 1 Cap PO DAILY 09/13/16 Reported Comments CXR IMPRESSION: Diffuse hazy airspace disease may relate to pulmonary edema. Impression . IMPRESSION: 1. Acute respiratory failure secondary to pneumonia, rule out COVID-19 pneumonia. 2. Abnormal chest x-ray. 3. Acute kidney injury-- improving 4. COVID-19 positive 5. Hypotension, resolved. 6. History of congestive heart failure. 7. Diabetes mellitus. 8. Encephalopathy, persistent. Plan . PLAN AND RECOMMENDATIONS: Continue supplemental oxygen to keep oxygen saturations greater than 92%, currently on 7 L nasal cannula Continue antibiotics, currently on Rocephin and azithro Covid positive Continue steroids, continue isolation precautions Influenza negative Follow blood cultures--NGTD Follow nephrology recommendations Follow neurology recommendations As needed Haldol for agitation DVT/GI prophylaxis Discussed with RN will discuss with Brother Adriano, Pt. is candidate for hospice, social work has contacted [facility] . I was unable to reach him today MIQUEL MILLS MD Jul 25, 2020 11:08
[2020-07-25 11:37] VITALS: BP 145/74
[2020-07-25] MEDS: cefTRIAXone IV Push 1 GM VIAL. IVP SCH (11:45)
--- NOTE | 2020-07-25 11:51 | PDOC ---
PROGRESS NOTES Date of Service: DATE: 07/25/20 TIME: 11:49 Chief Complaint Chief Complaint Mental status change dementia, COVID-19 with acute encephalopathy acute hypoxic respiratory failure CHF, constipation, depression, diabetes, hypertension, hyperlipidemia, seizure, schizophrenia, UTI, dystonic movements, chronic pain, dermatitis, previous tobacco abuse, previous alcohol use, previous marijuana use. History of Present Illness History of Present Illness 07/25, hospice referral for dementia with covid and encepahlopathy, not taking PO 07/24/2020 [facility] He is quite agitated this morning Discussed with RN Discussed with case management Chart reviewed Discussed with pulmonary 07/23/2022 Patient seen and examined on the [facility]19 unit Discussed with RN Discussed with case management Chart reviewed Patient had a seizure last p.m. 07/22/2020 Patient seen and examined on the COVID-19 unit His COVID-19 test is still pending He remains pleasantly confused semisedated Has a Lujan to bedside drainage On O2 per nasal cannula with 94% sat Has mitts on for patient safety Discussed with RN Discussed with case management 07/21/2020 Patient seen and examined Today he is a little more alert but does not talk just makes eye contact A little agitated so I had the nurse give him some Ativan that seems to have calmed him down Chart reviewed Vitals Vitals Vital Signs Date Time Temp Pulse Resp B/P (MAP) Pulse Ox O2 Delivery O2 Flow Rate FiO2 07/25/20 11:37 99.5 114 26 145/74 (97) 91 Nasal Cannula 7.0 99.5 Physical Exam General: mild distress, Other (Pleasantly confused flat affect fidgeting) Heart: No murmurs Lungs: Other (decreased BLL) Abdomen: Normal bowel sounds Extremities: No clubbing Skin: No rashes Labs LABS Laboratory Tests Test 07/24/20 20:21 07/25/20 07:37 07/25/20 09:45 07/25/20 10:41 Glucose (Fingerstick) 223 mg/dL (70-99) 251 mg/dL (70-99) 229 mg/dL (70-99) White Blood Count 11.4 x10^3/uL (4.0-11.0) Red Blood Count 3.61 x10^6/uL (4.30-5.70) Hemoglobin 10.9 g/dL (13.0-17.5) Hematocrit 33.0 % (39.0-53.0) Mean Corpuscular Volume 92 fL (79-100) Mean Corpuscular Hemoglobin 30 pg (25-35) Mean Corpuscular Hemoglobin Concent 33 g/dL (31-37) Red Cell Distribution Width 13.8 % (11.5-14.5) Platelet Count 310 x10^3/uL (140-400) Neutrophils (%) (Auto) 86 % (31-73) Lymphocytes (%) (Auto) 5 % (24-48) Monocytes (%) (Auto) 8 % (0-9) Eosinophils (%) (Auto) 0 % (0-3) Basophils (%) (Auto) 1 % (0-3) Neutrophils # (Auto) 9.8 x10^3/uL (1.8-7.7) Lymphocytes # (Auto) 0.6 x10^3/uL (1.0-4.8) Monocytes # (Auto) 1.0 x10^3/uL (0.0-1.1) Eosinophils # (Auto) 0.0 x10^3/uL (0.0-0.7) Basophils # (Auto) 0.1 x10^3/uL (0.0-0.2) Sodium Level 159 mmol/L (136-145) Potassium Level 4.7 mmol/L (3.5-5.1) Chloride Level 124 mmol/L (98-107) Carbon Dioxide Level 20 mmol/L (21-32) Anion Gap 15 (6-14) Blood Urea Nitrogen 53 mg/dL (8-26) Creatinine 1.7 mg/dL (0.7-1.3) Estimated GFR (Cockcroft-Gault) 40.7 Glucose Level 239 mg/dL (70-99) Calcium Level 9.3 mg/dL (8.5-10.1) Phosphorus Level 3.7 mg/dL (2.6-4.7) Magnesium Level 2.3 mg/dL (1.8-2.4) Albumin 3.1 g/dL (3.4-5.0) Assessment and Plan Assessmemt and Plan Problems Medical Problems: (1) Acute renal failure Status: Acute (2) Altered mental status Status: Acute (3) Dehydration Status: Acute (4) Person under investigation for COVID-19 Status: Acute Comment Review of Relevant I have reviewed the following items darryn (where applicable) has been applied. Labs Laboratory Tests Test 07/23/20 11:58 07/23/20 17:45 07/24/20 07:36 07/24/20 09:58 Glucose (Fingerstick) 131 mg/dL (70-99) 183 mg/dL (70-99) 204 mg/dL (70-99) White Blood Count 6.2 x10^3/uL (4.0-11.0) Red Blood Count 3.50 x10^6/uL (4.30-5.70) Hemoglobin 10.8 g/dL (13.0-17.5) Hematocrit 31.7 % (39.0-53.0) Mean Corpuscular Volume 91 fL (79-100) Mean Corpuscular Hemoglobin 31 pg (25-35) Mean Corpuscular Hemoglobin Concent 34 g/dL (31-37) Red Cell Distribution Width 13.6 % (11.5-14.5) Platelet Count 269 x10^3/uL (140-400) Neutrophils (%) (Auto) 79 % (31-73) Lymphocytes (%) (Auto) 8 % (24-48) Monocytes (%) (Auto) 13 % (0-9) Eosinophils (%) (Auto) 0 % (0-3) Basophils (%) (Auto) 0 % (0-3) Neutrophils # (Auto) 4.9 x10^3/uL (1.8-7.7) Lymphocytes # (Auto) 0.5 x10^3/uL (1.0-4.8) Monocytes # (Auto) 0.8 x10^3/uL (0.0-1.1) Eosinophils # (Auto) 0.0 x10^3/uL (0.0-0.7) Basophils # (Auto) 0.0 x10^3/uL (0.0-0.2) Sodium Level 156 mmol/L (136-145) Potassium Level 4.7 mmol/L (3.5-5.1) Chloride Level 120 mmol/L (98-107) Carbon Dioxide Level 18 mmol/L (21-32) Anion Gap 18 (6-14) Blood Urea Nitrogen 48 mg/dL (8-26) Creatinine 1.7 mg/dL (0.7-1.3) Estimated GFR (Cockcroft-Gault) 40.7 Glucose Level 201 mg/dL (70-99) Calcium Level 9.3 mg/dL (8.5-10.1) Phosphorus Level 3.7 mg/dL (2.6-4.7) Magnesium Level 2.1 mg/dL (1.8-2.4) Albumin 3.3 g/dL (3.4-5.0) Test 07/24/20 11:42 07/24/20 20:21 07/25/20 07:37 07/25/20 09:45 Glucose (Fingerstick) 211 mg/dL (70-99) 223 mg/dL (70-99) 251 mg/dL (70-99) White Blood Count 11.4 x10^3/uL (4.0-11.0) Red Blood Count 3.61 x10^6/uL (4.30-5.70) Hemoglobin 10.9 g/dL (13.0-17.5) Hematocrit 33.0 % (39.0-53.0) Mean Corpuscular Volume 92 fL (79-100) Mean Corpuscular Hemoglobin 30 pg (25-35) Mean Corpuscular Hemoglobin Concent 33 g/dL (31-37) Red Cell Distribution Width 13.8 % (11.5-14.5) Platelet Count 310 x10^3/uL (140-400) Neutrophils (%) (Auto) 86 % (31-73) Lymphocytes (%) (Auto) 5 % (24-48) Monocytes (%) (Auto) 8 % (0-9) Eosinophils (%) (Auto) 0 % (0-3) Basophils (%) (Auto) 1 % (0-3) Neutrophils # (Auto) 9.8 x10^3/uL (1.8-7.7) Lymphocytes # (Auto) 0.6 x10^3/uL (1.0-4.8) Monocytes # (Auto) 1.0 x10^3/uL (0.0-1.1) Eosinophils # (Auto) 0.0 x10^3/uL (0.0-0.7) Basophils # (Auto) 0.1 x10^3/uL (0.0-0.2) Sodium Level 159 mmol/L (136-145) Potassium Level 4.7 mmol/L (3.5-5.1) Chloride Level 124 mmol/L (98-107) Carbon Dioxide Level 20 mmol/L (21-32) Anion Gap 15 (6-14) Blood Urea Nitrogen 53 mg/dL (8-26) Creatinine 1.7 mg/dL (0.7-1.3) Estimated GFR (Cockcroft-Gault) 40.7 Glucose Level 239 mg/dL (70-99) Calcium Level 9.3 mg/dL (8.5-10.1) Phosphorus Level 3.7 mg/dL (2.6-4.7) Magnesium Level 2.3 mg/dL (1.8-2.4) Albumin 3.1 g/dL (3.4-5.0) Test 07/25/20 10:41 Glucose (Fingerstick) 229 mg/dL (70-99) Laboratory Tests Test 07/24/20 20:21 07/25/20 07:37 07/25/20 09:45 07/25/20 10:41 Glucose (Fingerstick) 223 mg/dL (70-99) 251 mg/dL (70-99) 229 mg/dL (70-99) White Blood Count 11.4 x10^3/uL (4.0-11.0) Red Blood Count 3.61 x10^6/uL (4.30-5.70) Hemoglobin 10.9 g/dL (13.0-17.5) Hematocrit 33.0 % (39.0-53.0) Mean Corpuscular Volume 92 fL (79-100) Mean Corpuscular Hemoglobin 30 pg (25-35) Mean Corpuscular Hemoglobin Concent 33 g/dL (31-37) Red Cell Distribution Width 13.8 % (11.5-14.5) Platelet Count 310 x10^3/uL (140-400) Neutrophils (%) (Auto) 86 % (31-73) Lymphocytes (%) (Auto) 5 % (24-48) Monocytes (%) (Auto) 8 % (0-9) Eosinophils (%) (Auto) 0 % (0-3) Basophils (%) (Auto) 1 % (0-3) Neutrophils # (Auto) 9.8 x10^3/uL (1.8-7.7) Lymphocytes # (Auto) 0.6 x10^3/uL (1.0-4.8) Monocytes # (Auto) 1.0 x10^3/uL (0.0-1.1) Eosinophils # (Auto) 0.0 x10^3/uL (0.0-0.7) Basophils # (Auto) 0.1 x10^3/uL (0.0-0.2) Sodium Level 159 mmol/L (136-145) Potassium Level 4.7 mmol/L (3.5-5.1) Chloride Level 124 mmol/L (98-107) Carbon Dioxide Level 20 mmol/L (21-32) Anion Gap 15 (6-14) Blood Urea Nitrogen 53 mg/dL (8-26) Creatinine 1.7 mg/dL (0.7-1.3) Estimated GFR (Cockcroft-Gault) 40.7 Glucose Level 239 mg/dL (70-99) Calcium Level 9.3 mg/dL (8.5-10.1) Phosphorus Level 3.7 mg/dL (2.6-4.7) Magnesium Level 2.3 mg/dL (1.8-2.4) Albumin 3.1 g/dL (3.4-5.0) Microbiology 07/21/20 Blood Culture - Preliminary, Resulted NO GROWTH AFTER 3 DAYS 07/20/20 Urine Culture - Final, Complete 07/20/20 Antimicrobic Susceptibility - Final, Complete Medications Current Medications Sodium Chloride 1,000 ml @ 1,000 mls/hr 1X ONCE IV Last administered on 07/20/20at 15:30; Start 07/20/20 at 15:30; Stop 07/20/20 at 16:29; Status DC Sodium Chloride 1,000 ml @ 1,000 mls/hr 1X ONCE IV Last administered on 07/20/20at 16:50; Start 07/20/20 at 16:45; Stop 07/20/20 at 17:44; Status DC Sodium Chloride 1,000 ml @ 1,000 mls/hr 1X ONCE IV Last administered on 07/20/20at 16:50; Start 07/20/20 at 16:00; Stop 07/20/20 at 16:59; Status DC Ondansetron HCl (Zofran) 4 mg PRN Q8HRS PRN IV NAUSEA/VOMITING; Start 07/20/20 at 17:45; Stop 07/21/20 at 17:44; Status DC Sodium Chloride 1,000 ml @ 100 mls/hr Q10H IV Last administered on 07/20/20at 17:45; Start 07/20/20 at 17:45; Stop 07/21/20 at 17:44; Status DC Aspirin (Aspirin Chewable) 81 mg DAILY PO Last administered on 07/22/20at 07:48; Start 07/21/20 at 09:00 Cetirizine HCl (ZyrTEC) 10 mg DAILY08 PO Last administered on 07/22/20at 13:06; Start 07/21/20 at 08:00 Furosemide (Lasix) 40 mg DAILY PO Last administered on 07/22/20at 07:48; Start 07/21/20 at 09:00; Stop 07/24/20 at 11:10; Status DC Gabapentin (Neurontin) 400 mg DAILY PO Last administered on 07/22/20at 07:48; Start 07/21/20 at 09:00; Stop 07/22/20 at 10:48; Status DC Glyburide (Diabeta) 5 mg DAILY08 PO Last administered on 07/22/20at 13:06; Start 07/21/20 at 08:00 Haloperidol (Haldol) 5 mg BID PO Last administered on 07/22/20at 07:48; Start 07/21/20 at 09:00 Ketoconazole (Nizoral 2% Shampoo) 1 diana SuWe TP ; Start 07/21/20 at 21:00 Levetiracetam (Keppra) 500 mg BID PO Last administered on 07/22/20at 07:48; Start 07/21/20 at 09:00; Stop 07/22/20 at 23:34; Status DC Lisinopril (Prinivil) 10 mg DAILY PO Last administered on 07/22/20at 07:49; Start 07/21/20 at 09:00; Stop 07/24/20 at 11:10; Status DC Lisinopril (Prinivil) 20 mg HS PO ; Start 07/21/20 at 21:00; Stop 07/24/20 at 11:10; Status DC Magnesium Hydroxide (Milk Of Magnesia) 400 mg DAILY PRN PO CONSTIPATION; Start 07/21/20 at 02:15; Status UNV Nystatin (Nystop) 1 diana BID TP Last administered on 07/24/20at 21:00; Start 07/21/20 at 09:00 Senna/Docusate Sodium (Senna Plus) 1 tab DAILY PO Last administered on 07/22/20at 13:06; Start 07/21/20 at 09:00 Simvastatin (Zocor) 40 mg QHS PO ; Start 07/21/20 at 21:00 Trazodone HCl (Desyrel) 100 mg QHS PO ; Start 07/21/20 at 21:00 Guaifenesin (Robitussin Dm) 10 ml PRN Q6HRS PRN PO COUGH; Start 07/21/20 at 02:30 Hydrocortisone (Cortaid) 1 diana PRN BID PRN TP ITCHING; Start 07/21/20 at 02:45 Insulin Glargine (Lantus Syringe) 10 unit DAILY08 SQ Last administered on 07/25/20at 08:17; Start 07/21/20 at 08:00 Non-Formulary Medication (Ipratropium/ Albuterol Sulfate (Combivent Respimat Inhal)) 1 inh PRN Q8HRS PRN IH SHORTNESS OF BREATH; Start 07/21/20 at 02:15; Status UNV Non-Formulary Medication (Metformin Hcl ) 1 tab BID PO ; Start 07/21/20 at 09:00; Status UNV Multivitamins (Thera M Plus) 1 tab DAILY PO Last administered on 07/22/20at 07:48; Start 07/21/20 at 09:00 Niacin (Niaspan) 500 mg QHS PO ; Start 07/21/20 at 21:00 Fish Oil (Fish Oil) 1,000 mg DAILY PO Last administered on 07/22/20at 13:06; Start 07/21/20 at 09:00 Quetiapine Fumarate (SEROquel) 50 mg BIDWMEALS PO Last administered on 07/22/20at 17:27; Start 07/21/20 at 08:00 Quetiapine Fumarate (SEROquel) 200 mg HS PO ; Start 07/21/20 at 21:00 Albuterol/ Ipratropium (Combivent Respimat 20-100 Mcg) 1 puff RTQID INH Last administered on 07/25/20at 08:50; Start 07/21/20 at 08:00 Dextrose (Dextrose 50%-Water Syringe) 12.5 gm PRN Q15MIN PRN IV SEE COMMENTS; Start 07/21/20 at 03:30 Magnesium Sulfate 50 ml @ 25 mls/hr PRN DAILY PRN IV for Mag < 1.7 on am labs; Start 07/21/20 at 09:45 Ceftriaxone Sodium (Rocephin) 1 gm Q24H IVP Last administered on 07/24/20at 12:06; Start 07/21/20 at 12:00 Doxycycline Hyclate (Vibra-Tab) 100 mg BID PO Last administered on 07/22/20at 07:48; Start 07/21/20 at 11:00; Stop 07/22/20 at 23:34; Status DC Ceftriaxone Sodium (Rocephin) 1 gm Q24H IVP ; Start 07/21/20 at 11:15; Status UNV Lorazepam (Ativan Inj) 2 mg PRN Q2HR PRN IVP ANXIETY / AGITATION Last administered on 07/24/20at 17:40; Start 07/21/20 at 11:15 Sodium Chloride 1,000 ml @ 100 mls/hr Q10H IV Last administered on 07/25/20at 04:43; Start 07/21/20 at 13:15 Heparin Sodium (Porcine) (Heparin Sodium) 5,000 unit Q12HR SQ Last administered on 07/25/20at 08:17; Start 07/21/20 at 21:00 Acetaminophen (Tylenol Supp) 650 mg PRN Q6HRS PRN SC MILD PAIN / TEMP > 100.3'F ; Start 07/21/20 at 20:30 Lactobacillus Rhamnosus (Culturelle) 1 cap BID PO ; Start 07/22/20 at 21:00 Metformin HCl (Glucophage) 1,000 mg BIDWMEALS PO ; Start 07/22/20 at 17:00 Gabapentin (Neurontin) 400 mg BID PO ; Start 07/22/20 at 21:00 Haloperidol Lactate (Haldol Inj) 5 mg PRN Q6HRS PRN IVP AGITATION Last administered on 07/23/20at 11:05; Start 07/22/20 at 14:15 Levetiracetam 500 mg/Dextrose 105 ml @ 420 mls/hr Q12HR IV Last administered on 07/25/20at 10:29; Start 07/23/20 at 00:00 Doxycycline Hyclate 100 mg/ Dextrose 100 ml @ 50 mls/hr 1X ONCE IV Last administered on 07/23/20at 00:24; Start 07/23/20 at 00:00; Stop 07/23/20 at 04:10; Status DC Lorazepam (Ativan Inj) 2 mg PRN Q4HRS PRN IVP ANXIETY / AGITATION; Start 07/22/20 at 23:45; Stop 07/22/20 at 23:48; Status DC Lorazepam (Ativan Inj) 2 mg PRN Q15MIN PRN IVP SEIZURE; Start 07/23/20 at 00:00 Methylprednisolone Sodium Succinate (SOLU-Medrol 40MG VIAL) 40 mg Q12HR IV Last administered on 07/25/20at 08:16; Start 07/23/20 at 10:30 Nicotine (Nicoderm Cq 21mg) 1 patch DAILY TD Last administered on 07/24/20at 10:35; Start 07/23/20 at 12:00 Azithromycin 250 ml @ 250 mls/hr DAILY IV ; Start 07/25/20 at 09:00; Status UNV Azithromycin 250 mg/Sodium Chloride 250 ml @ 250 mls/hr DAILY IV ; Start at 12:00; Stop 07/24/20 at 11:50; Status DC Azithromycin 500 mg/Sodium Chloride 250 ml @ 250 mls/hr DAILY IV Last administ ered on 07/25/20at 08:15; Start 07/24/20 at 12:00 Active Scripts Active Reported Acetaminophen 650 Mg/20.3 Ml Solution 650 Mg PO Q6HRS PRN Seroquel (Quetiapine Fumarate) 200 Mg Tablet 200 Mg PO HS Seroquel (Quetiapine Fumarate) 50 Mg Tablet 50 Mg PO BID Nystatin 15 Gm Powder 1 Diana TP BID 7 Days apply to affected area(s) Ketoconazole 120 Ml Shampoo 1 Diana TP TWICE WEEKLY 30 Days with at least 3 days between each shampooing Hydrocortisone 453.6 Gm Cream..g. 1 Diana TP PRN BID Haloperidol 5 Mg Tablet 1 Tab PO QAM Lisinopril 20 Mg Tablet 20 Mg PO HS PRN Furosemide 40 Mg Tablet 40 Mg PO DAILY Combivent Respimat Inhal (Ipratropium/Albuterol Sulfate) 4 Gm Aer.w.adap 1 Inh IH PRN Q8HRS PRN Levetiracetam 500 Mg Tablet 1 Tab PO BID Zetia (Ezetimibe) 10 Mg Tablet 1 Tab PO HS Niaspan (Niacin) 500 Mg Tab.er.24h 1 Tab PO QHS Aspirin 81 Mg Tab.chew 1 Tab PO DAILY Nicotine Gum (Nicotine Polacrilex) 4 Mg Gum 4 Mg BC Milk Of Magnesia (Magnesium Hydroxide) 400 Mg/5 Ml Oral.susp 400 Mg PO DAILY PRN Duoneb 0.5-3(2.5) Mg/3 Ml (Albuterol/Ipratropium) 3 Ml Ampul.neb 3 Ml NEB QID Acetaminophen 325 Mg Tablet 325 Mg PO PRN Q4HRS PRN Robitussin Cough-Chest Dm Liq (Guaifenesin/Dextromethorphan) 118 Ml Liquid 10 Ml PO PRN Q6HRS PRN AD Days Cedar 3 Fish Oil Softgel (Cedar-3 Fatty Acids/Fish Oil) 1 Each Capsule. 1 Each PO DAILY Gabapentin (Gabapentin) 400 Mg Capsule 400 Mg PO TID Sennosides-Docusate Sodium Tab (Sennosides/Docusate Sodium) 1 Each Tablet 6-50 Each PO DAILY Metformin Hcl 1,000 Mg Tablet 1 Tab PO BID Haloperidol 5 Mg Tablet 5 Tab PO BID Zyrtec (Cetirizine Hcl) 10 Mg Tablet 1 Tab PO DAILY08 Trazodone Hcl 100 Mg Tablet 1 Tab PO QHS Simvastatin 40 Mg Tablet 1 Tab PO QHS Seroquel (Quetiapine Fumarate) 400 Mg Tablet 400 Tab PO QHS Multi Vitamin Daily (Multivitamin) 1 Each Tablet 1 Each PO DAILY Lisinopril 10 Mg Tablet 1 Tab PO DAILY Levemir (Insulin Detemir) 100 Unit/1 Ml Vial 10 Unit SQ DAILY08 Glyburide 5 Mg Tablet 1 Tab PO DAILY08 Effexor Xr (Venlafaxine Hcl) 150 Mg Cap.er.24h 1 Cap PO DAILY Vitals/I & O Vital Sign - Last 24 Hours 07/24/20 07/24/20 07/24/20 07/24/20 15:20 19:00 20:00 23:43 Temp 98.9 96.9 99.4 98.9 96.9 99.4 Pulse 95 95 122 B/P (MAP) 143/95 (111) 150/90 (110) Pulse Ox 97 O2 Delivery Nasal Cannula Nasal Cannula Nasal Cannula Nasal Cannula O2 Flow Rate 7.0 7.0 7.0 7.0 07/25/20 07/25/20 07/25/20 03:00 07:57 11:37 Temp 98.8 99.6 99.5 98.8 99.6 99.5 Pulse 121 110 114 Resp 24 26 B/P (MAP) 141/96 (111) 150/79 (102) 145/74 (97) Pulse Ox 90 91 91 O2 Delivery Nasal Cannula Nasal Cannula Nasal Cannula O2 Flow Rate 7.0 7.0 7.0 Intake and Output 07/24/20 07/24/20 07/25/20 15:00 23:00 07:00 Intake Total 1355 ml Output Total 1450 ml 350 ml Balance 1355 ml -1450 ml -350 ml Justicifation of Admission Dx: Justifications for Admission: Justification of Admission Dx: N/A RADHA JURADO MD Jul 25, 2020 11:51
--- NOTE | 2020-07-25 12:28 | PDOC ---
Renal-Progress Notes Subjective Notes Notes CONFUSED History of Present Illness Hx of present illness NO CHANGE Vitals Vitals Vital Signs Date Time Temp Pulse Resp B/P (MAP) Pulse Ox O2 Delivery O2 Flow Rate FiO2 07/25/20 11:37 99.5 114 26 145/74 (97) 91 Nasal Cannula 7.0 99.5 Weight Weight [ ] I.O. Intake and Output Intake and Output 07/25/20 07:00 Intake Total 1355 ml Output Total 1800 ml Balance -445 ml IV Total 1355 ml Output Urine Total 1800 ml Labs Labs Laboratory Tests Test 07/24/20 20:21 07/25/20 07:37 07/25/20 09:45 07/25/20 10:41 Glucose (Fingerstick) 223 mg/dL (70-99) 251 mg/dL (70-99) 229 mg/dL (70-99) White Blood Count 11.4 x10^3/uL (4.0-11.0) Red Blood Count 3.61 x10^6/uL (4.30-5.70) Hemoglobin 10.9 g/dL (13.0-17.5) Hematocrit 33.0 % (39.0-53.0) Mean Corpuscular Volume 92 fL (79-100) Mean Corpuscular Hemoglobin 30 pg (25-35) Mean Corpuscular Hemoglobin Concent 33 g/dL (31-37) Red Cell Distribution Width 13.8 % (11.5-14.5) Platelet Count 310 x10^3/uL (140-400) Neutrophils (%) (Auto) 86 % (31-73) Lymphocytes (%) (Auto) 5 % (24-48) Monocytes (%) (Auto) 8 % (0-9) Eosinophils (%) (Auto) 0 % (0-3) Basophils (%) (Auto) 1 % (0-3) Neutrophils # (Auto) 9.8 x10^3/uL (1.8-7.7) Lymphocytes # (Auto) 0.6 x10^3/uL (1.0-4.8) Monocytes # (Auto) 1.0 x10^3/uL (0.0-1.1) Eosinophils # (Auto) 0.0 x10^3/uL (0.0-0.7) Basophils # (Auto) 0.1 x10^3/uL (0.0-0.2) Sodium Level 159 mmol/L (136-145) Potassium Level 4.7 mmol/L (3.5-5.1) Chloride Level 124 mmol/L (98-107) Carbon Dioxide Level 20 mmol/L (21-32) Anion Gap 15 (6-14) Blood Urea Nitrogen 53 mg/dL (8-26) Creatinine 1.7 mg/dL (0.7-1.3) Estimated GFR (Cockcroft-Gault) 40.7 Glucose Level 239 mg/dL (70-99) Calcium Level 9.3 mg/dL (8.5-10.1) Phosphorus Level 3.7 mg/dL (2.6-4.7) Magnesium Level 2.3 mg/dL (1.8-2.4) Albumin 3.1 g/dL (3.4-5.0) Micro Micro Microbiology 07/21/20 Blood Culture - Preliminary, Resulted NO GROWTH AFTER 3 DAYS 07/20/20 Urine Culture - Final, Complete 07/20/20 Antimicrobic Susceptibility - Final, Complete Review of Systems Constitutional: yes: other (CONFUSED) Physical Exam General Appearance: no apparent distress Skin: warm Respiratory: decreased breath sounds Heart: S1S2 Abdomen: soft, bowel sounds present Genitourinary: bladder flat Neurology: alert Musculoskeletal: Osteoarthritis, Other Assessment Assessment IMP MALNUTRITION WORSENING HYPERNATREMIA BELLO-IMPROVING WITH CR DOWN TO 1.7 AG MET ACIDOSIS CKD WITH CR OF 1.4 IN 2017-SUSPECT PROGRESSION ACUTE RESP FAILURE SEIZURE DEMENTIA HTN HX CHF HX DM II PLAN START PPN CONT HYDRATION SUSPECT CR MAY BE AT HIS NEW BASELINE STOP HIS LASIX AND LISINOPRIL CONSIDER STOPPING METFORMIN WILL FOLLOW JACQUELINE CERRATO MD Jul 25, 2020 12:28
[2020-07-25] MEDS: AMINO AC 3%/ELECTROLYTE/GLYCER 1,000 ML IV SCH (13:09)
--- NOTE | 2020-07-25 13:27 | NUR ---
BECCA following for discharge planning. Spoke with RN and reviewed chart. Pt appears to be hospice appropriate at this time. BECCA LVM for pt's brother Adriano ([phone], ) to ask about evaluation for hospice, GIP. Coordinated care with Evelyn and ERWIN Ledbetter from [facility]. BECCA following. Addendum: 07/25/20 at 1357 by ABDON HUDSON Spoke with Adriano the guardian and brother of this patient who stated he thinks he has a DNR on this patient and will look for the paperwork. Adriano would like [facility] to evaluate for GIP. Order to evaluate and treat from Dr. Olivier sent to Sushila with [facility]. Patient choice of vendor form completed. [facility] to evaluate.
[2020-07-25 15:12] VITALS: BP 147/77
--- NOTE | 2020-07-25 15:29 | NUR ---
Reason being Pt did not receive any PO Medications, is because the patient did not seem orientated enough to swallow. Didn't feel comfortable the way the pt was acting/presenting. Pt did get started on some Procalamine. Pt is still on IV fluids, and ABX.
[2020-07-25 19:00] VITALS: BP 155/93
[2020-07-25] MEDS: traZODone 100 MG TABLET. PO SCH (22:13)
[2020-07-25] MEDS: QUEtiapine 100 MG TABLET. PO SCH (22:14)
[2020-07-25] MEDS: NIACIN ER 250 MG CAPSULE.ER PO SCH (22:14)
[2020-07-25] MEDS: SIMVASTATIN 40 MG TABLET. PO SCH (22:14)
[2020-07-25 23:33] VITALS: BP 138/86
--- NOTE | 2020-07-26 02:29 | NUR ---
Patients status declining. HR in 140s, tachypnic breathing, and patients SPO2 decreasing. Currently on 9L nc. SPO2 87%. Attempted to call patients brother Adriano. Left message on cell phone to call back. Dr. Wilson notified of patients change in status. Order received for Morphine. Will attempt to contact brother again.
[2020-07-26] MEDS: MORPHINE SULFATE 2 MG/ML VIAL. IV PRN ×2 (02:40→04:22)
[2020-07-26 03:00] VITALS: BP 56/44
[2020-07-26] MEDS: AMINO AC 3%/ELECTROLYTE/GLYCER 1,000 ML IV SCH (03:04)
--- NOTE | 2020-07-26 04:20 | NUR ---
Pt's brother Adriano contacted at [phone]. Confirmed with PHILIPP Abdi that pt to be DNR.
--- NOTE | 2020-07-26 04:29 | NUR ---
Patient has continued to decline. Spoke with patients brother, Adriano and notified him of patients change. He stated that he thought patient already had a DNR at the facility he lives at. He stated patient would definitely want a DNR. Adriano also stated that he wants patient to be comfortable. Kristal SEGAL also on phone to verify patients wishes from brother. Dr. Wilson notified and ok to change patients code status to DNR. Patients current BP 56/44 HR 118 SPO2 78% on 15L nonrebreather. Patient having agonal breathing. Morphine given for comfort/air hunger. Will continue to monitor.
[2020-07-26 07:51] VITALS: BP 46/18
[2020-07-26] MEDS: glyBURIDE 5 MG TABLET PO SCH (08:00)
[2020-07-26] MEDS: QUEtiapine 25 MG TABLET. PO SCH (08:00)
[2020-07-26] MEDS: CETIRIZINE HCL 10 MG TABLET. PO SCH (08:00)
[2020-07-26] MEDS: IPRATROPIUM/ALBUTEROL 20/100mcg/INH INHALER. INH SCH (08:00)
[2020-07-26] MEDS: metFORMIN 500 MG TABLET PO SCH (08:00)
[2020-07-26] MEDS: methylPREDNISolone SOD SUCC PF 40 MG/ML VIAL. IV SCH (08:07)
[2020-07-26] MEDS: ASPIRIN CHEWABLE 81 MG TABLET. PO SCH (08:08)
[2020-07-26] MEDS: levETIRAcetam 500 MG in IV DEXTROSE 5% 100ML 100 ML IV SCH (08:08)
[2020-07-26] MEDS: LACTOBACILLUS RHAMNOSUS GG 1 CAPSULE. PO SCH (08:09)
[2020-07-26] MEDS: MULTIVITAMIN with MINERAL TABLET. PO SCH (08:09)
[2020-07-26] MEDS: HEPARIN for SUB-Q USE 5,000 UNIT/ML VIAL. SQ SCH (08:09)
[2020-07-26] MEDS: HALOPERIDOL 5 MG TABLET. PO SCH (08:09)
[2020-07-26] MEDS: SENNOSIDES/DOCUSATE 8.6/50MG TABLET. PO SCH (08:09)
[2020-07-26] MEDS: GABAPENTIN 400 MG CAPSULE. PO SCH (08:09)
[2020-07-26] MEDS: OMEGA-3 FATTY ACIDS/FISH OIL 1,000 MG CAPSULE. PO SCH (08:09)
[2020-07-26] MEDS: INSULIN GLARGINE SYRINGE. SQ SCH (08:10)
[2020-07-26] MEDS: NICOTINE 21MG PATCH. TD SCH (08:10)
--- NOTE | 2020-07-26 08:46 | PDOC ---
PROGRESS NOTES Date of Service DATE: 07/26/20 TIME: 08:45 Assessment Problems Medical Problems: (1) Acute renal failure Status: Acute (2) Altered mental status Status: Acute (3) Dehydration Status: Acute (4) Person under investigation for COVID-19 Status: Acute Overall doing very poorly, now on comfort care epilepsy, breakthrough seizure related to his refusing oral medications, now he is on intravenous levetiracetam. No further episodes Metabolic encephalopathy, had hypoxia and hypotension at admission COVID-19 CHF, constipation, depression, diabetes, hypertension, hyperlipidemia, UTI, previous tobacco, alcohol, and marijuana use Plan Continue intravenous levetiracetam Treat medical diseases Electroencephalogram and other brain imaging studies would not affect management. Neurology will follow as needed Subjective none Objective Vital Signs Date Time Temp Pulse Resp B/P (MAP) Pulse Ox O2 Delivery O2 Flow Rate FiO2 07/26/20 07:51 98.9 104 26 46/18 (27) 90 Nasal Cannula 7.0 98.9 Intake and Output 07/26/20 07:00 Intake Total 0 ml Output Total 500 ml Balance -500 ml Intake Oral 0 ml Output Urine Total 500 ml PHYSICAL EXAM Sleep, no arousal to pain, does not follow commands or verbalize. PERRL. EOMI. CN: no focal findings. Muscle tone: normal. Muscle strength: Withdraws slightly to pain DTR: 1+ Plantar reflex: Flexor Gait: not examined in bed. Sensory exam: not cooperative Cerebellar: Not cooperative Review of Relevant I have reviewed the following items darryn (where applicable) has been applied. Labs Laboratory Tests Test 07/24/20 09:58 07/24/20 11:42 07/24/20 20:21 07/25/20 07:37 White Blood Count 6.2 x10^3/uL (4.0-11.0) Red Blood Count 3.50 x10^6/uL (4.30-5.70) Hemoglobin 10.8 g/dL (13.0-17.5) Hematocrit 31.7 % (39.0-53.0) Mean Corpuscular Volume 91 fL (79-100) Mean Corpuscular Hemoglobin 31 pg (25-35) Mean Corpuscular Hemoglobin Concent 34 g/dL (31-37) Red Cell Distribution Width 13.6 % (11.5-14.5) Platelet Count 269 x10^3/uL (140-400) Neutrophils (%) (Auto) 79 % (31-73) Lymphocytes (%) (Auto) 8 % (24-48) Monocytes (%) (Auto) 13 % (0-9) Eosinophils (%) (Auto) 0 % (0-3) Basophils (%) (Auto) 0 % (0-3) Neutrophils # (Auto) 4.9 x10^3/uL (1.8-7.7) Lymphocytes # (Auto) 0.5 x10^3/uL (1.0-4.8) Monocytes # (Auto) 0.8 x10^3/uL (0.0-1.1) Eosinophils # (Auto) 0.0 x10^3/uL (0.0-0.7) Basophils # (Auto) 0.0 x10^3/uL (0.0-0.2) Sodium Level 156 mmol/L (136-145) Potassium Level 4.7 mmol/L (3.5-5.1) Chloride Level 120 mmol/L (98-107) Carbon Dioxide Level 18 mmol/L (21-32) Anion Gap 18 (6-14) Blood Urea Nitrogen 48 mg/dL (8-26) Creatinine 1.7 mg/dL (0.7-1.3) Estimated GFR (Cockcroft-Gault) 40.7 Glucose Level 201 mg/dL (70-99) Calcium Level 9.3 mg/dL (8.5-10.1) Phosphorus Level 3.7 mg/dL (2.6-4.7) Magnesium Level 2.1 mg/dL (1.8-2.4) Albumin 3.3 g/dL (3.4-5.0) Glucose (Fingerstick) 211 mg/dL (70-99) 223 mg/dL (70-99) 251 mg/dL (70-99) Test 07/25/20 09:45 07/25/20 10:41 07/25/20 16:54 07/25/20 20:12 White Blood Count 11.4 x10^3/uL (4.0-11.0) Red Blood Count 3.61 x10^6/uL (4.30-5.70) Hemoglobin 10.9 g/dL (13.0-17.5) Hematocrit 33.0 % (39.0-53.0) Mean Corpuscular Volume 92 fL (79-100) Mean Corpuscular Hemoglobin 30 pg (25-35) Mean Corpuscular Hemoglobin Concent 33 g/dL (31-37) Red Cell Distribution Width 13.8 % (11.5-14.5) Platelet Count 310 x10^3/uL (140-400) Neutrophils (%) (Auto) 86 % (31-73) Lymphocytes (%) (Auto) 5 % (24-48) Monocytes (%) (Auto) 8 % (0-9) Eosinophils (%) (Auto) 0 % (0-3) Basophils (%) (Auto) 1 % (0-3) Neutrophils # (Auto) 9.8 x10^3/uL (1.8-7.7) Lymphocytes # (Auto) 0.6 x10^3/uL (1.0-4.8) Monocytes # (Auto) 1.0 x10^3/uL (0.0-1.1) Eosinophils # (Auto) 0.0 x10^3/uL (0.0-0.7) Basophils # (Auto) 0.1 x10^3/uL (0.0-0.2) Sodium Level 159 mmol/L (136-145) Potassium Level 4.7 mmol/L (3.5-5.1) Chloride Level 124 mmol/L (98-107) Carbon Dioxide Level 20 mmol/L (21-32) Anion Gap 15 (6-14) Blood Urea Nitrogen 53 mg/dL (8-26) Creatinine 1.7 mg/dL (0.7-1.3) Estimated GFR (Cockcroft-Gault) 40.7 Glucose Level 239 mg/dL (70-99) Calcium Level 9.3 mg/dL (8.5-10.1) Phosphorus Level 3.7 mg/dL (2.6-4.7) Magnesium Level 2.3 mg/dL (1.8-2.4) Albumin 3.1 g/dL (3.4-5.0) Glucose (Fingerstick) 229 mg/dL (70-99) 293 mg/dL (70-99) 281 mg/dL (70-99) Test 07/26/20 03:52 12/11/20 07:44 Glucose (Fingerstick) 388 mg/dL (70-99) 380 mg/dL (70-99) Laboratory Tests Test 07/25/20 09:45 07/25/20 10:41 07/25/20 16:54 07/25/20 20:12 White Blood Count 11.4 x10^3/uL (4.0-11.0) Red Blood Count 3.61 x10^6/uL (4.30-5.70) Hemoglobin 10.9 g/dL (13.0-17.5) Hematocrit 33.0 % (39.0-53.0) Mean Corpuscular Volume 92 fL (79-100) Mean Corpuscular Hemoglobin 30 pg (25-35) Mean Corpuscular Hemoglobin Concent 33 g/dL (31-37) Red Cell Distribution Width 13.8 % (11.5-14.5) Platelet Count 310 x10^3/uL (140-400) Neutrophils (%) (Auto) 86 % (31-73) Lymphocytes (%) (Auto) 5 % (24-48) Monocytes (%) (Auto) 8 % (0-9) Eosinophils (%) (Auto) 0 % (0-3) Basophils (%) (Auto) 1 % (0-3) Neutrophils # (Auto) 9.8 x10^3/uL (1.8-7.7) Lymphocytes # (Auto) 0.6 x10^3/uL (1.0-4.8) Monocytes # (Auto) 1.0 x10^3/uL (0.0-1.1) Eosinophils # (Auto) 0.0 x10^3/uL (0.0-0.7) Basophils # (Auto) 0.1 x10^3/uL (0.0-0.2) Sodium Level 159 mmol/L (136-145) Potassium Level 4.7 mmol/L (3.5-5.1) Chloride Level 124 mmol/L (98-107) Carbon Dioxide Level 20 mmol/L (21-32) Anion Gap 15 (6-14) Blood Urea Nitrogen 53 mg/dL (8-26) Creatinine 1.7 mg/dL (0.7-1.3) Estimated GFR (Cockcroft-Gault) 40.7 Glucose Level 239 mg/dL (70-99) Calcium Level 9.3 mg/dL (8.5-10.1) Phosphorus Level 3.7 mg/dL (2.6-4.7) Magnesium Level 2.3 mg/dL (1.8-2.4) Albumin 3.1 g/dL (3.4-5.0) Glucose (Fingerstick) 229 mg/dL (70-99) 293 mg/dL (70-99) 281 mg/dL (70-99) Test 07/26/20 03:52 07/26/20 07:44 Glucose (Fingerstick) 388 mg/dL (70-99) 380 mg/dL (70-99) Microbiology 07/21/20 Blood Culture - Preliminary, Resulted NO GROWTH AFTER 4 DAYS 07/20/20 Urine Culture - Final, Complete 07/20/20 Antimicrobic Susceptibility - Final, Complete Medications Current Medications Sodium Chloride 1,000 ml @ 1,000 mls/hr 1X ONCE IV Last administered on 07/20/20at 15:30; Start 07/20/20 at 15:30; Stop 07/20/20 at 16:29; Status DC Sodium Chloride 1,000 ml @ 1,000 mls/hr 1X ONCE IV Last administered on 07/20/20at 16:50; Start 07/20/20 at 16:45; Stop 07/20/20 at 17:44; Status DC Sodium Chloride 1,000 ml @ 1,000 mls/hr 1X ONCE IV Last administered on 07/20/20at 16:50; Start 07/20/20 at 16:00; Stop 07/20/20 at 16:59; Status DC Ondansetron HCl (Zofran) 4 mg PRN Q8HRS PRN IV NAUSEA/VOMITING; Start 07/20/20 at 17:45; Stop 07/21/20 at 17:44; Status DC Sodium Chloride 1,000 ml @ 100 mls/hr Q10H IV Last administered on 07/20/20at 17:45; Start 07/20/20 at 17:45; Stop 07/21/20 at 17:44; Status DC Aspirin (Aspirin Chewable) 81 mg DAILY PO Last administered on 07/22/20at 07:48; Start 07/21/20 at 09:00 Cetirizine HCl (ZyrTEC) 10 mg DAILY08 PO Last administered on 07/22/20at 13:06; Start 07/21/20 at 08:00 Furosemide (Lasix) 40 mg DAILY PO Last administered on 07/22/20at 07:48; Start 07/21/20 at 09:00; Stop 07/24/20 at 11:10; Status DC Gabapentin (Neurontin) 400 mg DAILY PO Last administered on 07/22/20at 07:48; Start 07/21/20 at 09:00; Stop 07/22/20 at 10:48; Status DC Glyburide (Diabeta) 5 mg DAILY08 PO Last administered on 07/22/20at 13:06; Start 07/21/20 at 08:00 Haloperidol (Haldol) 5 mg BID PO Last administered on 07/22/20at 07:48; Start 07/21/20 at 09:00 Ketoconazole (Nizoral 2% Shampoo) 1 diana SuWe TP ; Start 07/21/20 at 21:00 Levetiracetam (Keppra) 500 mg BID PO Last administered on 07/22/20at 07:48; Start 07/21/20 at 09:00; Stop 07/22/20 at 23:34; Status DC Lisinopril (Prinivil) 10 mg DAILY PO Last administered on 07/22/20at 07:49; Start 07/21/20 at 09:00; Stop 07/24/20 at 11:10; Status DC Lisinopril (Prinivil) 20 mg HS PO ; Start 07/21/20 at 21:00; Stop 07/24/20 at 11:10; Status DC Magnesium Hydroxide (Milk Of Magnesia) 400 mg DAILY PRN PO CONSTIPATION; Start 07/21/20 at 02:15; Status UNV Nystatin (Nystop) 1 diana BID TP Last administered on 07/25/20at 21:48; Start 07/21/20 at 09:00 Senna/Docusate Sodium (Senna Plus) 1 tab DAILY PO Last administered on 07/22/20at 13:06; Start 07/21/20 at 09:00 Simvastatin (Zocor) 40 mg QHS PO ; Start 07/21/20 at 21:00 Trazodone HCl (Desyrel) 100 mg QHS PO ; Start 07/21/20 at 21:00 Guaifenesin (Robitussin Dm) 10 ml PRN Q6HRS PRN PO COUGH; Start 07/21/20 at 02:30 Hydrocortisone (Cortaid) 1 diana PRN BID PRN TP ITCHING; Start 07/21/20 at 02:45 Insulin Glargine (Lantus Syringe) 10 unit DAILY08 SQ Last administered on 07/26/20at 08:10; Start 07/21/20 at 08:00 Non-Formulary Medication (Ipratropium/ Albuterol Sulfate (Combivent Respimat Inhal)) 1 inh PRN Q8HRS PRN IH SHORTNESS OF BREATH; Start 07/21/20 at 02:15; Status UNV Non-Formulary Medication (Metformin Hcl ) 1 tab BID PO ; Start 07/21/20 at 09:00; Status UNV Multivitamins (Thera M Plus) 1 tab DAILY PO Last administered on 07/22/20at 07:48; Start 07/21/20 at 09:00 Niacin (Niaspan) 500 mg QHS PO ; Start 07/21/20 at 21:00 Fish Oil (Fish Oil) 1,000 mg DAILY PO Last administered on 07/22/20at 13:06; Start 07/21/20 at 09:00 Quetiapine Fumarate (SEROquel) 50 mg BIDWMEALS PO Last administered on 07/22/20at 17:27; Start 07/21/20 at 08:00 Quetiapine Fumarate (SEROquel) 200 mg HS PO ; Start 07/21/20 at 21:00 Albuterol/ Ipratropium (Combivent Respimat 20-100 Mcg) 1 puff RTQID INH Last administered on 07/25/20at 11:44; Start 07/21/20 at 08:00 Dextrose (Dextrose 50%-Water Syringe) 12.5 gm PRN Q15MIN PRN IV SEE COMMENTS; Start 07/21/20 at 03:30 Magnesium Sulfate 50 ml @ 25 mls/hr PRN DAILY PRN IV for Mag < 1.7 on am labs; Start 07/21/20 at 09:45 Ceftriaxone Sodium (Rocephin) 1 gm Q24H IVP Last administered on 07/25/20at 11:45; Start 07/21/20 at 12:00 Doxycycline Hyclate (Vibra-Tab) 100 mg BID PO Last administered on 07/22/20at 07:48; Start 07/21/20 at 11:00; Stop 07/22/20 at 23:34; Status DC Ceftriaxone Sodium (Rocephin) 1 gm Q24H IVP ; Start 07/21/20 at 11:15; Status UNV Lorazepam (Ativan Inj) 2 mg PRN Q2HR PRN IVP ANXIETY / AGITATION Last administered on 07/26/20at 08:07; Start 07/21/20 at 11:15 Sodium Chloride 1,000 ml @ 40 mls/hr Q24H IV Last administered on 07/25/20at 21:47; Start 07/21/20 at 13:15 Heparin Sodium (Porcine) (Heparin Sodium) 5,000 unit Q12HR SQ Last administered on 07/25/20at 21:48; Start 07/21/20 at 21:00 Acetaminophen (Tylenol Supp) 650 mg PRN Q6HRS PRN [place] MILD PAIN / TEMP > 100.3'F; Start 07/21/20 at 20:30 Lactobacillus Rhamnosus (Culturelle) 1 cap BID PO ; Start 07/22/20 at 21:00 Metformin HCl (Glucophage) 1,000 mg BIDWMEALS PO ; Start 07/22/20 at 17:00 Gabapentin (Neurontin) 400 mg BID PO ; Start 07/22/20 at 21:00 Haloperidol Lactate (Haldol Inj) 5 mg PRN Q6HRS PRN IVP AGITATION Last administered on 07/23/20at 11:05; Start 07/22/20 at 14:15 Levetiracetam 500 mg/Dextrose 105 ml @ 420 mls/hr Q12HR IV Last administered on 07/26/20at 08:08; Start 07/23/20 at 00:00 Doxycycline Hyclate 100 mg/ Dextrose 100 ml @ 50 mls/hr 1X ONCE IV Last administered on 07/23/20at 00:24; Start 07/23/20 at 00:00; Stop 07/23/20 at 04:10; Status DC Lorazepam (Ativan Inj) 2 mg PRN Q4HRS PRN IVP ANXIETY / AGITATION; Start 07/22/20 at 23:45; Stop 07/22/20 at 23:48; Status DC Lorazepam (Ativan Inj) 2 mg PRN Q15MIN PRN IVP SEIZURE; Start 07/23/20 at 00:00 Methylprednisolone Sodium Succinate (SOLU-Medrol 40MG VIAL) 40 mg Q12HR IV Last administered on 07/26/20at 08:07; Start 07/23/20 at 10:30 Nicotine (Nicoderm Cq 21mg) 1 patch DAILY TD Last administered on 07/24/20at 10:35; Start 07/23/20 at 12:00 Azithromycin 250 ml @ 250 mls/hr DAILY IV ; Start 07/25/20 at 09:00; Status UNV Azithromycin 250 mg/Sodium Chloride 250 ml @ 250 mls/hr DAILY IV ; Start 07/24/20 at 12:00; Stop 07/24/20 at 11:50; Status DC Azithromycin 500 mg/Sodium Chloride 250 ml @ 250 mls/hr DAILY IV Last administered on 07/25/20at 08:15; Start 07/24/20 at 12:00 Amino Acids/ Glycerin/ Electrolytes 1,000 ml @ 80 mls/hr [id number] IV Last administered on 07/25/20at 13:09; Start 07/25/20 at 13:00 Morphine Sulfate (Morphine Sulfate) 2 mg PRN Q2HR PRN IV COMFORT MEASURES Last administered on 07/26/20at 04:22; Start 07/26/20 at 02:30 Active Scripts Active Reported Acetaminophen 650 Mg/20.3 Ml Solution 650 Mg PO Q6HRS PRN Seroquel (Quetiapine Fumarate) 200 Mg Tablet 200 Mg PO HS Seroquel (Quetiapine Fumarate) 50 Mg Tablet 50 Mg PO BID Nystatin 15 Gm Powder 1 Diana TP BID 7 Days apply to affected area(s) Ketoconazole 120 Ml Shampoo 1 Diana TP TWICE WEEKLY 30 Days with at least 3 days between each shampooing Hydrocortisone 453.6 Gm Cream..g. 1 Diana TP PRN BID Haloperidol 5 Mg Tablet 1 Tab PO QAM Lisinopril 20 Mg Tablet 20 Mg PO HS PRN Furosemide 40 Mg Tablet 40 Mg PO DAILY Combivent Respimat Inhal (Ipratropium/Albuterol Sulfate) 4 Gm Aer.w.adap 1 Inh IH PRN Q8HRS PRN Levetiracetam 500 Mg Tablet 1 Tab PO BID Zetia (Ezetimibe) 10 Mg Tablet 1 Tab PO HS Niaspan (Niacin) 500 Mg Tab.er.24h 1 Tab PO QHS Aspirin 81 Mg Tab.chew 1 Tab PO DAILY Nicotine Gum (Nicotine Polacrilex) 4 Mg Gum 4 Mg BC Milk Of Magnesia (Magnesium Hydroxide) 400 Mg/5 Ml Oral.susp 400 Mg PO DAILY PRN Duoneb 0.5-3(2.5) Mg/3 Ml (Albuterol/Ipratropium) 3 Ml Ampul.neb 3 Ml NEB QID Acetaminophen 325 Mg Tablet 325 Mg PO PRN Q4HRS PRN Robitussin Cough-Chest Dm Liq (Guaifenesin/Dextromethorphan) 118 Ml Liquid 10 Ml PO PRN Q6HRS PRN AD Days [place] 3 Fish Oil Softgel ([place]-3 Fatty Acids/Fish Oil) 1 Each Capsule. 1 Each PO DAILY Gabapentin (Gabapentin) 400 Mg Capsule 400 Mg PO TID Sennosides-Docusate Sodium Tab (Sennosides/Docusate Sodium) 1 Each Tablet 6-50 Each PO DAILY Metformin Hcl 1,000 Mg Tablet 1 Tab PO BID Haloperidol 5 Mg Tablet 5 Tab PO BID Zyrtec (Cetirizine Hcl) 10 Mg Tablet 1 Tab PO DAILY08 Trazodone Hcl 100 Mg Tablet 1 Tab PO QHS Simvastatin 40 Mg Tablet 1 Tab PO QHS Seroquel (Quetiapine Fumarate) 400 Mg Tablet 400 Tab PO QHS Multi Vitamin Daily (Multivitamin) 1 Each Tablet 1 Each PO DAILY Lisinopril 10 Mg Tablet 1 Tab PO DAILY Levemir (Insulin Detemir) 100 Unit/1 Ml Vial 10 Unit SQ DAILY08 Glyburide 5 Mg Tablet 1 Tab PO DAILY08 Effexor Xr (Venlafaxine Hcl) 150 Mg Cap.er.24h 1 Cap PO DAILY Vitals/I & O Vital Sign - Last 24 Hours 07/25/20 07/25/20 07/25/20 07/25/20 11:37 15:12 19:00 21:45 Temp 99.5 99.6 100.3 99.5 99.6 100.3 Pulse 114 118 123 Resp 26 26 30 B/P (MAP) 145/74 (97) 147/77 (100) 155/93 (113) Pulse Ox 91 92 92 O2 Delivery Nasal Cannula Nasal Cannula Nasal Cannula Nasal Cannula O2 Flow Rate 7.0 7.0 7.0 9.0 07/25/20 07/26/20 07/26/20 23:33 03:00 07:51 Temp 100.0 100.8 98.9 100.0 100.8 98.9 Pulse 122 109 104 Resp 26 30 26 B/P (MAP) 138/86 (103) 56/44 (48) 46/18 (27) Pulse Ox 90 78 90 O2 Delivery Nasal Cannula Nasal Cannula Nasal Cannula O2 Flow Rate 7.0 7.0 7.0 Intake and Output 07/25/20 07/25/20 07/26/20 15:00 23:00 07:00 Intake Total 0 ml 0 ml 0 ml Output Total 500 ml Balance 0 ml 0 ml -500 ml Justicifation of Admission Dx: Justifications for Admission: Justification of Admission Dx: N/A SIMON VILLASENOR MD Jul 26, 2020 08:46
--- NOTE | 2020-07-26 09:42 | PDOC ---
PULMONARY PROGRESS NOTES DATE: 07/26/20 TIME: 09:40 Subjective Patient is not responsive. 100% oxygen. Saturations in the mid 80s. Patient is also noted to be bradycardic. Vitals Vital Signs Date Time Temp Pulse Resp B/P (MAP) Pulse Ox O2 Delivery O2 Flow Rate FiO2 07/26/20 07:51 98.9 104 26 46/18 (27) 90 Nasal Cannula 7.0 98.9 Comments Patient seen during pandemic, visual exam performed RR and Rhythm Lethargic On nasal cannula accessory muscle use No obvious rash or edema General: Confused Lungs: Other (decreased BLL) Cardiovascular: S1, S2 Labs Laboratory Tests Test 07/24/20 09:58 07/24/20 11:42 07/24/20 20:21 07/25/20 07:37 White Blood Count 6.2 x10^3/uL (4.0-11.0) Red Blood Count 3.50 x10^6/uL (4.30-5.70) Hemoglobin 10.8 g/dL (13.0-17.5) Hematocrit 31.7 % (39.0-53.0) Mean Corpuscular Volume 91 fL (79-100) Mean Corpuscular Hemoglobin 31 pg (25-35) Mean Corpuscular Hemoglobin Concent 34 g/dL (31-37) Red Cell Distribution Width 13.6 % (11.5-14.5) Platelet Count 269 x10^3/uL (140-400) Neutrophils (%) (Auto) 79 % (31-73) Lymphocytes (%) (Auto) 8 % (24-48) Monocytes (%) (Auto) 13 % (0-9) Eosinophils (%) (Auto) 0 % (0-3) Basophils (%) (Auto) 0 % (0-3) Neutrophils # (Auto) 4.9 x10^3/uL (1.8-7.7) Lymphocytes # (Auto) 0.5 x10^3/uL (1.0-4.8) Monocytes # (Auto) 0.8 x10^3/uL (0.0-1.1) Eosinophils # (Auto) 0.0 x10^3/uL (0.0-0.7) Basophils # (Auto) 0.0 x10^3/uL (0.0-0.2) Sodium Level 156 mmol/L (136-145) Potassium Level 4.7 mmol/L (3.5-5.1) Chloride Level 120 mmol/L (98-107) Carbon Dioxide Level 18 mmol/L (21-32) Anion Gap 18 (6-14) Blood Urea Nitrogen 48 mg/dL (8-26) Creatinine 1.7 mg/dL (0.7-1.3) Estimated GFR (Cockcroft-Gault) 40.7 Glucose Level 201 mg/dL (70-99) Calcium Level 9.3 mg/dL (8.5-10.1) Phosphorus Level 3.7 mg/dL (2.6-4.7) Magnesium Level 2.1 mg/dL (1.8-2.4) Albumin 3.3 g/dL (3.4-5.0) Glucose (Fingerstick) 211 mg/dL (70-99) 223 mg/dL (70-99) 251 mg/dL (70-99) Test 07/25/20 09:45 07/25/20 10:41 07/25/20 16:54 07/25/20 20:12 White Blood Count 11.4 x10^3/uL (4.0-11.0) Red Blood Count 3.61 x10^6/uL (4.30-5.70) Hemoglobin 10.9 g/dL (13.0-17.5) Hematocrit 33.0 % (39.0-53.0) Mean Corpuscular Volume 92 fL (79-100) Mean Corpuscular Hemoglobin 30 pg (25-35) Mean Corpuscular Hemoglobin Concent 33 g/dL (31-37) Red Cell Distribution Width 13.8 % (11.5-14.5) Platelet Count 310 x10^3/uL (140-400) Neutrophils (%) (Auto) 86 % (31-73) Lymphocytes (%) (Auto) 5 % (24-48) Monocytes (%) (Auto) 8 % (0-9) Eosinophils (%) (Auto) 0 % (0-3) Basophils (%) (Auto) 1 % (0-3) Neutrophils # (Auto) 9.8 x10^3/uL (1.8-7.7) Lymphocytes # (Auto) 0.6 x10^3/uL (1.0-4.8) Monocytes # (Auto) 1.0 x10^3/uL (0.0-1.1) Eosinophils # (Auto) 0.0 x10^3/uL (0.0-0.7) Basophils # (Auto) 0.1 x10^3/uL (0.0-0.2) Sodium Level 159 mmol/L (136-145) Potassium Level 4.7 mmol/L (3.5-5.1) Chloride Level 124 mmol/L (98-107) Carbon Dioxide Level 20 mmol/L (21-32) Anion Gap 15 (6-14) Blood Urea Nitrogen 53 mg/dL (8-26) Creatinine 1.7 mg/dL (0.7-1.3) Estimated GFR (Cockcroft-Gault) 40.7 Glucose Level 239 mg/dL (70-99) Calcium Level 9.3 mg/dL (8.5-10.1) Phosphorus Level 3.7 mg/dL (2.6-4.7) Magnesium Level 2.3 mg/dL (1.8-2.4) Albumin 3.1 g/dL (3.4-5.0) Glucose (Fingerstick) 229 mg/dL (70-99) 293 mg/dL (70-99) 281 mg/dL (70-99) Test 07/26/20 03:52 07/26/20 07:44 Glucose (Fingerstick) 388 mg/dL (70-99) 380 mg/dL (70-99) Laboratory Tests Test 07/25/20 09:45 07/25/20 10:41 07/25/20 16:54 07/25/20 20:12 White Blood Count 11.4 x10^3/uL (4.0-11.0) Red Blood Count 3.61 x10^6/uL (4.30-5.70) Hemoglobin 10.9 g/dL (13.0-17.5) Hematocrit 33.0 % (39.0-53.0) Mean Corpuscular Volume 92 fL (79-100) Mean Corpuscular Hemoglobin 30 pg (25-35) Mean Corpuscular Hemoglobin Concent 33 g/dL (31-37) Red Cell Distribution Width 13.8 % (11.5-14.5) Platelet Count 310 x10^3/uL (140-400) Neutrophils (%) (Auto) 86 % (31-73) Lymphocytes (%) (Auto) 5 % (24-48) Monocytes (%) (Auto) 8 % (0-9) Eosinophils (%) (Auto) 0 % (0-3) Basophils (%) (Auto) 1 % (0-3) Neutrophils # (Auto) 9.8 x10^3/uL (1.8-7.7) Lymphocytes # (Auto) 0.6 x10^3/uL (1.0-4.8) Monocytes # (Auto) 1.0 x10^3/uL (0.0-1.1) Eosinophils # (Auto) 0.0 x10^3/uL (0.0-0.7) Basophils # (Auto) 0.1 x10^3/uL (0.0-0.2) Sodium Level 159 mmol/L (136-145) Potassium Level 4.7 mmol/L (3.5-5.1) Chloride Level 124 mmol/L (98-107) Carbon Dioxide Level 20 mmol/L (21-32) Anion Gap 15 (6-14) Blood Urea Nitrogen 53 mg/dL (8-26) Creatinine 1.7 mg/dL (0.7-1.3) Estimated GFR (Cockcroft-Gault) 40.7 Glucose Level 239 mg/dL (70-99) Calcium Level 9.3 mg/dL (8.5-10.1) Phosphorus Level 3.7 mg/dL (2.6-4.7) Magnesium Level 2.3 mg/dL (1.8-2.4) Albumin 3.1 g/dL (3.4-5.0) Glucose (Fingerstick) 229 mg/dL (70-99) 293 mg/dL (70-99) 281 mg/dL (70-99) Test 07/26/20 03:52 07/26/20 07:44 Glucose (Fingerstick) 388 mg/dL (70-99) 380 mg/dL (70-99) Medications Active Scripts Medications Dose Route/Sig Max Daily Dose Days Date Category Dose Instructions Acetaminophen 650 Mg/20.3 Ml Solution 650 Mg PO Q6HRS PRN 07/21/20 Reported Seroquel (Quetiapine Fumarate) 200 Mg Tablet 200 Mg PO HS 07/21/20 Reported Seroquel (Quetiapine Fumarate) 50 Mg Tablet 50 Mg PO BID 07/21/20 Reported Nystatin 15 Gm Powder 1 Diana TP BID 7 07/21/20 Reported apply to affected area(s) Ketoconazole 120 Ml Shampoo 1 Diana TP TWICE WEEKLY 30 07/21/20 Reported with at least 3 days between each shampooing Hydrocortisone 453.6 Gm Cream..g. 1 Diana TP PRN BID 07/21/20 Reported Haloperidol 5 Mg Tablet 1 Tab PO QAM 07/21/20 Reported Lisinopril 20 Mg Tablet 20 Mg PO HS PRN 07/21/20 Reported Furosemide 40 Mg Tablet 40 Mg PO DAILY 07/21/20 Reported Combivent Respimat Inhal (Ipratropium/Albuterol Sulfate) 4 Gm Aer.w.adap 1 Inh IH PRN Q8HRS PRN 09/25/16 Reported Levetiracetam 500 Mg Tablet 1 Tab PO BID 09/25/16 Reported Zetia (Ezetimibe) 10 Mg Tablet 1 Tab PO HS 09/25/16 Reported Niaspan (Niacin) 500 Mg Tab.er.24h 1 Tab PO QHS 09/25/16 Reported Aspirin 81 Mg Tab.chew 1 Tab PO DAILY 09/13/16 Reported Nicotine Gum (Nicotine Polacrilex) 4 Mg Gum 4 Mg BC 09/13/16 Reported Milk Of Magnesia (Magnesium Hydroxide) 400 Mg/5 Ml Oral.susp 400 Mg PO DAILY PRN 09/13/16 Reported Duoneb 0.5-3(2.5) Mg/3 Ml (Albuterol/Ipratropium) 3 Ml Ampul.neb 3 Ml NEB QID 09/13/16 Reported Acetaminophen 325 Mg Tablet 325 Mg PO PRN Q4HRS PRN 09/13/16 Reported Robitussin Cough-Chest Dm Liq (Guaifenesin/Dextromethorphan) 118 Ml Liquid 10 Ml PO PRN Q6HRS PRN AD 09/13/16 Reported [place] 3 Fish Oil Softgel ([place]-3 Fatty Acids/Fish Oil) 1 Each Capsule.dr 1 Each PO DAILY 09/13/16 Reported Gabapentin (Gabapentin) 400 Mg Capsule 400 Mg PO TID 09/13/16 Reported Sennosides-Docusate Sodium Tab (Sennosides/Docusate Sodium) 1 Each Tablet 6-50 Each PO DAILY 09/13/16 Reported Metformin Hcl 1,000 Mg Tablet 1 Tab PO BID 09/13/16 Reported Haloperidol 5 Mg Tablet 5 Tab PO BID 09/13/16 Reported Zyrtec (Cetirizine Hcl) 10 Mg Tablet 1 Tab PO DAILY08 09/13/16 Reported Trazodone Hcl 100 Mg Tablet 1 Tab PO QHS 09/13/16 Reported Simvastatin 40 Mg Tablet 1 Tab PO QHS 09/13/16 Reported Seroquel (Quetiapine Fumarate) 400 Mg Tablet 400 Tab PO QHS 09/13/16 Reported Multi Vitamin Daily (Multivitamin) 1 Each Tablet 1 Each PO DAILY 09/13/16 Reported Lisinopril 10 Mg Tablet 1 Tab PO DAILY 09/13/16 Reported Levemir (Insulin Detemir) 100 Unit/1 Ml Vial 10 Unit SQ DAILY08 09/13/16 Reported Glyburide 5 Mg Tablet 1 Tab PO DAILY08 09/13/16 Reported Effexor Xr (Venlafaxine Hcl) 150 Mg Cap.er.24h 1 Cap PO DAILY 09/13/16 Reported Comments CXR IMPRESSION: Diffuse hazy airspace disease may relate to pulmonary edema. Impression . IMPRESSION: 1. Acute respiratory failure secondary to pneumonia, rule out COVID-19, worsening hypoxia and bradycardia. 2. Abnormal chest x-ray. 3. Acute kidney injury-- improving 4. COVID-19 positive 5. Hypotension, resolved. 6. History of congestive heart failure. 7. Diabetes mellitus. 8. Encephalopathy, persistent. Plan . PLAN AND RECOMMENDATIONS: Patient is dying. He is currently nonresponsive, he is on 100% FiO2. Patient saturations in the mid 80s. He is also bradycardic. I have discussed with Dr. Olivier. At this time I would recommend that it is in the best interest of the patient not to prolong his life on aggressive life sustaining measures. I concur with DNR. Continue antibiotics, currently on Rocephin and azithro Covid positive Continue steroids, continue isolation precautions Influenza negative Follow blood cultures--NGTD Follow nephrology recommendations Follow neurology recommendations As needed Haldol for agitation DVT/GI prophylaxis Discussed with RN Pt. is candidate for hospice, social work has contacted [facility] . MIQUEL MILLS MD Jul 26, 2020 09:42
--- NOTE | 2020-07-26 09:47 | PDOC ---
PROGRESS NOTES Date of Service: DATE: 07/26/20 TIME: 09:45 Chief Complaint Chief Complaint Mental status change dementia, COVID-19 with acute encephalopathy acute hypoxic respiratory failure CHF, constipation, depression, diabetes, hypertension, hyperlipidemia, seizure, schizophrenia, UTI, dystonic movements, chronic pain, dermatitis, previous tobacco abuse, previous alcohol use, previous marijuana use. History of Present Illness History of Present Illness 07/26. I had a long discussion with surinder Estrada and treat and discuss. mental status very poor, baseline also poor, almost no prob of rehab, not taking PO, CODE status to DNR, CPR would be futile/punishment will again call hospice./ 07/25, hospice referral for dementia with covid and encepahlopathy, not taking PO 07/24/2020 Patient seen and examined on the [facility]- floor He is quite agitated this morning Discussed with RN Discussed with case management Chart reviewed Discussed with pulmonary 07/23/2022 Patient seen and examined on the [place] [id number] unit Discussed with RN Discussed with case management Chart reviewed Patient had a seizure last p.m. 07/22/2020 Patient seen and examined on the [facility]-19 unit His COVID-19 test is still pending He remains pleasantly confused semisedated Has a Lujan to bedside drainage On O2 per nasal cannula with 94% sat Has mitts on for patient safety Discussed with RN Discussed with case management 07/21/2020 Patient seen and examined Today he is a little more alert but does not talk just makes eye contact A little agitated so I had the nurse give him some Ativan that seems to have calmed him down Chart reviewed Vitals Vitals Vital Signs Date Time Temp Pulse Resp B/P (MAP) Pulse Ox O2 Delivery O2 Flow Rate FiO2 07/26/20 07:51 98.9 104 26 46/18 (27) 90 Nasal Cannula 7.0 98.9 Physical Exam General: mild distress, Other (Pleasantly confused flat affect fidgeting) Heart: No murmurs Lungs: Other (decreased BLL) Abdomen: Normal bowel sounds Extremities: No clubbing Skin: No rashes Labs LABS Laboratory Tests Test 07/25/20 10:41 07/25/20 16:54 07/25/20 20:12 07/26/20 03:52 Glucose (Fingerstick) 229 mg/dL (70-99) 293 mg/dL (70-99) 281 mg/dL (70-99) 388 mg/dL (70-99) Test 07/26/20 07:44 Glucose (Fingerstick) 380 mg/dL (70-99) Assessment and Plan Assessmemt and Plan Problems Medical Problems: (1) Acute renal failure Status: Acute (2) Altered mental status Status: Acute (3) Dehydration Status: Acute (4) Person under investigation for COVID-19 Status: Acute Comment Review of Relevant I have reviewed the following items darryn (where applicable) has been applied. Labs Laboratory Tests Test 07/24/20 09:58 07/24/20 11:42 07/24/20 20:21 07/25/20 07:37 White Blood Count 6.2 x10^3/uL (4.0-11.0) Red Blood Count 3.50 x10^6/uL (4.30-5.70) Hemoglobin 10.8 g/dL (13.0-17.5) Hematocrit 31.7 % (39.0-53.0) Mean Corpuscular Volume 91 fL (79-100) Mean Corpuscular Hemoglobin 31 pg (25-35) Mean Corpuscular Hemoglobin Concent 34 g/dL (31-37) Red Cell Distribution Width 13.6 % (11.5-14.5) Platelet Count 269 x10^3/uL (140-400) Neutrophils (%) (Auto) 79 % (31-73) Lymphocytes (%) (Auto) 8 % (24-48) Monocytes (%) (Auto) 13 % (0-9) Eosinophils (%) (Auto) 0 % (0-3) Basophils (%) (Auto) 0 % (0-3) Neutrophils # (Auto) 4.9 x10^3/uL (1.8-7.7) Lymphocytes # (Auto) 0.5 x10^3/uL (1.0-4.8) Monocytes # (Auto) 0.8 x10^3/uL (0.0-1.1) Eosinophils # (Auto) 0.0 x10^3/uL (0.0-0.7) Basophils # (Auto) 0.0 x10^3/uL (0.0-0.2) Sodium Level 156 mmol/L (136-145) Potassium Level 4.7 mmol/L (3.5-5.1) Chloride Level 120 mmol/L (98-107) Carbon Dioxide Level 18 mmol/L (21-32) Anion Gap 18 (6-14) Blood Urea Nitrogen 48 mg/dL (8-26) Creatinine 1.7 mg/dL (0.7-1.3) Estimated GFR (Cockcroft-Gault) 40.7 Glucose Level 201 mg/dL (70-99) Calcium Level 9.3 mg/dL (8.5-10.1) Phosphorus Level 3.7 mg/dL (2.6-4.7) Magnesium Level 2.1 mg/dL (1.8-2.4) Albumin 3.3 g/dL (3.4-5.0) Glucose (Fingerstick) 211 mg/dL (70-99) 223 mg/dL (70-99) 251 mg/dL (70-99) Test 07/25/20 09:45 07/25/20 10:41 07/25/20 16:54 07/25/20 20:12 White Blood Count 11.4 x10^3/uL (4.0-11.0) Red Blood Count 3.61 x10^6/uL (4.30-5.70) Hemoglobin 10.9 g/dL (13.0-17.5) Hematocrit 33.0 % (39.0-53.0) Mean Corpuscular Volume 92 fL (79-100) Mean Corpuscular Hemoglobin 30 pg (25-35) Mean Corpuscular Hemoglobin Concent 33 g/dL (31-37) Red Cell Distribution Width 13.8 % (11.5-14.5) Platelet Count 310 x10^3/uL (140-400) Neutrophils (%) (Auto) 86 % (31-73) Lymphocytes (%) (Auto) 5 % (24-48) Monocytes (%) (Auto) 8 % (0-9) Eosinophils (%) (Auto) 0 % (0-3) Basophils (%) (Auto) 1 % (0-3) Neutrophils # (Auto) 9.8 x10^3/uL (1.8-7.7) Lymphocytes # (Auto) 0.6 x10^3/uL (1.0-4.8) Monocytes # (Auto) 1.0 x10^3/uL (0.0-1.1) Eosinophils # (Auto) 0.0 x10^3/uL (0.0-0.7) Basophils # (Auto) 0.1 x10^3/uL (0.0-0.2) Sodium Level 159 mmol/L (136-145) Potassium Level 4.7 mmol/L (3.5-5.1) Chloride Level 124 mmol/L (98-107) Carbon Dioxide Level 20 mmol/L (21-32) Anion Gap 15 (6-14) Blood Urea Nitrogen 53 mg/dL (8-26) Creatinine 1.7 mg/dL (0.7-1.3) Estimated GFR (Cockcroft-Gault) 40.7 Glucose Level 239 mg/dL (70-99) Calcium Level 9.3 mg/dL (8.5-10.1) Phosphorus Level 3.7 mg/dL (2.6-4.7) Magnesium Level 2.3 mg/dL (1.8-2.4) Albumin 3.1 g/dL (3.4-5.0) Glucose (Fingerstick) 229 mg/dL (70-99) 293 mg/dL (70-99) 281 mg/dL (70-99) Test 07/26/20 03:52 07/26/20 07:44 Glucose (Fingerstick) 388 mg/dL (70-99) 380 mg/dL (70-99) Laboratory Tests Test 07/25/20 10:41 07/25/20 16:54 07/25/20 20:12 07/26/20 03:52 Glucose (Fingerstick) 229 mg/dL (70-99) 293 mg/dL (70-99) 281 mg/dL (70-99) 388 mg/dL (70-99) Test 07/26/20 07:44 Glucose (Fingerstick) 380 mg/dL (70-99) Microbiology 07/21/20 Blood Culture - Preliminary, Resulted NO GROWTH AFTER 4 DAYS 07/20/20 Urine Culture - Final, Complete 07/20/20 Antimicrobic Susceptibility - Final, Complete Medications Current Medications Sodium Chloride 1,000 ml @ 1,000 mls/hr 1X ONCE IV Last administered on 07/20/20at 15:30; Start 07/20/20 at 15:30; Stop 07/20/20 at 16:29; Status DC Sodium Chloride 1,000 ml @ 1,000 mls/hr 1X ONCE IV Last administered on 07/20/20at 16:50; Start 07/20/20 at 16:45; Stop 07/20/20 at 17:44; Status DC Sodium Chloride 1,000 ml @ 1,000 mls/hr 1X ONCE IV Last administered on 07/20/20at 16:50; Start 07/20/20 at 16:00; Stop 07/20/20 at 16:59; Status DC Ondansetron HCl (Zofran) 4 mg PRN Q8HRS PRN IV NAUSEA/VOMITING; Start 07/20/20 at 17:45; Stop 07/21/20 at 17:44; Status DC Sodium Chloride 1,000 ml @ 100 mls/hr Q10H IV Last administered on 07/20/20at 17:45; Start 07/20/20 at 17:45; Stop 07/21/20 at 17:44; Status DC Aspirin (Aspirin Chewable) 81 mg DAILY PO Last administered on 07/22/20at 07:48; Start 07/21/20 at 09:00 Cetirizine HCl (ZyrTEC) 10 mg DAILY08 PO Last administered on 07/22/20at 13:06; Start 07/21/20 at 08:00 Furosemide (Lasix) 40 mg DAILY PO Last administered on 07/22/20at 07:48; Start 07/21/20 at 09:00; Stop 07/24/20 at 11:10; Status DC Gabapentin (Neurontin) 400 mg DAILY PO Last administered on 07/22/20at 07:48; Start 07/21/20 at 09:00; Stop 07/22/20 at 10:48; Status DC Glyburide (Diabeta) 5 mg DAILY08 PO Last administered on 07/22/20at 13:06; Start 07/21/20 at 08:00 Haloperidol (Haldol) 5 mg BID PO Last administered on 07/22/20at 07:48; Start 07/21/20 at 09:00 Ketoconazole (Nizoral 2% Shampoo) 1 diana SuWe TP ; Start 07/21/20 at 21:00 Levetiracetam (Keppra) 500 mg BID PO Last administered on 07/22/20at 07:48; Start 07/21/20 at 09:00; Stop 07/22/20 at 23:34; Status DC Lisinopril (Prinivil) 10 mg DAILY PO Last administered on 07/22/20at 07:49; Start 07/21/20 at 09:00; Stop 07/24/20 at 11:10; Status DC Lisinopril (Prinivil) 20 mg HS PO ; Start 07/21/20 at 21:00; Stop 07/24/20 at 11:10; Status DC Magnesium Hydroxide (Milk Of Magnesia) 400 mg DAILY PRN PO CONSTIPATION; Start 07/21/20 at 02:15; Status UNV Nystatin (Nystop) 1 diana BID TP Last administered on 07/25/20at 21:48; Start 07/21/20 at 09:00 Senna/Docusate Sodium (Senna Plus) 1 tab DAILY PO Last administered on 07/22/20at 13:06; Start 07/21/20 at 09:00 Simvastatin (Zocor) 40 mg QHS PO ; Start 07/21/20 at 21:00 Trazodone HCl (Desyrel) 100 mg QHS PO ; Start 07/21/20 at 21:00 Guaifenesin (Robitussin Dm) 10 ml PRN Q6HRS PRN PO COUGH; Start 07/21/20 at 02:30 Hydrocortisone (Cortaid) 1 diana PRN BID PRN TP ITCHING; Start 07/21/20 at 02:45 Insulin Glargine (Lantus Syringe) 10 unit DAILY08 SQ Last administered on 07/26/20at 08:10; Start 07/21/20 at 08:00 Non-Formulary Medication (Ipratropium/ Albuterol Sulfate (Combivent Respimat Inhal)) 1 inh PRN Q8HRS PRN IH SHORTNESS OF BREATH; Start 07/21/20 at 02:15; Status UNV Non-Formulary Medication (Metformin Hcl ) 1 tab BID PO ; Start 07/21/20 at 09:00; Status UNV Multivitamins (Thera M Plus) 1 tab DAILY PO Last administered on 07/22/20at 07:48; Start 07/21/20 at 09:00 Niacin (Niaspan) 500 mg QHS PO ; Start 07/21/20 at 21:00 Fish Oil (Fish Oil) 1,000 mg DAILY PO Last administered on 07/22/20at 13:06; Start 07/21/20 at 09:00 Quetiapine Fumarate (SEROquel) 50 mg BIDWMEALS PO Last administered on 07/22/20at 17:27; Start 07/21/20 at 08:00 Quetiapine Fumarate (SEROquel) 200 mg HS PO ; Start 07/21/20 at 21:00 Albuterol/ Ipratropium (Combivent Respimat 20-100 Mcg) 1 puff RTQID INH Last administered on 07/25/20at 11:44; Start 07/21/20 at 08:00 Dextrose (Dextrose 50%-Water Syringe) 12.5 gm PRN Q15MIN PRN IV SEE COMMENTS; Start 07/21/20 at 03:30 Magnesium Sulfate 50 ml @ 25 mls/hr PRN DAILY PRN IV for Mag < 1.7 on am labs; Start 07/21/20 at 09:45 Ceftriaxone Sodium (Rocephin) 1 gm Q24H IVP Last administered on 07/25/20at 11:45; Start 07/21/20 at 12:00 Doxycycline Hyclate (Vibra-Tab) 100 mg BID PO Last administered on 07/22/20at 07:48; Start 07/21/20 at 11:00; Stop 07/22/20 at 23:34; Status DC Ceftriaxone Sodium (Rocephin) 1 gm Q24H IVP ; Start 07/21/20 at 11:15; Status UNV Lorazepam (Ativan Inj) 2 mg PRN Q2HR PRN IVP ANXIETY / AGITATION Last administered on 07/26/20at 08:07; Start 07/21/20 at 11:15 Sodium Chloride 1,000 ml @ 40 mls/hr Q24H IV Last administered on 07/25/20at 21:47; Start 07/21/20 at 13:15 Heparin Sodium (Porcine) (Heparin Sodium) 5,000 unit Q12HR SQ Last administered on 07/25/20at 21:48; Start 07/21/20 at 21:00 Acetaminophen (Tylenol Supp) 650 mg PRN Q6HRS PRN AR MILD PAIN / TEMP > 100.3'F; Start 07/21/20 at 20:30 Lactobacillus Rhamnosus (Culturelle) 1 cap BID PO ; Start 07/22/20 at 21:00 Metformin HCl (Glucophage) 1,000 mg BIDWMEALS PO ; Start 07/22/20 at 17:00 Gabapentin (Neurontin) 400 mg BID PO ; Start 07/22/20 at 21:00 Haloperidol Lactate (Haldol Inj) 5 mg PRN Q6HRS PRN IVP AGITATION Last administered on 07/23/20at 11:05; Start 07/22/20 at 14:15 Levetiracetam 500 mg/Dextrose 105 ml @ 420 mls/hr Q12HR IV Last administered on 07/26/20at 08:08; Start 07/23/20 at 00:00 Doxycycline Hyclate 100 mg/ Dextrose 100 ml @ 50 mls/hr 1X ONCE IV Last administered on 07/23/20at 00:24; Start 07/23/20 at 00:00; Stop 07/23/20 at 04:10; Status DC Lorazepam (Ativan Inj) 2 mg PRN Q4HRS PRN IVP ANXIETY / AGITATION; Start 07/22/20 at 23:45; Stop 07/22/20 at 23:48; Status DC Lorazepam (Ativan Inj) 2 mg PRN Q15MIN PRN IVP SEIZURE; Start 07/23/20 at 00:00 Methylprednisolone Sodium Succinate (SOLU-Medrol 40MG VIAL) 40 mg Q12HR IV Last administered on 07/26/20at 08:07; Start 07/23/20 at 10:30 Nicotine (Nicoderm Cq 21mg) 1 patch DAILY TD Last administered on 07/24/20at 10:35; Start 07/23/20 at 12:00 Azithromycin 250 ml @ 250 mls/hr DAILY IV ; Start 07/25/20 at 09:00; Status UNV Azithromycin 250 mg/Sodium Chloride 250 ml @ 250 mls/hr DAILY IV ; Start 07/24/20 at 12:00; Stop 07/24/20 at 11:50; Status DC Azithromycin 500 mg/Sodium Chloride 250 ml @ 250 mls/hr DAILY IV Last administered on 07/25/20at 08:15; Start 07/24/20 at 12:00 Amino Acids/ Glycerin/ Electrolytes 1,000 ml @ 80 mls/hr [id number] IV Last administered on 07/25/20at 13:09; Start 07/25/20 at 13:00 Morphine Sulfate (Morphine Sulfate) 2 mg PRN Q2HR PRN IV COMFORT MEASURES Last administered on 07/26/20at 04:22; Start 07/26/20 at 02:30 Active Scripts Active Reported Acetaminophen 650 Mg/20.3 Ml Solution 650 Mg PO Q6HRS PRN Seroquel (Quetiapine Fumarate) 200 Mg Tablet 200 Mg PO HS Seroquel (Quetiapine Fumarate) 50 Mg Tablet 50 Mg PO BID Nystatin 15 Gm Powder 1 Diana TP BID 7 Days apply to affected area(s) Ketoconazole 120 Ml Shampoo 1 Diana TP TWICE WEEKLY 30 Days with at least 3 days between each shampooing Hydrocortisone 453.6 Gm Cream..g. 1 Diana TP PRN BID Haloperidol 5 Mg Tablet 1 Tab PO QAM Lisinopril 20 Mg Tablet 20 Mg PO HS PRN Furosemide 40 Mg Tablet 40 Mg PO DAILY Combivent Respimat Inhal (Ipratropium/Albuterol Sulfate) 4 Gm Aer.w.adap 1 Inh IH PRN Q8HRS PRN Levetiracetam 500 Mg Tablet 1 Tab PO BID Zetia (Ezetimibe) 10 Mg Tablet 1 Tab PO HS Niaspan (Niacin) 500 Mg Tab.er.24h 1 Tab PO QHS Aspirin 81 Mg Tab.chew 1 Tab PO DAILY Nicotine Gum (Nicotine Polacrilex) 4 Mg Gum 4 Mg BC Milk Of Magnesia (Magnesium Hydroxide) 400 Mg/5 Ml Oral.susp 400 Mg PO DAILY PRN Duoneb 0.5-3(2.5) Mg/3 Ml (Albuterol/Ipratropium) 3 Ml Ampul.neb 3 Ml NEB QID Acetaminophen 325 Mg Tablet 325 Mg PO PRN Q4HRS PRN Robitussin Cough-Chest Dm Liq (Guaifenesin/Dextromethorphan) 118 Ml Liquid 10 Ml PO PRN Q6HRS PRN AD Days Atkinson 3 Fish Oil Softgel (Atkinson-3 Fatty Acids/Fish Oil) 1 Each Capsule. 1 Each PO DAILY Gabapentin (Gabapentin) 400 Mg Capsule 400 Mg PO TID Sennosides-Docusate Sodium Tab (Sennosides/Docusate Sodium) 1 Each Tablet 6-50 Each PO DAILY Metformin Hcl 1,000 Mg Tablet 1 Tab PO BID Haloperidol 5 Mg Tablet 5 Tab PO BID Zyrtec (Cetirizine Hcl) 10 Mg Tablet 1 Tab PO DAILY08 Trazodone Hcl 100 Mg Tablet 1 Tab PO QHS Simvastatin 40 Mg Tablet 1 Tab PO QHS Seroquel (Quetiapine Fumarate) 400 Mg Tablet 400 Tab PO QHS Multi Vitamin Daily (Multivitamin) 1 Each Tablet 1 Each PO DAILY Lisinopril 10 Mg Tablet 1 Tab PO DAILY Levemir (Insulin Detemir) 100 Unit/1 Ml Vial 10 Unit SQ DAILY08 Glyburide 5 Mg Tablet 1 Tab PO DAILY08 Effexor Xr (Venlafaxine Hcl) 150 Mg Cap.er.24h 1 Cap PO DAILY Vitals/I & O Vital Sign - Last 24 Hours 07/25/20 07/25/20 07/25/20 07/25/20 11:37 15:12 19:00 21:45 Temp 99.5 99.6 100.3 99.5 99.6 100.3 Pulse 114 118 123 Resp B/P (MAP) 145/74 (97) 147/77 (100) 155/93 (113) Pulse Ox 91 92 92 O2 Delivery Nasal Cannula Nasal Cannula Nasal Cannula Nasal Cannula O2 Flow Rate 7.0 7.0 7.0 9.0 07/25/20 07/26/20 07/26/20 23:33 03:00 07:51 Temp 100.0 100.8 98.9 100.0 100.8 98.9 Pulse 122 109 104 Resp B/P (MAP) 138/86 (103) 56/44 (48) 46/18 (27) Pulse Ox 90 78 90 O2 Delivery Nasal Cannula Nasal Cannula Nasal Cannula O2 Flow Rate 7.0 7.0 7.0 Intake and Output 07/25/20 07/25/20 07/26/20 15:00 23:00 07:00 Intake Total 0 ml 0 ml 0 ml Output Total 500 ml Balance 0 ml 0 ml -500 ml Justicifation of Admission Dx: Justifications for Admission: Justification of Admission Dx: N/A RADHA JURADO MD Jul 26, 2020 09:47
--- NOTE | 2020-07-26 09:52 | PDOC3 ---
Discharge Summary Visit Information Date of Admission: Jul 20, 2020 Date of Discharge: Jul 26, 2020 Final Diagnosis Mental status change dementia, COVID-19 with acute encephalopathy acute hypoxic respiratory failure schizophrenia tobacco use disorder obese, BMI 31 CHF, constipation, depression, diabetes, hypertension, insomnia hyperlipidemia, seizure disorder, , UTI, dystonic movements, chronic pain, dermatitis, previous tobacco abuse, previous alcohol use, previous marijuana use. History of Present Illness History of Present Illness 07/26. I had a long discussion with surinder Estrada and treat and discuss. mental status very poor, baseline also poor, almost no prob of rehab, not taking PO, CODE status to DNR, CPR would be futile/punishment will again call hospice./ Problems Medical Problems: (1) Acute renal failure Status: Acute (2) Altered mental status Status: Acute (3) Dehydration Status: Acute (4) Person under investigation for COVID-19 Status: Acute Brief Hospital Course Allergies Allergies Coded Allergies Type Severity Reaction Last Updated Verified I S O L A T I O N *CONTACT* Allergy Unknown 09/15/16 Yes No Known Medication Allergies Allergy Unknown 09/15/16 Yes Vital Signs Vital Signs Date Time Temp Pulse Resp B/P (MAP) Pulse Ox O2 Delivery O2 Flow Rate FiO2 07/26/20 07:51 98.9 104 26 46/18 (27) 90 Nasal Cannula 7.0 98.9 Lab Results Laboratory Tests Test 07/24/20 09:58 07/24/20 11:42 07/24/20 20:21 07/25/20 07:37 White Blood Count 6.2 x10^3/uL (4.0-11.0) Red Blood Count 3.50 x10^6/uL (4.30-5.70) Hemoglobin 10.8 g/dL (13.0-17.5) Hematocrit 31.7 % (39.0-53.0) Mean Corpuscular Volume 91 fL (79-100) Mean Corpuscular Hemoglobin 31 pg (25-35) Mean Corpuscular Hemoglobin Concent 34 g/dL (31-37) Red Cell Distribution Width 13.6 % (11.5-14.5) Platelet Count 269 x10^3/uL (140-400) Neutrophils (%) (Auto) 79 % (31-73) Lymphocytes (%) (Auto) 8 % (24-48) Monocytes (%) (Auto) 13 % (0-9) Eosinophils (%) (Auto) 0 % (0-3) Basophils (%) (Auto) 0 % (0-3) Neutrophils # (Auto) 4.9 x10^3/uL (1.8-7.7) Lymphocytes # (Auto) 0.5 x10^3/uL (1.0-4.8) Monocytes # (Auto) 0.8 x10^3/uL (0.0-1.1) Eosinophils # (Auto) 0.0 x10^3/uL (0.0-0.7) Basophils # (Auto) 0.0 x10^3/uL (0.0-0.2) Sodium Level 156 mmol/L (136-145) Potassium Level 4.7 mmol/L (3.5-5.1) Chloride Level 120 mmol/L (98-107) Carbon Dioxide Level 18 mmol/L (21-32) Anion Gap 18 (6-14) Blood Urea Nitrogen 48 mg/dL (8-26) Creatinine 1.7 mg/dL (0.7-1.3) Estimated GFR (Cockcroft-Gault) 40.7 Glucose Level 201 mg/dL (70-99) Calcium Level 9.3 mg/dL (8.5-10.1) Phosphorus Level 3.7 mg/dL (2.6-4.7) Magnesium Level 2.1 mg/dL (1.8-2.4) Albumin 3.3 g/dL (3.4-5.0) Glucose (Fingerstick) 211 mg/dL (70-99) 223 mg/dL (70-99) 251 mg/dL (70-99) Test 07/25/20 09:45 07/25/20 10:41 07/25/20 16:54 07/25/20 20:12 White Blood Count 11.4 x10^3/uL (4.0-11.0) Red Blood Count 3.61 x10^6/uL (4.30-5.70) Hemoglobin 10.9 g/dL (13.0-17.5) Hematocrit 33.0 % (39.0-53.0) Mean Corpuscular Volume 92 fL (79-100) Mean Corpuscular Hemoglobin 30 pg (25-35) Mean Corpuscular Hemoglobin Concent 33 g/dL (31-37) Red Cell Distribution Width 13.8 % (11.5-14.5) Platelet Count 310 x10^3/uL (140-400) Neutrophils (%) (Auto) 86 % (31-73) Lymphocytes (%) (Auto) 5 % (24-48) Monocytes (%) (Auto) 8 % (0-9) Eosinophils (%) (Auto) 0 % (0-3) Basophils (%) (Auto) 1 % (0-3) Neutrophils # (Auto) 9.8 x10^3/uL (1.8-7.7) Lymphocytes # (Auto) 0.6 x10^3/uL (1.0-4.8) Monocytes # (Auto) 1.0 x10^3/uL (0.0-1.1) Eosinophils # (Auto) 0.0 x10^3/uL (0.0-0.7) Basophils # (Auto) 0.1 x10^3/uL (0.0-0.2) Sodium Level 159 mmol/L (136-145) Potassium Level 4.7 mmol/L (3.5-5.1) Chloride Level 124 mmol/L (98-107) Carbon Dioxide Level 20 mmol/L (21-32) Anion Gap 15 (6-14) Blood Urea Nitrogen 53 mg/dL (8-26) Creatinine 1.7 mg/dL (0.7-1.3) Estimated GFR (Cockcroft-Gault) 40.7 Glucose Level 239 mg/dL (70-99) Calcium Level 9.3 mg/dL (8.5-10.1) Phosphorus Level 3.7 mg/dL (2.6-4.7) Magnesium Level 2.3 mg/dL (1.8-2.4) Albumin 3.1 g/dL (3.4-5.0) Glucose (Fingerstick) 229 mg/dL (70-99) 293 mg/dL (70-99) 281 mg/dL (70-99) Test 07/26/20 03:52 07/26/20 07:44 Glucose (Fingerstick) 388 mg/dL (70-99) 380 mg/dL (70-99) Laboratory Tests Test 07/25/20 10:41 07/25/20 16:54 07/25/20 20:12 07/26/20 03:52 Glucose (Fingerstick) 229 mg/dL (70-99) 293 mg/dL (70-99) 281 mg/dL (70-99) 388 mg/dL (70-99) Test 07/26/20 07:44 Glucose (Fingerstick) 380 mg/dL (70-99) Brief Hospital Course Mr. Faustin is a 64 old Mental status change on his prior dementia, shizophrenia COVID-19 with acute encephalopathy acute hypoxic respiratory failure, poorly stable over days, despite treatement not taking PO, not awake, not following commands I had a long discussion with surinder Estrada and treat and discuss. mental status very poor, baseline also poor, almost no prob of rehab, not taking PO, CODE status to DNR, CPR would be futile/punishment will call hospice./ Discharge Information Condition at Discharge: Stable Disposition/Orders: D/C to Another Facility (HOSPICE) Scheduled Gabapentin (Gabapentin ) 400 Mg Capsule, 400 MG PO TID, (Reported) Entered as Reported by: LEANDRO OREILLY on 09/13/161121 Last Taken: Unknown Dose on 07/20/206 Last Action: Continued on 07/21/20218 by ARRON VALENCIA RN Haloperidol (Haloperidol) 5 Mg Tablet, 5 TAB PO BID, #60 Ref 1 (Reported) Entered as Reported by: LEANDRO OREILLY on 09/13/16 111 Last Taken: Unknown Dose on 07/20/206 Last Action: Continued on 07/21/20218 by ARRON VALENCIA RN Ipratropium/Albuterol Sulfate (Duoneb 0.5-3(2.5) Mg/3 Ml) 3 Ml Ampul.neb, 3 ML NEB QID, (Reported) Entered as Reported by: LEANDRO OREILLY on 09/13/16 112 Last Taken: Unknown Dose on Unknown Date & Time Last Action: Last Taken Edited on 07/21/20210 by ARRON VALENCIA, RN Levetiracetam (Levetiracetam) 500 Mg Tablet, 1 TAB PO BID, #180 Ref 3 (Reported) Entered as Reported by: ARRON HERRERA on 09/25/16 1452 Last Taken: Unknown Dose on 07/20/206 Last Action: Continued on 07/21/20218 by ARRON VALENCIA RN Quetiapine Fumarate (Seroquel) 200 Mg Tablet, 200 MG PO HS for schizophrenia, (Reported) Entered as Reported by: ARRON VALENCIA RN on 07/21/20210 Last Taken: Unknown Dose on Unknown Date & Time Last Action: Converted on 07/21/20218 by ARRON VALENCIA RN Trazodone Hcl (Trazodone Hcl) 100 Mg Tablet, 1 TAB PO QHS, #30 Ref 1 (Reported) Entered as Reported by: LEANDRO OREILLY on 09/13/16 1113 Last Taken: Unknown Dose on 07/19/20 002 Last Action: Continued on 07/21/20218 by ARRON VALENCIA RN Venlafaxine Hcl (Effexor Xr) 150 Mg Cap.er.24h, 1 CAP PO DAILY, #30 Ref 1 (Reported) Entered as Reported by: LEANDRO OREILLY on 09/13/16 1110 Last Taken: Unknown Dose on 07/20/206 Last Action: Last Taken Edited on 07/21/20210 by ARRON VALENCIA RN Scheduled PRN Ipratropium/Albuterol Sulfate (Combivent Respimat Inhal) 4 Gm Aer.w.adap, 1 INH IH PRN Q8HRS PRN for SHORTNESS OF BREATH, (Reported) Entered as Reported by: ARRON HERRERA on 09/25/16 1452 Last Taken: Unknown Dose on Unknown Date & Time Last Action: Converted on 07/21/20218 by ARRON VALENCIA RN Discontinued Medications Acetaminophen (Acetaminophen) 325 Mg Tablet, 325 MG PO PRN Q4HRS PRN for PAIN, (Reported) Entered as Reported by: LEANDRO OREILLY on 09/13/16 1122 Last Taken: Unknown Dose on Unknown Date & Time Last Action: Last Taken Edited on 07/21/20210 by ARRON VALENCIA RN Acetaminophen (Acetaminophen) 650 Mg/20.3 Ml Solution, 650 MG PO Q6HRS PRN for PAIN, (Reported) Entered as Reported by: ARRON VALENCIA RN on 07/21/20210 Last Taken: Unknown Dose on Unknown Date & Time Last Action: New Order on 07/21/20210 by ARRON VALENCIA RN Aspirin (Aspirin) 81 Mg Tab.chew, 1 TAB PO DAILY, #30 Ref 3 (Reported) Entered as Reported by: LEANDRO OREILLY on 09/13/16 1124 Last Taken: Unknown Dose on 07/20/206 Last Action: Continued on 07/21/20218 by ARRON VALENCIA RN Cetirizine Hcl (Zyrtec) 10 Mg Tablet, 1 TAB PO DAILY08, #30 Ref 2 (Reported) Entered as Reported by: LEANDRO OREILLY on 09/13/16 1116 Last Taken: Unknown Dose on 07/20/208 Last Action: Continued on 07/21/20218 by ARRON VALENCIA RN Ezetimibe (Zetia) 10 Mg Tablet, 1 TAB PO HS, #30 Ref 5 (Reported) Entered as Reported by: ARRON HERRERA on 09/25/16 1452 Last Action: Converted on 07/21/20218 by ARRON VALENCIA RN Furosemide (Furosemide) 40 Mg Tablet, 40 MG PO DAILY for edema, (Reported) Entered as Reported by: ARRON VALENCIA RN on 07/21/20210 Last Taken: Unknown Dose on 07/20/20 Last Action: Continued on 07/21/20218 by ARRON VALENCIA RN Glyburide (Glyburide) 5 Mg Tablet, 1 TAB PO DAILY08, #360 Ref 3 (Reported) Entered as Reported by: LEANDRO OREILLY on 09/13/16 1110 Last Taken: Unknown Dose on 07/20/20 0012 Last Action: Continued on 07/21/20218 by ARRON VALENCIA RN Guaifenesin/Dextromethorphan (Robitussin Cough-Chest Dm Liq) 118 Ml Liquid, 10 ML PO PRN Q6HRS PRN for COUGH for AD Days, (Reported) Entered as Reported by: LEANDRO OREILLY on 09/13/16 1122 Last Taken: Unknown Dose on Unknown Date & Time Last Action: Converted on 07/21/20218 by ARRON VALENCIA RN Haloperidol (Haloperidol) 5 Mg Tablet, 1 TAB PO QAM for paranoia, #30 Ref 2 (Reported) Entered as Reported by: ARRON VALENCIA RN on 07/21/20210 Last Taken: Unknown Dose on 07/20/206 Last Action: New Order on 07/21/20210 by ARRON VALENCIA RN Hydrocortisone (Hydrocortisone) 453.6 Gm Cream..g., 1 AMIRA TP PRN BID for dry skin, #30 (Reported) Entered as Reported by: ARRON VALENCIA RN on 07/21/20210 Last Taken: Unknown Dose on Unknown Date & Time Last Action: Converted on 07/21/20218 by ARRON VALENCIA RN Insulin Detemir (Levemir) 100 Unit/1 Ml Vial, 10 UNIT SQ DAILY08, (Reported) Entered as Reported by: LEANDRO OREILLY on 09/13/16 1111 Last Taken: Unknown Dose on 07/20/208 Last Action: Converted on 07/21/20218 by ARRON VALENCIA RN Ketoconazole (Ketoconazole) 120 Ml Shampoo, 1 AMIRA TP TWICE WEEKLY for dry skin f or 30 Days, #120 Ref 0 (Reported) with at least 3 days between each shampooing Entered as Reported by: ARRON VALENCIA RN on 07/21/20210 Last Taken: Unknown Dose on 07/17/20 Last Action: Continued on 07/21/20218 by ARRON VALENCIA RN Lisinopril (Lisinopril) 10 Mg Tablet, 1 TAB PO DAILY, #30 Ref 5 (Reported) Entered as Reported by: LEANDRO OREILLY on 09/13/16 1111 Last Taken: Unknown Dose on 07/20/207 Last Action: Continued on 07/21/20218 by ARRON VALENCIA RN Lisinopril (Lisinopril) 20 Mg Tablet, 20 MG PO HS PRN for HTN, #30 Ref 0 (R eported) Entered as Reported by: ARRON VALENCIA RN on 07/21/20210 Last Taken: Unknown Dose on 07/19/20 0021 Last Action: Continued on 07/21/20218 by ARRON VAELNCIA RN Magnesium Hydroxide (Milk Of Magnesia) 400 Mg/5 Ml Oral.susp, 400 MG PO DAILY PRN for CONSTIPATION, (Reported) Entered as Reported by: LEANDRO OREILLY on 09/13/16 1122 Last Taken: Unknown Dose on Unknown Date & Time Last Action: Continued on 07/21/20218 by ARRON VALENCIA RN Metformin Hcl (Metformin Hcl) 1,000 Mg Tablet, 1 TAB PO BID, #60 Ref 5 (Reported) Entered as Reported by: LEANDRO OREILLY on 09/13/16 1116 Last Taken: Unknown Dose on 07/20/206 Last Action: Converted on 07/21/20218 by ARRON VALENCIA RN Multivitamin (Multi Vitamin Daily) 1 Each Tablet, 1 EACH PO DAILY, (Reported) Entered as Reported by: LEANDRO OREILLY on 09/13/16 1111 Last Taken: Unknown Dose on 07/20/207 Last Action: Converted on 07/21/20218 by ARRON VALENCIA RN Niacin (Niaspan) 500 Mg Tab.er.24h, 1 TAB PO QHS, #30 Ref 5 (Reported) Entered as Reported by: ARRON HERRERA on 09/25/16 1452 Last Taken: Unknown Dose on 07/19/20 Last Action: Converted on 07/21/20218 by ARRON VALENCIA RN Nicotine Polacrilex (Nicotine Gum) 4 Mg Gum, 4 MG BC, (Reported) Entered as Reported by: LEANDRO OREILLY on 09/13/16 1124 Last Taken: Unknown Dose on Unknown Date & Time Last Action: Last Taken Edited on 07/21/20210 by ARRON VALENCIA RN Nystatin (Nystatin) 15 Gm Powder, 1 AMIRA TP BID for redness R groin and scrotum for 7 Days, #1 Ref 0 (Reported) apply to affected area(s) Entered as Reported by: ARRON VALENCIA RN on 07/21/20210 Last Taken: Unknown Dose on Unknown Date & Time Last Action: Continued on 07/21/20218 by ARRON VALENCIA RN [place]-3 Fatty Acids/Fish Oil ([place] 3 Fish Oil Softgel) 1 Each Capsule.dr, 1 EACH PO DAILY, (Reported) Entered as Reported by: LEANDRO OREILLY on 09/13/16 1122 Last Taken: Unknown Dose on 07/20/207 Last Action: Converted on 07/21/20218 by ARRON VALENCIA RN Quetiapine Fumarate (Seroquel) 400 Mg Tablet, 400 TAB PO QHS, #30 Ref 1 (Reported) Entered as Reported by: LEANDRO OREILLY on 09/13/16 1111 Last Taken: UNKNOWN on Unknown Date & Time Last Action: Last Taken Edited on 07/21/20210 by ARRON VALENCIA RN Quetiapine Fumarate (Seroquel) 50 Mg Tablet, 50 MG PO BID for schizophrenia, (Reported) Entered as Reported by: ARRON VALENCIA RN on 07/21/20210 Last Taken: Unknown Dose on 07/20/207 Last Action: Converted on 07/21/20218 by ARRON VALENCIA RN Sennosides/Docusate Sodium (Sennosides-Docusate Sodium Tab) 1 Each Tablet, 6-50 EACH PO DAILY, (Reported) Entered as Reported by: LEANDRO OREILLY on 09/13/16 1116 Last Taken: Unknown Dose on 07/20/206 Last Action: Continued on 07/21/20218 by ARRON VALENCIA RN Simvastatin (Simvastatin) 40 Mg Tablet, 1 TAB PO QHS, #30 Ref 5 (Reported) Entered as Reported by: LEANDRO OREILLY on 09/13/16 1113 Last Taken: Unknown Dose on 07/19/20 0021 Last Action: Continued on 07/21/20218 by ARRON VALENCIA RN Patient Instructions Patient Instructions > 30 min 2 doctor talk pt eval in room Justicifation of Admission Dx: Justifications for Admission: Justification of Admission Dx: N/A RADHA JURADO MD Jul 26, 2020 09:52
--- NOTE | 2020-07-26 10:01 | PDOC ---
PROGRESS NOTES Date of Service DATE: 07/26/20 TIME: 09:58 Objective Objective Vital Signs Date Time Temp Pulse Resp B/P (MAP) Pulse Ox O2 Delivery O2 Flow Rate FiO2 07/26/20 07:51 98.9 104 26 46/18 (27) 90 Nasal Cannula 7.0 98.9 Intake and Output 07/26/20 07:00 Intake Total 0 ml Output Total 500 ml Balance -500 ml Intake Oral 0 ml Output Urine Total 500 ml Assessment Assessment Problems Medical Problems: (1) Acute renal failure Status: Acute (2) Altered mental status Status: Acute (3) Dehydration Status: Acute (4) Person under investigation for COVID-19 Status: Acute Plan Plan of Care I was called to room when his tele went marek, then he went pulseless. I had just got off the phone with social work, that we were not legally able to make him DNR, his guardian cant do that and 2 physicians cant do that, which seems weird to me. in light of this info, We started chest compressions and tried to resuscitate him, but were unsuccessful, pt was 10:01 am no breathing, no response, no pulse Comment Review of Relevant I have reviewed the following items darryn (where applicable) has been applied. Labs Laboratory Tests Test 07/24/20 11:42 07/24/20 20:21 07/25/20 07:37 07/25/20 09:45 Glucose (Fingerstick) 211 mg/dL (70-99) 223 mg/dL (70-99) 251 mg/dL (70-99) White Blood Count 11.4 x10^3/uL (4.0-11.0) Red Blood Count 3.61 x10^6/uL (4.30-5.70) Hemoglobin 10.9 g/dL (13.0-17.5) Hematocrit 33.0 % (39.0-53.0) Mean Corpuscular Volume 92 fL (79-100) Mean Corpuscular Hemoglobin 30 pg (25-35) Mean Corpuscular Hemoglobin Concent 33 g/dL (31-37) Red Cell Distribution Width 13.8 % (11.5-14.5) Platelet Count 310 x10^3/uL (140-400) Neutrophils (%) (Auto) 86 % (31-73) Lymphocytes (%) (Auto) 5 % (24-48) Monocytes (%) (Auto) 8 % (0-9) Eosinophils (%) (Auto) 0 % (0-3) Basophils (%) (Auto) 1 % (0-3) Neutrophils # (Auto) 9.8 x10^3/uL (1.8-7.7) Lymphocytes # (Auto) 0.6 x10^3/uL (1.0-4.8) Monocytes # (Auto) 1.0 x10^3/uL (0.0-1.1) Eosinophils # (Auto) 0.0 x10^3/uL (0.0-0.7) Basophils # (Auto) 0.1 x10^3/uL (0.0-0.2) Sodium Level 159 mmol/L (136-145) Potassium Level 4.7 mmol/L (3.5-5.1) Chloride Level 124 mmol/L (98-107) Carbon Dioxide Level 20 mmol/L (21-32) Anion Gap 15 (6-14) Blood Urea Nitrogen 53 mg/dL (8-26) Creatinine 1.7 mg/dL (0.7-1.3) Estimated GFR (Cockcroft-Gault) 40.7 Glucose Level 239 mg/dL (70-99) Calcium Level 9.3 mg/dL (8.5-10.1) Phosphorus Level 3.7 mg/dL (2.6-4.7) Magnesium Level 2.3 mg/dL (1.8-2.4) Albumin 3.1 g/dL (3.4-5.0) Test 07/25/20 10:41 07/25/20 16:54 07/25/20 20:12 07/26/20 03:52 Glucose (Fingerstick) 229 mg/dL (70-99) 293 mg/dL (70-99) 281 mg/dL (70-99) 388 mg/dL (70-99) Test 07/26/20 07:44 Glucose (Fingerstick) 380 mg/dL (70-99) Laboratory Tests Test 07/25/20 10:41 07/25/20 16:54 07/25/20 20:12 07/26/20 03:52 Glucose (Fingerstick) 229 mg/dL (70-99) 293 mg/dL (70-99) 281 mg/dL (70-99) 388 mg/dL (70-99) Test 07/26/20 07:44 Glucose (Fingerstick) 380 mg/dL (70-99) Microbiology 07/21/20 Blood Culture - Preliminary, Resulted NO GROWTH AFTER 4 DAYS 07/20/20 Urine Culture - Final, Complete 07/20/20 Antimicrobic Susceptibility - Final, Complete Medications Current Medications Sodium Chloride 1,000 ml @ 1,000 mls/hr 1X ONCE IV Last administered on 07/20/20at 15:30; Start 07/20/20 at 15:30; Stop 07/20/20 at 16:29; Status DC Sodium Chloride 1,000 ml @ 1,000 mls/hr 1X ONCE IV Last administered on 07/20/20at 16:50; Start 07/20/20 at 16:45; Stop 07/20/20 at 17:44; Status DC Sodium Chloride 1,000 ml @ 1,000 mls/hr 1X ONCE IV Last administered on 07/20/20at 16:50; Start 07/20/20 at 16:00; Stop 07/20/20 at 16:59; Status DC Ondansetron HCl (Zofran) 4 mg PRN Q8HRS PRN IV NAUSEA/VOMITING; Start 07/20/20 at 17:45; Stop 07/21/20 at 17:44; Status DC Sodium Chloride 1,000 ml @ 100 mls/hr Q10H IV Last administered on 07/20/20at 17:45; Start 07/20/20 at 17:45; Stop 07/21/20 at 17:44; Status DC Aspirin (Aspirin Chewable) 81 mg DAILY PO Last administered on 07/22/20at 07:48; Start 07/21/20 at 09:00 Cetirizine HCl (ZyrTEC) 10 mg DAILY08 PO Last administered on 07/22/20at 13:06; Start 07/21/20 at 08:00 Furosemide (Lasix) 40 mg DAILY PO Last administered on 07/22/20at 07:48; Start 07/21/20 at 09:00; Stop 07/24/20 at 11:10; Status DC Gabapentin (Neurontin) 400 mg DAILY PO Last administered on 07/22/20at 07:48; Start 07/21/20 at 09:00; Stop 07/22/20 at 10:48; Status DC Glyburide (Diabeta) 5 mg DAILY08 PO Last administered on 07/22/20at 13:06; Start 07/21/20 at 08:00 Haloperidol (Haldol) 5 mg BID PO Last administered on 07/22/20at 07:48; Start 07/21/20 at 09:00 Ketoconazole (Nizoral 2% Shampoo) 1 diana SuWe TP ; Start 07/21/20 at 21:00 Levetiracetam (Keppra) 500 mg BID PO Last administered on 07/22/20at 07:48; Start 07/21/20 at 09:00; Stop 07/22/20 at 23:34; Status DC Lisinopril (Prinivil) 10 mg DAILY PO Last administered on 07/22/20at 07:49; Start 07/21/20 at 09:00; Stop 07/24/20 at 11:10; Status DC Lisinopril (Prinivil) 20 mg HS PO ; Start 07/21/20 at 21:00; Stop 07/24/20 at 11:10; Status DC Magnesium Hydroxide (Milk Of Magnesia) 400 mg DAILY PRN PO CONSTIPATION; Start 07/21/20 at 02:15; Status UNV Nystatin (Nystop) 1 diana BID TP Last administered on 07/25/20at 21:48; Start 07/21/20 at 09:00 Senna/Docusate Sodium (Senna Plus) 1 tab DAILY PO Last administered on 07/22/20at 13:06; Start 07/21/20 at 09:00 Simvastatin (Zocor) 40 mg QHS PO ; Start 07/21/20 at 21:00 Trazodone HCl (Desyrel) 100 mg QHS PO ; Start 07/21/20 at 21:00 Guaifenesin (Robitussin Dm) 10 ml PRN Q6HRS PRN PO COUGH; Start 07/21/20 at 02:30 Hydrocortisone (Cortaid) 1 diana PRN BID PRN TP ITCHING; Start 07/21/20 at 02:45 Insulin Glargine (Lantus Syringe) 10 unit DAILY08 SQ Last administered on 07/16 09/04at 08:10; Start 07/21/20 at 08:00 Non-Formulary Medication (Ipratropium/ Albuterol Sulfate (Combivent Respimat Inhal)) 1 inh PRN Q8HRS PRN IH SHORTNESS OF BREATH; Start 07/21/20 at 02:15; Status UNV Non-Formulary Medication (Metformin Hcl ) 1 tab BID PO ; Start 07/21/20 at 09:00; Status UNV Multivitamins (Thera M Plus) 1 tab DAILY PO Last administered on 07/22/20at 07:48; Start 07/21/20 at 09:00 Niacin (Niaspan) 500 mg QHS PO ; Start 07/21/20 at 21:00 Fish Oil (Fish Oil) 1,000 mg DAILY PO Last administered on 07/22/20at 13:06; Start 07/21/20 at 09:00 Quetiapine Fumarate (SEROquel) 50 mg BIDWMEALS PO Last administered on 07/22at 17:27; Start 07/21/20 at 08:00 Quetiapine Fumarate (SEROquel) 200 mg HS PO ; Start 07/21/20 at 21:00 Albuterol/ Ipratropium (Combivent Respimat 20-100 Mcg) 1 puff RTQID INH Last administered on 07/25/20at 11:44; Start 07/21/20 at 08:00 Dextrose (Dextrose 50%-Water Syringe) 12.5 gm PRN Q15MIN PRN IV SEE COMMENTS; Start 07/21/20 at 03:30 Magnesium Sulfate 50 ml @ 25 mls/hr PRN DAILY PRN IV for Mag < 1.7 on am labs; Start 07/21/20 at 09:45 Ceftriaxone Sodium (Rocephin) 1 gm Q24H IVP Last administered on 07/25/20at 11:45; Start 07/21/20 at 12:00 Doxycycline Hyclate (Vibra-Tab) 100 mg BID PO Last administered on 07/22/20at 07:48; Start 07/21/20 at 11:00; Stop 07/22/20 at 23:34; Status DC Ceftriaxone Sodium (Rocephin) 1 gm Q24H IVP ; Start 07/21/20 at 11:15; Status UNV Lorazepam (Ativan Inj) 2 mg PRN Q2HR PRN IVP ANXIETY / AGITATION Last administered on 07/26/20at 08:07; Start 07/21/20 at 11:15 Sodium Chloride 1,000 ml @ 40 mls/hr Q24H IV Last administered on 07/25/20at 21:47; Start 07/21/20 at 13:15 Heparin Sodium (Porcine) (Heparin Sodium) 5,000 unit Q12HR SQ Last administered on 07/25/20at 21:48; Start 07/21/20 at 21:00 Acetaminophen (Tylenol Supp) 650 mg PRN Q6HRS PRN [place] MILD PAIN / TEMP > 100.3'F; Start 07/21/20 at 20:30 Lactobacillus Rhamnosus (Culturelle) 1 cap BID PO ; Start 07/22/20 at 21:00 Metformin HCl (Glucophage) 1,000 mg BIDWMEALS PO ; Start 07/22/20 at 17:00 Gabapentin (Neurontin) 400 mg BID PO ; Start 07/22/20 at 21:00 Haloperidol Lactate (Haldol Inj) 5 mg PRN Q6HRS PRN IVP AGITATION Last administered on 07/23/20at 11:05; Start 07/22/20 at 14:15 Levetiracetam 500 mg/Dextrose 105 ml @ 420 mls/hr Q12HR IV Last administered on 07/26/20at 08:08; Start 07/23/20 at 00:00 Doxycycline Hyclate 100 mg/ Dextrose 100 ml @ 50 mls/hr 1X ONCE IV Last administered on 07/23/20at 00:24; Start 07/23/20 at 00:00; Stop 07/23/20 at 04:10; Status DC Lorazepam (Ativan Inj) 2 mg PRN Q4HRS PRN IVP ANXIETY / AGITATION; Start 07/22/20 at 23:45; Stop 07/22/20 at 23:48; Status DC Lorazepam (Ativan Inj) 2 mg PRN Q15MIN PRN IVP SEIZURE; Start 07/23/20 at 00:00 Methylprednisolone Sodium Succinate (SOLU-Medrol 40MG VIAL) 40 mg Q12HR IV Last administered on 07/26/20at 08:07; Start 07/23/20 at 10:30 Nicotine (Nicoderm Cq 21mg) 1 patch DAILY TD Last administered on 07/24/20at 10:35; Start 07/23/20 at 12:00 Azithromycin 250 ml @ 250 mls/hr DAILY IV ; Start 07/25/20 at 09:00; Status UNV Azithromycin 250 mg/Sodium Chloride 250 ml @ 250 mls/hr DAILY IV ; Start 07/24/20 at 12:00; Stop 07/24/20 at 11:50; Status DC Azithromycin 500 mg/Sodium Chloride 250 ml @ 250 mls/hr DAILY IV Last administered on 07/25/20at 08:15; Start 07/24/20 at 12:00 Amino Acids/ Glycerin/ Electrolytes 1,000 ml @ 80 mls/hr [id number] IV Last administered on 07/25/20at 13:09; Start 07/25/20 at 13:00 Morphine Sulfate (Morphine Sulfate) 2 mg PRN Q2HR PRN IV COMFORT MEASURES Last administered on 07/26/20at 04:22; Start 07/26/20 at 02:30 Active Scripts Active Reported Acetaminophen 650 Mg/20.3 Ml Solution 650 Mg PO Q6HRS PRN Seroquel (Quetiapine Fumarate) 200 Mg Tablet 200 Mg PO HS Seroquel (Quetiapine Fumarate) 50 Mg Tablet 50 Mg PO BID Nystatin 15 Gm Powder 1 Diana TP BID 7 Days apply to affected area(s) Ketoconazole 120 Ml Shampoo 1 Diana TP TWICE WEEKLY 30 Days with at least 3 days between each shampooing Hydrocortisone 453.6 Gm Cream..g. 1 Diana TP PRN BID Haloperidol 5 Mg Tablet 1 Tab PO QAM Lisinopril 20 Mg Tablet 20 Mg PO HS PRN Furosemide 40 Mg Tablet 40 Mg PO DAILY Combivent Respimat Inhal (Ipratropium/Albuterol Sulfate) 4 Gm Aer.w.adap 1 Inh IH PRN Q8HRS PRN Levetiracetam 500 Mg Tablet 1 Tab PO BID Zetia (Ezetimibe) 10 Mg Tablet 1 Tab PO HS Niaspan (Niacin) 500 Mg Tab.er.24h 1 Tab PO QHS Aspirin 81 Mg Tab.chew 1 Tab PO DAILY Nicotine Gum (Nicotine Polacrilex) 4 Mg Gum 4 Mg BC Milk Of Magnesia (Magnesium Hydroxide) 400 Mg/5 Ml Oral.susp 400 Mg PO DAILY PRN Duoneb 0.5-3(2.5) Mg/3 Ml (Albuterol/Ipratropium) 3 Ml Ampul.neb 3 Ml NEB QID Acetaminophen 325 Mg Tablet 325 Mg PO PRN Q4HRS PRN Robitussin Cough-Chest Dm Liq (Guaifenesin/Dextromethorphan) 118 Ml Liquid 10 Ml PO PRN Q6HRS PRN AD Days [place] 3 Fish Oil Softgel ([place]-3 Fatty Acids/Fish Oil) 1 Each Capsule. 1 Each PO DAILY Gabapentin (Gabapentin) 400 Mg Capsule 400 Mg PO TID Sennosides-Docusate Sodium Tab (Sennosides/Docusate Sodium) 1 Each Tablet 6-50 Each PO DAILY Metformin Hcl 1,000 Mg Tablet 1 Tab PO BID Haloperidol 5 Mg Tablet 5 Tab PO BID Zyrtec (Cetirizine Hcl) 10 Mg Tablet 1 Tab PO DAILY08 Trazodone Hcl 100 Mg Tablet 1 Tab PO QHS Simvastatin 40 Mg Tablet 1 Tab PO QHS Seroquel (Quetiapine Fumarate) 400 Mg Tablet 400 Tab PO QHS Multi Vitamin Daily (Multivitamin) 1 Each Tablet 1 Each PO DAILY Lisinopril 10 Mg Tablet 1 Tab PO DAILY Levemir (Insulin Detemir) 100 Unit/1 Ml Vial 10 Unit SQ DAILY08 Glyburide 5 Mg Tablet 1 Tab PO DAILY08 Effexor Xr (Venlafaxine Hcl) 150 Mg Cap.er.24h 1 Cap PO DAILY Vitals/I & O Vital Sign - Last 24 Hours 07/25/20 07/25/20 07/25/20 07/25/20 11:37 15:12 19:00 21:45 Temp 99.5 99.6 100.3 99.5 99.6 100.3 Pulse 114 118 123 Resp 30 B/P (MAP) 145/74 (97) 147/77 (100) 155/93 (113) Pulse Ox 91 92 92 O2 Delivery Nasal Cannula Nasal Cannula Nasal Cannula Nasal Cannula O2 Flow Rate 7.0 7.0 7.0 9.0 07/25/20 07/26/20 07/26/20 23:33 03:00 07:51 Temp 100.0 100.8 98.9 100.0 100.8 98.9 Pulse 122 109 104 Resp 26 B/P (MAP) 138/86 (103) 56/44 (48) 46/18 (27) Pulse Ox 90 78 90 O2 Delivery Nasal Cannula Nasal Cannula Nasal Cannula O2 Flow Rate 7.0 7.0 7.0 Intake and Output 07/25/20 07/25/20 07/26/20 15:00 23:00 07:00 Intake Total 0 ml 0 ml 0 ml Output Total 500 ml Balance 0 ml 0 ml -500 ml Justifications for Admission Other Justification RADHA JURADO MD Jul 26, 2020 10:01
--- NOTE | 2020-07-26 10:08 | NUR ---
This morning during report the pt had declined over night and was put on 15L via [facility] compared to the 7L via NC pt was on 07/25. Pt was unresponsive and non-verbal when I went in to do morning assessment, but will still at 98% and HR was 113. Then during mid morning we noticed pt was getting bradycardia, and then went into asystole. Myself and a couple other nurses went into the pt's room to start doing compressions. Compressions were done for a short time and Dr. Olivier called time of at 0959.
--- NOTE | 2020-07-26 10:27 | NUR ---
SW following for discharge planning. Spoke with RN and reviewed chart. Pt declining. BECCA spoke with Sushila from [facility] about assessing pt for GIP. BECCA spoke with director of business systems Jody Yoo ([phone]) who advised this SW to contact the court in which guardianship was filed. Spoke with pt's brother/guardian Adriano ([phone]) who stated his assistant prosecuting attorney Colten Weir ([phone]) filed the original paperwork at the [facility] ([phone]). Adriano gave this SW permission to contact his assistant prosecuting attorney and the court on behalf of him and pt. BECCA spoke with Mandi with the invoice control clerk's office at the [facility] who stated the assistant prosecuting attorney would need to file emergency paperwork. LVM for assistant prosecuting attorney Colten Weir. Pt and brother notified. [facility] notified. No further SW needs at this time.
--- NOTE | 2020-07-26 11:05 | NUR ---
Official documentation time of is 1001
== END 2020-07-26 10:01 | DRG 177 ==
LOC: ER 15:02 → ED HOLD 17:20 → 6 SOUTH 23:59
PROVIDERS: ADMIT Internal Medicine; ATTEND Internal Medicine
PROC: XW033E5 Introduction of Remdesivir Anti-infective into Peripheral Vein, Percutaneous Approach, New Technology Group 5 (ICD-10-PCS; principal; 2020-07-20)
DX: U07.1 COVID-19 (principal); J96.01 Acute respiratory failure with hypoxia; G93.41 Metabolic encephalopathy; J12.89 Other viral pneumonia; N39.0 Urinary tract infection, site not specified; E46 Unspecified protein-calorie malnutrition; E87.0 Hyperosmolality and hypernatremia; E87.2 Acidosis; I13.0 Hypertensive heart and chronic kidney disease with heart failure and stage 1 through stage 4 chronic kidney disease, or unspecified chronic kidney disease; J44.0 Chronic obstructive pulmonary disease with (acute) lower respiratory infection; N17.9 Acute kidney failure, unspecified; G25.9 Extrapyramidal and movement disorder, unspecified; E11.22 Type 2 diabetes mellitus with diabetic chronic kidney disease; E66.9 Obesity, unspecified; E78.00 Pure hypercholesterolemia, unspecified; E78.5 Hyperlipidemia, unspecified; E86.0 Dehydration; F03.90 Unspecified dementia, unspecified severity, without behavioral disturbance, psychotic disturbance, mood disturbance, and anxiety; F12.90 Cannabis use, unspecified, uncomplicated; F17.200 Nicotine dependence, unspecified, uncomplicated; F20.9 Schizophrenia, unspecified; F31.9 Bipolar disorder, unspecified; G40.909 Epilepsy, unspecified, not intractable, without status epilepticus; G47.00 Insomnia, unspecified; G89.29 Other chronic pain; I50.9 Heart failure, unspecified; Z66 Do not resuscitate; I95.9 Hypotension, unspecified; K59.00 Constipation, unspecified; L30.9 Dermatitis, unspecified; N18.9 Chronic kidney disease, unspecified; Z51.5 Encounter for palliative care; Z68.31 Body mass index [BMI] 31.0-31.9, adult; Z79.4 Long term (current) use of insulin; Z79.82 Long term (current) use of aspirin; Z79.899 Other long term (current) drug therapy; Z82.49 Family history of ischemic heart disease and other diseases of the circulatory system; Z86.711 Personal history of pulmonary embolism; F10.20 Alcohol dependence, uncomplicated; M19.90 Unspecified osteoarthritis, unspecified site
CPT/HCPCS: 36415; 70450; 71045; 80048; 80053; 80069; 80307; 81001; 82550; 82962; 83605; 83735; 83880; 84300; 84484; 84550; 85007; 85025; 87040; 87077; 87086; 87186; 87804; 93005; 96360; 96361; J0456; J0696; J1630; J1644; J1815; J1953; J2060; J2270; J2920; J3490; J7030; J7050; J7060; U0003; 99285-25; G0378